=== PATIENT | male | born 1940 | race Caucasian/White ===

== ENCOUNTER → 2019-12-31 12:54 | Outpatient (BNVA) | payer MEDICARE, SELFPAY | PROVIDERS: PCP Nurse Practitioner Family; Referring Provider Nurse Practitioner Family; Visit Provider Internal Medicine Gastroenterology | DX: K21.9 Gastro-esophageal reflux disease without esophagitis (principal); K22.2 Esophageal obstruction; E11.9 Type 2 diabetes mellitus without complications; Z79.899 Other long term (current) drug therapy | CPT/HCPCS: 99212 ==

== ENCOUNTER 2020-01-09 09:40 | Outpatient (REF) | payer MEDICARE, SELFPAY ==
--- NOTE | 2020-01-09 09:49 | EMG_ITS ---
HISTORY OF PRESENT ILLNESS: This is a 79-year-old man with history of having fallen off a ladder 3 times recently with some hearing problems, who also developed shingles in the right upper extremity, in the arm and forearm about 2 months ago and since then has had severe burning, constant pain and electrical sensations in the right upper extremity, particularly the 2nd and 3rd fingers. It makes it hard for him to sleep at night and he is reaching the limits of his tolerance. He is on no medication for it. PHYSICAL EXAMINATION: On examination, he is alert and oriented with normal intellectual functions. His cranial nerves II through XII are normal. Muscle tone and strength are normal in all 4 extremities. He has well-healed alvarenga of his zoster eruption. IMPRESSION: Postherpetic neuralgia. Nerve conduction EMG study: Slow distal latencies and absent sensory potentials consistent with neuropathy in the right upper extremity. Normal EMG of the right C5-T1 innervated muscles. His symptoms are most consistent with postherpetic neuralgia than neuropathy. Clinical correlation is suggested. MD SHERLYN Rodriguez/ERMA / [id number]
== END 2020-01-09 09:41 | disposition home or self-care (01) ==
LOC: HO.NEURO 09:40
PROVIDERS: PCP Nurse Practitioner Family; Visit Provider Hospitalist
DX: M79.641 Pain in right hand (principal); B02.29 Other postherpetic nervous system involvement
CPT/HCPCS: 95860; 95886; 95910

== ENCOUNTER 2020-01-29 10:05 | Day surgery (SDC) | payer MEDICARE, SELFPAY ==
[2020-01-24 09:56] VITALS: BMI 27.4
--- NOTE | 2020-01-28 09:16 | HO.ANESPROP2 ---
Documented by User: Ely Agarwal 01/28/20 09:25 HPI - Anesthesia Eval Consult details Narrative: 79yo M for Upper Endoscopy with Balloon Dilitation Last EGD with dilation 11/16/18 with MAC [facility] Past Medical History Medical History (Updated 01/28/20 @ 09:24 by Ely Agarwal) Attention deficit disorder (ADD) Depression Diabetes Esophageal ring, acquired GERD (gastroesophageal reflux disease) History of fall from ladder Hx of bronchitis Intrinsic sphincter deficiency (ISD) Kidney disease Post herpetic neuralgia Family History Family History Father No problems noted. Mother Hx of colon cancer, stage I Brother Hx of colon cancer, stage III Surgical History Surgical History (Updated 12/31/19 @ 18:57 by Loren Rocha MD) History of back surgery History of colonoscopy History of hernia surgery History of radical prostatectomy Hx of endoscopy Social History Social History (Updated 01/24/20 @ 09:55 by Radha Bennett) Alcohol intake: never Smoking Status: Never smoker Use of substances other than those prescribed or required for medical reasons: No Advance Directives: No Advance Directives Information Provided: No Advance Directives on File: No Meds Allergies Allergy/AdvReac Type Severity Reaction Status Date / Time adhesive tape Allergy Intermediate BLISTERS Verified 01/24/20 09:37 Home Medications Medication Instructions Recorded Confirmed Type albuterol sulfate 90 mcg/actuation 2 puff INHALATION Q6H PRN 11/17/19 01/24/20 History aerosol inhaler betamethasone dipropionate 0.05 % 1 applic TOPICAL DAILY PRN 11/17/19 12/21/19 History topical cream blood sugar diagnostic #10 ea 11/17/19 12/21/19 History blood-glucose meter #1 ea 11/17/19 12/21/19 History lancets 28 gauge #100 ea 11/17/19 12/21/19 History pantoprazole 40 mg tablet,delayed 40 mg PO BID tab 11/17/19 01/24/20 History release simvastatin 40 mg tablet 40 mg PO BEDTIME 12/10/19 01/24/20 History aspirin 81 mg tablet,delayed 81 mg PO DAILY 01/02/20 01/24/20 History release cinnamon bark 500 mg capsule 1,000 mg PO DAILY 01/02/20 01/24/20 History cyanocobalamin (vitamin B-12) 1,000 mcg PO DAILY 01/02/20 01/24/20 History 1,000 mcg tablet ginkgo biloba 120 mg tablet 120 mg PO BID 01/02/20 01/24/20 History vitamins A,C,U-tubs-ehswmq 14,320 1 cap PO BID 01/02/20 01/24/20 History unit-226 mg-200 unit capsule Exam Exam Date and Time: January 28, 2020 0916 Height,Weight and Vital Signs: Height 5 ft 6 in Weight 77.111 kg Assessment and Plan Assessment Anesthesia Assessment: Chart Reviewed Documented by User: Florinda Mejias 01/29/20 10:38 [facility] Past Medical History Medical History (Updated 01/28/20 @ 09:24 by Ely Agarwal) Attention deficit disorder (ADD) Depression Diabetes Esophageal ring, acquired GERD (gastroesophageal reflux disease) History of fall from ladder Hx of bronchitis Intrinsic sphincter deficiency (ISD) Kidney disease Post herpetic neuralgia Family History Family History Father No problems noted. Mother Hx of colon cancer, stage I Brother Hx of colon cancer, stage III Surgical History Surgical History (Updated 12/31/19 @ 18:57 by Loren Rocha MD) History of back surgery History of colonoscopy History of hernia surgery History of radical prostatectomy Hx of endoscopy Social History Social History (Updated 01/24/20 @ 09:55 by Radha Bennett) Alcohol intake: never Smoking Status: Never smoker Use of substances other than those prescribed or required for medical reasons: No Advance Directives: No Advance Directives Information Provided: No Advance Directives on File: No Meds Allergies Allergy/AdvReac Type Severity Reaction Status Date / Time adhesive tape Allergy Intermediate BLISTERS Verified 01/24/20 09:37 Home Medications Medication Instructions Recorded Confirmed Type albuterol sulfate 90 mcg/actuation 2 puff INHALATION Q6H PRN 11/17/19 01/24/20 History aerosol inhaler betamethasone dipropionate 0.05 % 1 applic TOPICAL DAILY PRN 11/17/19 12/21/19 History topical cream blood sugar diagnostic #10 ea 11/17/19 12/21/19 History blood-glucose meter #1 ea 11/17/19 12/21/19 History lancets 28 gauge #100 ea 11/17/19 12/21/19 History pantoprazole 40 mg tablet,delayed 40 mg PO BID tab 11/17/19 01/24/20 History release simvastatin 40 mg tablet 40 mg PO BEDTIME 12/10/19 01/24/20 History aspirin 81 mg tablet,delayed 81 mg PO DAILY 01/02/20 01/24/20 History release cinnamon bark 500 mg capsule 1,000 mg PO DAILY 01/02/20 01/24/20 History cyanocobalamin (vitamin B-12) 1,000 mcg PO DAILY 01/02/20 01/24/20 History 1,000 mcg tablet ginkgo biloba 120 mg tablet 120 mg PO BID 01/02/20 01/24/20 History vitamins A,C,Q-ljlm-ggwmfv 14,320 1 cap PO BID 01/02/20 01/24/20 History unit-226 mg-200 unit capsule Exam Airway Mallampati Class: II TM Dist: >3cm Neck ROM: Full Denture: Upper Heart: RRR Lungs: CTA BL Assessment and Plan Assessment Anesthesia Assessment: Anesthesia Plan Discussed and Chart Reviewed Final Anesthetic Review NPO: Yes (Sip water with meds) ASA Class: III Final Preanesthetic Review: No Changes in Pt Med Stat and Consent Obtained/Reviewed Patient Risk: Intermediate Procedure Risk: Intermediate Anesthetic Plan Anesthetic Plan: MAC: Disposition: Standard PACU
--- NOTE | 2020-01-29 10:43 | MHC.SHP ---
Pre-Procedural Eval Section A The patient is an INPATIENT: No Changes since office visit: No Cold of Flu in the past 2 weeks, No New Medical Problems and No Changes in Medication The History & Physical has been completed within 30 days and I have reviewed it.: Yes Section B Chief Complaint: esophageal obstruction Allergies: Allergies Allergy/AdvReac Type Severity Reaction Status Date / Time adhesive tape Allergy Intermediate BLISTERS Verified 01/24/20 09:37 Plan Diagnosis/Plan: Unchanged Patient has been examined and remains a candidate for the planned procedure--yes
[2020-01-29 10:51] VITALS: BP 149/79; PULSE 78; RESP 18; TEMP 36.6; O2SAT 97; BMI 27.4
[2020-01-29 11:05] LABS: Glucose, Whole Blood 219 mg/dL (60-115)
[2020-01-29 11:28] VITALS: BP 119/65; PULSE 77; RESP 14; TEMP 36.3; O2SAT 96
--- NOTE | 2020-01-29 11:35 | PM.OP ---
Brief Operative Note Date of Service: 01/29/20 Pre-op diagnosis: Dysphagia, hx of esophageal rings, diarrhea Post-op diagnosis: other (Esophageal rings, Hiatal hernia, gastrtitis) Procedure: EGD with bx, dilation CRE-19mm Implants: none Surgeon: Loren Rocha MD Anesthesia: MAC (Dicampli) Estimated blood loss (mL): 10 Pathology: other (Duodenal, gastric) Condition: stable Disposition: PACU
[2020-01-29 11:43] VITALS: BP 120/73; PULSE 69; RESP 16; O2SAT 96
[2020-01-29 11:56] VITALS: BP 125/74; PULSE 70; RESP 13; TEMP 36.3; O2SAT 96
--- NOTE | 2020-01-29 16:04 | HO.POSTANES ---
Post Anesthesia Evaluation Post Anesthesia Evaluation Vital Signs: Vital Signs Temp Pulse Resp BP Pulse Ox 01/29/20 11:56 97.4 F 70 13 125/74 96 01/29/20 11:43 69 16 120/73 96 01/29/20 11:28 97.4 F 77 14 119/65 96 01/29/20 10:51 97.9 F 78 18 149/79 H 97 Anesthesia: Monitored Mental Status: Awake Pain Control: Satisfactory Nausea/Vomiting: None Hydration: Adequate Anesthesia-Related Issues: No Anes. Related Issues
--- NOTE | 2020-02-01 12:42 | OP_ITS ---
SURGEON: Loren Rocha MD PROCEDURE PERFORMED: EGD with dilation, CRE balloon 19 mm at 2 levels in the esophagus and the region of the restrictive rings. Biopsies, duodenal and gastric. ESTIMATED BLOOD LOSS: Less than 10 cc mL. COMPLICATIONS: No complications. ANESTHESIA: Monitored. ASSISTANTS: No assistant customer service manager. SPECIMENS: Specimens removed; duodenal biopsies, gastric biopsy. PREOPERATIVE DIAGNOSES: The patient is a very pleasant 79-year-old male, who has a known history of esophageal rings. He has intermittent problems with dysphagia. He feels his dysphagia has increased over the last few months. He presented for discussion on repeat dilation. He also had noted some increase in his heartburn symptoms. POSTOPERATIVE DIAGNOSES: Multiple esophageal rings with superficial scarring in areas, dilation done at 2 levels, hiatal hernia, hemorrhagic gastritis. STRAP MACHINE OPERATOR: Dr. Rocha. CONDITION: Postop, stable. FINDINGS: Video endoscope was introduced without difficulty. It was navigated into the esophagus as predicted. There were multiple esophageal rings present from the proximal esophagus to the region of the distal. There was no clear restrictive ring nor was there a restrictive Schatzki's ring. There was distal to the GE junction, a small hiatal hernia. On entering the stomach, there were areas of patchy hemorrhagic gastritis, particularly in the body, erythema in the antrum. Duodenal bulb and duodenum showed the villi to be slightly shortened. No ulcerations or erosions were appreciated. PLAN AND CURRENT RECOMMENDATIONS: Medication therapy will continue as is for current time. He will be scheduled for a followup Televisit if he has not already had one scheduled. GRAFT OR IMPLANTS: No grafts or implants. Loren Rocha MD MEN/MODL / [id number] JOSE LUIS
== END 2020-01-29 12:51 | disposition home or self-care (01) ==
PROVIDERS: PCP Nurse Practitioner Family; Visit Provider Internal Medicine Gastroenterology
PROC: (CPT 43249; principal; 2020-01-29 11:20)
DX: K22.2 Esophageal obstruction (principal); K29.71 Gastritis, unspecified, with bleeding; K44.9 Diaphragmatic hernia without obstruction or gangrene; E11.9 Type 2 diabetes mellitus without complications; Z79.4 Long term (current) use of insulin
CPT/HCPCS: 43249; 43239; 82947; 88305; 88342; C1726

== ENCOUNTER → 2020-02-11 12:57 | Outpatient (BNVA) | payer MEDICARE, SELFPAY | PROVIDERS: PCP Nurse Practitioner Family; Visit Provider Nurse Practitioner Family | DX: M54.81 Occipital neuralgia (principal); B02.29 Other postherpetic nervous system involvement | CPT/HCPCS: 99202 ==

== ENCOUNTER 2020-03-11 08:43 | Outpatient (REF) | payer MEDICARE, SELFPAY ==
--- NOTE | 2020-03-11 09:02 | MR_ITS ---
EXAMINATION: MR CERVICAL SPINE WITHOUT CONTRAST CLINICAL INFORMATION: Occipital neuralgia. Right hand numbness. COMPARISON: MRI dated 09/09/2016. TECHNIQUE: MRI of the cervical spine was obtained using routine sequences without contrast. FINDINGS: VERTEBRAL BODIES AND PARASPINAL SOFT TISSUES: There is significant multilevel disc space narrowing with endplate spurring and degenerative disc bulges throughout the cervical spine. Mild posterior subluxations again evident at the C3-C4 and C4-C5 levels with a stable mild anterolisthesis at the C7-T1 level. Mixed chronic and mild edematous endplate changes visible from the C3 through the C7 levels. The paraspinal soft tissues are unremarkable. The imaged lung apices are grossly clear. CERVICOMEDULLARY JUNCTION AND VISUALIZED POSTERIOR FOSSA: The craniovertebral junction and imaged portions of the brain parenchyma appear normal. No cord signal abnormality or syrinx is seen. SPINAL LEVELS: C2-C3: Very mild posterior annular bulge. No central canal stenosis. Mild right-sided foraminal narrowing, similar to prior imaging. C3-C4: Severe loss of disc height with a broad-based disc-osteophyte complex and hypertrophic facet arthropathy resulting in moderate central canal stenosis and mild ventral cord deformity. Significant bilateral foraminal encroachment. Findings have worsened since the prior study. C4-C5: Retrosubluxation and disc-osteophyte complex with severe central canal stenosis in part related to thickening of the ligamentum flavum and facet arthropathy. Significant bilateral foraminal narrowing as well. Degree of central canal stenosis is slightly worsened compared to the previous study. C5-C6: Broad-based disc osteophyte complex with posterior ligamentous thickening and facet arthropathy resulting in moderate central canal stenosis, similar to prior imaging. Severe bilateral foraminal encroachment. C6-C7: Posterior disc bulge and endplate spurring with thickening of ligamentum flavum and facet arthropathy resulting in worsened mild cord deformity and moderate central canal stenosis. Severe bilateral foraminal narrowing, worse on the left side. C7-T1: Mild anterolisthesis and unroofing of disc with severe facet degeneration. Significant foraminal encroachment is similar to prior imaging. Mild central canal stenosis. MR/MR cervical spine wo con IMPRESSION: Significant multilevel cervical spondylosis with worsened degenerative changes at various levels. Worsened moderate central canal stenosis with mild ventral cord deformity at the C3-C4 level. Severe foraminal narrowing. Severe central canal stenosis and spondylitic changes with significant foraminal encroachment at C4-C5, worsened since the previous exam. Stable moderate central canal stenosis and severe foraminal encroachment at the C5-C6 level. Worsened mild cord deformity and moderate central canal stenosis due to spondylosis at the C6-C7 level. Significant foraminal encroachment.
== END 2020-03-11 08:44 | disposition home or self-care (01) ==
LOC: HO.MRI 08:43
PROVIDERS: Visit Provider Anesthesiology
DX: M54.81 Occipital neuralgia (principal)
CPT/HCPCS: 72141

== ENCOUNTER → 2020-03-25 13:32 | Outpatient (BNVA) | payer MEDICARE, SELFPAY | PROVIDERS: PCP Nurse Practitioner Family; Visit Provider Nurse Practitioner Family | DX: M50.30 Other cervical disc degeneration, unspecified cervical region (principal); M54.12 Radiculopathy, cervical region | CPT/HCPCS: 99212 ==

== ENCOUNTER → 2020-06-18 09:53 | Outpatient (BNVA) | payer MEDICARE, SELFPAY | PROVIDERS: PCP Nurse Practitioner Family; Visit Provider Dietitian, Registered | DX: E11.9 Type 2 diabetes mellitus without complications (principal) | CPT/HCPCS: 97802 ==

== ENCOUNTER 2020-08-20 14:43 | Outpatient (REF) | payer MEDICARE, SELFPAY ==
--- NOTE | ~2020-08-20 | XR_ITS ---
EXAMINATION: CHEST AND RIGHT RIB X-RAYS AND RIGHT HIP X-RAY CLINICAL INFORMATION: Pain COMPARISON: Previous right hip x-ray November 2017 previous chest x-ray April 2017 TECHNIQUE: One view of the chest and 3 views of the right ribs 2 views of the right hip FINDINGS: Chest and right RIBS: The cardiac and mediastinal contours are normal. The lungs are clear. There is no pleural effusion or pneumothorax. There are degenerative changes of the spine. There are fractures of the 10th and 11th ribs. Right hip: Bone alignment is normal. No fracture or dislocation is seen. The hip joint is normal. There is soft tissue arterial calcification. XR/XR ribs RT min 3V w CXR1V IMPRESSION: Chest and right RIBS: Right 10th and 11th rib fractures. Right hip: Unremarkable exam.
--- NOTE | ~2020-08-20 | XR_ITS ---
EXAMINATION: CHEST AND RIGHT RIB X-RAYS AND RIGHT HIP X-RAY CLINICAL INFORMATION: Pain COMPARISON: Previous right hip x-ray November 2017 previous chest x-ray April 2017 TECHNIQUE: One view of the chest and 3 views of the right ribs 2 views of the right hip FINDINGS: Chest and right RIBS: The cardiac and mediastinal contours are normal. The lungs are clear. There is no pleural effusion or pneumothorax. There are degenerative changes of the spine. There are fractures of the 10th and 11th ribs. Right hip: Bone alignment is normal. No fracture or dislocation is seen. The hip joint is normal. There is soft tissue arterial calcification. XR/XR hip RT min 2V IMPRESSION: Chest and right RIBS: Right 10th and 11th rib fractures. Right hip: Unremarkable exam.
== END 2020-08-20 14:44 | disposition home or self-care (01) ==
LOC: HO.HMGCX 14:43
PROVIDERS: PCP Nurse Practitioner Family; Visit Provider Nurse Practitioner Family
DX: R07.81 Pleurodynia (principal); M25.551 Pain in right hip; R10.9 Unspecified abdominal pain; Z91.81 History of falling
CPT/HCPCS: 71101; 73502

== ENCOUNTER 2020-09-10 11:39 | Outpatient (REF) | payer MEDICARE, SELFPAY ==
--- NOTE | ~2020-09-10 | US_ITS ---
EXAMINATION: ULTRASOUND EXTREMITY NONVASCULAR. CLINICAL INFORMATION: Right upper extremity bulging and attenuation. COMPARISON: None TECHNIQUE: Limited imaging ultrasound. Biceps area. On that medication. FINDINGS: On limited ultrasound imaging of the right upper arm reveals no visible mass, fluid collection or mass effect. The soft tissues are unremarkable. US/US extremity nonvascular IMPRESSION: Unremarkable targeted right upper extremity ultrasound.
--- NOTE | ~2020-09-10 | XR_ITS ---
EXAMINATION: XR CHEST CLINICAL INFORMATION: R06.2 - Wheezing COMPARISON: Chest radiographs 08/20/2020, 04/15/2017 TECHNIQUE: 2 views of the chest were obtained. FINDINGS: The lungs are clear. There is no hyperinflation, airspace consolidation, groundglass opacity, or effusion. The heart is normal in size. The costophrenic sulci are well-defined. The hilar and mediastinal contours are normal. No acute bony abnormality. There are degenerative changes again seen thoracic spine. XR/XR chest 2V IMPRESSION: Unremarkable examination.
== END 2020-09-10 11:40 | disposition home or self-care (01) ==
LOC: HO.US 11:39
PROVIDERS: PCP Nurse Practitioner Family; Visit Provider Nurse Practitioner Family
DX: R06.2 Wheezing (principal); R22.31 Localized swelling, mass and lump, right upper limb
CPT/HCPCS: 71046; 76882

== ENCOUNTER 2020-10-30 12:55 | Day surgery (SDC) | payer MEDICARE, SELFPAY ==
[2020-10-27 16:25] VITALS: BMI 29.0
--- NOTE | 2020-10-29 14:08 | HO.ANESPROP2 ---
Documented by User: Ely Agarwal NP 10/29/20 14:09 HPI - Anesthesia Eval Consult details Narrative: 80yo M for Upper Endoscopy with Balloon Dilitation s/p same 01/2020 with MAC [facility] Active Problems Active Problems: All Active Problems (Updated 10/28/20 @ 10:44 by Sergei Burt [facility]) HTN (hypertension) (Acute) Depression, major, recurrent (Acute) Left arm numbness (Acute) Right arm numbness (Acute) Wheezing (Acute) Localized swelling of right upper extremity (Acute) History of cervical spinal surgery (Acute) Rib fractures (Acute) Rib pain on right side (Acute) Hip pain (Acute) Flank pain (Acute) Fall (Acute) Degenerative disc disease, cervical (Acute) Cervical radiculopathy (Acute) Occipital neuralgia (Acute) Right hand pain (Acute) Esophageal ring, acquired (Acute) GERD (gastroesophageal reflux disease) (Acute) Depression (Acute) Kidney disease (Acute) Post herpetic neuralgia (Acute) Diabetes (Acute) Past Medical History Medical History (Updated 10/28/20 @ 10:44 by Sergei Burt [facility]) Attention deficit disorder (ADD) Depression Diabetes Esophageal ring, acquired GERD (gastroesophageal reflux disease) History of fall from ladder Hx of bronchitis Intrinsic sphincter deficiency (ISD) Kidney disease Post herpetic neuralgia Family History Family History Father No problems noted. Mother Hx of colon cancer, stage I Substance use disorder Brother Hx of colon cancer, stage III Family/Other Substance use disorder Surgical History Surgical History History of back surgery History of cervical spinal surgery History of colonoscopy History of hernia surgery History of radical prostatectomy Hx of endoscopy Social History Social History Housing: House Alcohol intake: never Patient Tobacco Use Status: Never used Tobacco Second Hand Smoke Exposure: No Are you DNR?: No Advance Directives: No Advance Directives Information Provided: No Current occupational status: retired Meds Allergies Allergy/AdvReac Type Severity Reaction Status Date / Time adhesive tape Allergy Intermediate BLISTERS Verified 10/28/20 09:25 Home Medications Medication Instructions Recorded Confirmed Last Taken Type albuterol sulfate 90 mcg/actuation 2 puff INHALATION Q6H PRN 11/17/19 10/27/20 Unknown History aerosol inhaler (ProAir HFA) blood-glucose meter (FreeStyle #1 ea 11/17/19 10/27/20 Unknown History Lite Meter) aspirin 81 mg tablet,delayed 81 mg PO DAILY 01/02/20 10/27/20 Unknown History release cinnamon bark 500 mg capsule 1,000 mg PO DAILY 01/02/20 10/27/20 Unknown History (Cinnamon) cyanocobalamin (vitamin B-12) 1,000 mcg PO DAILY 01/02/20 10/27/20 Unknown History 1,000 mcg tablet ginkgo biloba 120 mg tablet 120 mg PO BID 01/02/20 10/27/20 Unknown History Exam Exam Date and Time: October 29, 2020 1408 Height,Weight and Vital Signs: Height 5 ft 6 in Weight 81.647 kg Assessment and Plan Assessment Anesthesia Assessment: Chart Reviewed Documented by User: Heather Reynolds MD 10/30/20 13:41 [facility] Past Medical History Medical History (Updated 10/28/20 @ 10:44 by CRISTINA Strong) Attention deficit disorder (ADD) Depression Diabetes Esophageal ring, acquired GERD (gastroesophageal reflux disease) History of fall from ladder Hx of bronchitis Intrinsic sphincter deficiency (ISD) Kidney disease Post herpetic neuralgia Functional capacity: independent ambulation Family History Family History Father No problems noted. Mother Hx of colon cancer, stage I Substance use disorder Brother Hx of colon cancer, stage III Family/Other Substance use disorder Family history of problems with anesthesia: No Surgical History Surgical History History of back surgery History of cervical spinal surgery History of colonoscopy History of hernia surgery History of radical prostatectomy Hx of endoscopy Social History Social History Housing: House Alcohol intake: never Patient Tobacco Use Status: Never used Tobacco Second Hand Smoke Exposure: No Are you DNR?: No Advance Directives: No Advance Directives Information Provided: No Current occupational status: retired Meds Allergies Allergy/AdvReac Type Severity Reaction Status Date / Time adhesive tape Allergy Intermediate BLISTERS Verified 10/28/20 09:25 Home Medications Medication Instructions Recorded Confirmed Last Taken Type albuterol sulfate 90 mcg/actuation 2 puff INHALATION Q6H PRN 11/17/19 10/27/20 Unknown History aerosol inhaler (ProAir HFA) blood-glucose meter (FreeStyle #1 ea 11/17/19 10/27/20 Unknown History Lite Meter) aspirin 81 mg tablet,delayed 81 mg PO DAILY 01/02/20 10/27/20 Unknown History release cinnamon bark 500 mg capsule 1,000 mg PO DAILY 01/02/20 10/27/20 Unknown History (Cinnamon) cyanocobalamin (vitamin B-12) 1,000 mcg PO DAILY 01/02/20 10/27/20 Unknown History 1,000 mcg tablet ginkgo biloba 120 mg tablet 120 mg PO BID 01/02/20 10/27/20 Unknown History Exam Airway Mallampati Class: II TM Dist: >3cm Neck ROM: Full Denture: Upper and Lower Heart: RRR Lungs: CTA Assessment and Plan Final Anesthetic Review Family History of Problems with Anesthesia: No
[2020-10-30] VITALS (7 sets, daily range): BP systolic 137–167; BP diastolic 61–96; PULSE 58–80; RESP 17–28; TEMP 36.2–36.4; O2SAT 95–99
[2020-10-30 13:28] LABS: Glucose, Whole Blood 142 mg/dL (60-115)
--- NOTE | 2020-10-30 13:36 | MHC.SHP ---
Pre-Procedural Eval Section A Date of Service: 10/30/20 Section B Chief Complaint: Dysphagia Relevant Family History (Specify if Yes): No Relevant Social History: None Present Medications: see Short Stay Collaborative assessment Medical History: Significant History (Attention deficit disorder (ADD) Depression Diabetes Esophageal ring, acquired GERD (gastroesophageal reflux disease) History of fall from ladder Hx of bronchitis Intrinsic sphincter deficiency (ISD) Kidney disease Post herpetic neuralgia) History of Previous Operations: Relevant previous surgery/procedure and date(s) (History of back surgery History of cervical spinal surgery History of colonoscopy History of hernia surgery History of radical prostatectomy Hx of endoscopy) Allergies: Allergies Allergy/AdvReac Type Severity Reaction Status Date / Time adhesive tape Allergy Intermediate BLISTERS Verified 10/28/20 09:25 Review of Systems Sugical H&P ROS: Negative: Constitution, Cardiovascular, Respiratory, Neurological, Psychiatric, Hem-Onc, Allergic/Immunologic, Gastrointestinal, Genitourinary, Musculoskeletal, Integumentary, Endocrine and Eyes/Ears/Nose/Throat Exam Surgical H&P Exam: Normal: HEENT, Normal: Heart, Normal: Lungs, Normal: Extremities, Normal: Abdomen, Normal: Skin and Normal: Neurological Plan Diagnosis/Plan: Unchanged I have reviewed the history and physical and performed a pertinent physical examination on my patient. No changes have occurred unless specified.
[2020-10-30] MEDS: Lactated Ringers 1,000 ML 100 ML IVCONT (13:39)
--- NOTE | 2020-10-30 15:00 | PM.OP ---
Brief Operative Note Date of Service: 10/30/20 Pre-op diagnosis: esophageal stricture Post-op diagnosis: same Procedure: see op note Surgeon: Manjula Eduardo MD Anesthesia: MAC Was an Radioactive Waste Disposal Dispatcher used for this Procedure?: No Estimated blood loss (mL): 0 Condition: stable Disposition: PACU
--- NOTE | 2020-10-30 15:01 | W.PM.OPN ---
Operative Note Operative Note Date of Service: 10/30/20 Narrative: Procedure Description: EGD FLEXIBLE TRANSORAL UPPER GASTROINTESTINAL ENDOSCOPY UPPER ENDOSCOPY Consent: Indications for the procedure and potential complications of bleeding, perforation, reaction to medications and missed diagnosis were discussed with the patient and informed consent was obtained. Instrument: Olympus GIF H 190 J mid size upper endoscope Monitoring: Vital signs and clinical assessment, continuous EKG monitoring, Pulse oximetry, Carbon Dioxide monitoring and blood pressure monitoring were done throughout the procedure. Procedure: The patient was placed in the left lateral decubitis position and pre-procedure medications were administered and a bite block was placed. The endoscope was inserted into the mouth and advanced under direct vision to the third part of duodenum. A careful inspection was made as the upper endoscope was withdrawn including a retroflexed examination of the proximal stomach; Findings and interventions are described below. Findings: Larynx:normal Esophagus: GE junction at 35 cm, diaphragm hiatus at 39 cm, 4 cm sliding hiatal hernia noted, jack erosion noted in the sac. There was a schatzki ring noted at the GEJ and this was dilated using a balloon from 18 mm to 19 and then 20 mm in sequential fashion. No resistance felt but a tear was noted at the GEJ, slightyl deeper than expected at the edges and x 2 clips applied. Stomach: Patchy gastric erythema. Grade 2 flap valve on retroflexed examination of the cardia. hiatal hernia noted. Duodenum: Normal bulb and descending duodenum, bx taken Intervention: Ballon dilation, x 2 clips applied to partially close defect Impression/Findings: hiatal hernia schatzki ring and stricture jack erosion PLAN: clears today and advance diet tomorrow magic mouthwash for 5 days, can use tylenol for pain as needed cont with PPI, might increase dose if any chest pain, fever etc come to ED [facility] but I didn;t see any perforation today
[2020-10-30] MEDS: Acetaminophen 325 MG TABLET 975 MG PO (15:50)
[2020-10-30] MEDS: Mag&Al/Sim/Diphenhyd/Lidocaine 10 ML ORAL.SUSP PO (15:51)
--- NOTE | 2020-10-30 17:22 | HO.POSTANES ---
Post Anesthesia Evaluation Post Anesthesia Evaluation Vital Signs: Vital Signs Temp Pulse Resp BP Pulse Ox 10/30/20 16:10 62 20 144/62 H 95 10/30/20 15:53 97.5 F 58 20 147/79 H 95 10/30/20 15:38 68 20 141/77 H 95 10/30/20 15:23 71 20 137/74 95 10/30/20 15:08 97.2 F 71 28 H 144/61 H 99 10/30/20 13:25 97.1 F 67 20 148/69 H 95 10/30/20 13:19 97.6 F 80 17 167/96 H 97 Anesthesia: Monitored Mental Status: Awake Pain Control: Satisfactory Nausea/Vomiting: None Hydration: Adequate Anesthesia-Related Issues: No Anes. Related Issues
== END 2020-10-30 16:45 | disposition home or self-care (01) ==
PROVIDERS: PCP Nurse Practitioner Family; Visit Provider Internal Medicine Gastroenterology
PROC: (CPT 43249; principal; 2020-10-30 14:40)
DX: K22.2 Esophageal obstruction (principal); K44.9 Diaphragmatic hernia without obstruction or gangrene; K25.9 Gastric ulcer, unspecified as acute or chronic, without hemorrhage or perforation; K21.9 Gastro-esophageal reflux disease without esophagitis; N28.9 Disorder of kidney and ureter, unspecified; B02.29 Other postherpetic nervous system involvement; E11.9 Type 2 diabetes mellitus without complications; Z79.4 Long term (current) use of insulin; Z79.899 Other long term (current) drug therapy
CPT/HCPCS: 43249; 43239; 82947; C1726

== ENCOUNTER → 2020-12-02 08:52 | Outpatient (BNVA) | payer MEDICARE, SELFPAY | PROVIDERS: PCP Nurse Practitioner Family; Referring Provider Nurse Practitioner Family; Visit Provider Internal Medicine Gastroenterology | DX: K20.90 Esophagitis, unspecified without bleeding (principal); K44.0 Diaphragmatic hernia with obstruction, without gangrene | CPT/HCPCS: 99212 ==

== ENCOUNTER 2020-12-23 08:20 | Outpatient (REF) | payer MEDICARE, SELFPAY ==
--- NOTE | ~2020-12-23 | FL_ITS ---
EXAMINATION: FL BARIUM SWALLOW CLINICAL INFORMATION: Dysphagia. COMPARISON: Previous barium swallow October 2018 TECHNIQUE: Barium swallow examination is performed using fluoroscopic evaluation in addition to multiple fluoroscopic spot views. The patient is imaged both upright and prone and using both thick and thin sulfate along with effervescent granules. Barium tablet was also administered. Follow-up PA chest x-ray was performed. Fluoroscopy time: 2.1 minutes DAP: 6.5 Gycm2 Images: 60 FINDINGS: On initial AP and lateral wall of images, no aspiration or penetration was seen. Toward the end of the exam, there is evidence of aspiration with small amount of contrast anterior wall of the trachea for example image 8,9 and 10 series 3. There is a mild stricture of the distal thoracic esophagus. There is a small fixed hiatal hernia. Esophageal motility appeared normal with the patient upright. There is abnormal esophageal motility with the patient in the HERBERT position. The barium tablet got stuck in the distal thoracic esophagus. There is mucosal irregularity of the distal thoracic esophagus in the area of stricture questionable for esophagitis. There is gastroesophageal reflux. Follow-up PA chest x-ray does not demonstrate evidence of aspiration in the lung. There is no retained oral contrast in the esophagus. The barium tablet is no longer seen in the distal esophagus. FL/FL barium swallow IMPRESSION: Minimal silent aspiration toward the end of the exam. Mild stricture of the distal thoracic esophagus similar to October 2018 exam. Small fixed hiatal hernia. Barium tablet got stuck in the distal thoracic esophagus at the stricture. Abnormal esophageal motility with the patient in the HERBERT/prone position. Gastroesophageal reflux.
== END 2020-12-23 08:21 | disposition home or self-care (01) ==
LOC: HO.XRAY 08:20
PROVIDERS: PCP Nurse Practitioner Family; Visit Provider Internal Medicine Gastroenterology
DX: R13.10 Dysphagia, unspecified (principal)
CPT/HCPCS: 74220

== ENCOUNTER 2020-12-31 08:38 | Outpatient (REF) | payer MEDICARE, SELFPAY ==
--- NOTE | 2020-12-31 08:41 | EMG_ITS ---
This is an 80-year-old man who has had lumbar disk surgery earlier in 2020 and on August 05, he had decompression of cervical neural foramina and some removal of the bone according to him and since then, he has had numbness in both hands, right more than left. He also has a 10+ year history of diabetes. PHYSICAL EXAMINATION: On examination, he is alert and oriented with normal intellectual functions. He has flattening of the thenar eminence bilaterally with some decreased sensation in both hands. IMPRESSION: Rule out cervical radiculopathy. Rule out carpal tunnel syndrome. 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 EMG of the right C5-T1 innervated muscle is consistent with mild chronic denervated changes in the intrinsic hand muscles. MD SHERLYN Rodriguez/ISACCL / [id number]
== END 2020-12-31 08:39 | disposition home or self-care (01) ==
LOC: HO.NEURO 08:38
PROVIDERS: Visit Provider Nurse Practitioner Family
DX: R20.0 Anesthesia of skin (principal)
CPT/HCPCS: 95885; 95913

== ENCOUNTER 2021-01-12 10:13 | Outpatient (REF) | payer MEDICARE, SELFPAY ==
[2021-01-12 12:04] LABS: Alanine Aminotransferase 16 U/L (0-40); Albumin Level 4.6 g/dL (3.5-5.0); Alkaline Phosphatase 55 U/L (39-117); Anion Gap 15 (12-20); Aspartate Amino Transferase 16 U/L (5-37); Bilirubin Total 0.9 mg/dL (0.0-1.0); Blood Urea Nitrogen 21 mg/dL (9-16); Calcium 9.5 mg/dL (8.4-10.2); Carbon Dioxide 24 mmol/L (22-29); Chloride 106 mmol/L (96-108); Cholesterol 159 mg/dL; Estimated Glomerular Filt Rate > 60; Glucose Fasting 104 mg/dL (60-99); HDL Cholesterol 49 mg/dL; LDL Cholesterol Calculated 80 mg/dl; Sodium 141 mmol/L (135-145); Total Protein 7.4 g/dL (6.5-8.0); Triglycerides 153 mg/dL
[2021-01-12 12:30] LABS: TSH reflex Free T4 2.18 uIU/mL (0.32-4.0)
[2021-01-12 12:36] LABS: Creatinine Urine 176.95 mg/dL; Microalbum/Creatinine Ratio Ur 183.1 ug/mg cr
[2021-01-12 12:55] LABS: Estimated Average Glucose 177 mg/dL; Hemoglobin A1c % 7.8 %
== END 2021-01-12 10:14 | disposition home or self-care (01) ==
LOC: HO.HMGCLDS 10:13
PROVIDERS: PCP Nurse Practitioner Family; Visit Provider Nurse Practitioner Family
DX: E11.9 Type 2 diabetes mellitus without complications (principal)
CPT/HCPCS: 36415; 80053; 80061; 82043; 83036; 84443

== ENCOUNTER 2021-02-04 09:50 | Day surgery (SDC) | payer MEDICARE, SELFPAY ==
[2021-01-28 11:01] VITALS: BMI 28.3
--- NOTE | 2021-02-02 14:06 | P.CONAN_ITS ---
Documented by User: Ely Agarwal NP 02/02/21 14:07 HPI - Anesthesia Eval Consult details Narrative: 80yo M for Colonoscopy and Upper Endoscopy with Balloon Dilitation s/p EGD with dilation 10/2020 with [facility] Active Problems Active Problems: All Active Problems (Updated 12/30/20 @ 10:03 by Sergei Burt, [facility]) Right hand pain (Acute) Occipital neuralgia (Acute) Cervical radiculopathy (Acute) Degenerative disc disease, cervical (Acute) Fall (Acute) Flank pain (Acute) Hip pain (Acute) Rib pain on right side (Acute) Rib fractures (Acute) Localized swelling of right upper extremity (Acute) Wheezing (Acute) Right arm numbness (Acute) Left arm numbness (Acute) Depression, major, recurrent (Acute) HTN (hypertension) (Acute) Diabetes mellitus with kidney complication (Acute) History of cervical spinal surgery (Acute) Esophageal ring, acquired (Acute) GERD (gastroesophageal reflux disease) (Acute) Depression (Acute) Kidney disease (Acute) Post herpetic neuralgia (Acute) Diabetes (Acute) Past Medical History Medical History Attention deficit disorder (ADD) Depression Diabetes Esophageal ring, acquired GERD (gastroesophageal reflux disease) History of fall from ladder Hx of bronchitis 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 Mother Hx of colon cancer, stage I Substance use disorder Brother Hx of colon cancer, stage III Family/Other Substance use disorder Family history of problems with anesthesia: No Surgical History Surgical History History of back surgery History of cervical spinal surgery History of colonoscopy History of hernia surgery History of radical prostatectomy Hx of endoscopy Social History Social History Housing: House Are you a primary medicare sales executive to a significant other at home: No Do you presently have visiting nurse or other home services: No Alcohol intake: never Patient Tobacco Use Status: Never used Tobacco Second Hand Smoke Exposure: No Use of substances other than those prescribed or required for medical reasons: No Have you been hit, kicked, punched, or otherwise hurt by someone within the past year? If so, by whom?: No Are you DNR?: No Advance Directives: No Advance Directives Information Provided: No Advance Directives on File: No Recently lost weight without trying: No Eating poorly because of decreased appetite: No Nutrition Risks: No Nutritional Risk Current occupational status: retired Meds Allergies Allergy/AdvReac Type Severity Reaction Status Date / Time adhesive tape Allergy Intermediate BLISTERS Verified 01/28/21 10:21 Home Medications Medication Instructions Recorded Confirmed Last Taken Type albuterol sulfate 90 mcg/actuation 2 puff INHALATION Q6H PRN 11/17/19 01/28/21 Unknown History aerosol inhaler (ProAir HFA) blood-glucose meter (FreeStyle #1 ea 11/17/19 12/30/20 Unknown History Lite Meter) aspirin 81 mg tablet,delayed 81 mg PO DAILY 01/02/20 01/28/21 Unknown History release cinnamon bark 500 mg capsule 1,000 mg PO DAILY 01/02/20 01/28/21 Unknown History (Cinnamon) cyanocobalamin (vitamin B-12) 1,000 mcg PO DAILY 01/02/20 01/28/21 Unknown History 1,000 mcg tablet ginkgo biloba 120 mg tablet 120 mg PO BID 01/02/20 01/28/21 Unknown History gabapentin 300 mg capsule 300 mg PO TID 12/02/20 01/28/21 Unknown History Exam Exam Date and Time: February 02, 2021 1406 Height,Weight and Vital Signs: Height 5 ft 7.5 in Weight 83.461 kg Assessment and Plan Assessment Anesthesia Assessment: Chart Reviewed Final Anesthetic Review Family History of Problems with Anesthesia: No Documented by User: Emili Jacobo MD 02/04/21 12:05 [facility] Past Medical History Medical History Attention deficit disorder (ADD) Depression Diabetes Esophageal ring, acquired GERD (gastroesophageal reflux disease) History of fall from ladder Hx of bronchitis 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 Mother Hx of colon cancer, stage I Substance use disorder Brother Hx of colon cancer, stage III Family/Other Substance use disorder Surgical History Surgical History History of back surgery History of cervical spinal surgery History of colonoscopy History of hernia surgery History of radical prostatectomy Hx of endoscopy History of Problems with Anesthesia: No Social History Social History Housing: House Are you a primary medicare sales executive to a significant other at home: No Do you presently have visiting nurse or other home services: No Alcohol intake: never Patient Tobacco Use Status: Never used Tobacco Second Hand Smoke Exposure: No Use of substances other than those prescribed or required for medical reasons: No Have you been hit, kicked, punched, or otherwise hurt by someone within the past year? If so, by whom?: No Are you DNR?: No Advance Directives: No Advance Directives Information Provided: No Advance Directives on File: No Recently lost weight without trying: No Eating poorly because of decreased appetite: No Nutrition Risks: No Nutritional Risk Current occupational status: retired [employer] Allergies Allergy/AdvReac Type Severity Reaction Status Date / Time adhesive tape Allergy Intermediate BLISTERS Verified 01/28/21 10:21 Home Medications Medication Instructions Recorded Confirmed Last Taken Type albuterol sulfate 90 mcg/actuation 2 puff INHALATION Q6H PRN 11/17/19 01/28/21 Unknown History aerosol inhaler (ProAir HFA) blood-glucose meter (FreeStyle #1 ea 11/17/19 12/30/20 Unknown History Lite Meter) aspirin 81 mg tablet,delayed 81 mg PO DAILY 01/02/20 01/28/21 Unknown History release cinnamon bark 500 mg capsule 1,000 mg PO DAILY 01/02/20 01/28/21 Unknown History (Cinnamon) cyanocobalamin (vitamin B-12) 1,000 mcg PO DAILY 01/02/20 01/28/21 Unknown History 1,000 mcg tablet ginkgo biloba 120 mg tablet 120 mg PO BID 01/02/20 01/28/21 Unknown History gabapentin 300 mg capsule 300 mg PO TID 12/02/20 01/28/21 Unknown History Exam Height,Weight and Vital Signs: m Height 5 ft 7.5 in Weight 83.461 kg Airway Mallampati Class: II TM Dist: >3cm Neck ROM: Full Denture: Upper Loose/Missing/Broken Teeth: Yes, Upper and Lower Lungs: RRR Other: CTA Assessment and Plan Assessment Anesthesia Assessment: Anesthesia Plan Discussed and Chart Reviewed Final Anesthetic Review History of Problems with Anesthesia: No NPO: Yes ASA Class: III Final Preanesthetic Review: Meds/Allgs Chart Reviewed, Consent Obtained/Reviewed and Anes Risks/Benef Reviewed Patient Risk: Intermediate Procedure Risk: Intermediate Anesthetic Plan Anesthetic Plan: MAC: Disposition: Standard PACU
--- NOTE | 2021-02-04 10:12 | MHC.SHP ---
Pre-Procedural Eval Section A Date of Service: 02/04/21 Section B Chief Complaint: Screening, Dysphagia Details of Present Illness: abn ba swallow with stricture at distal esophagus Relevant Family History (Specify if Yes): No Relevant Social History: None Present Medications: see Short Stay Collaborative assessment Medical History: Significant History (Attention deficit disorder (ADD) Depression Diabetes Esophageal ring, acquired GERD (gastroesophageal reflux disease) History of fall from ladder Hx of bronchitis Intrinsic sphincter deficiency (ISD) Kidney disease Post herpetic neuralgia) History of Previous Operations: Relevant previous surgery/procedure and date(s) (History of back surgery History of cervical spinal surgery History of colonoscopy History of hernia surgery History of radical prostatectomy Hx of endoscopy) Allergies: Allergies Allergy/AdvReac Type Severity Reaction Status Date / Time adhesive tape Allergy Intermediate BLISTERS Verified 01/28/21 10:21 Review of Systems Sugical H&P ROS: Negative: Constitution, Cardiovascular, Respiratory, Neurological, Psychiatric, Hem-Onc, Allergic/Immunologic, Gastrointestinal, Genitourinary, Musculoskeletal, Integumentary, Endocrine and Eyes/Ears/Nose/Throat Exam Surgical H&P Exam: Normal: HEENT, Normal: Heart, Normal: Lungs, Normal: Extremities, Normal: Abdomen, Normal: Skin and Normal: Neurological Plan Diagnosis/Plan: Unchanged I have reviewed the history and physical and performed a pertinent physical examination on my patient. No changes have occurred unless specified.
[2021-02-04] MEDS: Albuterol/Iprat 2.5/0.5MG 3 ML AMPUL.NEB INHALE (10:38)
[2021-02-04 10:39] VITALS: PULSE 90; RESP 20; O2SAT 97
[2021-02-04 10:43] LABS: Glucose, Whole Blood 105 mg/dL (60-115)
[2021-02-04 10:53] VITALS: BP 116/60; PULSE 90; RESP 18; O2SAT 98
--- NOTE | 2021-02-04 11:14 | P.OP_ITS ---
Operative Note Operative Note Date of Service: 02/04/21 Narrative: Operative Information Procedure Description: EGD, Colonoscopy FLEXIBLE TRANSORAL UPPER GASTROINTESTINAL ENDOSCOPY AND COLONOSCOPY PROCEDURE NOTE UPPER ENDOSCOPY Consent: Indications for the procedure and potential complications of bleeding, perforation, reaction to medications and missed diagnosis were discussed with the patient and informed consent was obtained. Instrument: Olympus GIF H 190 J mid size upper endoscope Monitoring: Vital signs and clinical assessment, continuous EKG monitoring, Pulse oximetry, Carbon Dioxide monitoring and blood pressure monitoring were done throughout the procedure. Procedure: The patient was placed in the left lateral decubitis position and pre-procedure medications were administered and a bite block was placed. The endoscope was inserted into the mouth and advanced under direct vision to the third part of duodenum. A careful inspection was made as the upper endoscope was withdrawn including a retroflexed examination of the proximal stomach; Findings and interventions are described below. Findings: Larynx:normal Esophagus: GE junction at 35? cm, diaphragm hiatus at 39 cm, 4 cm sliding hiatal hernia noted, linear erythema streaks noted in the sac. There was a schatzki ring noted at the GEJ and this was dilated using a balloon from 18 mm to 19 mm in sequential fashion with small tear noted. a clip from prior procedure was noted and removed, with cautery applied for hemostasis. The proximal esophagus was also stretched to 19 mm. Stomach: Patchy gastric erythema. Grade 2 flap valve on retroflexed examination of the cardia. hiatal hernia noted. Duodenum: prominent brunners glands with erythema, bx taken Intervention: Biopsies as noted above, balloon dilation, removal of clip from prior procedure COLONOSCOPY Instrument: Olympus variable stiffness pediatric scope 190L Colonoscopy Monitoring: Vital signs and clinical assessment, continuous EKG monitoring, Pulse oximetry, Carbon Dioxide monitoring and blood pressure monitoring were done throughout the procedure. Colon withdrawal time was 17 minutes. Procedure: The patient was placed in the left lateral decubitis position and pre-procedure medications were administered. After a digital rectal examination of the ano-rectum, the video colonoscope was inserted into the rectum and advanced through the colon to the cecum/TI. The colonoscope was slowly withdrawn in a retrograde panoramic fashion and the colon mucosa was carefully examined including a retroflexed view of the rectum. Findings and interventions are described below. Procedure Difficulty: Findings: Terminal Ileum-normal Junior diverticulosis worse on left side with wide mouthed tics noted. Cecum: 4-6 mm sessile polyp removed with forceps Ascending Colon: normal Transverse Colon -normal Descending Colon:normal Sigmoid Colon: 13-14 mm semi pedunculated polyp removed with cold snare Rectum: Retroflexion with medium sized internal hemorrhoids, grade I Anorectum - normal Colon preparation: [place] Bowel Preparation Scale Right colon; 2 Transverse colon: 2 Left colon; 2 (0 = Unprepared colon segment with mucosa not seen due to solid stool that cannot be cleared. 1 = Portion of mucosa of the colon segment seen, but other areas of the colon segment not well seen due to staining, residual stool and/or opaque liquid. 2 = Minor amount of residual staining, small fragments of stool and/or opaque liquid, but mucosa of colon segment seen well. 3 = Entire mucosa of colon segment seen well with no residual staining, small fragments of stool or opaque liquid) Impression and Post Procedure Diagnosis: Endoscopy Findings: hiatal hernia esophageal rings and stricture duodenitis retained clip Colonoscopy Findings: polyps internal hemorrhoids diverticular disease Plan: Await Pathology results Repeat Colonoscopy in 3-5 years if health allows or earlier if clinically indicated High fiber diet leaflet avoid straining at stool, epsom salts and sitz bath, anusol supps or cream repeat EGD as needed, soft diet today and advance tomorrow Above findings were reviewed with the patient and relevant handouts were provided if indicated.
--- NOTE | 2021-02-04 11:14 | PM.OP ---
Brief Operative Note Date of Service: 02/04/21 Pre-op diagnosis: dysphagia, colonoscopy Post-op diagnosis: same Procedure: see op note Surgeon: Manjula Eduardo MD Anesthesia: MAC Was an Spooling Machine Operator used for this Procedure?: No Estimated blood loss (mL): 0 Condition: stable Disposition: PACU
[2021-02-04] MEDS: Lactated Ringers 1,000 ML 100 ML IVCONT (11:23)
[2021-02-04 12:30] VITALS: BP 121/69; PULSE 75; RESP 16; TEMP 36.3; O2SAT 97
[2021-02-04 12:45] VITALS: BP 119/66; PULSE 78; RESP 16; O2SAT 95
[2021-02-04 13:03] VITALS: BP 131/66; PULSE 76; RESP 16; TEMP 36.3; O2SAT 96
== END 2021-02-04 13:42 | disposition home or self-care (01) ==
PROVIDERS: PCP Nurse Practitioner Family; Visit Provider Internal Medicine Gastroenterology
PROC: 0DJD8ZZ Inspection of Lower Intestinal Tract, Via Natural or Artificial Opening Endoscopic (ICD-10-PCS; CPT 45378; principal; 2021-02-04 11:00)
PROC: (CPT 45385; 2021-02-04 11:00)
DX: Z12.11 Encounter for screening for malignant neoplasm of colon (principal); D12.5 Benign neoplasm of sigmoid colon; K63.5 Polyp of colon; K57.30 Diverticulosis of large intestine without perforation or abscess without bleeding; K64.0 First degree hemorrhoids; K22.2 Esophageal obstruction; R13.10 Dysphagia, unspecified; K29.80 Duodenitis without bleeding; K31.89 Other diseases of stomach and duodenum; K44.9 Diaphragmatic hernia without obstruction or gangrene; K21.9 Gastro-esophageal reflux disease without esophagitis; E11.9 Type 2 diabetes mellitus without complications
CPT/HCPCS: 45385; 45380; 43249; 43239; 82947; 88305; 94640; C1726

== ENCOUNTER → 2021-03-06 11:03 | Outpatient (BNVA) | payer MEDICARE, SELFPAY | PROVIDERS: PCP Nurse Practitioner Family; Referring Provider Nurse Practitioner Family; Visit Provider Internal Medicine Gastroenterology | DX: K44.9 Diaphragmatic hernia without obstruction or gangrene (principal) | CPT/HCPCS: 99212 ==

== ENCOUNTER → 2021-03-27 09:11 | Outpatient (BNVA) | payer MEDICARE, SELFPAY | PROVIDERS: PCP Nurse Practitioner Family; Visit Provider Surgery | DX: K44.0 Diaphragmatic hernia with obstruction, without gangrene (principal); K21.9 Gastro-esophageal reflux disease without esophagitis; Z79.899 Other long term (current) drug therapy | CPT/HCPCS: 99212 ==

== ENCOUNTER 2021-04-09 10:46 | Outpatient (REF) | payer MEDICARE, SELFPAY ==
--- NOTE | ~2021-04-09 | CT_ITS ---
EXAMINATION: CT CHEST WITHOUT CONTRAST CLINICAL INFORMATION: Diaphragmatic hernia with obstruction without gangrene. COMPARISON: Previous chest x-ray August 2020 and barium swallow December 2020 TECHNIQUE: Multidetector volumetric CT imaging of the chest was done. Axial MIP volume rendering provided. Sagittal and coronal reformatted images were obtained. This CT examination was performed using dose optimization techniques as appropriate, variously including the following: *Automated exposure control *Adjustment of mA and/or kV according to patient size (this includes techniques or standardized protocols for targeted exams where dose is matched to indication/reason for exam; i.e. extremities or head) *Use of iterative reconstruction technique DLP: 179 mGy-cm FINDINGS: VC++ DEVELOPER: LUNGS: There is scarring or atelectasis in the medial right lower lobe adjacent to vertebral body bony osteophytes. The lungs are otherwise clear. MEDIASTINUM: There is coronary artery calcification. There is question of mild wall thickening of the thoracic esophagus. The mediastinum is otherwise normal. PLEURA: There is no pleural effusion. No pleural mass or thickening. No diaphragmatic hernia is seen. AXILLA: No lymphadenopathy. UPPER ABDOMEN: There is diverticulosis of the colon. There is fatty infiltration of the head of the pancreas. OSSEOUS STRUCTURES: There are degenerative changes of the spine. Old right posterior 10th rib fracture. CT/CT chest wo con IMPRESSION: No diaphragmatic hernia is seen. Question wall thickening of the thoracic esophagus. Coronary artery calcification. Fleischner guidelines were followed.
== END 2021-04-09 10:47 | disposition home or self-care (01) ==
LOC: HO.CT 10:46
PROVIDERS: PCP Nurse Practitioner Family; Visit Provider Surgery
DX: K44.0 Diaphragmatic hernia with obstruction, without gangrene (principal)
CPT/HCPCS: 71250

== ENCOUNTER 2021-05-12 14:16 | Outpatient (REF) | payer MEDICARE, SELFPAY ==
[2021-05-12 16:54] LABS: MANUAL DIFF FLAG NO
[2021-05-12 17:00] LABS: Basophils Percent Auto 0.2 % (0-2); Eosinophils Absolute Auto 0.1 X10*3/uL (0.0-0.4); Eosinophils Percent Auto 1.3 % (0-4); Hematocrit 41.8 % (42.0-52.0); Hemoglobin 13.6 g/dl (14.0-18.0); Imm Gran Abs Auto 0.02 X10*3/uL (0.00-0.03); Imm Gran Pct Auto 0.2 % (0.0-0.4); Lymphocytes Absolute Auto 2.4 X10*3/uL (1.2-4.9); Lymphocytes Percent Auto 29.1 % (20-40); Mean Corpuscular HGB Conc 32.5 g/dl (31.0-36.0); Mean Corpuscular Hemoglobin 29.6 pg (27.0-33.0); Mean Corpuscular Volume 91.1 fL (80.0-98.0); Mean Platelet Volume 10.3 fL (9.4-12.4); Monocytes Absolute Auto 0.8 X10*3/uL (0.1-1.2); Monocytes Percent Auto 9.3 % (2-11); Neutrophils Absolute Auto 4.9 x10*3/uL (2.0-8.3); Neutrophils Percent Auto 59.9 % (45-73); Platelet Count 351 X10*3/uL (160-400); Red Blood Count 4.59 X10*6/uL (4.60-5.80); Red Cell Distribution Width 13.4 % (11.0-16.0); White Blood Count 8.3 X10*3/uL (4.8-10.8)
[2021-05-12 17:04] LABS: Appearance Urine CLEAR; Color Urine YELLOW; Glucose Urine UA 100 MG/DL (NEG); Leukocyte Esterase Urine NEG (NEG); Nitrite Urine NEG (NEG); Specific Gravity - Urine >= 1.030 (1.005-1.025); UACC Culture Trigger NO; Urine Blood NEG (NEG); Urine Ketones 5 MG/DL (NEG); Urine Protein 2+ MG/DL (NEG-TRACE)
[2021-05-12 17:12] LABS: Alanine Aminotransferase 18 U/L (0-40); Albumin Level 4.9 g/dL (3.5-5.0); Alkaline Phosphatase 56 U/L (39-117); Anion Gap 16 (12-20); Aspartate Amino Transferase 16 U/L (5-37); Bilirubin Total 0.8 mg/dL (0.0-1.0); Blood Urea Nitrogen 16 mg/dL (9-16); Carbon Dioxide 28 mmol/L (22-29); Chloride 102 mmol/L (96-108); Cholesterol 153 mg/dL; Estimated Glomerular Filt Rate 56; Glucose Fasting 163 mg/dL (60-99); HDL Cholesterol 50 mg/dL; LDL Cholesterol Calculated 71 mg/dl; Potassium 4.7 mmol/L (3.3-5.1); Sodium 141 mmol/L (135-145); Total Protein 7.9 g/dL (6.5-8.0); Triglycerides 163 mg/dL
[2021-05-12 17:31] LABS: RBC Urine 0-2 /HPF (0); Squamous Epithelial Cell Urine TRACE /LPF; WBC Urine 0-2 /HPF (0-4)
[2021-05-12 17:34] LABS: TSH reflex Free T4 1.94 uIU/mL (0.32-4.0)
[2021-05-13 06:29] LABS: Estimated Average Glucose 166 mg/dL; Hemoglobin A1c % 7.4 %
== END 2021-05-12 14:17 | disposition home or self-care (01) ==
LOC: HO.HMGCLDS 14:16
PROVIDERS: PCP Nurse Practitioner Family; Visit Provider Nurse Practitioner Family
DX: Z01.818 Encounter for other preprocedural examination (principal); K44.0 Diaphragmatic hernia with obstruction, without gangrene
CPT/HCPCS: 36415; 80053; 80061; 81001; 81003; 83036; 84443; 85025

== ENCOUNTER 2021-08-24 11:04 | Outpatient (REF) | payer MEDICARE, SELFPAY ==
[2021-08-24 13:44] LABS: MANUAL DIFF FLAG NO
[2021-08-24 14:00] LABS: Basophils Percent Auto 0.6 % (0-2); Eosinophils Absolute Auto 0.2 X10*3/uL (0.0-0.4); Eosinophils Percent Auto 2.9 % (0-4); Hematocrit 37.3 % (42.0-52.0); Hemoglobin 12.2 g/dl (14.0-18.0); Imm Gran Abs Auto 0.01 X10*3/uL (0.00-0.03); Imm Gran Pct Auto 0.1 % (0.0-0.4); Lymphocytes Absolute Auto 1.8 X10*3/uL (1.2-4.9); Lymphocytes Percent Auto 25.1 % (20-40); Mean Corpuscular HGB Conc 32.7 g/dl (31.0-36.0); Mean Corpuscular Hemoglobin 29.8 pg (27.0-33.0); Mean Platelet Volume 10.1 fL (9.4-12.4); Monocytes Absolute Auto 0.5 X10*3/uL (0.1-1.2); Monocytes Percent Auto 7.3 % (2-11); Neutrophils Absolute Auto 4.7 x10*3/uL (2.0-8.3); Platelet Count 407 X10*3/uL (160-400); Red Cell Distribution Width 13.5 % (11.0-16.0); White Blood Count 7.3 X10*3/uL (4.8-10.8)
[2021-08-24 14:06] LABS: Estimated Average Glucose 148 mg/dL; Hemoglobin A1c % 6.8 %
[2021-08-24 14:11] LABS: Appearance Urine CLEAR; Color Urine YELLOW; Glucose Urine UA NEG (NEG); Leukocyte Esterase Urine NEG (NEG); Nitrite Urine NEG (NEG); PH 5.5 (5.0-8.0); Specific Gravity - Urine >= 1.030 (1.005-1.025); UACC Culture Trigger NO; Urine Blood NEG (NEG); Urine Ketones NEG (NEG); Urine Protein 1+ MG/DL (NEG-TRACE)
[2021-08-24 14:24] LABS: Alanine Aminotransferase 17 U/L (0-40); Albumin Level 4.6 g/dL (3.5-5.0); Alkaline Phosphatase 54 U/L (39-117); Anion Gap 16 (12-20); Aspartate Amino Transferase 20 U/L (5-37); Bilirubin Total 0.6 mg/dL (0.0-1.0); Blood Urea Nitrogen 17 mg/dL (9-16); Calcium 9.5 mg/dL (8.4-10.2); Carbon Dioxide 23 mmol/L (22-29); Chloride 107 mmol/L (96-108); Cholesterol 128 mg/dL; Estimated Glomerular Filt Rate > 60; Glucose Fasting 94 mg/dL (60-99); HDL Cholesterol 50 mg/dL; LDL Cholesterol Calculated 56 mg/dl; Potassium 4.8 mmol/L (3.3-5.1); Sodium 141 mmol/L (135-145); Total Protein 7.3 g/dL (6.5-8.0); Triglycerides 112 mg/dL
[2021-08-24 14:38] LABS: Squamous Epithelial Cell Urine TRACE /LPF
[2021-08-24 14:39] LABS: Bacteria Urine TRACE /LPF
[2021-08-24 14:40] LABS: RBC Urine 0-2 /HPF (0); WBC Urine 0-2 /HPF (0-4)
== END 2021-08-24 11:05 | disposition home or self-care (01) ==
LOC: HO.HMGCLDS 11:04
PROVIDERS: Visit Provider Nurse Practitioner Family
DX: E11.29 Type 2 diabetes mellitus with other diabetic kidney complication (principal)
CPT/HCPCS: 36415; 80053; 80061; 81001; 83036; 84443; 85025

== ENCOUNTER 2021-08-25 10:48 | Outpatient (REF) | payer MEDICARE, SELFPAY ==
--- NOTE | ~2021-08-25 | FL_ITS ---
EXAMINATION: FL BARIUM SWALLOW CLINICAL INFORMATION: Diaphragmatic hernia with obstruction without gangrene COMPARISON: Previous exam December 2020 TECHNIQUE: Barium swallow examination is performed using fluoroscopic evaluation in addition to multiple fluoroscopic spot views. The patient is imaged both upright and prone and using both thick and thin sulfate along with effervescent granules. Barium tablet was also administered. Fluoroscopy time: 1.2 minutes DAP: 8.2 Gycm2 Images: 60 FINDINGS: The swallowing mechanism is normal. No aspiration or penetration is seen. There is mild narrowing of the distal thoracic esophagus suggestive of a stricture. There is stasis of the barium tablet in the distal esophagus. There is significant gastroesophageal reflux. No hernia is seen. There are prominent folds of the stomach and visualized proximal small bowel questionable for hyperacidity. FL/FL barium swallow IMPRESSION: Distal esophageal stricture and significant gastroesophageal reflux. No hernia seen.
== END 2021-08-25 10:49 | disposition home or self-care (01) ==
LOC: HO.XRAY 10:48
PROVIDERS: PCP Nurse Practitioner Family; Visit Provider Surgery
DX: R13.10 Dysphagia, unspecified (principal); K21.9 Gastro-esophageal reflux disease without esophagitis; K22.4 Dyskinesia of esophagus; K44.0 Diaphragmatic hernia with obstruction, without gangrene
CPT/HCPCS: 74220

== ENCOUNTER 2021-08-27 10:34 | Outpatient (REF) | payer MEDICARE, SELFPAY ==
--- NOTE | ~2021-08-27 | CT_ITS ---
EXAMINATION: CT CHEST WITHOUT CONTRAST CLINICAL INFORMATION: Diaphragmatic hernia. COMPARISON: Most recent CT chest dated 04/09/2021. TECHNIQUE: Multidetector volumetric CT imaging of the chest was done. Axial MIP volume rendering provided. Sagittal and coronal reformatted images were obtained. This CT examination was performed using dose optimization techniques as appropriate, variously including the following: *Automated exposure control *Adjustment of mA and/or kV according to patient size (this includes techniques or standardized protocols for targeted exams where dose is matched to indication/reason for exam; i.e. extremities or head) *Use of iterative reconstruction technique DLP: 185 mGy-cm FINDINGS: SOFTWARE TEST TECHNICIAN: Clear lungs. Partially visualized contrast within the colon. LUNGS: The lungs are clear with no evidence of inflammation or nodules. MEDIASTINUM: No cardiomegaly. No pericardial effusion. Coronary artery atherosclerotic calcifications are redemonstrated. Scattered atherosclerotic calcifications within the thoracic aorta. No thoracic aortic dilatation or prominence of the main pulmonary artery. No significant superior mediastinal or hilar lymphadenopathy. Unremarkable thyroid. PLEURA: There is no pleural effusion. No pleural mass or thickening. CHEST WALL/AXILLAE: No axillary or internal mammary lymphadenopathy. No abnormal chest wall mass. UPPER ABDOMEN: Possible thickening of the distal esophagus appears unchanged. Evaluation significantly limited without oral or IV contrast. If there is clinical concern, direct visualization could help further evaluate. No diaphragmatic hernia. Sigmoid diverticulosis without evidence of acute diverticulitis. OSSEOUS STRUCTURES: Unremarkable. CT/CT chest wo con IMPRESSION: 1. Possible thickening of the distal esophagus appears unchanged; however, evaluation limited without oral or IV contrast. If there is clinical concern, direct visualization could help further evaluate. 2. No significant hiatal or diaphragmatic hernia. 3. Additional chronic findings are unchanged. Fleischner guidelines were followed.
== END 2021-08-27 10:35 | disposition home or self-care (01) ==
LOC: HO.CT 10:34
PROVIDERS: Visit Provider Surgery
DX: K21.9 Gastro-esophageal reflux disease without esophagitis (principal); K22.4 Dyskinesia of esophagus; K44.0 Diaphragmatic hernia with obstruction, without gangrene
CPT/HCPCS: 71250

== ENCOUNTER → 2021-08-28 09:23 | Outpatient (BNVA) | payer MEDICARE, SELFPAY | PROVIDERS: PCP Nurse Practitioner Family; Visit Provider Surgery | DX: K44.0 Diaphragmatic hernia with obstruction, without gangrene (principal); K22.2 Esophageal obstruction | CPT/HCPCS: 99212 ==

== ENCOUNTER 2021-09-02 07:57 | Day surgery (SDC) | payer MEDICARE, SELFPAY ==
--- NOTE | 2021-09-01 09:59 | HO.ANESPROP2 ---
Documented by User: Ely Agarwal NP 09/01/21 10:00 HPI - Anesthesia Eval Consult details Narrative: 81yo M for Upper Endoscopy with Balloon Dilitation Per thoracic note: history of esophageal stricture, esophageal dysmotility, and paraesophageal hernia who underwent a paraesophageal hernia repair on 05/18/2021 with mesh and gastropexy.? He did well postoperatively and tolerated a soft diet and had a normal looking barium study on 06/19/2021 1 month after his operation.? He states that since that time he has developed worsening intolerance of solids but can still eat soft foods without much difficulty.? He does get severe heartburn and dysphagia with all other foods.? With these findings we arranged for a barium study which was done on 08/25/2021 which showed a moderate distal stricture, esophageal dysmotility, and significant reflux with no recurrence of the hernia.? He also had a CT chest on 08/27/2021 which shows no recurrence of the hernia either. [facility] Active Problems Active Problems: All Active Problems (Updated 08/20/21 @ 15:10 by Jaquelin Sterling PA-C) Incarcerated paraesophageal hernia (Acute) Hiatal hernia (Acute) GERD (gastroesophageal reflux disease) (Acute) Esophageal dysmotility (Acute) Esophageal ring, acquired (Acute) HTN (hypertension) (Acute) Diabetes mellitus with kidney complication (Acute) Kidney disease (Acute) Cervical radiculopathy (Acute) Degenerative disc disease, cervical (Acute) Depression (Acute) Past Medical History Medical History Attention deficit disorder (ADD) Depression Esophageal dysmotility Esophageal ring, acquired Fall GERD (gastroesophageal reflux disease) History of fall Hx of bronchitis Intrinsic sphincter deficiency (ISD) Left arm numbness Occipital neuralgia Post herpetic neuralgia Rib fractures Right arm numbness Tubular adenoma of colon Family History Family History Father No problems noted. Mother Hx of colon cancer, stage I Substance use disorder Brother Hx of colon cancer, stage III Family/Other Substance use disorder Family history of problems with anesthesia: No Surgical History Surgical History History of back surgery History of cervical spinal surgery History of colonoscopy History of esophagogastroduodenoscopy (EGD) History of implantation of artificial sphincter (~11/2019) History of radical prostatectomy History of right inguinal hernia repair (~03/2010) History of Problems with Anesthesia: No Social History Social History Housing: House Are you a primary clinical care coordinator to a significant other at home: No Do you presently have visiting nurse or other home services: No Alcohol intake: never Patient Tobacco Use Status: Never used Tobacco e-Cigarette/Vaping Use: Never Used Second Hand Smoke Exposure: No Use of substances other than those prescribed or required for medical reasons: No Are you DNR?: No Advance Directives: No Advance Directives Information Provided: Yes Current occupational status: retired Cognitive needs: No Hearing needs: No Vision needs: No Meds Allergies Allergy/AdvReac Type Severity Reaction Status Date / Time adhesive tape Allergy Intermediate BLISTERS Verified 08/28/21 09:37 Home Medications Medication Instructions Recorded Confirmed Last Taken Type albuterol sulfate 90 mcg/actuation 2 puff inhalation Q6H PRN 11/17/19 08/28/21 Unknown History aerosol inhaler (ProAir HFA) Shortness Of Breath Or Wheezing blood-glucose meter (FreeStyle #1 ea 11/17/19 08/28/21 Unknown History Lite Meter kit) cyanocobalamin (vitamin B-12) 1,000 mcg PO DAILY 01/02/20 08/28/21 Unknown History 1,000 mcg tablet ascorbate calcium (vitamin C) 500 500 mg PO DAILY 08/24/21 08/28/21 Unknown History mg tablet multivitamin (Daily Multi-Vitamin 1 tab PO DAILY 08/24/21 08/28/21 Unknown History tablet) Exam Exam Date and Time: September 01, 2021 0959 Pertinent Lab Results Pertinent Lab Results: Laboratory Tests 08/24/21 08/24/21 11:24 11:24 WBC 7.3 Hgb 12.2 L Hct 37.3 L Plt Count 407 H Sodium 141 Potassium 4.8 Chloride 107 Carbon Dioxide 23 BUN 17 H Creatinine 1.12 Assessment and Plan Assessment Anesthesia Assessment: Chart Reviewed Final Anesthetic Review Family History of Problems with Anesthesia: No History of Problems with Anesthesia: No Documented by User: Yousif Castellon MD 09/02/21 09:50 [facility] Past Medical History Medical History Attention deficit disorder (ADD) Depression Esophageal dysmotility Esophageal ring, acquired Fall GERD (gastroesophageal reflux disease) History of fall Hx of bronchitis Intrinsic sphincter deficiency (ISD) Left arm numbness Occipital neuralgia Post herpetic neuralgia Rib fractures Right arm numbness Tubular adenoma of colon Family History Family History Father No problems noted. Mother Hx of colon cancer, stage I Substance use disorder Brother Hx of colon cancer, stage III Family/Other Substance use disorder Surgical History Surgical History History of back surgery History of cervical spinal surgery History of colonoscopy History of esophagogastroduodenoscopy (EGD) History of implantation of artificial sphincter (~11/2019) History of radical prostatectomy History of right inguinal hernia repair (~03/2010) Social History Social History Housing: House Are you a primary clinical care coordinator to a significant other at home: No Do you presently have visiting nurse or other home services: No Alcohol intake: never Patient Tobacco Use Status: Never used Tobacco e-Cigarette/Vaping Use: Never Used Second Hand Smoke Exposure: No Use of substances other than those prescribed or required for medical reasons: No Are you DNR?: No Advance Directives: No Advance Directives Information Provided: Yes Current occupational status: retired Cognitive needs: No Hearing needs: No Vision needs: No Meds Allergies Allergy/AdvReac Type Severity Reaction Status Date / Time adhesive tape Allergy Intermediate BLISTERS Verified 08/28/21 09:37 Home Medications Medication Instructions Recorded Confirmed Last Taken Type albuterol sulfate 90 mcg/actuation 2 puff inhalation Q6H PRN 11/17/19 08/28/21 Unknown History aerosol inhaler (ProAir HFA) Shortness Of Breath Or Wheezing blood-glucose meter (FreeStyle #1 ea 11/17/19 08/28/21 Unknown History Lite Meter kit) cyanocobalamin (vitamin B-12) 1,000 mcg PO DAILY 01/02/20 08/28/21 Unknown History 1,000 mcg tablet ascorbate calcium (vitamin C) 500 500 mg PO DAILY 08/24/21 08/28/21 Unknown History mg tablet multivitamin (Daily Multi-Vitamin 1 tab PO DAILY 08/24/21 08/28/21 Unknown History tablet) Exam Airway Mallampati Class: III TM Dist: >3cm Neck ROM: Full Denture: Upper Partial: Lower Heart: rrr Lungs: clear Assessment and Plan Final Anesthetic Review NPO: Yes ASA Class: III Final Preanesthetic Review: No Changes in Pt Med Stat, Meds/Allgs Chart Reviewed, Consent Obtained/Reviewed and Anes Risks/Benef Reviewed Patient Risk: Intermediate Procedure Risk: Low Anesthetic Plan Anesthetic Plan: MAC: Disposition: Standard PACU
[2021-09-02 08:41] VITALS: BMI 25.8
[2021-09-02 08:43] LABS: Glucose, Whole Blood 80 mg/dL (60-115)
[2021-09-02 08:46] VITALS: BP 118/70; PULSE 72; RESP 18; TEMP 36.2; O2SAT 99
[2021-09-02] MEDS: Lactated Ringers 1,000 ML 100 ML IVCONT (08:48)
--- NOTE | 2021-09-02 09:51 | MHC.SHP ---
Pre-Procedural Eval Section A Date of Service: 09/02/21 The patient is an INPATIENT: No The History & Physical has been completed within 30 days and I have reviewed it.: Yes Section B Chief Complaint: diaphragmatic hernia, Allergies: Allergies Allergy/AdvReac Type Severity Reaction Status Date / Time adhesive tape Allergy Intermediate BLISTERS Verified 08/28/21 09:37 Plan I have reviewed the history and physical and performed a pertinent physical examination on my patient. No changes have occurred unless specified.
--- NOTE | 2021-09-02 10:27 | W.PM.OPN ---
Operative Note Operative Note Date of Service: 09/02/21 Narrative: Preoperative diagnosis: Esophageal stricture Postoperative diagnosis: Same Operation: EGD with balloon dilation Surgeon:Angel Kent MD Metal Flow Coordinator: none Anesthesia: General Specimens: None EBL: Minimal Operation in detail: The patient was brought to the operating room, placed supine on the operative table, anesthesia monitoring devices were placed, and the patient was intubated without difficulty. A time-out was performed confirming the correct patient, site, and procedure. The gastroscope was then inserted through the oropharynx and into the esophagus visualizing the esophagus, stomach, and 1st portion of the duodenum. There were no mucosal lesions except at 30 cm there was a noticeable 2 cm in length stricture with about a mm diameter. The balloon was then placed across the distal portion of the stricture including the GE junction and under vision was serially dilated from 17 to 20 mm. This did create some disruption of the distal esophagus but I felt that there was additional stricture that had not been treated more proximal. For this reason we placed the scope back in positioning it 2 cm more proximal and serially dilated with the same balloon from 17 to 21 mm. Again, there was some small amount of blood evidencing esophageal disruption and effective dilation.The scope was then removed. The patient tolerated the procedure well and brought to the recovery room in stable condition.
[2021-09-02 10:34] VITALS: BP 133/71; PULSE 83; RESP 16; TEMP 36.2; O2SAT 95
[2021-09-02 10:50] VITALS: BP 121/72; PULSE 69; RESP 16; TEMP 36.2; O2SAT 95
[2021-09-02 11:15] VITALS: BP 121/72; PULSE 68; RESP 16; TEMP 36.2; O2SAT 97
[2021-09-02 11:56] LABS: Glucose, Whole Blood 78 mg/dL (60-115)
== END 2021-09-02 11:43 | disposition home or self-care (01) ==
PROVIDERS: PCP Nurse Practitioner Family; Visit Provider Surgery
PROC: (CPT 43249; principal; 2021-09-02 09:30)
DX: K22.2 Esophageal obstruction (principal); K44.0 Diaphragmatic hernia with obstruction, without gangrene; K22.4 Dyskinesia of esophagus; K21.9 Gastro-esophageal reflux disease without esophagitis; N36.42 Intrinsic sphincter deficiency (ISD); M54.81 Occipital neuralgia; B02.29 Other postherpetic nervous system involvement; I10 Essential (primary) hypertension; F32.A Depression, unspecified; E11.29 Type 2 diabetes mellitus with other diabetic kidney complication; N28.9 Disorder of kidney and ureter, unspecified; Z79.4 Long term (current) use of insulin; Z91.81 History of falling; Z79.899 Other long term (current) drug therapy; Z98.890 Other specified postprocedural states
CPT/HCPCS: 43249; 82947; C1726

== ENCOUNTER 2022-01-25 10:47 | Outpatient (REF) | payer MEDICARE, SELFPAY | END 2022-01-25 10:48 | disposition home or self-care (01) | LOC: HO.LAB 10:47 | PROVIDERS: PCP Nurse Practitioner Family; Visit Provider Internal Medicine Gastroenterology | DX: K44.0 Diaphragmatic hernia with obstruction, without gangrene (principal); K22.4 Dyskinesia of esophagus; R19.7 Diarrhea, unspecified | CPT/HCPCS: 99212 ==

== ENCOUNTER 2022-01-27 11:20 | Outpatient (REF) | payer MEDICARE, SELFPAY ==
[2022-01-27 15:41] LABS: CDiff Gene PCR INVALID (Negative)
[2022-01-28 13:04] LABS: Campylobacter Not Detected (Not Detect.); E. coli EAEC Not Detected (Not Detect.); E. coli EPEC Not Detected (Not Detect.); E. coli ETEC Not Detected (Not Detect.); E. coli STEC Not Detected (Not Detect.); Plesiomonas shigelloides Not Detected (Not Detect.); Salmonella Not Detected (Not Detect.); Vibrio Not Detected (Not Detect.); Vibrio Cholerae Not Detected (Not Detect.); Yersinia enterocolitica Not Detected (Not Detect.)
[2022-01-28 13:05] LABS: Adenovirus F 40/41 Not Detected (Not Detect.); Astrovirus Not Detected (Not Detect.); Cryptosporidium Not Detected (Not Detect.); Cyclospora cayetanensis Not Detected (Not Detect.); Entamoeba histolytica Not Detected (Not Detect.); Giardia lamblia Not Detected (Not Detect.); Norovirus GI/GII Not Detected (Not Detect.); Rotavirus A Not Detected (Not Detect.); Sapovirus Not Detected (Not Detect.); Shigella sp./EIEC Not Detected (Not Detect.)
[2022-02-03 17:59] LABS: Lactoferrin, Fecal, Quant. 15.97 mcg/mL (<7.25)
[2022-02-04 01:33] LABS: Pancreatic Elastase-1 229 mcg/g
[2022-02-10 11:43] LABS: Fecal Fat Qualitative NORMAL (NORMAL)
== END 2022-01-27 11:21 | disposition home or self-care (01) ==
LOC: HO.LAB 11:20
PROVIDERS: PCP Nurse Practitioner Family; Visit Provider Internal Medicine Gastroenterology
DX: E11.29 Type 2 diabetes mellitus with other diabetic kidney complication (principal); K44.0 Diaphragmatic hernia with obstruction, without gangrene; K22.4 Dyskinesia of esophagus; R19.7 Diarrhea, unspecified; E53.8 Deficiency of other specified B group vitamins
CPT/HCPCS: 82656; 82705; 83631; 87493; 87507

== ENCOUNTER 2022-03-31 08:54 | Day surgery (SDC) | payer MEDICARE, SELFPAY ==
[2022-03-26 11:52] VITALS: BMI 26.6
--- NOTE | 2022-03-31 08:57 | HO.ANESPROP2 ---
[facility] Active Problems Active Problems: All Active Problems (Updated 03/26/22 @ 11:46 by Lianna Owen, RN) Kidney disease (Acute) Cervical radiculopathy (Acute) Degenerative disc disease, cervical (Acute) HTN (hypertension) (Acute) Diabetes mellitus with kidney complication (Acute) Hiatal hernia (Acute) Incarcerated paraesophageal hernia (Acute) Screening PSA (prostate specific antigen) (Acute) B12 deficiency (Acute) Diarrhea (Acute) Diarrhea (Acute) GERD (gastroesophageal reflux disease) (Acute) Esophageal dysmotility (Acute) Esophageal ring, acquired (Acute) Depression (Acute) Past Medical History Medical History (Updated 03/26/22 @ 11:46 by Lianna Owen, RN) Attention deficit disorder (ADD) Chronic renal insufficiency Depression Diabetes Esophageal dysmotility Esophageal ring, acquired Fall GERD (gastroesophageal reflux disease) History of fall HTN (hypertension) Hx of bronchitis Intrinsic sphincter deficiency (ISD) Left arm numbness Occipital neuralgia Post herpetic neuralgia Rib fractures Right arm numbness Tubular adenoma of colon Family History Family History Father No problems noted. Mother Hx of colon cancer, stage I Substance use disorder Brother Hx of colon cancer, stage III Family/Other Substance use disorder Family history of problems with anesthesia: No Surgical History Surgical History (Updated 03/26/22 @ 11:44 by Lianna Owen RN) History of back surgery History of cervical spinal surgery History of colonoscopy History of esophagogastroduodenoscopy (EGD) History of implantation of artificial sphincter (~11/2019) History of radical prostatectomy History of right inguinal hernia repair (~03/2010) Hx of esophageal hernia repair Hx of neck surgery History of Problems with Anesthesia: No Social History Social History Housing: House Are you a primary memory care program resident to a significant other at home: No Do you presently have visiting nurse or other home services: No Alcohol intake: never Patient Tobacco Use Status: Never used Tobacco e-Cigarette/Vaping Use: Never Used Second Hand Smoke Exposure: No Use of substances other than those prescribed or required for medical reasons: No Are you DNR?: No Advance Directives: No Advance Directives Information Provided: Yes How much weight loss: 2-13 pounds Nutrition Risks: No Nutritional Risk Current occupational status: retired Cognitive needs: No Hearing needs: Yes Vision needs: Yes Meds Allergies Allergy/AdvReac Type Severity Reaction Status Date / Time adhesive tape Allergy Intermediate BLISTERS Verified 01/25/22 11:16 Active Medications: Current Medications Lactated Ringer's (Lr) 1,000 mls @ 50 mls/hr IVCONT .Q20H KAVEH Home Medications Medication Instructions Recorded Confirmed Last Taken Type insulin glargine 100 unit/mL (3 16 unit subcut DIRECTED diabetes 03/26/22 03/26/22 Unknown History mL) subcutaneous pen (Lantus Solostar U-100 Insulin) Exam Exam Date and Time: March 31, 2022 0857 Height,Weight and Vital Signs: Height 5 ft 7 in Weight 77.111 kg Airway Mallampati Class: II TM Dist: >3cm Neck ROM: Full Denture: Upper Heart: rrr Lungs: cts Assessment and Plan Assessment Anesthesia Assessment: Anesthesia Plan Discussed and Chart Reviewed Final Anesthetic Review Family History of Problems with Anesthesia: No History of Problems with Anesthesia: No NPO: Yes ASA Class: III Final Preanesthetic Review: No Changes in Pt Med Stat, Meds/Allgs Chart Reviewed and Consent Obtained/Reviewed Patient Risk: Intermediate Procedure Risk: Intermediate Anesthetic Plan Anesthetic Plan: MAC: Disposition: Standard PACU
[2022-03-31 09:18] VITALS: BMI 24.6
[2022-03-31 09:26] VITALS: BP 144/69; PULSE 80; RESP 16; TEMP 36.2; O2SAT 98
--- NOTE | 2022-03-31 09:34 | MHC.SHP ---
Pre-Procedural Eval Section A Date of Service: 03/31/22 Section B Chief Complaint: Dyskinesia of esophagus,Diaphragmatic hernia Details of Present Illness: altered bowel habits Relevant Family History (Specify if Yes): No Relevant Social History: None Present Medications: see Short Stay Collaborative assessment Medical History: Significant History (Attention deficit disorder (ADD) Depression Esophageal dysmotility Esophageal ring, acquired Fall GERD (gastroesophageal reflux disease) History of fall Hx of bronchitis Intrinsic sphincter deficiency (ISD) Left arm numbness Occipital neuralgia Post herpetic neuralgia Rib fractures Right arm numbnes) History of Previous Operations: Relevant previous surgery/procedure and date(s) (History of back surgery History of cervical spinal surgery History of colonoscopy History of esophagogastroduodenoscopy (EGD) History of implantation of artificial sphincter (~11/2019) History of radical prostatectomy History of right inguinal hernia repair (~03/2010) Hx of neck surgery) Allergies: Allergies Allergy/AdvReac Type Severity Reaction Status Date / Time adhesive tape Allergy Intermediate BLISTERS Verified 01/25/22 11:16 Review of Systems Sugical H&P ROS: Negative: Constitution, Cardiovascular, Respiratory, Neurological, Psychiatric, Hem-Onc, Allergic/Immunologic, Gastrointestinal, Genitourinary, Musculoskeletal, Integumentary, Endocrine and Eyes/Ears/Nose/Throat Exam Surgical H&P Exam: Normal: HEENT, Normal: Heart, Normal: Lungs, Normal: Extremities, Normal: Abdomen, Normal: Skin and Normal: Neurological Plan Diagnosis/Plan: Unchanged I have reviewed the history and physical and performed a pertinent physical examination on my patient. No changes have occurred unless specified. Time Spent With Patient Time: Total time managing care of this patient today ____ minutes.
[2022-03-31] MEDS: Lactated Ringers 1,000 ML 50 ML IVCONT (09:54)
[2022-03-31 09:56] LABS: Glucose, Whole Blood 110 mg/dL (60-115)
--- NOTE | 2022-03-31 10:36 | W.PM.OPN ---
Operative Note Operative Note Date of Service: 03/31/22 Narrative: Operative Information Procedure Description: EGD, Colonoscopy Indication: dysphagia, altered bowel habits Anesthesia: MAC FLEXIBLE TRANSORAL UPPER GASTROINTESTINAL ENDOSCOPY AND COLONOSCOPY PROCEDURE NOTE UPPER ENDOSCOPY Consent: Indications for the procedure and potential complications of bleeding, perforation, reaction to medications and missed diagnosis were discussed with the patient and informed consent was obtained. Instrument: Olympus GIF H 190 J mid size upper endoscope Monitoring: Vital signs and clinical assessment, continuous EKG monitoring, Pulse oximetry, Carbon Dioxide monitoring and blood pressure monitoring were done throughout the procedure. Procedure: The patient was placed in the left lateral decubitis position and pre-procedure medications were administered and a bite block was placed. The endoscope was inserted into the mouth and advanced under direct vision to the third part of duodenum. A careful inspection was made as the upper endoscope was withdrawn including a retroflexed examination of the proximal stomach; Findings and interventions are described below. Findings: Larynx:normal Esophagus: GE junction at 36 cm, diaphragm hiatus at 39 cm, compatible with 3 cm sliding hiatal hernia, balloon dilation done to 20 mm at UES and LES in sequential fashion with tear noted in distal esophagus. Some furrowing and ringing of esophagus noted with schatzki ring noted. Stomach: Normal mucosa. Biopsies were obtained. Grade 2 flap valve on retroflexed examination of the cardia. Duodenum: Normal bulb and descending duodenum, bx taken Intervention: Biopsies as noted above, balloon dilation COLONOSCOPY Instrument: Olympus variable stiffness pediatric scope 190L Colonoscopy Monitoring: Vital signs and clinical assessment, continuous EKG monitoring, Pulse oximetry, Carbon Dioxide monitoring and blood pressure monitoring were done throughout the procedure. Colon withdrawal time was 10 minutes. Procedure: The patient was placed in the left lateral decubitis position and pre-procedure medications were administered. After a digital rectal examination of the ano-rectum, the video colonoscope was inserted into the rectum and advanced through the colon to the cecum/TI. The colonoscope was slowly withdrawn in a retrograde panoramic fashion and the colon mucosa was carefully examined including a retroflexed view of the rectum. Findings and interventions are described below. Procedure Difficulty: moderate Findings: Terminal Ileum-normal Junior diverticulosis worse on left side with wide mouthed tics noted. Cecum: normal Ascending Colon: 5-7 mm sessile polyp removed with cold forceps Transverse Colon -normal Descending Colon:normal Sigmoid Colon:? Patchy erythema -bx taken Rectum: Retroflexion with medium sized internal hemorrhoids, grade I, some erythema in rectum bx taken Anorectum - normal Colon preparation: [place] Bowel Preparation Scale Right colon; 2 Transverse colon: 2 Left colon; 2 (0 = Unprepared colon segment with mucosa not seen due to solid stool that cannot be cleared. 1 = Portion of mucosa of the colon segment seen, but other areas of the colon segment not well seen due to staining, residual stool and/or opaque liquid. 2 = Minor amount of residual staining, small fragments of stool and/or opaque liquid, but mucosa of colon segment seen well. 3 = Entire mucosa of colon segment seen well with no residual staining, small fragments of stool or opaque liquid) Impression and Post Procedure Diagnosis: Endoscopy Findings: hiatal hernia esophageal rings and stricture duodenitis Colonoscopy Findings: polyp internal hemorrhoids diverticular disease segmental colitis Plan: Await Pathology results Repeat Colonoscopy in 3-5 years if health allows or earlier if clinically indicated High fiber diet leaflet avoid straining at stool, epsom salts and sitz bath, anusol supps or cream repeat EGD as needed, soft diet today and advance tomorrow, will send magic mouthwash for him as well Above findings were reviewed with the patient and relevant handouts were provided if indicated.
[2022-03-31 11:02] VITALS: BP 106/54; PULSE 80; RESP 16; TEMP 36.1; O2SAT 94
[2022-03-31] MEDS: Mag&Al/Sim/Diphenhyd/Lidocaine 10 ML ORAL.SUSP PO (11:11)
[2022-03-31 11:17] VITALS: BP 115/67; PULSE 70; RESP 18; TEMP 36.1; O2SAT 94
== END 2022-03-31 11:59 ==
LOC: HO.SSS 08:55
PROVIDERS: PCP Nurse Practitioner Family; Visit Provider Internal Medicine Gastroenterology
PROC: (CPT 45380; principal; 2022-03-31 11:00)
DX: R19.4 Change in bowel habit (principal); Z12.11 Encounter for screening for malignant neoplasm of colon; Z80.0 Family history of malignant neoplasm of digestive organs; K63.5 Polyp of colon; K50.10 Crohn's disease of large intestine without complications; K57.30 Diverticulosis of large intestine without perforation or abscess without bleeding; K64.0 First degree hemorrhoids; K21.9 Gastro-esophageal reflux disease without esophagitis; R13.10 Dysphagia, unspecified; K22.2 Esophageal obstruction; K22.4 Dyskinesia of esophagus; K29.50 Unspecified chronic gastritis without bleeding; K44.9 Diaphragmatic hernia without obstruction or gangrene; M54.81 Occipital neuralgia; B02.29 Other postherpetic nervous system involvement; F98.8 Other specified behavioral and emotional disorders with onset usually occurring in childhood and adolescence; Z91.81 History of falling; E11.9 Type 2 diabetes mellitus without complications; Z79.4 Long term (current) use of insulin; Z91.040 Latex allergy status; Z79.899 Other long term (current) drug therapy; Z85.46 Personal history of malignant neoplasm of prostate
CPT/HCPCS: 45380; 43249; 43239; 82947; 88305; 88342; C1726

== ENCOUNTER 2022-04-02 09:39 | Outpatient (REF) | payer MEDICARE, SELFPAY ==
[2022-04-02 10:00] LABS: MANUAL DIFF FLAG NO
[2022-04-02 10:42] LABS: Basophils Absolute Auto 0.1 X10*3/uL (0.0-0.2); Basophils Percent Auto 0.8 % (0-2); Eosinophils Absolute Auto 0.2 X10*3/uL (0.0-0.4); Eosinophils Percent Auto 3.7 % (0-4); Hematocrit 38.2 % (42.0-52.0); Hemoglobin 12.6 g/dl (14.0-18.0); Imm Gran Abs Auto 0.02 X10*3/uL (0.00-0.03); Imm Gran Pct Auto 0.3 % (0.0-0.4); Lymphocytes Absolute Auto 1.9 X10*3/uL (1.2-4.9); Lymphocytes Percent Auto 29.2 % (20-40); Mean Corpuscular Hemoglobin 30.1 pg (27.0-33.0); Mean Corpuscular Volume 91.4 fL (80.0-98.0); Mean Platelet Volume 9.6 fL (9.4-12.4); Monocytes Absolute Auto 0.7 X10*3/uL (0.1-1.2); Monocytes Percent Auto 11.3 % (2-11); Neutrophils Absolute Auto 3.5 x10*3/uL (2.0-8.3); Neutrophils Percent Auto 54.7 % (45-73); Platelet Count 359 X10*3/uL (160-400); Red Blood Count 4.18 X10*6/uL (4.60-5.80); Red Cell Distribution Width 13.2 % (11.0-16.0); White Blood Count 6.4 X10*3/uL (4.8-10.8)
[2022-04-02 10:49] LABS: Estimated Average Glucose 151 mg/dL; Hemoglobin A1c % 6.9 %
[2022-04-02 10:50] LABS: Appearance Urine Clear; Color Urine Dark Yellow; Glucose Urine UA Negative (Negative); Leukocyte Esterase Urine Negative (Negative); Nitrite Urine Negative (Negative); PH 5.5 (5.0-9.0); Specific Gravity - Urine 1.025 (1.005-1.025); UMIC TRIGGER UACC YES; Urine Blood Negative (Negative); Urine Ketones Trace mg/dL (Negative); Urine Protein 100 (2+) mg/dL (Neg-Trace)
[2022-04-02 10:55] LABS: Bacteria Urine None Seen (None Seen); RBC Urine 0-2 /HPF (0-2); WBC Urine 0-5 /HPF (0-5)
[2022-04-02 11:17] LABS: Alanine Aminotransferase 12 U/L (0-40); Albumin Level 4.5 g/dL (3.5-5.0); Alkaline Phosphatase 63 U/L (39-117); Anion Gap 15 (12-20); Aspartate Amino Transferase 13 U/L (5-37); Bilirubin Total 1.3 mg/dL (0.0-1.0); Blood Urea Nitrogen 13 mg/dL (9-16); Carbon Dioxide 24 mmol/L (22-29); Chloride 106 mmol/L (96-108); Cholesterol 126 mg/dL; Estimated Glomerular Filt Rate 51; Glucose Fasting 117 mg/dL (60-99); HDL Cholesterol 47 mg/dL; LDL Cholesterol Calculated 49 mg/dl; Sodium 141 mmol/L (135-145); Triglycerides 150 mg/dL
[2022-04-02 11:50] LABS: Folate 7.2 ng/mL (> or = 4.0); Prostate Specific Antigen Scr < 0.10 ng/mL (<0.05-4.0); TSH reflex Free T4 1.58 uIU/mL (0.32-4.0); Vitamin B12 430 pg/mL (200-900)
== END 2022-04-02 09:40 | disposition home or self-care (01) ==
LOC: HO.LAB 09:39
PROVIDERS: PCP Nurse Practitioner Family; Visit Provider Nurse Practitioner Family
DX: Z12.5 Encounter for screening for malignant neoplasm of prostate (principal); E53.8 Deficiency of other specified B group vitamins; E11.29 Type 2 diabetes mellitus with other diabetic kidney complication
CPT/HCPCS: 36415; 80053; 80061; 81001; 82607; 82746; 83036; 84153; 84443; 85025

== ENCOUNTER 2022-04-14 14:38 | Outpatient (REF) | payer MEDICARE, SELFPAY ==
[2022-04-14 18:28] LABS: Creatinine Urine 140.57 mg/dL; Microalbum/Creatinine Ratio Ur 397.6 ug/mg cr
== END 2022-04-14 14:39 | disposition home or self-care (01) ==
LOC: HO.HMGCLDS 14:38
PROVIDERS: PCP Nurse Practitioner Family; Visit Provider Nurse Practitioner Family
DX: E11.29 Type 2 diabetes mellitus with other diabetic kidney complication (principal)
CPT/HCPCS: 82043

== ENCOUNTER → 2022-05-24 10:47 | Outpatient (BNVA) | payer MEDICARE, SELFPAY | PROVIDERS: PCP Nurse Practitioner Family; Visit Provider Internal Medicine Gastroenterology | DX: K52.839 Microscopic colitis, unspecified (principal); A08.8 Other specified intestinal infections | CPT/HCPCS: 99212 ==

== ENCOUNTER 2022-07-20 11:51 | Outpatient (REF) | payer MEDICARE, SELFPAY ==
[2022-07-20 14:01] LABS: MANUAL DIFF FLAG NO
[2022-07-20 14:15] LABS: Basophils Percent Auto 0.3 % (0-2); Eosinophils Absolute Auto 0.1 X10*3/uL (0.0-0.4); Hematocrit 37.2 % (42.0-52.0); Hemoglobin 12.3 g/dl (14.0-18.0); Imm Gran Abs Auto 0.02 X10*3/uL (0.00-0.03); Imm Gran Pct Auto 0.3 % (0.0-0.4); Lymphocytes Absolute Auto 1.5 X10*3/uL (1.2-4.9); Lymphocytes Percent Auto 25.8 % (20-40); Mean Corpuscular HGB Conc 33.1 g/dl (31.0-36.0); Mean Corpuscular Hemoglobin 30.4 pg (27.0-33.0); Mean Corpuscular Volume 92.1 fL (80.0-98.0); Mean Platelet Volume 9.6 fL (9.4-12.4); Monocytes Absolute Auto 0.6 X10*3/uL (0.1-1.2); Monocytes Percent Auto 10.9 % (2-11); Neutrophils Absolute Auto 3.6 x10*3/uL (2.0-8.3); Neutrophils Percent Auto 60.7 % (45-73); Platelet Count 334 X10*3/uL (160-400); Red Blood Count 4.04 X10*6/uL (4.60-5.80); Red Cell Distribution Width 13.4 % (11.0-16.0); White Blood Count 5.9 X10*3/uL (4.8-10.8)
[2022-07-20 14:26] LABS: Estimated Average Glucose 146 mg/dL; Hemoglobin A1c % 6.7 %
[2022-07-20 14:33] LABS: Alanine Aminotransferase 14 U/L (0-40); Albumin Level 4.5 g/dL (3.5-5.0); Alkaline Phosphatase 46 U/L (39-117); Anion Gap 16 (12-20); Aspartate Amino Transferase 14 U/L (5-37); Bilirubin Total 0.6 mg/dL (0.0-1.0); Blood Urea Nitrogen 20 mg/dL (9-16); Calcium 9.1 mg/dL (8.4-10.2); Carbon Dioxide 25 mmol/L (22-29); Chloride 105 mmol/L (96-108); Cholesterol 139 mg/dL; Estimated Glomerular Filt Rate 55; Glucose Fasting 161 mg/dL (60-99); HDL Cholesterol 57 mg/dL; Iron 96 mcg/dL (45-160); LDL Cholesterol Calculated 69 mg/dl; Percent Iron Saturation 31 % (15-50); Potassium 4.6 mmol/L (3.3-5.1); Sodium 141 mmol/L (135-145); Total Iron Binding Capacity 307 mcg/dL (228-428); Total Protein 7.2 g/dL (6.5-8.0); Triglycerides 69 mg/dL; Unsaturated Iron Binding 211 ug/dL
[2022-07-20 15:01] LABS: Ferritin 87 ng/mL (20-250); Folate 13.7 ng/mL (> or = 4.0); Vitamin B12 407 pg/mL (200-900)
[2022-07-22 12:47] LABS: A. Phagocytphilium DNA,RT-PCR NOT DETECTED (NOT DETECTED); Babesia Microti DNA, RT-PCR NOT DETECTED (NOT DETECTED); Borrelia Miyamotoi,DNA RT-PCR NOT DETECTED (NOT DETECTED); E.Chaffeensis DNA RT-PCR NOT DETECTED (NOT DETECTED); Lyme(Borrelia ssp)DNA RT-PCR NOT DETECTED (NOT DETECTED)
== END 2022-07-20 11:52 | disposition home or self-care (01) ==
LOC: HO.HMGCLDS 11:51
PROVIDERS: PCP Nurse Practitioner Family; Visit Provider Nurse Practitioner Family
DX: E11.29 Type 2 diabetes mellitus with other diabetic kidney complication (principal); E53.8 Deficiency of other specified B group vitamins; R53.83 Other fatigue; Z20.2 Contact with and (suspected) exposure to infections with a predominantly sexual mode of transmission
CPT/HCPCS: 36415; 80053; 80061; 82607; 82728; 82746; 83036; 83540; 85025; 87798; 87801

== ENCOUNTER 2022-09-27 11:17 | Outpatient (AMB) | payer MEDICARE, SELFPAY ==
--- NOTE | 2022-09-27 11:35 | A.OFFVIS_ITS ---
Intake Vital Signs 09/27/22 11:37 Height 5 ft 7 in Weight 158 lb 11.725 oz BMI 24.9 Intake Visit Reasons: 4 month follow up Intake Note: Sergei presents in the office as a 4 month follow. CC: lots of loud gases. He has hiccups that are more than usual and it seems to be since he started Budesonide. Allergies adhesive tape Allergy (Intermediate, Verified 09/27/22 11:37) BLISTERS HPI 4 month follow up HPI Details 82 yr old m with DM, prostate cancer 2004 here for f/u RECAP: He had EGD for dysphagia with dilation of stricture 01/2020 I then repeated the EGD 10/2020-- noted hiatal hernia 4 cm, jack erosion, balloon dilation 20 mm with tears noted at GEJ EGD/colonoscopy 01/2021: tubulovillous adenoma removed, chronci duodenitis, schatzki ring, hiatal hernia, retained clip removed--balloon dilation 18-19 mm He was referred to Dr Kent and had para esophageal hernia repair with mesh and gastropexy 05/2021- he also required esophgeal dilation few months after that repeat EGD/colo:03/2022 Endoscopy Findings: hiatal hernia esophageal rings and stricture duodenitis Colonoscopy Findings: polyp internal hemorrhoids diverticular disease segmental colitis balloon dilation with tear noted Path: A.? Duodenum, biopsy:? Duodenal mucosa within normal limits. B.? Stomach, biopsy:? Oxyntic mucosa with mild chronic inactive inflammation; no Helicobacter organisms seen. C.? Terminal ileum, biopsy:? Terminal ileal mucosa within normal limits. D.? Colon, random, biopsy:? Colonic mucosa with features of microscopic colitis. E.? Colon, ascending, polypectomy:? Clinically polypoid colonic mucosa with prolapse changes and features of microscopic colitis. F. ? Colon, sigmoid, biopsy:? Colonic mucosa with features of collagenous colitis. G.? Rectum, biopsy:? Colonic mucosa with features of microscopic colitis. He was tried on mesalamine, pepto was initially suggested but due to interactions went with the mesalamine GI stool panel was neg lactoferrin was raised c diff sample was invalid INTERIM: He still has diarrhea even with budesonide, 9 mg but no night time accidents as before he feels the swallowing is getting worse again appetite is fair no abdominal pain he has hiccups after eating EXAM: GENERAL: The patient is well developed and nontoxic. VITAL SIGNS:see workflow HEENT: Nonicteric sclerae, PERRLA, EOMI. Oropharynx clear. Moist mucous membranes. Conjunctivae appear well perfused. No thyroid mass. CHEST: Chest wall is nontender. HEART: Regular rate and rhythm without murmurs. LUNGS: Clear to auscultation bilaterally. ABDOMEN: Soft, positive bowel sounds, nontender, no organomegaly.no flank tenderness SKIN: No rash, no excessive bruising, petechiae, or purpura. NEUROLOGIC: Cranial nerves II-XII intact without motor/sensory deficit. A/P: 1/ microscopic colitis, possibly from statin and PPI use, causing his diarrhea--not helped by budesonide or mesalamine 2/ swallowing issues, since surgery--prior dilation did help PLAN: 1/ will schedule for non urgent EGD and dilation 2/ will try bile acid binder today, stop budesonide for the moment ? ? [facility] Medical History Attention deficit disorder (ADD) Chronic renal insufficiency Depression Diabetes Esophageal dysmotility Esophageal ring, acquired Fall GERD (gastroesophageal reflux disease) History of fall HTN (hypertension) Hx of bronchitis Intrinsic sphincter deficiency (ISD) Left arm numbness Occipital neuralgia Post herpetic neuralgia Rib fractures Right arm numbness Tubular adenoma of colon Surgical History History of back surgery History of cervical spinal surgery History of colonoscopy History of esophagogastroduodenoscopy (EGD) History of implantation of artificial sphincter (~11/2019) History of radical prostatectomy History of right inguinal hernia repair (~03/2010) Hx of esophageal hernia repair Hx of neck surgery Family History Father No problems noted. Mother Hx of colon cancer, stage I Substance use disorder Brother Hx of colon cancer, stage III Family/Other Substance use disorder Social History Housing: House Are you a primary day care aide to a significant other at home: No Do you presently have visiting nurse or other home services: No Alcohol intake: never Patient Tobacco Use Status: Never used Tobacco e-Cigarette/Vaping Use: Never Used Second Hand Smoke Exposure: No Current occupational status: retired Cognitive needs: No Hearing needs: Yes Vision needs: Yes Physical Exam Vital Signs: BMI result Body Mass Index 24.9 Assessment & Plan Assessment & Plan (1) Diarrhea: Code(s): R19.7 - Diarrhea, unspecified (2) Dysphagia: Code(s): R13.10 - Dysphagia, unspecified Medications: New colesevelam 1,250 mg (2 x 625 mg) PO BID 120 tabs 0RF Discontinued budesonide ER Discontinued Reason: Doctor's Order 9 mg (3 x 3 mg) PO DAILY 90 ea 3RF 1 month Coding Level of Care Code Est Pt Level 3 (73717) Diagnoses Diarrhea R19.7 Dysphagia R13.10
[2022-09-27 11:37] VITALS: BMI 24.9
== END 2022-09-27 12:11 | disposition home or self-care (01) ==
PROVIDERS: PCP Nurse Practitioner Family; Visit Provider Internal Medicine Gastroenterology
DX: R19.7 Diarrhea, unspecified (principal); R13.10 Dysphagia, unspecified
CPT/HCPCS: 99213

== ENCOUNTER → 2022-09-27 11:17 | Outpatient (BNVA) | payer MEDICARE, SELFPAY | PROVIDERS: PCP Nurse Practitioner Family; Visit Provider Internal Medicine Gastroenterology | DX: R13.10 Dysphagia, unspecified (principal); R19.7 Diarrhea, unspecified; K21.9 Gastro-esophageal reflux disease without esophagitis | CPT/HCPCS: 99212 ==

== ENCOUNTER 2022-10-19 09:24 | Outpatient (REF) | payer MEDICARE, SELFPAY ==
[2022-10-19 13:50] LABS: Appearance Urine Clear; Color Urine Yellow; Glucose Urine UA 100 mg/dL (Negative); Leukocyte Esterase Urine Negative (Negative); Nitrite Urine Negative (Negative); Specific Gravity - Urine 1.015 (1.005-1.025); Urine Blood Negative (Negative); Urine Ketones Negative (Negative); Urine Protein Trace mg/dL (Neg-Trace)
[2022-10-19 14:27] LABS: Creatinine Urine 116.76 mg/dL; Protein/Creatinine Ratio, Ur 0.21 (<0.2); Total Protein Urine Random 24 mg/dL (<12)
[2022-10-19 15:12] LABS: Anion Gap 10 (12-20); Blood Urea Nitrogen 13 mg/dL (9-16); Calcium 9.2 mg/dL (8.4-10.2); Carbon Dioxide 24 mmol/L (22-29); Chloride 111 mmol/L (96-108); Estimated Glomerular Filt Rate 48; Potassium 4.7 mmol/L (3.3-5.1); Sodium 140 mmol/L (135-145)
[2022-10-19 15:33] LABS: Vitamin D 25-OH Total 36.5 ng/mL (>30)
[2022-10-20 15:23] LABS: Calcium (PTHI) 8.9 mg/dL (8.6-10.3); PTHI 78 pg/mL (16-77)
== END 2022-10-19 09:25 | disposition home or self-care (01) ==
LOC: HO.HMGCLDS 09:24
PROVIDERS: Absent Provider Internal Medicine Nephrology; PCP Nurse Practitioner Family; Referring Provider Internal Medicine Nephrology; Visit Provider Nurse Practitioner Family
DX: E11.29 Type 2 diabetes mellitus with other diabetic kidney complication (principal); E11.22 Type 2 diabetes mellitus with diabetic chronic kidney disease; N18.2 Chronic kidney disease, stage 2 (mild); N17.9 Acute kidney failure, unspecified; I12.9 Hypertensive chronic kidney disease with stage 1 through stage 4 chronic kidney disease, or unspecified chronic kidney disease; Z18.9 Retained foreign body fragments, unspecified material
CPT/HCPCS: 36415; 80051; 81003; 82306; 82310; 82565; 82570; 83970; 84156; 84520

== ENCOUNTER 2022-11-01 10:17 | Outpatient (AMB) | payer MEDICARE, SELFPAY ==
[2022-11-01 10:57] VITALS: BP 136/70; PULSE 87; O2SAT 98; BMI 24.8
--- NOTE | 2022-11-01 10:57 | MHC.PC.OV ---
Vital Signs 11/01/22 10:57 Height 5 ft 7 in Weight 158 lb 2 oz BMI 24.8 BP 136/70 Blood Pressure Location Rt brachial Position Sitting Pulse 87 Pulse Source Pulse Oximeter Pulse Oximetry (%) 98 Oxygen Delivery Method Room Air Intake Visit Reasons: annual PE Allergies adhesive tape Allergy (Intermediate, Verified 11/01/22 10:59) BLISTERS Medication List - Last Reconciled 11/01/22 by NIKITA StrongP- bupropion HCl 300 mg PO QAM 90 days colesevelam 1,250 mg (2 x 625 mg) PO BID FreeStyle Bao 2 [place] (flash glucose scanning reader) TID testing NS FreeStyle Bao 2 Sensor (flash glucose sensor) TID testing NS hydroxyzine HCl 10 mg PO BEDTIME PRN insulin glargine (Lantus Solostar U-100 Insulin) 16 units subcut DIRECTED lancets (FreeStyle Lancets) BID Freestyle lancets all flex lansoprazole 30 mg PO DAILY mecobalamin (vitamin B12) mcg PO metformin 1,000 mg PO BID simvastatin 40 mg PO BEDTIME trazodone 100 mg PO BEDTIME Tobacco use date assessed: 11/01/22 Fall risk assessment: 1 Fall in past year Last assessed Fall Risk: 11/01/22 Dental Screening Dental Screen Date: 11/01/22 Did you have a dental visit in the last 12 months?: No Did you have a dental problem in the last 6 months where you did not have access to dental care?: No Was dental information given to patient?: No HPI annual PE HPI Details Pt is here for a PE. Will order labs. Colon screen is up to date. PSA is up to date. Pt is a diabetic, on a statin. A1C in office today is 6.9. Microalbumin is up to date. Denies polyuria, polydipsia, and neuropathy. Pt denies any signs and symptoms of hypoglycemia and does know how to correct it. Pt reports that his blood sugar is well-controlled. Pt follows up with nephrology. [facility] Medical History Attention deficit disorder (ADD) Chronic renal insufficiency Depression Diabetes Esophageal dysmotility Esophageal ring, acquired Fall GERD (gastroesophageal reflux disease) History of fall HTN (hypertension) Hx of bronchitis Intrinsic sphincter deficiency (ISD) Left arm numbness Occipital neuralgia Post herpetic neuralgia Rib fractures Right arm numbness Tubular adenoma of colon Surgical History Hx of esophageal hernia repair Hx of neck surgery History of implantation of artificial sphincter (~11/2019) History of esophagogastroduodenoscopy (EGD) History of right inguinal hernia repair (~03/2010) History of cervical spinal surgery History of colonoscopy History of back surgery History of radical prostatectomy Family History Father No problems noted. Mother Hx of colon cancer, stage I Substance use disorder Brother Hx of colon cancer, stage III Family/Other Substance use disorder Social History Housing: House Are you a primary chiropractic care to a significant other at home: No Do you presently have visiting nurse or other home services: No Alcohol intake: never Patient Tobacco Use Status: Never used Tobacco e-Cigarette/Vaping Use: Never Used Second Hand Smoke Exposure: No Current occupational status: retired Cognitive needs: No Hearing needs: Yes Vision needs: Yes Questionnaire Thrive Questionnaire Date Thrive assessed: 10/28/20 Review of Systems Const Denies chills and Denies fever(s) Eyes Denies blurry vision ENT Denies vertigo, Denies dizziness and Denies sore throat Card Denies chest pain at rest, Denies chest pain with activity, Denies diaphoresis, Denies dyspnea and Denies dyspnea on exertion Resp Denies cough, Denies dyspnea, Denies dyspnea on exertion and Denies wheezing GI Denies abdominal pain, Denies melena, Denies hematochezia, Denies constipation, Denies diarrhea and Denies loose stools Denies hematuria Musc Denies numbness and Denies tingling Skin/Breast Denies lesions Neuro Denies vertigo, Denies dizziness, Denies numbness and Denies tingling Psych Denies anxiety, Denies depression, Denies homicidal ideation, Denies suicidal ideation and Denies other (substance abuse) Aller/Immun Denies wheezing Physical exam (Primary Care) Vital Signs: Last Vital Signs Pulse 87 11/01/22 10:57 BP 136/70 09/18/23 10:57 Pulse Ox 98 11/01/22 10:57 Oxygen Delivery Method Room Air 11/01/22 10:57 BMI result Body Mass Index 24.8 Tobacco/Smoking Status: Tobacco use Status Tobacco use date assessed 11/01/22 11/01/22 11:02 Patient Tobacco Use Status Never used Tobacco 11/01/22 11:02 e-Cigarette/Vaping Use Never Used 11/01/22 11:02 Thrive Assessment: Date of Thrive Assessment Date Thrive assessed 10/28/20 11/01/22 11:02 Const General: cooperative Nutritional Appearance: well nourished Orientation/consciousness: patient oriented x3 HENMT Head: Yes normal to inspection, Yes normocephalic and Yes atraumatic Ears: TM's normal bilaterally Eyes General: appearance normal, both eyes and all related structures Alignment and Position: alignment normal and position normal Neck Neck: Yes normal visual inspection and Yes no lymphadenopathy Thyroid: Thyroid normal Resp Effort & Inspection: normal respiratory effort Auscultation: clear to auscultation bilaterally Cardio Rate: regular rate Rhythm: regular rhythm Heart sounds: S1 normal heart sound present, S2 normal heart sound present and no murmurs GI Palpation (GI): Soft to palpation and nontender Auscultation: normal bowel sounds Other: artificial sphincter button palpable Male General Exam: Yes normal external exam Penis: normal penis Scrotum: scrotum normal, testes descended bilaterally and no inguinal hernias Testes: no testicular mass Skin Rashes: no rashes Neuro General: patient oriented x3, moves all extremities, no focal motor deficits and deep tendon reflexes 2+ bilaterally Romberg Test: Negative Extrem Right lower extremity: no edema Left lower extremity: no edema Psych Appearance: grossly normal Mental Status: mental status grossly normal Speech and movement: Normal speech and movement present Affect: normal affect Attitude: cooperative Thought process: Normal thought process present Thought content: Normal thought content present Insight: Good insight present (Psych) Judgement: Good judgement present (Psych) Results AMB Hemoglobin A1c AMB Hemoglobin A1c 6.9 % Last Edit by Adwoa Lui CMA on 11/01/22 11:38 Results Reviewed Results Reviewed: Laboratory Last Values Hgb A1c (Clinic) 6.9 % (4.0-6.0) H 11/01/22 11:22 Assessment and Plan Assessment & Plan (1) Physical exam: Code(s): Z00.00 - Encounter for general adult medical examination without abnormal findings Plan: Labs ordered Plan The patient agreed to the use of a medical front desk coordinator for this encounter. Scribed for CRISTINA Zayas by Cami Celestin medical front desk coordinator, on 11/01/2022 at 11:05 EST. Orders: Orders Comprehensive [place]. Panel Fast Today Z00.00 - Encounter for general adult medical examination without abnormal findings TSH reflex Free T4 Today Z00.00 - Encounter for general adult medical examination without abnormal findings UA CC w/rflx Micro + Cult Today Z00.00 - Encounter for general adult medical examination without abnormal findings Lipid Panel Today Z00.00 - Encounter for general adult medical examination without abnormal findings Complete Blood Count Auto Diff Today Z00.00 - Encounter for general adult medical examination without abnormal findings AMB Hemoglobin A1c Today E11.29 - Type 2 diabetes mellitus with other diabetic kidney complication Coding Level of Care Code Est Pt Prev Care >65y(82619) Diagnoses Physical exam Z00.00
== END 2022-11-01 11:37 | disposition home or self-care (01) ==
PROVIDERS: Visit Provider Nurse Practitioner Family
DX: Z00.00 Encounter for general adult medical examination without abnormal findings (principal); E11.29 Type 2 diabetes mellitus with other diabetic kidney complication
CPT/HCPCS: 83036; 99397

== ENCOUNTER 2023-02-10 09:44 | Outpatient (AMB) | payer MEDICARE, SELFPAY ==
--- NOTE | 2023-02-10 09:46 | MHC.PC.OV ---
Vital Signs 02/10/23 09:51 Height 5 ft 7 in Weight 155 lb BMI 24.3 BP 108/68 Blood Pressure Location Rt brachial Position Sitting Pulse 56 Pulse Source Pulse Oximeter Pulse Oximetry (%) 95 Oxygen Delivery Method Room Air Intake Visit Reasons: 3 Month follow up Intake Note: Patient here for diabetes follow up. sugars have been good at home. Allergies adhesive tape Allergy (Intermediate, Verified 02/10/23 09:52) BLISTERS Medication List - Last Reconciled 02/10/23 by LIZZY Strong- albuterol sulfate 90 mcg/actuation 2 puffs inhalation Q6H PRN azithromycin For 250 mg dose pack: take 500 mg today (day 1), then 250 mg for 4 days (days 2-5) PO bupropion HCl 300 mg PO QAM 90 days colesevelam 1,250 mg (2 x 625 mg) PO BID FreeStyle Bao 2 [place] (flash glucose scanning reader) TID testing NS FreeStyle Bao 2 Sensor (flash glucose sensor) TID testing NS hydroxyzine HCl 10 mg PO BEDTIME PRN insulin glargine (Lantus Solostar U-100 Insulin) 16 units subcut DIRECTED lancets (FreeStyle Lancets) BID Freestyle lancets all flex lansoprazole 30 mg PO DAILY mecobalamin (vitamin B12) mcg PO metformin 1,000 mg PO BID prednisone 40 mg (2 x 20 mg) PO DAILY simvastatin 40 mg PO BEDTIME trazodone 100 mg PO BEDTIME Tobacco use date assessed: 11/01/22 Fall risk assessment: No Falls in past year Last assessed Fall Risk: 02/10/23 HPI 3 Month follow up HPI Details Patient is here for follow-up for diabetes. His microalbumin is up-to-date, and he is currently on a statin. He does follow-up with Urology, and also follows up with Nephrology. He understands the signs and symptoms of hypoglycemia and how to correct it. Highly encouraged the patient to get his labs drawn in the near future. Orders were placed back in October. He denies any polyuria, polydipsia, does have neuropathy (left big toe, intermittent). eye exam is up to date. A1c was 6.2 today. Wheezing noted on exam. denies any CP, SOB, fevers, chills. is in the room today, reporting all their grandchildren had a respir. viral illness. [facility] Medical History Chronic renal insufficiency HTN (hypertension) Diabetes Esophageal dysmotility History of fall Tubular adenoma of colon Left arm numbness Right arm numbness Rib fractures Fall Occipital neuralgia Attention deficit disorder (ADD) Hx of bronchitis Intrinsic sphincter deficiency (ISD) Esophageal ring, acquired GERD (gastroesophageal reflux disease) Depression Post herpetic neuralgia Surgical History Hx of esophageal hernia repair Hx of neck surgery History of implantation of artificial sphincter (~11/2019) History of esophagogastroduodenoscopy (EGD) History of right inguinal hernia repair (~03/2010) History of cervical spinal surgery History of colonoscopy History of back surgery History of radical prostatectomy Family History Father No problems noted. Mother Hx of colon cancer, stage I Substance use disorder Brother Hx of colon cancer, stage III Family/Other Substance use disorder Social History Housing: House Are you a primary anesthesiologist and critical care to a significant other at home: No Do you presently have visiting nurse or other home services: No Alcohol intake: never Comment: 3 MONTHS AGO MULTIPLE FALLS Patient Tobacco Use Status: Never used Tobacco e-Cigarette/Vaping Use: Never Used Second Hand Smoke Exposure: No Current occupational status: retired Cognitive needs: No Hearing needs: Yes Vision needs: Yes Questionnaire Thrive Questionnaire Date Thrive assessed: 10/28/20 Physical exam (Primary Care) Vital Signs: Last Vital Signs Pulse 56 02/10/23 09:51 BP 108/68 02/10/23 09:51 Pulse Ox 95 02/10/23 09:51 Oxygen Delivery Method Room Air 02/10/23 09:51 BMI result Body Mass Index 24.3 Tobacco/Smoking Status: Tobacco use Status Tobacco use date assessed 11/01/22 02/10/23 09:47 Patient Tobacco Use Status Never used Tobacco 02/10/23 09:47 e-Cigarette/Vaping Use Never Used 02/10/23 09:47 Thrive Assessment: Date of Thrive Assessment Date Thrive assessed 10/28/20 02/10/23 09:47 Const General: cooperative, healthy appearing and comfortable Resp Effort & Inspection: normal respiratory effort Auscultation: wheezes (throughout bilat ) Cardio Rate: regular rate Rhythm: regular rhythm Heart sounds: S1 normal heart sound present, S2 normal heart sound present and no murmurs Extrem Other: feet intact, + sensation with use of monofilament. Results AMB Hemoglobin A1c AMB Hemoglobin A1c 6.2 % Last Edit by HÉCTOR Winter on 02/10/23 10:12 Assessment and Plan Assessment & Plan (1) Wheezing: Code(s): R06.2 - Wheezing Plan: medications sent (2) Diabetes: Code(s): E11.9 - Type 2 diabetes mellitus without complications Plan continue same med regime Orders: Orders AMB Hemoglobin A1c Today E11.29 - Type 2 diabetes mellitus with other diabetic kidney complication Medications: New albuterol sulfate 90 mcg/actuation 2 puffs inhalation Q6H PRN 8.5 grams 0RF shortness of breath or wheezing azithromycin For 250 mg dose pack: take 500 mg today (day 1), then 250 mg for 4 days (days 2-5) PO 6 tabs 0RF prednisone 40 mg (2 x 20 mg) PO DAILY 5 tabs 0RF Coding Level of Care Code Est Pt Level 3 (72413) Diagnoses Wheezing R06.2 Diabetes E11.9
[2023-02-10 09:51] VITALS: BP 108/68; PULSE 56; O2SAT 95; BMI 24.3
== END 2023-02-10 10:37 | disposition home or self-care (01) ==
PROVIDERS: PCP Nurse Practitioner Family; Visit Provider Nurse Practitioner Family
DX: R06.2 Wheezing (principal); E11.29 Type 2 diabetes mellitus with other diabetic kidney complication
CPT/HCPCS: 83036; 99213

== ENCOUNTER 2023-03-21 08:51 | Outpatient (AMB) | payer MEDICARE, SELFPAY ==
--- NOTE | 2023-03-21 09:03 | A.OFFVIS_ITS ---
Intake Vital Signs 03/21/23 09:05 Height 5 ft 7 in Weight 151 lb BMI 23.6 BP 155/70 H Blood Pressure Location Lt brachial Position Sitting Pulse 95 Intake Visit Reasons: 6month f/u dysphea Intake Note: Patient 6 month follow up for dysphea. Patient cc: swallowing problems and diarrhea. Denies any other GI issues. Wrapper Rewinder Required: No Accompanied by: Spouse Allergies adhesive tape Allergy (Intermediate, Verified 03/21/23 09:03) BLISTERS HPI 6month f/u dysphea HPI Details 82 yr old m with DM, prostate cancer 200 5 here for f/u RECAP: He had EGD for dysphagia with dilation of stricture 01/2020 I then repeated the EGD 10/2020-- noted hiatal hernia 4 cm, jack erosion, balloon dilation 20 mm with tears noted at [facility] EGD/colonoscopy 01/2021: tubulovillous adenoma removed, chronci duodenitis, schatzki ring, hiatal hernia, retained clip removed--balloon dilation 18-19 mm He was referred to Dr Kent and had para esophageal hernia repair with mesh and gastropexy 05/2021- he also required esophgeal dilation few months after that repeat EGD/colo:03/2022 Endoscopy Findings: hiatal hernia esophageal rings and stricture duodenitis Colonoscopy Findings: polyp internal hemorrhoids diverticular disease segmental colitis balloon dilation with tear noted Path: A. Duodenum, biopsy: Duodenal mucosa within normal limits. B. Stomach, biopsy: Oxyntic mucosa with mild chronic inactive inflammation; no Helicobacter organisms seen. C. Terminal ileum, biopsy: Terminal ileal mucosa within normal limits. D. Colon, random, biopsy: Colonic mucosa with features of microscopic colitis. E. Colon, ascending, polypectomy: Clinically polypoid colonic mucosa with prolapse changes and features of microscopic colitis. F. Colon, sigmoid, biopsy: Colonic mucosa with features of collagenous colitis. G. Rectum, biopsy: Colonic mucosa with features of microscopic colitis. He was tried on mesalamine, pepto was initially suggested but due to interactions went with the mesalamine GI stool panel was neg lactoferrin was raised c diff sample was invalid INTERIM: He has bee n dx with deadfness, v sudden, went to ENT he has been suffering from recurrent bronchitis and this is still problematic he has issues with swallowing again and hurts he is still taking lansoprazole he felt no better with budesonide still has gas issues and diarrhea appetite is poor EXAM: GENERAL: The patient is well developed and nontoxic. VITAL SIGNS:see workflow HEENT: Nonicteric sclerae, PERRLA, EOMI. Oropharynx clear. Moist mucous membranes. Conjunctivae appear well perfused. No thyroid mass. CHEST: Chest wall is nontender. HEART: Regular rate and rhythm without murmurs. LUNGS: multi phonic wheeze both lungs ABDOMEN: Soft, positive bowel sounds, nontender, no organomegaly.no flank tenderness SKIN: No rash, no excessive bruising, petechiae, or purpura. NEUROLOGIC: deaf, poor balance, unable to do tandem walking, falling to right psych: nml A/P: 1/ microscopic colitis, possibly from st atin and PPI use, causing his diarrhea--not helped by budesonide or mesalamine, but main issue right now is breathing and deafness, balance issues 2/ swallowing issues, since surgery--isabel or dilation did help--may have chloe PLAN: 1/ cxr and urgent pulm referral, will se leighton shah has neb at home 2/ Ct brain, might need MRI but breathin g would be an issue for this right now 3/ EGD after pulm issues resolved 4/ stop budesonide, PFSH Medical History (Reviewed 02/10/23 @ 12:23 by Sergei Burt, [facility]) Chronic renal insufficiency HTN (hypertension) Diabetes Esophageal dysmotility History of fall Tubular adenoma of colon Left arm numbness Right arm numbness Rib fractures Fall Occipital neuralgia Attention deficit disorder (ADD) Hx of bronchitis Intrinsic sphincter deficiency (ISD) Esophageal ring, acquired GERD (gastroesophageal reflux disease) Depression Post herpetic neuralgia Surgical History Hx of esophageal hernia repair Hx of neck surgery History of implantation of artificial sphincter (~11/2019) History of esophagogastroduodenoscopy (EGD) History of right inguinal hernia repair (~03/2010) History of cervical spinal surgery History of colonoscopy History of back surgery History of radical prostatectomy Family History Father No problems noted. Mother Hx of colon cancer, stage I Substance use disorder Brother Hx of colon cancer, stage III Family/Other Substance use disorder Social History Housing: House Are you a primary career coach to a significant other at home: No Do you presently have visiting nurse or other home services: No Alcohol intake: never Comment: 3 MONTHS AGO MULTIP[place] FALL[place] Patient Tobacco Use Status: Never used Tobacco e-Cigarette/Vaping Use: Never Used Second Hand Smoke Exposure: No Current occupational status: retired Cognitive needs: No Hearing needs: Yes Vision needs: Yes Physical Exam Vital Signs: Last Vital Signs Pulse 95 03/21/23 09:05 BP 155/70 H 03/21/23 09:05 BMI result Body Mass Index 23.6 Assessment & Plan Assessment & Plan (1) Dysphagia: Code(s): R13.10 - Dysphagia, unspecified Plan: A/P: 1/ microscopic colitis, possibly from statin and PPI use, causing his diarrhea--not helped by budesonide or mesalamine, but main issue right now is breathing and deafness, balance issues 2/ swallowing issues, since surgery--prior dilation did help--may have chloe PLAN: 1/ cxr and urgent pulm referral, will send combivent has neb at home 2/ Ct brain, might need MRI but breathing would be an issue for this right now 3/ EGD after pulm issues resolved 4/ stop budesonide, (2) Bronchitis: Code(s): J40 - Bronchitis, not specified as acute or chronic Plan: A/P: 1/ microscopic colitis, possibly from statin and PPI use, causing his diarrhea--not helped by budesonide or mesalamine, but main issue right now is breathing and deafness, balance issues 2/ swallowing issues, since surgery--prior dilation did help--may have chloe PLAN: 1/ cxr and urgent pulm referral, will send combivent has neb at home 2/ Ct brain, might need MRI but breathing would be an issue for this right now 3/ EGD after pulm issues resolved 4/ stop budesonide, (3) Poor balance: Code(s): R26.89 - Other abnormalities of gait and mobility Plan: A/P: 1/ microscopic colitis, possibly from statin and PPI use, causing his diarrhea--not helped by budesonide or mesalamine, but main issue right now is breathing and deafness, balance issues 2/ swallowing issues, since surgery--prior dilation did help--may have chloe PLAN: 1/ cxr and urgent pulm referral, will send combivent has neb at home 2/ Ct brain, might need MRI but breathing would be an issue for this right now 3/ EGD after pulm issues resolved 4/ stop budesonide, Orders: Orders XR chest 2V Today J40 - Bronchitis, not specified as acute or chronic, R13.10 - Dysphagia, unspecified CT head/brain wo IV con Today R13.10 - Dysphagia, unspecified, R26.89 - Other abnormalities of gait and mobility Referrals Pulmonary Medicine Referral J40 - Bronchitis, not specified as acute or chronic Medications: New fluconazole 100 mg PO DAILY 21 tabs 0RF Coding Level of Care Code Est Pt Level 4 (86847) Diagnoses Dysphagia R13.10 Bronchitis J40 Poor balance R26.89
[2023-03-21 09:05] VITALS: BP 155/70; PULSE 95; BMI 23.6
== END 2023-03-21 09:29 | disposition home or self-care (01) ==
PROVIDERS: PCP Nurse Practitioner Family; Visit Provider Internal Medicine Gastroenterology
DX: R13.10 Dysphagia, unspecified (principal); J40 Bronchitis, not specified as acute or chronic; R26.89 Other abnormalities of gait and mobility
CPT/HCPCS: 99214

== ENCOUNTER 2023-03-21 08:51 | Outpatient (REF) | payer MEDICARE, SELFPAY ==
--- NOTE | ~2023-03-21 | XR_ITS ---
EXAMINATION: XR CHEST CLINICAL INFORMATION: Recurrent bronchitis, dysphagia COMPARISON: Chest x-ray on 09/10/2020 TECHNIQUE: 2 views of the chest were obtained. FINDINGS: vascularity. LUNGS: Lungs are clear. No pneumothorax is seen. BONES: Bony skeleton is intact. XR/XR chest 2V IMPRESSION: Unchanged Normal chest x-ray.
== END 2023-03-21 08:52 | disposition home or self-care (01) ==
LOC: HO.XRAY 08:51
PROVIDERS: PCP Nurse Practitioner Family; Visit Provider Internal Medicine Gastroenterology
DX: R13.10 Dysphagia, unspecified (principal); R26.89 Other abnormalities of gait and mobility; J40 Bronchitis, not specified as acute or chronic; R19.7 Diarrhea, unspecified
CPT/HCPCS: 71046; 99212

== ENCOUNTER 2023-04-05 08:12 | Outpatient (AMB) | payer MEDICARE, SELFPAY ==
[2023-04-05 08:25] VITALS: BP 150/80; PULSE 101; TEMP 36.9; O2SAT 97; BMI 23.3
--- NOTE | 2023-04-05 08:25 | AM.OFFWIN_ITS ---
Intake Vital Signs 04/05/23 08:25 Height 5 ft 7 in Weight 149 lb BMI 23.3 BP 150/80 H Blood Pressure Location Lt brachial Position Sitting Pulse 101 H Pulse Source Pulse Oximeter Temp 98.4 F Pulse Oximetry (%) 97 Oxygen Delivery Method Room Air Intake Visit Reasons: EP Cough, Congestion Intake Note: pt is her today for cough congestion started 1 month ago Patient Tobacco Use Status: Never used Tobacco Allergies adhesive tape Allergy (Intermediate, Verified 04/05/23 09:03) BLISTERS Medication List - Last Reconciled 04/05/23 by LIZZY Barraza albuterol sulfate 90 mcg/actuation 2 puffs inhalation Q6H PRN bupropion HCl 300 mg PO QAM 90 days colesevelam 1,250 mg (2 x 625 mg) PO BID fluconazole 100 mg PO DAILY FreeStyle Bao 2 [place] (flash glucose scanning reader) TID testing NS FreeStyle Bao 2 Sensor (flash glucose sensor) TID testing NS hydroxyzine HCl 10 mg PO BEDTIME PRN ipratropium-albuterol 20-100 mcg/actuation (Combivent Respimat) 1 puff inhalation QID lancets (FreeStyle Lancets) BID Freestyle lancets all flex lansoprazole 30 mg PO DAILY mecobalamin (vitamin B12) mcg PO metformin 1,000 mg PO BID simvastatin 40 mg PO BEDTIME trazodone 100 mg PO BEDTIME Do you need a note to return to daycare/school/sports/work: No HPI HPI Comments History of Present Illness Details Patient is an 82-year-old male in today for a sick visit. The patient states that over the past month he is due for developed symptoms of sore throat, cough, excessive mucus, chest tightness. He has a past medical history significant for reactive airway disease, kidney disease, type 2 diabetes, depression. Patient states that the cough is bothering him most, as he can have coughing fits that lasts for several minutes at a time. Patient states that he fell out of his bed last night after coughing fit and hit his head. This is interrupting his sleep. He has been using albuterol at home with some relief. Denies dizziness, numbness, chest pain, shortness a breath, nausea, vomiting. He states he has not been able to eat much because he has no appetite, in feels weak. Patient does state he has chronic diarrhea has been followed by GI. Will obtain in office EKG. Patient has been sent to the emergency department. Expect call to emergency department has been made. Patient offered ambulance but declined. Patient's will give him a ride to emergency room in private vehicle. [facility] Medical History Chronic renal insufficiency HTN (hypertension) Diabetes Esophageal dysmotility History of fall Tubular adenoma of colon Left arm numbness Right arm numbness Rib fractures Fall Occipital neuralgia Attention deficit disorder (ADD) Hx of bronchitis Intrinsic sphincter deficiency (ISD) Esophageal ring, acquired GERD (gastroesophageal reflux disease) Depression Post herpetic neuralgia Surgical History Hx of esophageal hernia repair Hx of neck surgery History of implantation of artificial sphincter (~11/2019) History of esophagogastroduodenoscopy (EGD) History of right inguinal hernia repair (~03/2010) History of cervical spinal surgery History of colonoscopy History of back surgery History of radical prostatectomy Family History Father No problems noted. Mother Hx of colon cancer, stage I Substance use disorder Brother Hx of colon cancer, stage III Family/Other Substance use disorder Social History Housing: House Are you a primary family day care provider to a significant other at home: No Do you presently have visiting nurse or other home services: No Alcohol intake: never Comment: 3 MONTHS AGO [place] Patient Tobacco Use Status: Never used Tobacco e-Cigarette/Vaping Use: Never Used Second Hand Smoke Exposure: No Current occupational status: retired Cognitive needs: No Hearing needs: Yes Vision needs: Yes Review of Systems Const All systems reviewed & are unremarkable except as noted in HPI and below Physical Exam Vital Signs: Last Vital Signs Temp 98.4 F 04/05/23 08:25 Pulse 101 H 04/05/23 08:25 BP 150/80 H 04/05/23 08:25 Pulse Ox 97 04/05/23 08:25 Oxygen Delivery Method Room Air 04/05/23 08:25 BMI result Body Mass Index 23.3 Const Other: Appearance: Alert.? Oriented X3.? No acute distress.? Head: Normocephalic, atraumatic, no step-offs or deformities Eyes: Pupils equal, round and reactive to light.? ENT: Pharynx erythema and post nasal drip.? Neck: Normal inspection.? Neck supple.?Full ROM CVS: Normal heart rate and rhythm.? Pulses normal.? Respiratory: No respiratory distress.? Bilateral wheeze upper lobes. + Rhonci. No cracles. ? Skin: Skin warm and dry.? Normal skin color.? Normal skin turgor.? Neuro: Oriented X 3.? No motor deficit.? No sensory deficit. CN 2-12 intact Assessment & Plan Assessment & Plan (1) Weakness: Comment: Patient states that he feels weak. Has not been able to eat or drink much over the past some 3-4 days. Does have a longstanding issue with chronic diarrhea. In office EKG performed. Patient states that he fell out of his bed last night but attributes this to coughing. Patient needs further workup. Will refer to emergency department. Code(s): R53.1 - Weakness Plan: Patient will be sent to the emergency department. Expect call placed. Patient was asked to go via ambulance but declined. Patient will be going to emergency department with in her vehicle. (2) Upper respiratory infection: Comment: Patient likely has upper respiratory infection. Code(s): J06.9 - Acute upper respiratory infection, unspecified Qualifiers: URI type: unspecified URI Qualified Code(s): J06.9 - Acute upper respiratory infection, unspecified Plan: Patient referred to emergency department. Plan Follow-up with PCP. Orders: Orders Complete Blood Count Auto Diff Today Z13.0 - Encounter for screening for diseases of the blood and blood-forming organs and certain disorders involving the immune mechanism Comprehensive Met. Panel Today Z91.89 - Other specified personal risk factors, not elsewhere classified UA CC w/rflx Micro + Cult Today Z91.89 - Other specified personal risk factors, not elsewhere classified AMB EKG-In Office Today R00.0 - Tachycardia, unspecified SARS-CoV2/FLU/RSV Today J06.9 - Acute upper respiratory infection, unspecified Coding Level of Care Code Est Pt Level 3 (75212) Diagnoses Weakness R53.1 Upper respiratory tract infection, unspecified type J06.9 URI type: unspecified URI Time Spent (min) 25
== END 2023-04-05 15:42 | disposition home or self-care (01) ==
PROVIDERS: PCP Nurse Practitioner Family; Visit Provider Nurse Practitioner Primary Care
DX: R53.1 Weakness (principal); J06.9 Acute upper respiratory infection, unspecified
CPT/HCPCS: 99213

== ENCOUNTER 2023-04-05 10:01 | Emergency (ER) | payer MEDICARE, SELFPAY ==
[2023-04-05] VITALS (8 sets, daily range): BP systolic 142–185; BP diastolic 72–91; PULSE 88–98; RESP 14–22; TEMP 36.6–36.8; O2SAT 94–97; BMI 22.9
--- NOTE | ~2023-04-05 | XR_ITS ---
EXAMINATION: XR CHEST CLINICAL INFORMATION: SOB COMPARISON: CT chest 03/21/2023. TECHNIQUE: 2 views of the chest were obtained. FINDINGS: The lungs are well-inflated and clear of acute process. The heart size and pulmonary vascularity is normal. There is moderate spondylosis mid and lower dorsal spine. XR/XR chest 2V IMPRESSION: Unremarkable chest examination.
--- NOTE | 2023-04-05 10:07 | ECG_ITS ---
Test Reason : dyspnea Blood Pressure : / mmHG Vent. Rate : 098 BPM Atrial Rate : 098 BPM P-R Int : 176 ms QRS Dur : 122 ms QT Int : 362 ms P-R-T Axes : 086 086 033 degrees QTc Int : 462 ms Normal sinus rhythm Right bundle branch block Abnormal ECG When compared with ECG of 15-JAN-2016 12:15, Premature ventricular complexes are no longer Present Right bundle branch block is now Present Referred By: Generic ED Physician Electronically Signed By:RENETTA LYONS MD
[2023-04-05 10:23] LABS: MANUAL DIFF FLAG NO
[2023-04-05 10:25] LABS: Basophils Absolute Auto 0.1 X10*3/uL (0.0-0.2); Basophils Percent Auto 0.9 % (0-2); Eosinophils Absolute Auto 0.8 X10*3/uL (0.0-0.4); Hematocrit 39.1 % (42.0-52.0); Hemoglobin 12.7 g/dl (14.0-18.0); Imm Gran Abs Auto 0.02 X10*3/uL (0.00-0.03); Imm Gran Pct Auto 0.3 % (0.0-0.4); Lymphocytes Percent Auto 28.5 % (20-40); Mean Corpuscular HGB Conc 32.5 g/dl (31.0-36.0); Mean Corpuscular Hemoglobin 29.7 pg (27.0-33.0); Mean Corpuscular Volume 91.6 fL (80.0-98.0); Mean Platelet Volume 9.4 fL (9.4-12.4); Monocytes Absolute Auto 0.8 X10*3/uL (0.1-1.2); Monocytes Percent Auto 11.2 % (2-11); Neutrophils Absolute Auto 3.4 x10*3/uL (2.0-8.3); Neutrophils Percent Auto 48.1 % (45-73); Platelet Count 343 X10*3/uL (160-400); Red Blood Count 4.27 X10*6/uL (4.60-5.80); Red Cell Distribution Width 13.6 % (11.0-16.0)
[2023-04-05 10:39] LABS: Anion Gap 16 (12-20); Blood Urea Nitrogen 19 mg/dL (9-16); COVID-19 Test Negative (Negative); Carbon Dioxide 26 mmol/L (22-29); Chloride 103 mmol/L (96-108); Creatinine Clr Calc Pharmacy 35.9; Estimated Glomerular Filt Rate 46; Glucose Random 153 mg/dL (60-115); IDNOW Serial# 152EDE1D; Potassium 4.4 mmol/L (3.3-5.1); Sodium 141 mmol/L (135-145)
[2023-04-05 10:41] LABS: IDNOW Serial# 08D9AD1C; Influenza A Negative (Negative); Influenza B2 Negative (Negative)
[2023-04-05 10:45] LABS: B Type Natriuretic Peptide 38 pg/mL (<100)
[2023-04-05 10:49] LABS: Troponin-I High Sensitivity 7.4 ng/L (<3.5-35.0)
--- NOTE | 2023-04-05 10:55 | PC.NURSE ---
pt alert and oriented, breathing even and slightly elevated, skin warm and dry. pt reports diagnosed with bronchitis back in January, has had bad cough since then and isn't getting better. pt noted to have frequent cough, reports green phlegm comes up. +congestion noted as well. pt reports coughing is so severe sometimes he feels like he is going to pass out. pt denies any fevers, N/V/D, CP, ABD pain. pt placed on bedside cardiac montior, NSR. SPO2 on RA 95-96%.
--- NOTE | 2023-04-05 10:56 | PC.NURSE ---
LS assessed and are rhonchi bilat with expiratory wheezing noted.
--- NOTE | 2023-04-05 11:22 | ED.URI ---
HPI - URI/Sore Throat General Chief Complaint: Upper Respiratory Symptoms Stated Complaint: Diff Breathing Sent By Dr Time Seen by Provider: 04/05/23 11:14 Source: patient Mode of arrival: ambulatory Limitations: no limitations History of Present Illness HPI Narrative: patient sent in by his PMD for increasing shortness of breath and wheezing. Denies history of COPD, states he does have a history of COVID Onset (ago): week(s) Severity: moderate Exacerbating factors: exertion Related Data Home Medications Medication Instructions Recorded Confirmed mecobalamin (vitamin B12) 500 mcg mcg PO 11/01/22 04/05/23 chewable tablet Previous Rx's Medication Instructions Recorded lancets 28 gauge (FreeStyle #100 ea 11/17/21 Lancets) trazodone 100 mg tablet 100 mg PO BEDTIME #90 tabs 07/12/22 FreeStyle Bao 2 [place] (flash #1 ea 07/20/22 glucose scanning reader) metformin 1,000 mg tablet 1,000 mg PO BID #180 tabs 09/29/22 hydroxyzine HCl 10 mg tablet 10 mg PO BEDTIME PRN anxiety #10 10/12/22 tabs bupropion HCl 300 mg 24 hr tablet, 300 mg PO QAM 90 days #90 tabs 12/21/22 extended release colesevelam 625 mg tablet 1,250 mg (2 x 625 mg) PO BID #360 12/23/22 tabs simvastatin 40 mg tablet 40 mg PO BEDTIME #90 tabs 02/20/23 FreeStyle Bao 2 Sensor (flash #2 ea 02/27/23 glucose sensor) lansoprazole 30 mg capsule,delayed 30 mg PO DAILY #60 caps 03/03/23 release fluconazole 100 mg tablet 100 mg PO DAILY #21 tabs 03/21/23 ipratropium 20 mcg-albuterol 100 1 puff inhalation QID #4 grams 03/21/23 mcg/actuation mist for inhalation (Combivent Respimat) albuterol sulfate 90 mcg/actuation 2 puff inhalation Q6H PRN 03/30/23 aerosol inhaler shortness of breath or wheezing #8.5 grams albuterol sulfate 0.63 mg/3 mL 0.63 mg (3 mL) inhalation Q6H #90 04/05/23 solution for nebulization mL prednisone 20 mg tablet 60 mg (3 x 20 mg) PO DAILY #12 tabs 04/05/23 Allergies Allergy/AdvReac Type Severity Reaction Status Date / Time adhesive tape Allergy Intermediate BLISTERS Verified 04/05/23 10:03 Review of Systems Review of Systems: Yes all other systems are reviewed and are negative Neurologic: Denies Sensory deficit (Neuro) [facility] Past Medical History Medical History Chronic renal insufficiency HTN (hypertension) Diabetes Esophageal dysmotility History of fall Tubular adenoma of colon Left arm numbness Right arm numbness Rib fractures Fall Occipital neuralgia Attention deficit disorder (ADD) Hx of bronchitis Intrinsic sphincter deficiency (ISD) Esophageal ring, acquired GERD (gastroesophageal reflux disease) Depression Post herpetic neuralgia Surgical History Hx of esophageal hernia repair Hx of neck surgery History of implantation of artificial sphincter (~11/2019) History of esophagogastroduodenoscopy (EGD) History of right inguinal hernia repair (~03/2010) History of cervical spinal surgery History of colonoscopy History of back surgery History of radical prostatectomy Family History Family History Father No problems noted. Mother Hx of colon cancer, stage I Substance use disorder Brother Hx of colon cancer, stage III Family/Other Substance use disorder Social History Social History Housing: House Are you a primary out of school hours care worker to a significant other at home: No Do you presently have visiting nurse or other home services: No Alcohol intake: never Comment: 3 MONTHS AGO [place] Patient Tobacco Use Status: Never used Tobacco e-Cigarette/Vaping Use: Never Used Second Hand Smoke Exposure: No Current occupational status: retired Cognitive needs: No Hearing needs: Yes Vision needs: Yes Physical Exam Vital Signs: Vital Signs: Last Vital Signs Temp 98.2 F 04/05/23 13:55 Pulse 88 04/05/23 14:07 Resp 18 04/05/23 14:07 BP 144/72 H 04/05/23 13:55 Pulse Ox 94 04/05/23 13:55 O2 Del Method Room Air 04/05/23 13:55 BMI result Body Mass Index 22.9 Const: Other: elderly male short of breath audibly wheezing Nutritional Appearance: average body habitus Orientation/consciousness: oriented to person and patient oriented x3 Limitations: no limitations HEENT: Head: Yes normal to inspection Ears: external ears normal General nose exam: Normal external nose present Mouth: Normal oral and palatal mucosa present and oropharynx normal Throat: Yes posterior oropharynx normal Eyes: General: appearance normal, both eyes and all related structures Neck: Other: supple Neck: Yes normal visual inspection Chest: Chest palpation & inspection: normal inspection of the chest Resp: Other: diffuse wheezing Cardio: Jugular venous distension: no JVD Rate: regular rate Rhythm: regular rhythm Heart sounds: S1 normal heart sound present and S2 normal heart sound present GI: Inspection: Yes normal to inspection Palpation (GI): Soft to palpation, nontender and No hepatosplenomegaly present Auscultation: normal bowel sounds : General: Yes no CVA tenderness Back/Spine/Pelvis: Back: no CVA tenderness Skin: General skin exam: no rashes or lesions noted Neuro: General: oriented to person and patient oriented x3 Cranial nerves: Yes CN's II-XII intact bilaterally Motor exam (neuro): 5/5 motor strength present throughout Sensory Exam: No Sensory deficit (Neuro) Extrem: General: Yes normal to inspection Psych: Appearance: grossly normal Course Reevaluation(s) Reevaluation #1: physician observation: patient placed in physician observation now for bronchospasm will contine giving treatments while the steroids kick in Time: 13:59 Reevaluation #2: breathing better will dc home Time: 16:24 Reevaluation #3: I spent 40 minutes of critical care, with interventions, assessments, speaking to patient, consultants, and family. Time: 16:25 Medications Administered Discontinued Medications Generic Name Dose Route Start Last Admin Trade Name Freq PRN Reason Stop Dose Admin Albuterol Sulfate 2.5 mg/ 5 mg 04/05/23 13:59 04/05/23 14:05 Albuterol Sulfate 2.5 mg INHALE 04/05/23 14:00 5 mg ONCE ONE Administration Albuterol Sulfate 2.5 mg/ 0 mg 04/05/23 11:30 04/05/23 11:32 Albuterol/Ipratropium 3 ml INHALE 04/05/23 11:31 1 dose ONCE ONE Administration Prednisone 60 mg 04/05/23 11:22 04/05/23 11:40 Prednisone 20 Mg Tablet PO 04/05/23 11:23 60 mg ONCE ONE Administration Medical Decision Making Differential Diagnosis Differential Diagnoses: The differential diagnosis associated with the presentation includes (Bronchospasm, COPD, pneumonia, covid, rsv, influenza were all considered) Admission/Observation Consideration of admission/observation: Escalation of care including admission/observation considered (upon arrival patient was considered for admission) Lab Data 04/05/23 10:17 04/05/23 10:17 Labs: Lab Results 04/05/23 Range/Units 10:17 WBC 7.0 (4.8-10.8) X10*3/uL RBC 4.27 L (4.60-5.80) X10*6/uL Hgb 12.7 L (14.0-18.0) g/dl Hct 39.1 L (42.0-52.0) % MCV 91.6 (80.0-98.0) fL MCH 29.7 (27.0-33.0) pg MCHC 32.5 (31.0-36.0) g/dl RDW 13.6 (11.0-16.0) % Plt Count 343 (160-400) X10*3/uL MPV 9.4 (9.4-12.4) fL Immature Gran % (Auto) 0.3 (0.0-0.4) % Neut % (Auto) 48.1 (45-73) % Lymph % (Auto) 28.5 (20-40) % [place] % (Auto) 11.2 H (2-11) % Eos % (Auto) 11.0 H (0-4) % Baso % (Auto) 0.9 (0-2) % Lymph # (Auto) 2.0 (1.2-4.9) X10*3/uL [place] # (Auto) 0.8 (0.1-1.2) X10*3/uL Eos # (Auto) 0.8 H (0.0-0.4) X10*3/uL Baso # (Auto) 0.1 (0.0-0.2) X10*3/uL Abs Immat Gran (auto) 0.02 (0.00-0.03) X10*3/uL Absolute Neuts (auto) 3.4 (2.0-8.3) x10*3/uL Absolute Nucleated RBC 0.000 (0.0-0.012) X10*3/uL Nucleated RBC % (auto) 0.0 (0.0-0.2) /100WBC Sodium 141 (135-145) mmol/L Potassium 4.4 (3.3-5.1) mmol/L Chloride 103 (96-108) mmol/L Carbon Dioxide 26 (22-29) mmol/L Anion Gap 16 (12-20) BUN 19 H (9-16) mg/dL Creatinine 1.48 H (0.5-1.4) mg/dL Estim Creat Clear Calc 35.9 Estimated GFR 46 Random Glucose 153 H (60-115) mg/dL Calcium 9.0 (8.4-10.2) mg/dL Troponin I High Sens 7.4 (<3.5-35.0) ng/L B-Natriuretic Peptide 38 (<100) pg/mL COVID-19 ([facility]) Negative (Negative) COVID-19 Clin Com See Note Influenza Type A ([facility]EL[facility]) Negative (Negative) Influenza Type B ([facility]ELIN) Negative (Negative) Influenza A & B Note See Note Independent Interpretation I performed an independent interpretation of an: EKG (sinus 99, RBBB no st or twave changes) and Plain X-Ray (CXR no infiltrate) Independent Historian Clinical information obtained from an independent historian. History obtained from or confirmed by: Spouse Prescription Management I considered prescription management with: Antibiotic (no evidence of pneumonia on xray) Discharge Plan Discharge Clinical Impression: Acute bronchospasm Patient Disposition: Home, Self-Care Instructions: Bronchospasm (ED) Prescriptions: New albuterol sulfate 0.63 mg/3 mL solution for nebulization 0.63 mg inhalation Q6H Qty: 90 0RF prednisone 20 mg tablet 60 mg PO DAILY Qty: 12 0RF No Action (DME) lancets [FreeStyle Lancets] 28 gauge misc See Rx Instructions .ROUTE .MEDSUPPLY Qty: 100 0RF Rx Instructions: BID Freestyle lancets all flex trazodone 100 mg tablet 100 mg PO BEDTIME Qty: 90 2RF (DME) FreeStyle Bao 2 [place] Misc See Rx Instructions .Route Qty: 1 0RF Rx Instructions: TID testing metformin 1,000 mg tablet 1,000 mg PO BID Qty: 180 1RF hydroxyzine HCl 10 mg tablet 10 mg PO BEDTIME PRN (Reason: anxiety) Qty: 10 0RF bupropion HCl 300 mg tablet extended release 24 hr 300 mg PO QAM 90 Days Qty: 90 1RF colesevelam 625 mg tablet 1,250 mg PO BID Qty: 360 0RF simvastatin 40 mg tablet 40 mg PO BEDTIME Qty: 90 1RF (DME) FreeStyle Bao 2 Sensor Kit See Rx Instructions .Route Qty: 2 6RF Rx Instructions: TID testing lansoprazole 30 mg capsule,delayed release(DR/EC) 30 mg PO DAILY Qty: 60 2RF albuterol sulfate 90 mcg/actuation HFA aerosol inhaler 2 puff inhalation Q6H PRN (Reason: shortness of breath or wheezing) Qty: 8.5 0RF mecobalamin (vitamin B12) 500 mcg tablet,chewable PO fluconazole 100 mg tablet 100 mg PO DAILY Qty: 21 0RF Combivent Respimat 20-100 mcg/actuation mist 1 puff inhalation QID Qty: 4 2RF Rx Instructions: space evenly during waking hours Referrals: Sergei Burt, [employer] [Primary Care Provider] - 2 days
[2023-04-05] MEDS: Albuterol Sulfate 2.5 MG, Albuterol/Iprat 2.5/0.5MG 3 ML 3 ML INHALE (11:32)
[2023-04-05] MEDS: predniSONE 20 MG TABLET 60 MG PO (11:40)
--- NOTE | 2023-04-05 12:12 | PC.NURSE ---
pt currently on neb per RT. medicated per MAR, no new complaints.
[2023-04-05] MEDS: Albuterol Sulfate 2.5 MG, Albuterol Sulfate (0.083%) 2.5 MG 5 MG INHALE (14:05)
== END 2023-04-05 16:52 | disposition home or self-care (01) ==
PROVIDERS: Emergency Provider Emergency Medicine; PCP Nurse Practitioner Family
DX: J98.01 Acute bronchospasm (principal); R06.02 Shortness of breath; I45.10 Unspecified right bundle-branch block; R94.31 Abnormal electrocardiogram [ECG] [EKG]; Z11.52 Encounter for screening for COVID-19; Z79.899 Other long term (current) drug therapy
CPT/HCPCS: 36415; 71046; 80048; 83880; 84484; 85025; 87502; 87635; 93005; 94640; 99285

== ENCOUNTER → 2023-04-05 10:07 | Outpatient (BNV) | payer MEDICARE, SELFPAY | PROVIDERS: PCP Nurse Practitioner Family; Visit Provider Internal Medicine Cardiovascular Disease | DX: R94.31 Abnormal electrocardiogram [ECG] [EKG] (principal) | CPT/HCPCS: 93010 ==

== ENCOUNTER 2023-04-05 11:20 | Outpatient (REF) | payer MEDICARE, SELFPAY ==
[2023-04-05 12:41] LABS: Influenza A PCR NEGATIVE (Negative); Influenza B PCR NEGATIVE (Negative); Resp Syncy Virus RNA Qual PCR NEGATIVE (Negative); SARS COV2 PCR INHOUSE NEGATIVE (Negative)
== END 2023-04-05 11:21 | disposition home or self-care (01) ==
LOC: HO.LNP 11:20
PROVIDERS: Visit Provider Nurse Practitioner Primary Care
DX: J06.9 Acute upper respiratory infection, unspecified (principal); Z91.89 Other specified personal risk factors, not elsewhere classified
CPT/HCPCS: 0241U

== ENCOUNTER 2023-04-22 09:21 | Outpatient (AMB) | payer MEDICARE, SELFPAY ==
--- NOTE | 2023-04-22 09:37 | A.OFFVIS_ITS ---
Intake Vital Signs 04/22/23 10:00 Height 5 ft 7 in Weight 149 lb 14.629 oz BMI 23.5 BP 152/70 H Blood Pressure Location Lt brachial Position Sitting Pulse 89 Intake Visit Reasons: 4 week follow up Intake Note: Sergei presents in the office as a 4 week follow up. CC: He states that he is supposed to check him out because he needs an EGD. He has urges to have a BM but it is just gas. Vehicle Operator Required: No Allergies adhesive tape Allergy (Intermediate, Verified 04/22/23 10:01) BLISTERS HPI 4 week follow up HPI Details 82 yr old m with DM, prostate cancer 200 5 here for f/u RECAP: He had EGD for dysphagia with dilation of stricture 01/2020 I then repeated the EGD 10/2020-- noted hiatal hernia 4 cm, jack erosion, balloon dilation 20 mm with tears noted at [facility] EGD/colonoscopy 01/2021: tubulovillous adenoma removed, chronci duodenitis, schatzki ring, hiatal hernia, retained clip removed--balloon dilation 18-19 mm He was referred to Dr Kent and had para esophageal hernia repair with mesh and gastropexy 05/2021- he also required esophgeal dilation few months after that repeat EGD/colo:03/2022 Endoscopy Findings: hiatal hernia esophageal rings and stricture duodenitis Colonoscopy Findings: polyp internal hemorrhoids diverticular disease segmental colitis balloon dilation with tear noted Path: A. Duodenum, biopsy: Duodenal mucosa within normal limits. B. Stomach, biopsy: Oxyntic mucosa with mild chronic inactive inflammation; no Helicobacter organisms seen. C. Terminal ileum, biopsy: Terminal ileal mucosa within normal limits. D. Colon, random, biopsy: Colonic mucosa with features of microscopic colitis. E. Colon, ascending, polypectomy: Clinically polypoid colonic mucosa with prolapse changes and features of microscopic colitis. F. Colon, sigmoid, biopsy: Colonic mucosa with features of collagenous colitis. G. Rectum, biopsy: Colonic mucosa with features of microscopic colitis. He was tried on mesalamine, pepto was initially suggested but due to interactions went with the mesalamine GI stool panel was neg lactoferrin was raised c diff sample was invalid INTERIM: his breathing is better with nebs now he has ongoign issues with swallowing as before is still taking lansoprazole CT scan is pending he can have diarrhea and gas symptoms EXAM: GENERAL: The patient is well developed and nontoxic. VITAL SIGNS:see workflow HEENT: Nonicteric sclerae, PERRLA, EOMI. Oropharynx clear. Moist mucous membranes. Conjunctivae appear well perfused. No thyroid mass. CHEST: Chest wall is nontender. HEART: Regular rate and rhythm without murmurs. LUNGS: lungs are clear --good a/e ABDOMEN: Soft, positive bowel sounds, nontender, no organomegaly.no flank tenderness SKIN: No rash, no excessive bruising, petechiae, or purpura. NEUROLOGIC: deaf, poor balance, unable to do tandem walking, falling to right psych: nml A/P: 1/ microscopic colitis, possibly from st atin and PPI use, causing his diarrhea--not helped by budesonide or mesalamine, 2/ swallowing issues, since surgery--isabel or dilation did help--may have chloe PLAN: 1/ Ct scan brain pending 2/ EGD scheduled for apruil , waitin g for pulm assessment but lungs sound much better today 3/ advised to try bismuth twice a day an d assess response PFSH Medical History Chronic renal insufficiency HTN (hypertension) Diabetes Esophageal dysmotility History of fall Tubular adenoma of colon Left arm numbness Right arm numbness Rib fractures Fall Occipital neuralgia Attention deficit disorder (ADD) Hx of bronchitis Intrinsic sphincter deficiency (ISD) Esophageal ring, acquired GERD (gastroesophageal reflux disease) Depression Post herpetic neuralgia Surgical History Hx of esophageal hernia repair Hx of neck surgery History of implantation of artificial sphincter (~11/2019) History of esophagogastroduodenoscopy (EGD) History of right inguinal hernia repair (~03/2010) History of cervical spinal surgery History of colonoscopy History of back surgery History of radical prostatectomy Family History Father No problems noted. Mother Hx of colon cancer, stage I Substance use disorder Brother Hx of colon cancer, stage III Family/Other Substance use disorder Social History Housing: House Are you a primary emergency care tech to a significant other at home: No Do you presently have visiting nurse or other home services: No Alcohol intake: never Comment: 3 MONTHS AGO [place] Patient Tobacco Use Status: Never used Tobacco e-Cigarette/Vaping Use: Never Used Second Hand Smoke Exposure: No Current occupational status: retired Cognitive needs: No Hearing needs: Yes Vision needs: Yes Physical Exam Vital Signs: Last Vital Signs Pulse 89 04/22/23 10:00 BP 152/70 H 04/22/23 10:00 BMI result Body Mass Index 23.5 Assessment & Plan Assessment & Plan (1) Esophageal dysmotility: Code(s): K22.4 - Dyskinesia of esophagus Plan: A/P: 1/ microscopic colitis, possibly from statin and PPI use, causing his diarrhea--not helped by budesonide or mesalamine, 2/ swallowing issues, since surgery--prior dilation did help--may have chloe PLAN: 1/ Ct scan brain pending 2/ EGD scheduled for apruil , waiting for pulm assessment but lungs sound much better today 3/ advised to try bismuth twice a day and assess response (2) Esophageal ring, acquired: Code(s): K22.2 - Esophageal obstruction Plan: A/P: 1/ microscopic colitis, possibly from statin and PPI use, causing his diarrhea--not helped by budesonide or mesalamine, 2/ swallowing issues, since surgery--prior dilation did help--may have chloe PLAN: 1/ Ct scan brain pending 2/ EGD scheduled for apruil , waiting for pulm assessment but lungs sound much better today 3/ advised to try bismuth twice a day and assess response Coding Level of Care Code Est Pt Level 3 (00809) Diagnoses Esophageal dysmotility K22.4 Esophageal ring, acquired K22.2
[2023-04-22 10:00] VITALS: BP 152/70; PULSE 89; BMI 23.5
== END 2023-04-22 10:21 | disposition home or self-care (01) ==
PROVIDERS: PCP Nurse Practitioner Family; Visit Provider Internal Medicine Gastroenterology
DX: K22.4 Dyskinesia of esophagus (principal); K22.2 Esophageal obstruction
CPT/HCPCS: 99213

== ENCOUNTER → 2023-04-22 09:21 | Outpatient (BNVA) | payer MEDICARE, SELFPAY | PROVIDERS: PCP Nurse Practitioner Family; Visit Provider Internal Medicine Gastroenterology | DX: K22.4 Dyskinesia of esophagus (principal); K22.2 Esophageal obstruction | CPT/HCPCS: 99212 ==

== ENCOUNTER 2023-05-02 14:47 | Outpatient (AMB) | payer MEDICARE, SELFPAY ==
--- NOTE | 2023-05-02 15:24 | MHC.OFFVIS ---
Intake Vital Signs 05/02/23 15:25 Height 5 ft 7 in Weight 150 lb BMI 23.5 Pulse 84 Pulse Source Pulse Oximeter Pulse Oximetry (%) 96 Oxygen Delivery Method Room Air Intake Visit Reasons: Recurrent Bronchitis Fashion Coordinator Required: No Allergies adhesive tape Allergy (Intermediate, Verified 05/02/23 15:26) BLISTERS HPI HPI Comments History of Present Illness Details The patient is here for pulmonary evaluation. The patient is an 82-year-old gentleman with a known history of COPD was developing worsening respiratory symptoms. He was recently evaluated in the ER for worsening wheezing and chest congestion. He did have a chest x-ray there which I personally reviewed without any acute disease. He also had CT scan of the chest which I also reviewed from 2021 demonstrating normal lung parenchyma. Also demonstrated a thickened esophagus. He has been working very closely with GI. He has had issues with difficulty swallowing and was noted to have an esophageal stricture along with evidence of esophageal dysmotility reflux disease and hiatal hernia. Currently the patient is doing better from a respiratory status. Denies any significant wheezing or coughing. the patient does feel that the GI issue at times precipitates his breathing issues which I do agree with him. The patient currently is scheduled to undergo a repeat endoscopy with likely balloon dilation to improve his overall swallow. The patient will be started on long-acting beta agonist with inhaled cortical steroid to decrease he is exacerbations. But right now he is doing well from a pulmonary standpoint. He feels like he is back to his baseline. Will plan to perform pulmonary function studies. From a preoperative standpoint the patient is doing better and may he will to proceed with anesthesia and endoscopy without any limitations. [facility] Medical History (Updated 05/02/23 @ 23:29 by Theodore Salvador MD) Asthma-COPD overlap syndrome Chronic renal insufficiency HTN (hypertension) Diabetes Esophageal dysmotility History of fall Tubular adenoma of colon Left arm numbness Right arm numbness Rib fractures Fall Occipital neuralgia Attention deficit disorder (ADD) Hx of bronchitis Intrinsic sphincter deficiency (ISD) Esophageal ring, acquired GERD (gastroesophageal reflux disease) Depression Post herpetic neuralgia Surgical History Hx of esophageal hernia repair Hx of neck surgery History of implantation of artificial sphincter (~11/2019) History of esophagogastroduodenoscopy (EGD) History of right inguinal hernia repair (~03/2010) History of cervical spinal surgery History of colonoscopy History of back surgery History of radical prostatectomy Family History Father No problems noted. Mother Hx of colon cancer, stage I Substance use disorder Brother Hx of colon cancer, stage III Family/Other Substance use disorder Social History Housing: House Are you a primary skin care consultant to a significant other at home: No Do you presently have visiting nurse or other home services: No Alcohol intake: never Comment: 3 MONTHS AGO MULTIPLE FALLS Patient Tobacco Use Status: Never used Tobacco e-Cigarette/Vaping Use: Never Used Second Hand Smoke Exposure: No Current occupational status: retired Cognitive needs: No Hearing needs: Yes Vision needs: Yes Review of Systems Const Denies chills and Denies fever(s) Eyes Denies blurry vision ENT Reports dysphagia, Denies vertigo, Denies dizziness and Denies sore throat Card Denies chest pain at rest, Denies chest pain with activity, Denies diaphoresis and Reports dyspnea on exertion Resp Reports cough, Reports dyspnea on exertion and Reports wheezing GI Reports as per HPI, Denies hematochezia, Denies constipation, Reports dysphagia, Reports dyspepsia, Reports heartburn, Denies diarrhea and Denies loose stools Musc Denies numbness and Denies tingling Skin/Breast Denies lesions Neuro Denies vertigo, Denies dizziness, Denies numbness and Denies tingling Psych Denies anxiety, Denies depression, Denies homicidal ideation, Denies suicidal ideation and Denies other (substance abuse) Aller/Immun Reports wheezing Physical Exam Vital Signs: Last Vital Signs Pulse 84 05/02/23 15:25 Pulse Ox 96 05/02/23 15:25 Oxygen Delivery Method Room Air 05/02/23 15:25 BMI result Body Mass Index 23.5 Const General: no acute distress, well developed and alert Nutritional Appearance: well nourished Orientation/consciousness: patient oriented x3 HEENT Head: Yes normocephalic and Yes atraumatic Neck Neck: Yes supple Chest Chest palpation & inspection: normal inspection of the chest Resp Effort & Inspection: normal respiratory effort Auscultation: diminished lung sounds Cardio Rate: regular rate Rhythm: regular rhythm Heart sounds: S1 normal heart sound present, S2 normal heart sound present and no murmurs Skin General skin exam: no rashes or lesions noted Neuro General: patient oriented x3 Extrem General: Yes no clubbing, cyanosis or edema Psych Attitude: cooperative Results Reviewed Results Reviewed: [facility] [address] [place] [id number] Scan Report Signed Patient: Sergei Parish MR#: [id number] : 1940 Acct:[id number] Age/Sex: 81 / M ADM Date: 08/27/21 Loc: HO.CT Attending Dr: Angel Kent MD Ordering Physician: Angel Kent MD Date of Service: 08/27/21 Procedure(s): CT chest wo con Accession Number(s): [id number] cc: Angel Kent MD~ EXAMINATION: CT CHEST WITHOUT CONTRAST CLINICAL INFORMATION: Diaphragmatic hernia. COMPARISON: Most recent CT chest dated 04/09/2021. TECHNIQUE: Multidetector volumetric CT imaging of the chest was done. Axial MIP volume rendering provided. Sagittal and coronal reformatted images were obtained. This CT examination was performed using dose optimization techniques as appropriate, variously including the following: *Automated exposure control *Adjustment of mA and/or kV according to patient size (this includes techniques or standardized protocols for targeted exams where dose is matched to indication/reason for exam; i.e. extremities or head) *Use of iterative reconstruction technique DLP: 185 mGy-cm FINDINGS: CUTTER BANANA ROOM: Clear lungs. Partially visualized contrast within the colon. LUNGS: The lungs are clear with no evidence of inflammation or nodules. MEDIASTINUM: No cardiomegaly. No pericardial effusion. Coronary artery atherosclerotic calcifications are redemonstrated. Scattered atherosclerotic calcifications within the thoracic aorta. No thoracic aortic dilatation or prominence of the main pulmonary artery. No significant superior mediastinal or hilar lymphadenopathy. Unremarkable thyroid. PLEURA: There is no pleural effusion. No pleural mass or thickening. CHEST WALL/AXILLAE: No axillary or internal mammary lymphadenopathy. No abnormal chest wall mass. UPPER ABDOMEN: Possible thickening of the distal esophagus appears unchanged. Evaluation significantly limited without oral or IV contrast. If there is clinical concern, direct visualization could help further evaluate. No diaphragmatic hernia. Sigmoid diverticulosis without evidence of acute diverticulitis. OSSEOUS STRUCTURES: Unremarkable. CT/CT chest wo con IMPRESSION: 1. Possible thickening of the distal esophagus appears unchanged; however, evaluation limited without oral or IV contrast. If there is clinical concern, direct visualization could help further evaluate. 2. No significant hiatal or diaphragmatic hernia. 3. Additional chronic findings are unchanged. Fleischner guidelines were followed. Dictated By: Jhon Garg MD Signed By: <Electronically signed by Jhon Garg MD in OV> 08/28/21 0952 DD/ 1128 TD/TT: Hunter Skin Diver: Assessment & Plan Assessment & Plan (1) Pre-op chest exam: Code(s): Z01.811 - Encounter for preprocedural respiratory examination (2) Dysphagia: Code(s): R13.10 - Dysphagia, unspecified Qualifiers: Dysphagia type: other dysphagia Qualified Code(s): R13.19 - Other dysphagia (3) Hiatal hernia: Code(s): K44.9 - Diaphragmatic hernia without obstruction or gangrene (4) Asthma-COPD overlap syndrome: Code(s): J44.89 - Other specified chronic obstructive pulmonary disease Plan Start Wixela MYLES as needed Proceed with EGD with anesthesia PFTs reflux diet F/U 3 months Orders: Orders PFT pulmonary function test Today J44.89 - Other specified chronic obstructive pulmonary disease Medications: New fluticasone propion-salmeterol 250-50 mcg/dose (Wixela Inhub) 1 inh inhalation Q12H 60 ea 11RF 30 days Coding Level of Care Code New Pt Level 4 (60571) Diagnoses Pre-op chest exam Z01.811 Other dysphagia R13.19 Dysphagia type: other dysphagia Hiatal hernia K44.9 Asthma-COPD overlap syndrome J44.89 Time Spent (min) 40
[2023-05-02 15:25] VITALS: PULSE 84; O2SAT 96; BMI 23.5
== END 2023-05-02 15:57 | disposition home or self-care (01) ==
PROVIDERS: PCP Nurse Practitioner Family; Visit Provider Hospitalist
DX: Z01.811 Encounter for preprocedural respiratory examination (principal); R13.19 Other dysphagia; K44.9 Diaphragmatic hernia without obstruction or gangrene; J44.89 Other specified chronic obstructive pulmonary disease
CPT/HCPCS: 99204

== ENCOUNTER → 2023-05-02 14:47 | Outpatient (BNVA) | payer MEDICARE, SELFPAY | PROVIDERS: PCP Nurse Practitioner Family; Visit Provider Hospitalist | DX: Z01.811 Encounter for preprocedural respiratory examination (principal); J44.89 Other specified chronic obstructive pulmonary disease; R13.19 Other dysphagia; K44.9 Diaphragmatic hernia without obstruction or gangrene | CPT/HCPCS: 99202 ==

== ENCOUNTER 2023-05-03 10:21 | Outpatient (REF) | payer MEDICARE, SELFPAY ==
--- NOTE | ~2023-05-03 | CT_ITS ---
EXAMINATION: CT head/brain wo IV con CLINICAL INFORMATION: Soft tissues, headache, deafness, dysphagia COMPARISON: None available TECHNIQUE: Contiguous axial imaging was performed from the skull base to vertex without intravenous contrast. Sagittal and coronal reformatted images were obtained. This CT examination was performed using dose optimization techniques as appropriate, variously including the following: * Automated exposure control * Adjustment of mA and/or kV according to patient size (this includes techniques or standardized protocols for targeted exams where dose is matched to indication/reason for exam; i.e. extremities or head) Use of iterative reconstruction technique DLP: 676.43 mGy-cm mGy-cm FINDINGS: There is no evidence of acute intracranial hemorrhage. No mass-effect or ventricular shift is noted. No acute, territorial loss of feldman-white differentiation. Generalized cerebral volume loss with associated ventricular and sulcal prominence andPeriventricular and subcortical white matter hypodensity is nonspecific but likely represents chronic microvascular ischemic change. Intracranial atherosclerotic calcification is noted. No depressed calvarial fracture. Scattered polypoid mucosal thickening in the paranasal sinuses. Bilateral intraocular lens replacements. Complete opacification of the bilateral mastoid air cells and middle ear cavities. CT/CT head/brain wo IV con IMPRESSION: No acute intracranial hemorrhage or mass effect. Generalized cerebral volume loss with moderate chronic microvascular ischemic change. Complete opacification of the bilateral mastoid air cells and middle ear cavities. Clinical correlation for otomastoiditis is recommended.
== END 2023-05-03 10:22 | disposition home or self-care (01) ==
LOC: HO.CT 10:21
PROVIDERS: PCP Nurse Practitioner Family; Visit Provider Internal Medicine Gastroenterology
DX: R13.10 Dysphagia, unspecified (principal); R26.89 Other abnormalities of gait and mobility
CPT/HCPCS: 70450

== ENCOUNTER 2023-05-13 10:12 | Outpatient (REF) | payer MEDICARE, SELFPAY ==
[2023-05-13 13:22] LABS: Appearance Urine Clear; Color Urine Yellow; Glucose Urine UA Negative (Negative); Leukocyte Esterase Urine Negative (Negative); Nitrite Urine Negative (Negative); Urine Blood Negative (Negative); Urine Ketones Trace mg/dL (Negative); Urine Protein Trace mg/dL (Neg-Trace)
[2023-05-13 13:37] LABS: MANUAL DIFF FLAG NO
[2023-05-13 13:41] LABS: Basophils Percent Auto 0.6 % (0-2); Eosinophils Absolute Auto 0.1 X10*3/uL (0.0-0.4); Eosinophils Percent Auto 2.8 % (0-4); Hematocrit 35.9 % (42.0-52.0); Hemoglobin 11.8 g/dl (14.0-18.0); Lymphocytes Absolute Auto 1.6 X10*3/uL (1.2-4.9); Lymphocytes Percent Auto 31.4 % (20-40); Mean Corpuscular HGB Conc 32.9 g/dl (31.0-36.0); Mean Corpuscular Hemoglobin 29.9 pg (27.0-33.0); Mean Corpuscular Volume 91.1 fL (80.0-98.0); Mean Platelet Volume 9.7 fL (9.4-12.4); Monocytes Absolute Auto 0.7 X10*3/uL (0.1-1.2); Neutrophils Absolute Auto 2.6 x10*3/uL (2.0-8.3); Neutrophils Percent Auto 51.2 % (45-73); Platelet Count 315 X10*3/uL (160-400); Red Blood Count 3.94 X10*6/uL (4.60-5.80); Red Cell Distribution Width 13.3 % (11.0-16.0); White Blood Count 5.1 X10*3/uL (4.8-10.8)
[2023-05-13 14:23] LABS: Alanine Aminotransferase 17 U/L (0-40); Albumin Level 4.1 g/dL (3.5-5.0); Alkaline Phosphatase 49 U/L (39-117); Anion Gap 12 (12-20); Aspartate Amino Transferase 19 U/L (5-37); Bilirubin Total 0.4 mg/dL (0.0-1.0); Blood Urea Nitrogen 20 mg/dL (9-16); Calcium 8.6 mg/dL (8.4-10.2); Carbon Dioxide 25 mmol/L (22-29); Chloride 107 mmol/L (96-108); Estimated Glomerular Filt Rate 41; Glucose Random 129 mg/dL (60-115); Potassium 4.1 mmol/L (3.3-5.1); Sodium 140 mmol/L (135-145)
== END 2023-05-13 10:13 | disposition home or self-care (01) ==
LOC: HO.HMGCLDS 10:12
PROVIDERS: PCP Nurse Practitioner Family; Referring Provider Nurse Practitioner Primary Care; Visit Provider Nurse Practitioner Family
DX: Z13.0 Encounter for screening for diseases of the blood and blood-forming organs and certain disorders involving the immune mechanism (principal); Z91.89 Other specified personal risk factors, not elsewhere classified
CPT/HCPCS: 36415; 80053; 81003; 85025

== ENCOUNTER 2023-05-17 09:57 | Outpatient (AMB) | payer MEDICARE, SELFPAY ==
--- NOTE | 2023-05-17 10:07 | A.OFFPC_ITS ---
Vital Signs 05/17/23 10:09 Height 5 ft 7 in Weight 150 lb BMI 23.5 BP 130/80 Blood Pressure Location Lt brachial Position Sitting Pulse 65 Pulse Source Pulse Oximeter Pulse Oximetry (%) 98 Oxygen Delivery Method Room Air Intake Visit Reasons: 3-4 month follow up Intake Note: Patient here for diabetes and cough Allergies adhesive tape Allergy (Intermediate, Verified 05/17/23 12:30) BLISTERS Medication List - Last Reconciled 05/17/23 by Sergei Burt [facility]- albuterol sulfate 0.63 mg (3 mL) inhalation Q6H albuterol sulfate 90 mcg/actuation 2 puffs inhalation Q6H PRN bupropion HCl 300 mg PO QAM 90 days colesevelam 1,250 mg (2 x 625 mg) PO BID doxycycline hyclate 100 mg PO DAILY fluconazole 100 mg PO DAILY fluticasone propion-salmeterol 250-50 mcg/dose (Wixela Inhub) 1 inh inhalation Q12H 30 days fluticasone propionate 50 mcg/actuation (Flonase Allergy Relief) 1 spray intranasal DAILY FreeStyle Bao 2 [place] (flash glucose scanning reader) TID testing NS FreeStyle Bao 2 Sensor (flash glucose sensor) TID testing NS hydroxyzine HCl 10 mg PO BEDTIME PRN ipratropium-albuterol 20-100 mcg/actuation (Combivent Respimat) 1 puff inhalation QID lancets (FreeStyle Lancets) BID Freestyle lancets all flex lansoprazole 30 mg PO DAILY loratadine (Claritin) 10 mg PO DAILY mecobalamin (vitamin B12) mcg PO metformin 1,000 mg PO BID simvastatin 40 mg PO BEDTIME trazodone 100 mg PO BEDTIME Tobacco use date assessed: 05/17/23 Fall risk assessment: No Falls in past year Last assessed Fall Risk: 05/17/23 Dental Screening Dental Screen Date: 05/17/23 Did you have a dental visit in the last 12 months?: No Did you have a dental problem in the last 6 months where you did not have access to dental care?: No Was dental information given to patient?: Patient has dentist HPI 3-4 month follow up HPI Details Pt is a diabetic, on a statin. A1C in office today is 6.8. Due for microalbumin, will order. Denies polyuria, polydipsia, does report neuropathy. Pt denies any signs and symptoms of hypoglycemia and does know how to correct it. Pt is following up with pulmonology. He reports that nathanael is helping though he does become short of breath with exertion. Hx of vitamin B12 deficiency, will order labs. [facility] Medical History Asthma-COPD overlap syndrome Chronic renal insufficiency HTN (hypertension) Diabetes Esophageal dysmotility History of fall Tubular adenoma of colon Left arm numbness Right arm numbness Rib fractures Fall Occipital neuralgia Attention deficit disorder (ADD) Hx of bronchitis Intrinsic sphincter deficiency (ISD) Esophageal ring, acquired GERD (gastroesophageal reflux disease) Depression Post herpetic neuralgia Surgical History Hx of esophageal hernia repair Hx of neck surgery History of implantation of artificial sphincter (~11/2019) History of esophagogastroduodenoscopy (EGD) History of right inguinal hernia repair (~03/2010) History of cervical spinal surgery History of colonoscopy History of back surgery History of radical prostatectomy Family History Father No problems noted. Mother Hx of colon cancer, stage I Substance use disorder Brother Hx of colon cancer, stage III Family/Other Substance use disorder Social History Housing: House Are you a primary human services care specialist to a significant other at home: No Do you presently have visiting nurse or other home services: No Alcohol intake: never Comment: 3 MONTHS AGO MULTIPLE FALLS Patient Tobacco Use Status: Never used Tobacco e-Cigarette/Vaping Use: Never Used Second Hand Smoke Exposure: No Current occupational status: retired Cognitive needs: No Hearing needs: Yes Vision needs: Yes Questionnaire Thrive Questionnaire Date Thrive assessed: 10/28/20 AUDIT C Alcohol Use Questionnaire (AUDIT-C) 1. How often do you have a drink containing alcohol?: Never 3. How often do you have six or more drinks on one occasion?: Never Total Score: 0 Score Reviewed/Action Taken: No Review of Systems Const Reports as per HPI Physical exam (Primary Care) Vital Signs: Last Vital Signs Pulse 65 05/17/23 10:09 BP 130/80 05/17/23 10:09 Pulse Ox 98 05/17/23 10:09 Oxygen Delivery Method Room Air 05/17/23 10:09 BMI result Body Mass Index 23.5 Tobacco/Smoking Status: Tobacco use Status Tobacco use date assessed 05/17/23 05/17/23 10:16 Patient Tobacco Use Status Never used Tobacco 05/17/23 10:09 e-Cigarette/Vaping Use Never Used 05/17/23 10:09 Thrive Assessment: Date of Thrive Assessment Date Thrive assessed 10/28/20 05/17/23 10:09 Const General: cooperative Orientation/consciousness: patient oriented x3 Resp Effort & Inspection: normal respiratory effort Auscultation: clear to auscultation bilaterally Cardio Rate: regular rate Rhythm: regular rhythm Heart sounds: S1 normal heart sound present and S2 normal heart sound present Neuro General: patient oriented x3 Extrem Other: bilat feet: + sensation with use of monofilament, feet intact Psych Appearance: grossly normal Mental Status: mental status grossly normal Speech and movement: Normal speech and movement present Affect: normal affect Attitude: cooperative Thought process: Normal thought process present Thought content: Normal thought content present Insight: Good insight present (Psych) Judgement: Good judgement present (Psych) Results AMB Hemoglobin A1c AMB Hemoglobin A1c 6.8 % Last Edit by HÉCTOR Winter on 05/17/23 10 :36 Results Reviewed Results Reviewed: Laboratory Last Values Hgb A1c (Clinic) 6.8 % (4.0-6.0) H 05/17/23 10:35 Assessment and Plan Assessment & Plan (1) Asthma-COPD overlap syndrome: Code(s): J44.89 - Other specified chronic obstructive pulmonary disease Plan: Following up with pulmonology (2) B12 deficiency: Code(s): E53.8 - Deficiency of other specified B group vitamins Plan: Labs ordered (3) Diabetes mellitus with kidney complication: Code(s): E11.29 - Type 2 diabetes mellitus with other diabetic kidney complication Plan: Labs ordered Plan The patient agreed to the use of a ophthalmic medical technician for this encounter. Scribed for CRISTINA Zayas by sveta Becker scribe, on 05/17/2023 at 10:25 EST. Orders: Orders AMB Hemoglobin A1c Today Z13.9 - Encounter for screening, unspecified Complete Blood Count Auto Diff Today E11.29 - Type 2 diabetes mellitus with other diabetic kidney complication, E53.8 - Deficiency of other specified B group vitamins, J44.89 - Other specified chronic obstructive pulmonary disease Ferritin Today E11.29 - Type 2 diabetes mellitus with other diabetic kidney complication, E53.8 - Deficiency of other specified B group vitamins, J44.89 - Other specified chronic obstructive pulmonary disease IRON PROFILE Today E11.29 - Type 2 diabetes mellitus with other diabetic kidney complication, E53.8 - Deficiency of other specified B group vitamins, J44.89 - Other specified chronic obstructive pulmonary disease Vitamin B12 and Folate Today E11. - Type 2 diabetes mellitus with other diabetic kidney complication, E53.8 - Deficiency of other specified B group vitamins, J44.89 - Other specified chronic obstructive pulmonary disease Comprehensive Met. Panel Today E11.29 - Type 2 diabetes mellitus with other diabetic kidney complication, E53.8 - Deficiency of other specified B group vitamins, J44.89 - Other specified chronic obstructive pulmonary disease Microalbumin, Random (w Creat) Today E11. - Type 2 diabetes mellitus with other diabetic kidney complication Coding Level of Care Code Est Pt Level 3 (52500) Diagnoses Asthma-COPD overlap syndrome J44.89 B12 deficiency E53.8 Diabetes mellitus with kidney complication E11.
[2023-05-17 10:09] VITALS: BP 130/80; PULSE 65; O2SAT 98; BMI 23.5
== END 2023-05-17 10:52 | disposition home or self-care (01) ==
PROVIDERS: PCP Nurse Practitioner Family; Visit Provider Nurse Practitioner Family
DX: J44.89 Other specified chronic obstructive pulmonary disease (principal); E53.8 Deficiency of other specified B group vitamins; E11.29 Type 2 diabetes mellitus with other diabetic kidney complication
CPT/HCPCS: 83036; 99213

== ENCOUNTER 2023-05-30 08:57 | Outpatient (REF) | payer MEDICARE, SELFPAY ==
[2023-05-30 10:32] LABS: MANUAL DIFF FLAG NO
[2023-05-30 10:41] LABS: Basophils Percent Auto 0.5 % (0-2); Eosinophils Absolute Auto 0.3 X10*3/uL (0.0-0.4); Eosinophils Percent Auto 4.5 % (0-4); Hematocrit 34.4 % (42.0-52.0); Imm Gran Abs Auto 0.01 X10*3/uL (0.00-0.03); Imm Gran Pct Auto 0.2 % (0.0-0.4); Lymphocytes Percent Auto 36.3 % (20-40); Mean Corpuscular Hemoglobin 29.7 pg (27.0-33.0); Monocytes Absolute Auto 0.6 X10*3/uL (0.1-1.2); Monocytes Percent Auto 9.9 % (2-11); Neutrophils Absolute Auto 2.7 x10*3/uL (2.0-8.3); Neutrophils Percent Auto 48.6 % (45-73); Platelet Count 361 X10*3/uL (160-400); Red Cell Distribution Width 13.2 % (11.0-16.0); White Blood Count 5.6 X10*3/uL (4.8-10.8)
[2023-05-30 10:57] LABS: Alanine Aminotransferase 14 U/L (0-40); Alkaline Phosphatase 55 U/L (39-117); Anion Gap 14 (12-20); Aspartate Amino Transferase 17 U/L (5-37); Bilirubin Total 0.5 mg/dL (0.0-1.0); Blood Urea Nitrogen 12 mg/dL (9-16); Calcium 8.5 mg/dL (8.4-10.2); Carbon Dioxide 27 mmol/L (22-29); Chloride 106 mmol/L (96-108); Estimated Glomerular Filt Rate 46; Glucose Random 145 mg/dL (60-115); Iron 97 mcg/dL (45-160); Percent Iron Saturation 39 % (15-50); Potassium 4.2 mmol/L (3.3-5.1); Sodium 143 mmol/L (135-145); Total Iron Binding Capacity 246 mcg/dL (228-428); Unsaturated Iron Binding 149 ug/dL
[2023-05-30 11:15] LABS: Ferritin 137 ng/mL (20-250)
[2023-05-30 11:30] LABS: Folate 11.2 ng/mL (> or = 4.0); Vitamin B12 542 pg/mL (200-900)
[2023-05-30 12:08] LABS: Creatinine Urine 155.97 mg/dL; Microalbum/Creatinine Ratio Ur 99.3 ug/mg cr (<30)
== END 2023-05-30 08:58 | disposition home or self-care (01) ==
LOC: HO.HMGCLDS 08:57
PROVIDERS: PCP Nurse Practitioner Family; Visit Provider Nurse Practitioner Family
DX: J44.89 Other specified chronic obstructive pulmonary disease (principal); E11.29 Type 2 diabetes mellitus with other diabetic kidney complication; E53.8 Deficiency of other specified B group vitamins
CPT/HCPCS: 36415; 80053; 82043; 82570; 82607; 82728; 82746; 83540; 85025

== ENCOUNTER 2023-06-14 07:39 | Day surgery (SDC) | payer MEDICARE, SELFPAY ==
--- NOTE | 2023-06-10 15:20 | HO.ANESPROP2 ---
Documented by User: Ely Agarwal NP 06/10/23 15:22 HPI - Anesthesia Eval Consult details Narrative: 82yo M for Upper Endoscopy with Dilitation PMFSH Active Problems Active Problems: All Active Problems Anemia (Acute) Asthma-COPD overlap syndrome (Acute) Pre-op chest exam (Acute) Weakness (Acute) Upper respiratory infection (Acute) Poor balance (Acute) Bronchitis (Acute) Physical exam (Acute) Dysphagia (Acute) Lower extremity weakness (Acute) Fatigue (Acute) Kidney disease (Acute) Cervical radiculopathy (Acute) Degenerative disc disease, cervical (Acute) HTN (hypertension) (Acute) Diabetes mellitus with kidney complication (Acute) Hiatal hernia (Acute) Incarcerated paraesophageal hernia (Acute) Screening PSA (prostate specific antigen) (Acute) B12 deficiency (Acute) Diarrhea (Acute) Diarrhea (Acute) GERD (gastroesophageal reflux disease) (Acute) Esophageal dysmotility (Acute) Esophageal ring, acquired (Acute) Depression (Acute) Past Medical History Medical History Asthma-COPD overlap syndrome Chronic renal insufficiency HTN (hypertension) Diabetes Esophageal dysmotility History of fall Tubular adenoma of colon Left arm numbness Right arm numbness Rib fractures Fall Occipital neuralgia Attention deficit disorder (ADD) Hx of bronchitis Intrinsic sphincter deficiency (ISD) Esophageal ring, acquired GERD (gastroesophageal reflux disease) Depression Post herpetic neuralgia Family History Family History Father No problems noted. Mother Hx of colon cancer, stage I Substance use disorder Brother Hx of colon cancer, stage III Family/Other Substance use disorder Family history of problems with anesthesia: No Surgical History Surgical History Hx of bilateral cataract extraction Hx of blepharoplasty Hx of esophageal hernia repair Hx of neck surgery History of implantation of artificial sphincter (~11/2019) History of esophagogastroduodenoscopy (EGD) History of right inguinal hernia repair (~03/2010) History of cervical spinal surgery History of colonoscopy History of back surgery History of radical prostatectomy History of Problems with Anesthesia: No Social History Social History Housing: House Are you a primary customer care consultant to a significant other at home: No Do you presently have visiting nurse or other home services: No Alcohol intake: never Comment: 3 MONTHS AGO MULTIPLE FALLS Patient Tobacco Use Status: Never used Tobacco e-Cigarette/Vaping Use: Never Used Second Hand Smoke Exposure: No Use of substances other than those prescribed or required for medical reasons: No Are you DNR?: No Advance Directives: No Advance Directives Information Provided: Yes Current occupational status: retired Cognitive needs: No Hearing needs: Yes Vision needs: Yes Meds Allergies Allergy/AdvReac Type Severity Reaction Status Date / Time adhesive tape Allergy Intermediate BLISTERS Verified 06/14/23 08:31 Home Medications ?Medication ?Instructions ?Recorded ?Confirmed ?Last Taken ?Type mecobalamin (vitamin B12) 500 mcg mcg PO 11/01/22 05/17/23 Unknown History chewable tablet metformin 1,000 mg tablet 1,000 mg PO DAILY 06/14/23 Unknown History tolterodine 4 mg capsule,extended 4 mg PO DAILY 06/14/23 06/14/23 Unknown History release 24 hr Exam Pertinent Lab Results Pertinent Lab Results: Laboratory Tests 05/30/23 09:05 WBC 5.6 Hgb 11.0 L Hct 34.4 L Plt Count 361 Sodium 143 Potassium 4.2 Chloride 106 Carbon Dioxide 27 BUN 12 Creatinine 1.48 H Narrative Narrative: EKG 04/2023 NSR RBBB Assessment and Plan Assessment Anesthesia Assessment: Chart Reviewed Final Anesthetic Review Family History of Problems with Anesthesia: No History of Problems with Anesthesia: No Documented by User: Shiv Jeff MD 06/14/23 08:53 PMF Past Medical History Medical History Asthma-COPD overlap syndrome Chronic renal insufficiency HTN (hypertension) Diabetes Esophageal dysmotility History of fall Tubular adenoma of colon Left arm numbness Right arm numbness Rib fractures Fall Occipital neuralgia Attention deficit disorder (ADD) Hx of bronchitis Intrinsic sphincter deficiency (ISD) Esophageal ring, acquired GERD (gastroesophageal reflux disease) Depression Post herpetic neuralgia Family History Family History Father No problems noted. Mother Hx of colon cancer, stage I Substance use disorder Brother Hx of colon cancer, stage III Family/Other Substance use disorder Surgical History Surgical History Hx of bilateral cataract extraction Hx of blepharoplasty Hx of esophageal hernia repair Hx of neck surgery History of implantation of artificial sphincter (~11/2019) History of esophagogastroduodenoscopy (EGD) History of right inguinal hernia repair (~03/2010) History of cervical spinal surgery History of colonoscopy History of back surgery History of radical prostatectomy Social History Social History Housing: House Are you a primary customer care consultant to a significant other at home: No Do you presently have visiting nurse or other home services: No Alcohol intake: never Comment: 3 MONTHS AGO MULTIPLE FALLS Patient Tobacco Use Status: Never used Tobacco e-Cigarette/Vaping Use: Never Used Second Hand Smoke Exposure: No Use of substances other than those prescribed or required for medical reasons: No Are you DNR?: No Advance Directives: No Advance Directives Information Provided: Yes Current occupational status: retired Cognitive needs: No Hearing needs: Yes Vision needs: Yes Meds Allergies Allergy/AdvReac Type Severity Reaction Status Date / Time adhesive tape Allergy Intermediate BLISTERS Verified 06/14/23 08:31 Home Medications ?Medication ?Instructions ?Recorded ?Confirmed ?Last Taken ?Type mecobalamin (vitamin B12) 500 mcg mcg PO 11/01/22 05/17/23 Unknown History chewable tablet metformin 1,000 mg tablet 1,000 mg PO DAILY 06/14/23 Unknown History tolterodine 4 mg capsule,extended 4 mg PO DAILY 06/14/23 06/14/23 Unknown History release 24 hr Exam Airway Mallampati Class: II TM Dist: >3cm Neck ROM: Full Denture: Upper Partial: Lower Assessment and Plan Assessment Anesthesia Assessment: Anesthesia Plan Discussed Final Anesthetic Review NPO: Yes ASA Class: III Final Preanesthetic Review: No Changes in Pt Med Stat, Meds/Allgs Chart Reviewed, Consent Obtained/Reviewed and Anes Risks/Benef Reviewed Patient Risk: Intermediate Procedure Risk: Low Anesthetic Plan Anesthetic Plan: MAC: Disposition: Standard PACU
--- NOTE | 2023-06-14 08:03 | P.HPSUR_ITS ---
Pre-Procedural Eval Section A - 24 Hr Update-Section A only Date of Service: 06/14/23 Section B - Complete if H&P > 30 days Chief Complaint: Dysphagia, unspecified Relevant Family History (Specify if Yes): No Relevant Social History: None Present Medications: see Short Stay Collaborative assessment Medical History: Significant History (Chronic renal insufficiency HTN (hypertension) Diabetes Esophageal dysmotility History of fall Tubular adenoma of colon Left arm numbness Right arm numbness Rib fractures Fall Occipital neuralgia Attention deficit disorder (ADD) Hx of bronchitis Intrinsic sphincter deficiency (ISD) Esophageal ring, ) History of Previous Operations: Relevant previous surgery/procedure and date(s) (Hx of esophageal hernia repair Hx of neck surgery History of implantation of artificial sphincter (~11/2019) History of esophagogastroduodenoscopy (EGD) History of right inguinal hernia repair (~03/2010) History of cervical spinal surgery History of colonoscopy History of back surgery History of rad) Allergies: Allergies Allergy/AdvReac Type Severity Reaction Status Date / Time adhesive tape Allergy Intermediate BLISTERS Verified 05/17/23 12:30 Review of Systems Sugical H&P ROS: Negative: Constitution, Cardiovascular, Respiratory, Shani rological, Psychiatric, Hem-Onc, Allergic/Immunologic, Gastrointestinal, Genitourinary, Musculoskeletal, Integumentary, Endocrine and Eyes/Ears/Nose/Throat Exam Surgical H&P Exam: Normal: HEENT, Normal: Heart, Normal: Lungs, Normal: Extremities, Normal: Abdomen, Normal: Skin and Normal: Neurological Plan Diagnosis/Plan: Unchanged I have reviewed the history and physical and performed a pertinent physical examination on my patient. No changes have occurred unless specified. Time Spent With Patient Time: Total time managing care of this patient today ____ minutes.
[2023-06-14 08:19] LABS: Glucose, Whole Blood 131 mg/dL (60-115)
[2023-06-14 08:36] VITALS: BP 133/79; PULSE 70; RESP 16; TEMP 36.5; O2SAT 99; BMI 24.0
[2023-06-14] MEDS: Lactated Ringers 1,000 ML 100 ML IVCONT (08:41)
--- NOTE | 2023-06-14 08:44 | W.PM.OPN ---
Operative Note Operative Note Date of Service: 06/14/23 Narrative: Procedure Description: EGD Indication: dysphagia Anesthesia: MAC FLEXIBLE TRANSORAL UPPER GASTROINTESTINAL ENDOSCOPY UPPER ENDOSCOPY Consent: Indications for the procedure and potential complications of bleeding, perforation, reaction to medications and missed diagnosis were discussed with the patient and informed consent was obtained. Instrument: Olympus GIF H 190 J mid size upper endoscope Monitoring: Vital signs and clinical assessment, continuous EKG monitoring, Pulse oximetry, Carbon Dioxide monitoring and blood pressure monitoring were done throughout the procedure. Procedure: The patient was placed in the left lateral decubitis position and pre-procedure medications were administered and a bite block was placed. The endoscope was inserted into the mouth and advanced under direct vision to the third part of duodenum. A careful inspection was made as the upper endoscope was withdrawn including a retroflexed examination of the proximal stomach; Findings and interventions are described below. Findings: Larynx:normal Esophagus: GE junction at 36 cm, diaphragm hiatus at 39 cm, compatible with 3 cm sliding hiatal hernia, balloon dilation done to 20 mm at UES and LES in sequential fashion with superficial tear noted in distal esophagus. Some furrowing and ringing of esophagus noted with schatzki ring noted. There was a large esophageal inlet patch noted. Stomach: Normal mucosa. Grade 2 flap valve on retroflexed examination of the cardia. Duodenum: Normal bulb and descending duodenum Intervention: balloon dilation Impression/Findings: Endoscopy Findings: hiatal hernia esophageal rings and stricture duodenitis esophageal inlet patch PLAN: Magic mouthwash GERD precautions diet as tolerated today if sx persist then can consider ablation of inlet patch
[2023-06-14 09:20] VITALS: BP 124/60; PULSE 68; RESP 12; TEMP 36.9; O2SAT 99
[2023-06-14] MEDS: Mag&Al/Sim/Diphenhyd/Lidocaine 10 ML ORAL.SUSP PO (09:25)
[2023-06-14 09:35] VITALS: BP 129/61; PULSE 65; RESP 12; TEMP 36.9; O2SAT 98
== END 2023-06-14 10:12 | disposition home or self-care (01) ==
PROVIDERS: PCP Nurse Practitioner Family; Visit Provider Internal Medicine Gastroenterology
PROC: (CPT 43249; principal; 2023-06-14 10:00)
DX: K22.2 Esophageal obstruction (principal); K22.89 Other specified disease of esophagus; K29.80 Duodenitis without bleeding; K44.9 Diaphragmatic hernia without obstruction or gangrene; E11.22 Type 2 diabetes mellitus with diabetic chronic kidney disease; I12.9 Hypertensive chronic kidney disease with stage 1 through stage 4 chronic kidney disease, or unspecified chronic kidney disease; N18.9 Chronic kidney disease, unspecified
CPT/HCPCS: 43249; 82947; C1726; J2704

== ENCOUNTER → 2023-06-14 07:39 | Outpatient (BNV) | payer MEDICARE, SELFPAY | PROVIDERS: PCP Nurse Practitioner Family; Visit Provider Internal Medicine Gastroenterology | DX: K22.2 Esophageal obstruction (principal); K29.80 Duodenitis without bleeding; R13.10 Dysphagia, unspecified | CPT/HCPCS: 43249 ==

== ENCOUNTER 2023-06-24 10:52 | Outpatient (REF) | payer MEDICARE, SELFPAY ==
[2023-06-24 10:24] VITALS: PULSE 72; RESP 16; O2SAT 97
--- NOTE | 2023-06-24 14:05 | PFT_ITS ---
Flows: FEV1: 80 % of predicted at 2.03 L FVC: 77 % of predicted at 2.63 L FEV1/FVC: 77 % Bronchodilator response: Absent Volumes: Total lung capacity: 87 % of predicted at 5.58 L Residual volume: 116 % of predicted at 2.94 L Slow vital capacity: 73 % of predicted at 2.64 L Expiratory reserve volume: 43 % of predicted at 0.45 L Diffusion capacity: Mildly decreased Impression: No obstructive or restrictive ventilatory defect. No bronchodilator response. Decreased diffusion capacity suggests emphysema. MTDD
== END 2023-06-24 10:53 | disposition home or self-care (01) ==
LOC: HO.RESP 10:52
PROVIDERS: PCP Nurse Practitioner Family; Visit Provider Hospitalist
DX: J44.89 Other specified chronic obstructive pulmonary disease (principal)
CPT/HCPCS: 94010; 94640; 94727; 94729

== ENCOUNTER → 2023-06-24 14:05 | Outpatient (BNV) | payer MEDICARE, SELFPAY | PROVIDERS: PCP Nurse Practitioner Family; Visit Provider Internal Medicine Pulmonary Disease | DX: J44.89 Other specified chronic obstructive pulmonary disease (principal) | CPT/HCPCS: 94060; 94727; 94729 ==

== ENCOUNTER 2023-06-27 09:39 | Outpatient (REF) | payer MEDICARE, SELFPAY ==
[2023-06-27 14:16] LABS: Anion Gap 19 (12-20); Blood Urea Nitrogen 18 mg/dL (9-16); Calcium 10.1 mg/dL (8.4-10.2); Carbon Dioxide 23 mmol/L (22-29); Chloride 105 mmol/L (96-108); Estimated Glomerular Filt Rate 46; Sodium 142 mmol/L (135-145)
[2023-06-27 14:23] LABS: Creatinine Urine 98.73 mg/dL; Protein/Creatinine Ratio, Ur 0.31 (<0.2); Total Protein Urine Random 31 mg/dL (<12)
[2023-06-27 14:35] LABS: Vitamin D 25-OH Total 46.9 ng/mL (>30)
== END 2023-06-27 09:40 | disposition home or self-care (01) ==
LOC: HO.HMGCLDS 09:39
PROVIDERS: PCP Nurse Practitioner Family; Visit Provider Internal Medicine Nephrology
DX: I12.9 Hypertensive chronic kidney disease with stage 1 through stage 4 chronic kidney disease, or unspecified chronic kidney disease (principal); E11.22 Type 2 diabetes mellitus with diabetic chronic kidney disease; N18.31 Chronic kidney disease, stage 3a
CPT/HCPCS: 36415; 80051; 82306; 82310; 82565; 82570; 83970; 84156; 84520

== ENCOUNTER 2023-08-22 09:37 | Outpatient (AMB) | payer MEDICARE, SELFPAY ==
--- NOTE | 2023-08-22 09:48 | MHC.OFFVIS ---
Vital Signs 08/22/23 09:50 Height 5 ft 7 in Weight 155 lb BMI 24.3 BP 132/49 L Blood Pressure Location Lt brachial Position Sitting Pulse 59 Intake Visit Reasons: 4 month follow up Intake Note: Sergei presents in the office as a 4 month follow up. CC: States that he has issues with his swallowing - states that he also gets GERD after swallowing. Sugar has been an issue as well. 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 Operator Required: No Allergies adhesive tape Allergy (Intermediate, Verified 08/22/23 09:51) BLISTERS HPI HPI 4 month follow up: Details: 83 yr old m with DM, prostate cancer 2004 here for f/u RECAP: He had EGD for dysphagia with dilation of stricture 01/2020 I then repeated the EGD 10/2020-- noted hiatal hernia 4 cm, jack erosion, balloon dilation 20 mm with tears noted at GEJ EGD/colonoscopy 01/2021: tubulovillous adenoma removed, chronci duodenitis, schatzki ring, hiatal hernia, retained clip removed--balloon dilation 18-19 mm He was referred to Dr Kent and had para esophageal hernia repair with mesh and gastropexy 05/2021- he also required esophgeal dilation few months after that repeat EGD/colo:03/2022 Endoscopy Findings: hiatal hernia esophageal rings and stricture duodenitis Colonoscopy Findings: polyp internal hemorrhoids diverticular disease segmental colitis balloon dilation with tear noted Path: A. Duodenum, biopsy: Duodenal mucosa within normal limits. B. Stomach, biopsy: Oxyntic mucosa with mild chronic inactive inflammation; no Helicobacter organisms seen. C. Terminal ileum, biopsy: Terminal ileal mucosa within normal limits. D. Colon, random, biopsy: Colonic mucosa with features of microscopic colitis. E. Colon, ascending, polypectomy: Clinically polypoid colonic mucosa with prolapse changes and features of microscopic colitis. F. Colon, sigmoid, biopsy: Colonic mucosa with features of collagenous colitis. G. Rectum, biopsy: Colonic mucosa with features of microscopic colitis. He was tried on mesalamine, pepto was initially suggested but due to interactions went with the mesalamine GI stool panel was neg lactoferrin was raised c diff sample was invalid EGD: 08/07 hiatal hernia esophageal rings and stricture duodenitis esophageal inlet patch I ordered CT brain due to swallowing, showed chronic ischemic changes and mastoiditis, was give doxycycline INTERIM: He has heartburn few times no issues with swallowing he is being more active now no nausea or vomiting he is taking lansoprazole daily and it does help he wants to discuss hernia repair with a surgeon no sinus issues after ABX ongoing issues with episodic diarrhea EXAM: GENERAL: The patient is well developed and nontoxic. VITAL SIGNS:see workflow HEENT: Nonicteric sclerae, PERRLA, EOMI. Oropharynx clear. Moist mucous membranes. Conjunctivae appear well perfused. No thyroid mass. CHEST: Chest wall is nontender. HEART: Regular rate and rhythm without murmurs. LUNGS: lungs are clear --good a/e ABDOMEN: Soft, positive bowel sounds, nontender, no organomegaly.no flank tenderness SKIN: No rash, no excessive bruising, petechiae, or purpura. NEUROLOGIC: deaf, poor balance, unable to do tandem walking, falling to right psych: nml A/P: 1/ microscopic colitis, possibly from statin and PPI use, causing his diarrhea--not helped by budesonide or mesalamine, 2/ swallowing issues, since surgery--prior dilation did help- he wants hiatal hernia repair discussion PLAN: 1/ refer Dr Cisse for assessment, may not be a great candidate but may help his mucous issues 2/ again advised to try bismuth twice a day and assess response for the microscopic colitis 3/ cont PPI PFSH Medical History Asthma-COPD overlap syndrome Chronic renal insufficiency HTN (hypertension) Diabetes Esophageal dysmotility History of fall Tubular adenoma of colon Left arm numbness Right arm numbness Rib fractures Fall Occipital neuralgia Attention deficit disorder (ADD) Hx of bronchitis Intrinsic sphincter deficiency (ISD) Esophageal ring, acquired GERD (gastroesophageal reflux disease) Depression Post herpetic neuralgia Surgical History Hx of bilateral cataract extraction Hx of blepharoplasty Hx of esophageal hernia repair Hx of neck surgery History of implantation of artificial sphincter (~11/2019) History of esophagogastroduodenoscopy (EGD) History of right inguinal hernia repair (~03/2010) History of cervical spinal surgery History of colonoscopy History of back surgery History of radical prostatectomy Family History Father No problems noted. Mother Hx of colon cancer, stage I Substance use disorder Brother Hx of colon cancer, stage III Family/Other Substance use disorder Social History Housing: House Are you a primary patient care representative to a significant other at home: No Do you presently have visiting nurse or other home services: No Alcohol intake: never Comment: 3 MONTHS AGO [place]IP[place] Patient Tobacco Use Status: Never used Tobacco e-Cigarette/Vaping Use: Never Used Second Hand Smoke Exposure: No Current occupational status: retired Cognitive needs: No Hearing needs: Yes Vision needs: Yes Physical Exam Vital Signs: Last Vital Signs Pulse 59 08/22/23 09:50 BP 132/49 L 08/22/23 09:50 BMI result Body Mass Index 24.3 Assessment & Plan Assessment & Plan (1) Dysphagia: Code(s): R13.10 - Dysphagia, unspecified Category: Medical Qualifiers: Dysphagia type: other dysphagia Qualified Code(s): R13.19 - Other dysphagia Plan: see above Coding Level of Care Code Est Pt Level 3 (55286) Diagnoses Other dysphagia R13.19 Dysphagia type: other dysphagia
[2023-08-22 09:50] VITALS: BP 132/49; PULSE 59; BMI 24.3
== END 2023-08-22 10:09 | disposition home or self-care (01) ==
PROVIDERS: PCP Nurse Practitioner Family; Visit Provider Internal Medicine Gastroenterology
DX: R13.19 Other dysphagia (principal)
CPT/HCPCS: 99213

== ENCOUNTER → 2023-08-22 09:37 | Outpatient (BNVA) | payer MEDICARE, SELFPAY | PROVIDERS: PCP Nurse Practitioner Family; Visit Provider Internal Medicine Gastroenterology | DX: R13.10 Dysphagia, unspecified (principal) | CPT/HCPCS: 99212 ==

== ENCOUNTER 2023-08-26 10:24 | Outpatient (AMB) | payer MEDICARE, SELFPAY ==
--- NOTE | 2023-08-26 10:27 | A.OFFVIS_ITS ---
VS Expanded 08/26/23 10:37 BP 197/90 H Blood Pressure Location Rt brachial Blood Pressure Position Sitting Pulse 75 Pulse Source Pulse Oximeter Temp 98.0 F Temperature Source Temporal Artery Scan Pulse Oximetry 98 Oxygen Delivery Method Room Air Height 5 ft 7 in Weight 152 lb 12.8 oz BMI 23.9 Body Fat % 20.8 Body Fat Mass 31.8 Fat Free Mass 121.0 Visceral Fat Rating 8.0 Body Water % 55.6 Body Water Mass 84.8 Muscle Mass/Score 114.8 Basal Metabolic Rate/Score 1,561 Intake Visit Reasons: OV Hiatal Hernia - Dr. Eduardo Ref. Allergies adhesive tape Allergy (Intermediate, Verified 08/26/23 12:24) BLISTERS Medication List - Last Reconciled 08/26/23 by Art Finney MD albuterol sulfate 0.63 mg (3 mL) inhalation Q6H albuterol sulfate 90 mcg/actuation 2 puffs PO Q6H PRN bupropion HCl XL 300 mg PO QAM 90 days fluticasone propion-salmeterol 250-50 mcg/dose (Wixela Inhub) 1 inh inhalation Q12H 30 days fluticasone propionate 50 mcg/actuation (Flonase Allergy Relief) 1 spray intranasal DAILY FreeStyle Bao 2 [place] (flash glucose scanning reader) TID testing NS FreeStyle Bao 2 Sensor (flash glucose sensor) TID testing NS insulin glargine (Lantus Solostar U-100 Insulin) 10 units subcut QPM lancets (FreeStyle Lancets) BID Freestyle lancets all flex lansoprazole 30 mg PO DAILY loratadine (Claritin) 10 mg PO DAILY mecobalamin (vitamin B12) mcg PO metformin 1,000 mg PO DAILY multivitamin 1 tab PO DAILY simvastatin 40 mg PO BEDTIME tolterodine ER 4 mg PO DAILY trazodone 100 mg PO BEDTIME HPI Comments Details: The patient was referred by Dr. Eduardo for persistent difficulty swallowing and substernal pain while swallowing. Those symptoms were present before the diaphragmatic hernia repair, improved only temporarily postoperatively and then returned. He has had several balloon dilations which provided some relief before the hernia repair but not so much now. Denies any significant GERD symptoms I reviewed extensive medical records: CT-chest 04/07/21: small HH UGI: 12/23/20: GERD and small HH UGI 08/25/21 (after hernia repair): GERD and distal esophageal stricture, no hiatal hernia EGD 03/31/22 (Dr. Eduardo): 3cm hernia CT-chest (08/27/22): no significant hernia EGD 06/14/23 (DR. Eduardo): 3cm hiatal hernia Diet: 2 waffles throughout the day Dinner: hot dog or pasta, or rice c/o persistent diarrhea Wakes up: 9am, Sleeps: 1am [facility] Medical History Asthma-COPD overlap syndrome Chronic renal insufficiency HTN (hypertension) Diabetes Esophageal dysmotility History of fall Tubular adenoma of colon Left arm numbness Right arm numbness Rib fractures Fall Occipital neuralgia Attention deficit disorder (ADD) Hx of bronchitis Intrinsic sphincter deficiency (ISD) Esophageal ring, acquired GERD (gastroesophageal reflux disease) Depression Post herpetic neuralgia Surgical History Hx of bilateral cataract extraction Hx of blepharoplasty Hx of esophageal hernia repair Hx of neck surgery History of implantation of artificial sphincter (~11/2019) History of esophagogastroduodenoscopy (EGD) History of right inguinal hernia repair (~03/2010) History of cervical spinal surgery History of colonoscopy History of back surgery History of radical prostatectomy Family History Father No problems noted. Mother Hx of colon cancer, stage I Substance use disorder Brother Hx of colon cancer, stage III Family/Other Substance use disorder Social History Housing: House Are you a primary assistant child care teacher to a significant other at home: No Do you presently have visiting nurse or other home services: No Alcohol intake: never Comment: 3 MONTHS AGO [place]IP[place] Patient Tobacco Use Status: Never used Tobacco e-Cigarette/Vaping Use: Never Used Second Hand Smoke Exposure: No Current occupational status: retired Cognitive needs: No Hearing needs: Yes Vision needs: Yes Physical Exam Vital Signs: Last Vital Signs Temp 98.0 F 08/26/23 10:37 Pulse 75 08/26/23 10:37 BP 197/90 H 08/26/23 10:37 Pulse Ox 98 08/26/23 10:37 Oxygen Delivery Method Room Air 08/26/23 10:37 BMI result Body Mass Index 23.9 GI Inspection: Yes normal to inspection and Yes incision (well healed) Palpation (GI): Soft to palpation Extrem Right lower extremity: normal to inspection Left lower extremity: normal to inspection Assessment & Plan Assessment & Plan (1) Dysphagia: Code(s): R13.10 - Dysphagia, unspecified Category: Medical Qualifiers: Dysphagia type: other dysphagia Qualified Code(s): R13.19 - Other dysphagia Plan: I explained to the patient and his the present findings. I reviewed the operative report of the hernia repair surgery. A biologic mesh was used and wrapped around the esophagus and was sutured in place with permanent sutures. In addition, the gastropexy that was performed fixed the stomach in a cephalad manner towards the chest (against the flow of fluids and food) and not in a caudal manner towards the pelvis (towards the flow). The above technical issues are most likely causing the patient's symptoms. However, a redo-surgery could be difficult from a technical standpoint and with an uncertain outcome in terms of symptom improvement. I also reviewed his dietary intake and it is not appropriate in terms of protein intake. As a result he is malnourished and this can contribute to weakening of the esophageal muscle system and overall cognitive function. We agreed that before we pursue further diagnostic work-up and redo-hiatal hernia repair, we will attempt a new nutritional plan: Celebrate Rebuild shake (1 scoop in 8oz almond milk) at 10-12pm Celebrate Rebuild shake (1 scoop in 8oz almond milk) at 1pm-3pm Celebrate protein bar (cut in 4 pieces and eat one every 30 minutes to last 2 hours) at 4pm-6pm Dinner at 7pm (6 forkfuls of hot dog or baked fish and 6 forkfuls of steamed broccoli, cauliflower or avocado Celebrate bar or 1/2 waffle at 9pm-11pm If necessary, another shake at 11pm-1am Medications: New sucralfate 10 mL PO BID 400 mL 2RF K21.9 - Gastro-esophageal reflux disease without esophagitis, R13.19 - Other dysphagia
[2023-08-26 10:37] VITALS: BP 197/90; PULSE 75; TEMP 36.7; O2SAT 98; BMI 23.9
== END 2023-08-26 12:46 | disposition home or self-care (01) ==
PROVIDERS: PCP Nurse Practitioner Family; Visit Provider Surgery
DX: R13.19 Other dysphagia (principal)
CPT/HCPCS: 99204

== ENCOUNTER → 2023-08-26 10:24 | Outpatient (BNVA) | payer MEDICARE, SELFPAY | PROVIDERS: PCP Nurse Practitioner Family; Visit Provider Surgery | DX: R13.10 Dysphagia, unspecified (principal) | CPT/HCPCS: 99202 ==

== ENCOUNTER 2023-09-06 10:57 | Outpatient (AMB) | payer MEDICARE, SELFPAY ==
[2023-09-06 11:07] VITALS: BP 134/60; PULSE 51; O2SAT 97; BMI 24.2
--- NOTE | 2023-09-06 11:07 | A.OFFVIS_ITS ---
Vital Signs 09/06/23 11:07 Height 5 ft 7 in Weight 154 lb 5.177 oz BMI 24.2 BP 134/60 Blood Pressure Location Rt brachial Position Sitting Pulse 51 Pulse Source Pulse Oximeter Pulse Oximetry (%) 97 Oxygen Delivery Method Room Air Intake Visit Reasons: Bronchitis Allergies adhesive tape Allergy (Intermediate, Verified 09/06/23 11:09) BLISTERS HPI Comments Details: TThe patient is an 83-year-old gentleman with a known history of COPD was developing worsening respiratory symptoms. He was recently evaluated in the ER for worsening wheezing and chest congestion. He did have a chest x-ray there which I personally reviewed without any acute disease. He also had CT scan of the chest which I also reviewed from 2021 demonstrating normal lung parenchyma. Also demonstrated a thickened esophagus. He has been working very closely with GI. He has had issues with difficulty swallowing and was noted to have an esoph ageal stricture along with evidence of esophageal dysmotility reflux disease and hiatal hernia. Currently the patient is doing better from a respiratory status. Denies any significant wheezing or coughing. the patient does feel that the GI issue at times precipitates his breathing issues which I do agree with him. The patient currently is scheduled to undergo a repeat endoscopy with likely ba lloon dilation to improve his overall swallow. The patient will be started on long-acting beta agonist with inhaled cortical steroid to decrease he is exacerbations. But right now he is doing well from a pulmonary standpoint. He feels like he is back to his baseline. Will plan to perform pulmonary function studies. From a preoperative standpoint the patient is doing better and may he will to proceed with anesthesia and endoscopy without any limitations. 09/06/2023 the patient is here for a pulmonary follow-up visit. Overall the patient has been doing well. He did follow-up with GI and also was surgery. He does have significant esophageal strictures and other abnormalities due to hiatal hernia. Unfortunately hiatal hernia was attempted to be corrected in the past in therefore that difficult redo. He is going to follow-up with GI. In the meantime he is responding well to the current GI cocktail. The patient also has been using his inhalers. We did talk about making sure to use the Wixela every morning. He needs to rinse his mouth. Hopefully will help with his chest congestion. In addition to that we talked about the importance of sleeping elevated at nighttime to make sure that he avoids any micro aspirations into the lungs due to that hiatal hernia. We did review his CT scan of the chest which is reassuring. He will continue with the current respiratory therapy. [facility] Medical History Asthma-COPD overlap syndrome Chronic renal insufficiency HTN (hypertension) Diabetes Esophageal dysmotility History of fall Tubular adenoma of colon Left arm numbness Right arm numbness Rib fractures Fall Occipital neuralgia Attention deficit disorder (ADD) Hx of bronchitis Intrinsic sphincter deficiency (ISD) Esophageal ring, acquired GERD (gastroesophageal reflux disease) Depression Post herpetic neuralgia Surgical History Hx of bilateral cataract extraction Hx of blepharoplasty Hx of esophageal hernia repair Hx of neck surgery History of implantation of artificial sphincter (~11/2019) History of esophagogastroduodenoscopy (EGD) History of right inguinal hernia repair (~03/2010) History of cervical spinal surgery History of colonoscopy History of back surgery History of radical prostatectomy Family History Father No problems noted. Mother Hx of colon cancer, stage I Substance use disorder Brother Hx of colon cancer, stage III Family/Other Substance use disorder Social History Housing: House Are you a primary animal care assistant to a significant other at home: No Do you presently have visiting nurse or other home services: No Alcohol intake: never Comment: 3 MONTHS AGO MULTIPLE FALLS Patient Tobacco Use Status: Never used Tobacco e-Cigarette/Vaping Use: Never Used Second Hand Smoke Exposure: No Current occupational status: retired Cognitive needs: No Hearing needs: Yes Vision needs: Yes Review of Systems Const Denies chills and Denies fever(s) Eyes Denies blurry vision ENT Reports dysphagia, Denies vertigo, Denies dizziness and Denies sore throat Card Denies chest pain at rest, Denies chest pain with activity, Denies diaphoresis and Reports dyspnea on exertion Resp Reports cough, Reports dyspnea on exertion and Reports wheezing GI Reports as per HPI, Denies hematochezia, Denies constipation, Reports dysphagia, Reports dyspepsia, Reports heartburn, Denies diarrhea and Denies loose stools Musc Denies numbness and Denies tingling Skin/Breast Denies lesions Neuro Denies vertigo, Denies dizziness, Denies numbness and Denies tingling Psych Denies anxiety, Denies depression, Denies homicidal ideation, Denies suicidal ideation and Denies other (substance abuse) Aller/Immun Reports wheezing Physical Exam Vital Signs: Last Vital Signs Pulse 51 09/06/23 11:07 BP 134/60 09/06/23 11:07 Pulse Ox 97 09/06/23 11:07 Oxygen Delivery Method Room Air 09/06/23 11:07 BMI result Body Mass Index 24.2 Const General: no acute distress, well developed and alert Nutritional Appearance: well nourished Orientation/consciousness: patient oriented x3 HEENT Head: Yes normocephalic and Yes atraumatic Neck Neck: Yes supple Chest Chest palpation & inspection: normal inspection of the chest Resp Effort & Inspection: normal respiratory effort Auscultation: diminished lung sounds Cardio Rate: regular rate Rhythm: regular rhythm Heart sounds: S1 normal heart sound present, S2 normal heart sound present and no murmurs Skin General skin exam: no rashes or lesions noted Neuro General: patient oriented x3 Extrem General: Yes no clubbing, cyanosis or edema Psych Attitude: cooperative Assessment & Plan Assessment & Plan (1) Dysphagia: Code(s): R13.10 - Dysphagia, unspecified Category: Medical Qualifiers: Dysphagia type: other dysphagia Qualified Code(s): R13.19 - Other dysphagia (2) Hiatal hernia: Code(s): K44.9 - Diaphragmatic hernia without obstruction or gangrene Category: Medical (3) Asthma-COPD overlap syndrome: Code(s): J44.89 - Other specified chronic obstructive pulmonary disease Category: Medical Plan continue Wixela MYLES as needed reflux diet Needs to sleep with the head of bed elevated F/U 6-8 months Coding Level of Care Code Est Pt Level 4 (97064) Diagnoses Other dysphagia R13.19 Dysphagia type: other dysphagia Hiatal hernia K44.9 Asthma-COPD overlap syndrome J44.89 Time Spent (min) 16
== END 2023-09-06 11:32 | disposition home or self-care (01) ==
PROVIDERS: PCP Nurse Practitioner Family; Visit Provider Hospitalist
DX: R13.19 Other dysphagia (principal); K44.9 Diaphragmatic hernia without obstruction or gangrene; J44.89 Other specified chronic obstructive pulmonary disease
CPT/HCPCS: 99214

== ENCOUNTER → 2023-09-06 10:57 | Outpatient (BNVA) | payer MEDICARE, SELFPAY | PROVIDERS: PCP Nurse Practitioner Family; Visit Provider Hospitalist | DX: J44.89 Other specified chronic obstructive pulmonary disease (principal); K44.9 Diaphragmatic hernia without obstruction or gangrene; R13.19 Other dysphagia | CPT/HCPCS: 99212 ==

== ENCOUNTER 2023-09-26 09:07 | Outpatient (REF) | payer MEDICARE, SELFPAY ==
[2023-09-26 09:55] LABS: MANUAL DIFF FLAG NO
[2023-09-26 10:02] LABS: Basophils Absolute Auto 0.1 X10*3/uL (0.0-0.2); Basophils Percent Auto 0.8 % (0-2); Eosinophils Absolute Auto 0.3 X10*3/uL (0.0-0.4); Eosinophils Percent Auto 4.4 % (0-4); Hematocrit 35.8 % (42.0-52.0); Hemoglobin 11.7 g/dl (14.0-18.0); Imm Gran Abs Auto 0.01 X10*3/uL (0.00-0.03); Imm Gran Pct Auto 0.2 % (0.0-0.4); Lymphocytes Absolute Auto 1.9 X10*3/uL (1.2-4.9); Lymphocytes Percent Auto 31.7 % (20-40); Mean Corpuscular HGB Conc 32.7 g/dl (31.0-36.0); Mean Corpuscular Volume 91.8 fL (80.0-98.0); Mean Platelet Volume 9.4 fL (9.4-12.4); Monocytes Absolute Auto 0.6 X10*3/uL (0.1-1.2); Monocytes Percent Auto 10.9 % (2-11); Neutrophils Absolute Auto 3.1 x10*3/uL (2.0-8.3); Platelet Count 367 X10*3/uL (160-400); Red Cell Distribution Width 12.8 % (11.0-16.0); White Blood Count 5.9 X10*3/uL (4.8-10.8)
[2023-09-26 10:25] LABS: Alanine Aminotransferase 23 U/L (0-40); Albumin Level 4.2 g/dL (3.5-5.0); Alkaline Phosphatase 51 U/L (39-117); Anion Gap 13 (12-20); Aspartate Amino Transferase 21 U/L (5-37); Bilirubin Total 0.5 mg/dL (0.0-1.0); Blood Urea Nitrogen 32 mg/dL (9-16); Calcium 9.3 mg/dL (8.4-10.2); Carbon Dioxide 27 mmol/L (22-29); Chloride 104 mmol/L (96-108); Cholesterol 141 mg/dL (<200); Estimated Glomerular Filt Rate 39; Glucose Fasting 178 mg/dL (60-99); HDL Cholesterol 61 mg/dL (>40); LDL Cholesterol Calculated 60 mg/dL (<100); Potassium 4.3 mmol/L (3.3-5.1); Sodium 140 mmol/L (135-145); Total Protein 7.1 g/dL (6.5-8.0); Triglycerides 101 mg/dL (<150)
[2023-09-26 10:30] LABS: Appearance Urine Clear; Color Urine Yellow; Glucose Urine UA Negative (Negative); Leukocyte Esterase Urine Negative (Negative); Nitrite Urine Negative (Negative); PH 5.5 (5.0-9.0); UMIC TRIGGER UACC YES; Urine Blood Negative (Negative); Urine Ketones Negative (Negative); Urine Protein 30 (1+) mg/dL (Neg-Trace)
[2023-09-26 10:39] LABS: Bacteria Urine None Seen (None Seen); Hyaline Casts Urine 0-2 /LPF (0-2); RBC Urine 0-2 /HPF (0-2); Squamous Epithelial Cell Urine 0-2 /HPF (0-2); WBC Urine 0-5 /HPF (0-5)
[2023-09-26 10:42] LABS: TSH reflex Free T4 1.92 uIU/mL (0.32-4.0)
[2023-09-28 13:28] LABS: Hematocrit 35.9 % (38.5-50.0); Hemoglobin 11.6 g/dL (13.2-17.1); MCH 29.7 pg (27.0-33.0); MCV 92.1 fL (80.0-100.0); RDW 12.7 % (11.0-15.0)
== END 2023-09-26 09:08 | disposition home or self-care (01) ==
LOC: HO.HMGCLDS 09:07
PROVIDERS: PCP Nurse Practitioner Family; Visit Provider Nurse Practitioner Family
DX: Z00.00 Encounter for general adult medical examination without abnormal findings (principal); D64.9 Anemia, unspecified
CPT/HCPCS: 36415; 80053; 80061; 81001; 81003; 83020; 84443; 85014; 85018; 85025; 85041

== ENCOUNTER 2023-09-29 10:04 | Outpatient (AMB) | payer MEDICARE, SELFPAY ==
[2023-09-29 10:06] VITALS: BP 136/76; PULSE 71; O2SAT 97; BMI 24.7
--- NOTE | 2023-09-29 10:06 | A.OFFPC_ITS ---
Vital Signs 09/29/23 10:06 Height 5 ft 7 in Weight 157 lb 8 oz BMI 24.7 BP 136/76 Blood Pressure Location Lt brachial Position Sitting Pulse 71 Pulse Source Pulse Oximeter Pulse Oximetry (%) 97 Oxygen Delivery Method Room Air Intake Visit Reasons: 3-4 month follow up Allergies adhesive tape Allergy (Intermediate, Verified 09/29/23 12:20) BLISTERS Medication List - Last Reconciled 09/29/23 by Sergei Burt, [facility]- albuterol sulfate 0.63 mg (3 mL) inhalation Q6H albuterol sulfate 90 mcg/actuation 2 puffs PO Q6H PRN bupropion HCl XL 300 mg PO QAM 90 days fluticasone propion-salmeterol 250-50 mcg/dose (Wixela Inhub) 1 inh inhalation Q12H 30 days fluticasone propionate 50 mcg/actuation (Flonase Allergy Relief) 1 spray intranasal DAILY FreeStyle Bao 2 [place] (flash glucose scanning reader) TID testing NS FreeStyle Bao 2 Sensor (flash glucose sensor) TID testing NS insulin glargine (Lantus Solostar U-100 Insulin) 10 units subcut QPM lancets (FreeStyle Lancets) BID Freestyle lancets all flex lansoprazole 30 mg PO DAILY loratadine (Claritin) 10 mg PO DAILY mecobalamin (vitamin B12) mcg PO metformin 1,000 mg PO DAILY multivitamin 1 tab PO DAILY nebulizers As directed simvastatin 40 mg PO BEDTIME sucralfate 10 mL PO BID tolterodine ER 4 mg PO DAILY trazodone 100 mg PO BEDTIME Tobacco use date assessed: 09/29/23 Fall risk assessment: No Falls in past year Last assessed Fall Risk: 09/29/23 Dental Screening Dental Screen Date: 09/29/23 Did you have a dental visit in the last 12 months?: No Did you have a dental problem in the last 6 months where you did not have access to dental care?: No Was dental information given to patient?: Patient has dentist HPI 3-4 month follow up HPI Details Pt is a diabetic, on a statin. A1C in office today is 7.7. Microalbumin is up to date. Denies polyuria, polydipsia, does report neuropathy. Pt denies any signs and symptoms of hypoglycemia and does know how to correct it. Pt rep orts that he has not been taking his lantus because it causes his blood sugar to be too low. Will have pt start 5 units rather than 10. Pt understands the importance of proper diet and how it relates to blood sugar. [facility] Medical History Asthma-COPD overlap syndrome Chronic renal insufficiency HTN (hypertension) Diabetes Esophageal dysmotility History of fall Tubular adenoma of colon Left arm numbness Right arm numbness Rib fractures Fall Occipital neuralgia Attention deficit disorder (ADD) Hx of bronchitis Intrinsic sphincter deficiency (ISD) Esophageal ring, acquired GERD (gastroesophageal reflux disease) Depression Post herpetic neuralgia Surgical History Hx of bilateral cataract extraction Hx of blepharoplasty Hx of esophageal hernia repair Hx of neck surgery History of implantation of artificial sphincter (~11/2019) History of esophagogastroduodenoscopy (EGD) History of right inguinal hernia repair (~03/2010) History of cervical spinal surgery History of colonoscopy History of back surgery History of radical prostatectomy Family History Father No problems noted. Mother Hx of colon cancer, stage I Substance use disorder Brother Hx of colon cancer, stage III Family/Other Substance use disorder Social History Housing: House Are you a primary care taker to a significant other at home: No Do you presently have visiting nurse or other home services: No Alcohol intake: never Comment: 3 MONTHS AGO [place]IP[place] F[place] Patient Tobacco Use Status: Never used Tobacco e-Cigarette/Vaping Use: Never Used Second Hand Smoke Exposure: No service: No Current occupational status: retired Cognitive needs: No Hearing needs: Yes Vision needs: Yes Questionnaire PHQ-9 Over the last 2 weeks, how often have you been bothered by any of the following problems? 1. Little interest or pleasure in doing things: not at all 2. Feeling down, depressed, or hopeless: not at all 3. Trouble falling or staying asleep, or sleeping too much: not at all 4. Feeling tired or having little energy: several days 5. Poor appetite or overeating: not at all 6. Feeling bad about yourself - or that you are a failure or have let yourself or your family down: several days 7. Trouble concentrating on things, such as reading the newspaper or watching television: several days 8. Moving or speaking so slowly that other people could have noticed. Or the opposite - being so fidgety or restless that you have been moving around a lot more than usual: not at all 9. Thoughts that you would be better off or of hurting yourself in some way: several days Total score: 4 Depression Screening Interpretation: Negative Depression Screening Done: Yes 47670 - PHQ-9 Billing: Yes Source: Developed by Drs. Ronan Bray, Tova Jesus, Kush Kelley and colleagues, with an educational eleazar from [employer]. Thrive Questionnaire Date Thrive assessed: 09/29/23 I am a: Patient What is your living situation today?: I have a steady place to live Within the past 12 months, did the food you bought not last and you didn't have the money to get more?: I choose not to answer this question Within the past 12 months, did you worry whether your food would run out before you got money to buy more?: I choose not to answer this question Do you have trouble paying for medicines?: No Do you have trouble getting transportation to medical appointments?: No Do you have trouble paying your heating and electricity bill?: No Do you have trouble taking care of your child, family member or friend?: No Do you have trouble with day-to-day activities such as bathing, preparing meals, shopping, managing finances, etc.?: No Are you currently unemployed and looking for a job?: No Are you interested in more education?: No Please select the resources that you would like help with: None Currently or been in a relationship where the following occur: I choose not to answer THRIVE Score: 0 AUDIT C Alcohol Use Questionnaire (AUDIT-C) 1. How often do you have a drink containing alcohol?: Never 3. How often do you have six or more drinks on one occasion?: Never Total Score: 0 Score Reviewed/Action Taken: Yes LOCO-7 AMB Questionnaire LOCO-7 Date LOCO - 7 assessed: 09/29/23 Feeling nervous, anxious, or on edge: 1 = Several days Not being able to stop or control worryin = Several days Worrying too much about different things: 1 = Several days Trouble relaxin = Several days Being so restless that it is hard to sit still: 1 = Several days Becoming easily annoyed or irritable: 1 = Several days Feeling afraid as if something awful might happen: 0 = Not at all Total LOCO-7 score (0-4 normal; 5-9 mild; 10-14 moderate; 15-21 severe): 6 Source: Developed by Drs. Ronan Bray, Tova Jesus, Kush Kelley and colleagues, with an educational eleazar from [employer]. LOCO-7 Assessment Billing LOCO-7 Assessment Tool: LOCO-7 Assessment 55049 Review of Systems Const Reports as per HPI Physical exam (Primary Care) Vital Signs: Last Vital Signs Pulse 71 09/29/23 10:06 BP 136/76 09/29/23 10:06 Pulse Ox 97 09/29/23 10:06 Oxygen Delivery Method Room Air 09/29/23 10:06 BMI result Body Mass Index 24.7 Tobacco/Smoking Status: Tobacco use Status Tobacco use date assessed 09/29/23 09/29/23 10:16 Patient Tobacco Use Status Never used Tobacco 09/29/23 10:07 e-Cigarette/Vaping Use Never Used 09/29/23 10:07 PHQ-9: PHQ-9 Score PHQ-9: Total score 4 09/29/23 10:16 Depression Screening Interpretation: Negative Thrive Assessment: Date of Thrive Assessment Date Thrive assessed 09/29/23 09/29/23 10:16 Currently or been in a relationship where the following occur: I choose not to answer Const General: cooperative Orientation/consciousness: patient oriented x3 Resp Effort & Inspection: normal respiratory effort Auscultation: clear to auscultation bilaterally Cardio Rate: regular rate Rhythm: regular rhythm Heart sounds: S1 normal heart sound present and S2 normal heart sound present Neuro General: patient oriented x3 Extrem Other: bilat feet: + sensation with use of monofilament, feet intact Psych Appearance: grossly normal Mental Status: mental status grossly normal Speech and movement: Normal speech and movement present Affect: normal affect Attitude: cooperative Thought process: Normal thought process present Thought content: Normal thought content present Insight: Good insight present (Psych) Judgement: Good judgement present (Psych) Results AMB Hemoglobin A1c AMB Hemoglobin A1c 7.7 % Last Edit by Huey Garcia CMA on 09/29/23 10: 35 Assessment and Plan Assessment & Plan (1) Diabetes mellitus with kidney complication: Code(s): E11.29 - Type 2 diabetes mellitus with other diabetic kidney complication Plan: restart lantus at 5 units Plan The patient agreed to the use of a medical malpractice paralegal for this encounter. Scribed for CRISTINA Zayas by Cami Celestin medical malpractice paralegal, on 09/29/2023 at 10:25 EST. Orders: Orders AMB Hemoglobin A1c Today Z13.9 - Encounter for screening, unspecified Coding Level of Care Code Est Pt Level 3 (56312) Diagnoses Diabetes mellitus with kidney complication E11.29 Additional Codes LOCO-7 Assessment Billing - LOCO-7 Assessment Tool: LOCO-7 Assessment 96273 ([id number])
== END 2023-09-29 11:09 | disposition home or self-care (01) ==
PROVIDERS: PCP Nurse Practitioner Family; Visit Provider Nurse Practitioner Family
DX: E11.29 Type 2 diabetes mellitus with other diabetic kidney complication (principal)
CPT/HCPCS: 83036; 99213

== ENCOUNTER 2023-10-10 10:17 | Outpatient (AMB) | payer MEDICARE, SELFPAY ==
--- NOTE | 2023-10-10 10:22 | MHC.OFFVISWM ---
VS Expanded 10/10/23 10:29 BP 165/72 H Blood Pressure Location Rt brachial Blood Pressure Position Sitting Pulse 63 Pulse Source Pulse Oximeter Temp 98.1 F Temperature Source Temporal Artery Scan Pulse Oximetry 97 Oxygen Delivery Method Room Air Height 5 ft 7 in Weight 152 lb 3.2 oz BMI 23.8 Body Fat % 14.7 Body Fat Mass 22.2 Fat Free Mass 129.8 Visceral Fat Rating 12.0 Body Water % 59.1 Body Water Mass 90.0 Muscle Mass/Score 123.2 Basal Metabolic Rate/Score 1,657 Intake Visit Reasons: OV Follow Up Hiatal Hernia Allergies adhesive tape Allergy (Intermediate, Verified 10/10/23 10:27) BLISTERS HPI Comments Details: Continues to complain for flatulence, diarrhea and some postprandial retrosternal pain with eating and drinking Is doing one Celebrate Rebuild protein shake with 1 scoop in almond milk, 2 boiled eggs, supper (not measuring portions), another Celebrate shake. Crackers at night Average blood sugars around 130-140 but as high as 310 PFSH Medical History Asthma-COPD overlap syndrome Chronic renal insufficiency HTN (hypertension) Diabetes Esophageal dysmotility History of fall Tubular adenoma of colon Left arm numbness Right arm numbness Rib fractures Fall Occipital neuralgia Attention deficit disorder (ADD) Hx of bronchitis Intrinsic sphincter deficiency (ISD) Esophageal ring, acquired GERD (gastroesophageal reflux disease) Depression Post herpetic neuralgia Surgical History Hx of bilateral cataract extraction Hx of blepharoplasty Hx of esophageal hernia repair Hx of neck surgery History of implantation of artificial sphincter (~11/2019) History of esophagogastroduodenoscopy (EGD) History of right inguinal hernia repair (~03/2010) History of cervical spinal surgery History of colonoscopy History of back surgery History of radical prostatectomy Family History Father No problems noted. Mother Hx of colon cancer, stage I Substance use disorder Brother Hx of colon cancer, stage III Family/Other Substance use disorder Social History Housing: House Are you a primary child care attendant school to a significant other at home: No Do you presently have visiting nurse or other home services: No Alcohol intake: never Comment: 3 MONTHS AGO [place]IP[place] F[place] Patient Tobacco Use Status: Never used Tobacco e-Cigarette/Vaping Use: Never Used Second Hand Smoke Exposure: No service: No Current occupational status: retired Cognitive needs: No Hearing needs: Yes Vision needs: Yes Physical Exam Vital Signs: Last Vital Signs Temp 98.1 F 10/10/23 10:29 Pulse 63 10/10/23 10:29 BP 165/72 H 10/10/23 10:29 Pulse Ox 97 10/10/23 10:29 Oxygen Delivery Method Room Air 10/10/23 10:29 BMI result Body Mass Index 23.8 Assessment & Plan Assessment & Plan (1) Dysphagia: Code(s): R13.10 - Dysphagia, unspecified Category: Medical Qualifiers: Dysphagia type: other dysphagia Qualified Code(s): R13.19 - Other dysphagia Plan: 1. Stop Lansoprazole and Metformin as they may contribute to the GI symptoms 2. Needs to start the Sucralfate ans he has known esophagitis and recurrent hiatal hernia and needs a different type of antireflux medication to control the diarrhea. Due to his esophageal stricture, it needs to be on a liquid form 3. Start Lantus 5U every night. Let me know if blood sugar is below 100 or above 150 4. Change diet plan to one Celebrate Rebuild shake with 1 scoop either in 8oz almond milk or almond yogurt, 1 boiled egg, supper with 6 measured forkfuls of protein and 6 of steamed cauliflower or broccoli, another Celebrate Rebuild shake after supper and one boiled egg at night 5. We discussed again the importance of measuring his food in forkfuls, to avoid carbs such as sandwiches and to try tilapia or sole baked or meat on the pot. 6. We also discussed to drink only 1oz every 15 minutes and to take 2 hours to complete each shake
[2023-10-10 10:29] VITALS: BP 165/72; PULSE 63; TEMP 36.7; O2SAT 97; BMI 23.8
== END 2023-10-10 11:10 | disposition home or self-care (01) ==
PROVIDERS: PCP Nurse Practitioner Family; Visit Provider Surgery
DX: R13.19 Other dysphagia (principal)
CPT/HCPCS: 99214

== ENCOUNTER → 2023-10-10 10:17 | Outpatient (BNVA) | payer MEDICARE, SELFPAY | PROVIDERS: PCP Nurse Practitioner Family; Visit Provider Surgery | DX: R13.19 Other dysphagia (principal); R19.7 Diarrhea, unspecified | CPT/HCPCS: 99212 ==

== ENCOUNTER 2023-10-28 12:12 | Outpatient (AMB) | payer MEDICARE, SELFPAY ==
--- NOTE | 2023-10-28 12:12 | AM.OFFWIN_ITS ---
Intake Vital Signs 10/28/23 12:13 Height 5 ft 7 in Weight 149 lb BMI 23.3 BP 124/76 Blood Pressure Location Lt brachial Position Sitting Pulse 74 Pulse Source Pulse Oximeter Temp 98.4 F Temp Source Oral Pulse Oximetry (%) 96 Oxygen Delivery Method Room Air Intake Visit Reasons: EP Abdominal pain LT side traveling up Intake Note: pt c/o LT side abdominal pain and diarrhea. Started a week and a half ago Patient Tobacco Use Status: Never used Tobacco Allergies adhesive tape Allergy (Intermediate, Verified 10/28/23 12:13) BLISTERS Do you need a note to return to daycare/school/sports/work: No HPI EP Abdominal pain LT side traveling up HPI Details This is an 83-year-old male patient who presents to the walk-in clinic today with left-sided abdominal pain, radiating upward, in addition to increase in diarrhea over the last week. He does have a history of chronic diarrhea, as well as history of diverticulitis. He has been seen by Dr. Eduardo in GI and also Dr. Roque for hiatal hernia. He states that he has had multiple episodes of liquid diarrhea every morning for the last several days. This has also been associated with his left-sided abdominal pain, which he reports as 8/10 sharp pain. He denies any fever or chills. Denies any recent travel. De nies any nausea or vomiting. Denies any blood or mucus in stool. [facility] Medical History Asthma-COPD overlap syndrome Chronic renal insufficiency HTN (hypertension) Diabetes Esophageal dysmotility History of fall Tubular adenoma of colon Left arm numbness Right arm numbness Rib fractures Fall Occipital neuralgia Attention deficit disorder (ADD) Hx of bronchitis Intrinsic sphincter deficiency (ISD) Esophageal ring, acquired GERD (gastroesophageal reflux disease) Depression Post herpetic neuralgia Surgical History Hx of bilateral cataract extraction Hx of blepharoplasty Hx of esophageal hernia repair Hx of neck surgery History of implantation of artificial sphincter (~11/2019) History of esophagogastroduodenoscopy (EGD) History of right inguinal hernia repair (~03/2010) History of cervical spinal surgery History of colonoscopy History of back surgery History of radical prostatectomy Family History Father No problems noted. Mother Hx of colon cancer, stage I Substance use disorder Brother Hx of colon cancer, stage III Family/Other Substance use disorder Social History Housing: House Are you a primary child care associate teacher to a significant other at home: No Do you presently have visiting nurse or other home services: No Alcohol intake: never Comment: 3 MONTHS AGO MULTIPLE FALL[place] Patient Tobacco Use Status: Never used Tobacco e-Cigarette/Vaping Use: Never Used Second Hand Smoke Exposure: No service: No Current occupational status: retired Cognitive needs: No Hearing needs: Yes Vision needs: Yes Review of Systems Const All systems reviewed & are unremarkable except as noted in HPI and below Physical Exam Vital Signs: Last Vital Signs Temp 98.4 F 10/28/23 12:13 Pulse 74 10/28/23 12:13 BP 124/76 10/28/23 12:13 Pulse Ox 96 10/28/23 12:13 Oxygen Delivery Method Room Air 10/28/23 12:13 BMI result Body Mass Index 23.3 Const General: cooperative and no acute distress Nutritional Appearance: average body habitus HEENT Head: Yes normal to inspection Resp Effort & Inspection: normal respiratory effort Auscultation: clear to auscultation bilaterally Cardio Rate: regular rate Rhythm: regular rhythm GI Inspection: Yes normal to inspection Palpation (GI): Soft to palpation, Tenderness to palpation present (GI) in the LLQ and in the LUQ and No hepatosplenomegaly present Auscultation: normal bowel sounds General: Yes no CVA tenderness Back/Spine/Pelvis Back: no CVA tenderness Skin General skin exam: no rashes or lesions noted Extrem General: Yes capillary refill normal and Yes no clubbing, cyanosis or edema Psych Appearance: grossly normal Mental Status: mental status grossly normal Speech and movement: Normal speech and movement present Assessment & Plan Assessment & Plan (1) Left sided abdominal pain: Code(s): R10.9 - Unspecified abdominal pain Plan: Patient has worsening left upper and lower quadrant abdominal pain up to 8/10, sharp, in addition to worsening diarrhea from his baseline. Has f/u with Dr. Hilliard 11/06 and GI 02/26. History diverticulitis. He is requesting antibiotics for possible diverticulitis. We discussed that without more in-depth workup, I cannot definitely rule out acute abdominal process. Patient would like to go to the ED at [facility] [place] by private vehicle for eval and possible CT scan. I called expect to Briana at [facility] ED. Patient agrees to plan. (2) Diarrhea: Code(s): R19.7 - Diarrhea, unspecified Qualifiers: Diarrhea type: unspecified type Qualified Code(s): R19.7 - Diarrhea, unspecified Plan As above. Followed by GI. Coding Level of Care Code Est Pt Level 4 (95407) Diagnoses Left sided abdominal pain R10.9 Diarrhea, unspecified type R19.7 Diarrhea type: unspecified type
[2023-10-28 12:13] VITALS: BP 124/76; PULSE 74; TEMP 36.9; O2SAT 96; BMI 23.3
== END 2023-10-28 13:13 | disposition home or self-care (01) ==
PROVIDERS: PCP Nurse Practitioner Family; Visit Provider Nurse Practitioner Family
DX: R10.9 Unspecified abdominal pain (principal); R19.7 Diarrhea, unspecified
CPT/HCPCS: 99214

== ENCOUNTER 2023-10-28 13:24 | Emergency (ER) | payer MEDICARE, SELFPAY ==
--- NOTE | ~2023-10-28 | CT_ITS ---
EXAMINATION: CT ABDOMEN AND PELVIS WITHOUT CONTRAST CLINICAL INFORMATION: Left lower quadrant tenderness and history of diverticulitis. COMPARISON: CT scan of the abdomen and pelvis March 2016. TECHNIQUE: Multidetector volumetric imaging was performed from the superior aspect of the liver through the pubic symphysis. Sagittal and coronal reformatted images were obtained on the technologist's workstation. This CT examination was performed using dose optimization techniques as appropriate, variously including the following: *Automated exposure control. *Adjustment of mA and/or kV according to patient size (this includes techniques or standardized protocols for targeted exams where dose is matched to indication/reason for exam; i.e. extremities or head). *Use of iterative reconstruction technique. DLP: 421 mGy-cm FINDINGS: LUNG BASES: The visualized lung bases are unremarkable. LIVER, GALLBLADDER, AND BILIARY TREE: The liver is normal in size, shape, and attenuation. No focal hepatic lesion or biliary ductal dilatation is present. The gallbladder is unremarkable with no evidence of radiopaque gallstones, gallbladder wall thickening, or obvious pericholecystic inflammatory changes. PANCREAS: Unremarkable. SPLEEN: Unremarkable. ADRENAL GLANDS: Unremarkable. KIDNEYS AND URETERS: 1.5 cm simple cyst in the lower pole of the right kidney and midpole of the left kidney. No follow-up required. No hydronephrosis or hydroureter. No stones. BLADDER: Unremarkable. GASTROINTESTINAL TRACT: Large Bowel: There are multiple scattered diverticula throughout the large bowel most notable in the descending and sigmoid colon. There is also pericolonic stranding surrounding the distal descending colon and proximal sigmoid colon with a small amount of fluid present along the fascia. This process extends over approximately 15 cm of the colon. No adjacent fluid collection/abscess. No free air. Findings consistent with acute diverticulitis. Appendix is normal. Small bowel is normal. Stomach is normal. ABDOMINAL WALL: Normal. LYMPH NODES: Normal. VASCULAR: [id number]-[id number] calcific atherosclerotic disease throughout, unchanged. PELVIC VISCERA: Unremarkable. OSSEOUS STRUCTURES: Advanced multilevel spondylosis of the visualized thoracolumbar spine which has progressed compared with the 2017 CT. Severe degenerative disc changes present at the L2-L3 and L3-L4 levels. Multiple vacuum discs phenomena noted. Bilateral facet arthrosis also noted throughout the lumbar spine. CT/CT abdomen pelvis wo IV con IMPRESSION: 1. Findings consistent with acute diverticulitis of the distal descending colon and proximal sigmoid colon. 2. Advanced spondylosis of the lumbar spine. 3. Calcific atherosclerotic disease. Fleischner guidelines were followed. Electronically signed by: Leon Real MD 10/28/2023 08:42 PM EDT RP
[2023-10-28 13:36] VITALS: BP 151/75; PULSE 67; RESP 16; TEMP 36.6; O2SAT 98; BMI 23.6
--- NOTE | 2023-10-28 13:42 | ED_ITS ---
HPI - Abdominal Pain General Chief Complaint: Abdominal Pain Stated Complaint: Abd pain sent from walk in Time Seen by Provider: 10/28/23 17:35 Source: patient Mode of arrival: ambulatory Limitations: no limitations History of Present Illness HPI narrative: Patient is an 83-year-old male who presents to the emergency department for evaluation with his . He states that he has been experiencing mid lower left lower quadrant abdominal pain over the past 2 weeks radiating up towards the left upper quadrant. Associated gas, diarrhea over the past week at least once daily sometimes up to 4 times daily described as liquid stool without hematochezia or melena. He states over the past few days he noticed his pain to be getting worse but was at its most severe today. He denies associated fevers, chills, nausea, vomiting, dysuria, hematuria, urinary frequency/urgency/hesitancy. Admits to a history of hernia with repair, history of diverticulitis. Related Data Home Medications ?Medication ?Instructions ?Recorded ?Confirmed mecobalamin (vitamin B12) 500 mcg mcg PO 11/01/22 09/29/23 chewable tablet metformin 1,000 mg tablet 1,000 mg PO DAILY 06/14/23 09/29/23 tolterodine 4 mg capsule,extended 4 mg PO DAILY 06/14/23 09/29/23 release 24 hr insulin glargine 100 unit/mL (3 10 unit subcut QPM 08/22/23 09/29/23 mL) subcutaneous pen (Lantus Solostar U-100 Insulin) multivitamin 1 tab PO DAILY 08/26/23 09/29/23 nebulizers 09/06/23 09/29/23 Previous Rx's ?Medication ?Instructions ?Recorded lancets 28 gauge (FreeStyle #100 ea 11/17/21 Lancets) FreeStyle Bao 2 [place] (flash #1 ea 07/20/22 glucose scanning reader) albuterol sulfate 0.63 mg/3 mL 0.63 mg (3 mL) inhalation Q6H #90 04/05/23 solution for nebulization mL trazodone 100 mg tablet 100 mg PO BEDTIME #90 tabs 04/15/23 fluticasone 250 mcg-salmeterol 50 1 inh inhalation Q12H 30 days #60 05/02/23 mcg/dose blistr powdr for ea inhalation (Wixela Inhub) loratadine 10 mg tablet (Claritin) 10 mg PO DAILY #30 tabs 05/12/23 albuterol sulfate 90 mcg/actuation 2 puff PO Q6H PRN for wheezing 05/27/23 aerosol inhaler #8.5 grams bupropion HCl 300 mg 24 hr tablet, 300 mg PO QAM 90 days #90 tabs 07/01/23 extended release simvastatin 40 mg tablet 40 mg PO BEDTIME #90 tabs 08/04/23 lansoprazole 30 mg capsule,delayed 30 mg PO DAILY #60 caps 09/08/23 release FreeStyle Bao 2 Sensor (flash #6 ea 09/25/23 glucose sensor) fluticasone propionate 50 1 spray intranasal DAILY #16 grams 10/18/23 mcg/actuation nasal spray,suspension (Flonase Allergy Relief) sucralfate 1 gram tablet (Carafate) 1 g PO BID #180 tabs 10/22/23 amoxicillin 875 mg-potassium 1 tab PO BID #19 tabs 10/28/23 clavulanate 125 mg tablet Allergies Allergy/AdvReac Type Severity Reaction Status Date / Time adhesive tape Allergy Intermediate BLISTERS Verified 10/28/23 13:39 Review of Systems Review of Systems Yes all other systems are reviewed and are negative PMFSH Past Medical History Attestation statement: The following information was validated with the patient. Source: old records reviewed Medical History Asthma-COPD overlap syndrome Chronic renal insufficiency HTN (hypertension) Diabetes Esophageal dysmotility History of fall Tubular adenoma of colon Left arm numbness Right arm numbness Rib fractures Fall Occipital neuralgia Attention deficit disorder (ADD) Hx of bronchitis Intrinsic sphincter deficiency (ISD) Esophageal ring, acquired GERD (gastroesophageal reflux disease) Depression Post herpetic neuralgia Surgical History Hx of bilateral cataract extraction Hx of blepharoplasty Hx of esophageal hernia repair Hx of neck surgery History of implantation of artificial sphincter (~11/2019) History of esophagogastroduodenoscopy (EGD) History of right inguinal hernia repair (~03/2010) History of cervical spinal surgery History of colonoscopy History of back surgery History of radical prostatectomy Family History Family History Father No problems noted. Mother Hx of colon cancer, stage I Substance use disorder Brother Hx of colon cancer, stage III Family/Other Substance use disorder Social History Social History Housing: House Are you a primary transitional care nurse to a significant other at home: No Do you presently have visiting nurse or other home services: No Alcohol intake: never Comment: 3 MONTHS AGO [place]IP[place] Patient Tobacco Use Status: Never used Tobacco Smoked in Last 30 Days: No e-Cigarette/Vaping Use: Never Used Second Hand Smoke Exposure: No Use of substances other than those prescribed or required for medical reasons: No Advance Directives: No Advance Directives Information Provided: No Do you have a plan to hurt others: No Plan service: No Current occupational status: retired Cognitive needs: No Hearing needs: Yes Vision needs: Yes Physical Exam ED Vital Signs: Vital Signs - 24 hr 10/28/23 13:36 10/28/23 17:38 10/28/23 18:40 Temperature 97.8 F 98.4 F Pulse Rate 67 67 67 Respiratory Rate 16 15 16 Blood Pressure 151/75 H 153/72 H 158/76 H Pulse Oximetry 98 98 99 Oxygen Delivery Method Room Air Room Air Room Air 10/28/23 21:35 10/28/23 21:43 Temperature 98.4 F 98.4 F Pulse Rate 67 67 Respiratory Rate 14 14 Blood Pressure 127/59 L 127/59 L Pulse Oximetry 99 99 Oxygen Delivery Method Room Air Room Air BMI result Body Mass Index 23.6 Appearance: Alert.?Oriented to person, place and time. No acute distress.?Normal affect. Eyes: Pupils equal, round and reactive to light.? ENT: Pharynx normal.?? Neck: Normal inspection.? Neck supple.?? CVS: Heart sounds normal. Normal heart rate and rhythm.? Pulses normal.?? Respiratory: No respiratory distress.? Lung sounds clear to auscultation bilaterally?? Abdomen: Soft with exquisite left lower quadrant tenderness upon palpation. No CVAT. Normoactive bowel sounds. No pulsatile mass.?? Skin: Skin warm and dry.? Normal skin color.? Extremities: No lower extremity edema.? No calf ttp? Neuro: Moves all extremities spontaneously. Sensation intact bilaterally. CN II- XII intact. No focal neuro deficits. Ambulates with normal steady gait. Course Course Course Narrative: This is a Rapid Medical Examination (RME) performed by Libia Bella PA-C in triage. Full HPI, ROS, assessment and treatment plan per primary provider in the Main ED. 83 yo male hx of asthma/ COPD, HTN, DM, GERD, tubular adenoma of colon, diverticulitis, chronic renal insufficiency here for eval of LLQ pain, radiating to LUQ x2 wks. reports hx of chronic constipation and diarrhea. denies fever, chills, flank pain, hematochezia, melena, dysuria, hematuria. Plan: labs, UA Reevaluation(s) Reevaluation #1: CT of the abdomen pelvis revealing acute diverticulitis of the distal descending colon and proximal sigmoid colon, with pericolonic stranding and a small amount of fluid, no abscess or perforation. Reviewed these findings with patient and his . Patient is requesting discharge home which I feel is reasonable at this time as he is afebrile without tachycardia no leukocytosis, no signs of systemic toxicity. Discussed clear liquid diet, so progression of bland diet and treatment with Augmentin outpatient follow-up with PCP. Discussed strict return precautions. All questions answered. Stable for discharge Medical Decision Making Medical Decision Making MDM Narrative: Patient is an 83-year-old male with past medical history of CKD, hypertension, diabetes, history of esophageal hernia repair, esophageal dysmotility, esophageal ring, GERD, history of right inguinal hernia repair in 2010, radical prostatectomy tubular adenoma of the colon, occipital neuralgia, ADD, depression presenting for evaluation of predominant left abdominal pain as per HPI. Overall appears well, nontoxic, afebrile. No respiratory distress. On examination has exquisite left lower quadrant tenderness upon palpation. CBC is without leukocytosis, has a mild normocytic anemia that does not meet transfusion criteria, no thrombocytopenia. No electrolyte derangement. BUN of 30 creatinine 1.79 which is slightly increased when compared to prior in September of 2023, appears to be trending upwards from prior 1.4 earlier this year. Patient will receive 500 mL normal saline IV, in addition to morphine 2 mg IV for pain, Zofran 4 mg IV prophylactically, pending CT of the abdomen and pelvis for further evaluation. Urinalysis is without evidence of infection or microscopic hematuria. Differential Diagnosis Differential Diagnoses: The differential diagnosis associated with the presentation includes (Diverticulitis, colitis, obstruction, viral syndrome, colon CA, strangulated hernia, pancreatitis, cystitis, pyelonephritis, obstructive calculi) Admission/Observation Consideration of admission/observation: Escalation of care including admission/observation considered (See narrative above in course narrative for further detail) Lab Data MDM Lab Attestation statement: I reviewed the patient's lab results. (See narrative above) 10/28/23 14:00 10/28/23 14:00 Labs: Lab Results 10/28/23 10/28/23 Range/Units 14:00 20:39 WBC 10.5 (4.8-10.8) X10*3/uL RBC 4.05 L (4.60-5.80) X10*6/uL Hgb 12.1 L (14.0-18.0) g/dl Hct 36.6 L (42.0-52.0) % MCV 90.4 (80.0-98.0) fL MCH 29.9 (27.0-33.0) pg MCHC 33.1 (31.0-36.0) g/dl RDW 12.8 (11.0-16.0) % Plt Count 335 (160-400) X10*3/uL MPV 9.3 L (9.4-12.4) fL Immature Gran % (Auto) 0.3 (0.0-0.4) % Neut % (Auto) 72.3 (45-73) % Lymph % (Auto) 14.0 L (20-40) % Gregory % (Auto) 11.8 H (2-11) % Eos % (Auto) 1.2 (0-4) % Baso % (Auto) 0.4 (0-2) % Lymph # (Auto) 1.5 (1.2-4.9) X10*3/uL Gregory # (Auto) 1.2 (0.1-1.2) X10*3/uL Eos # (Auto) 0.1 (0.0-0.4) X10*3/uL Baso # (Auto) 0.0 (0.0-0.2) X10*3/uL Abs Immat Gran (auto) 0.03 (0.00-0.03) X10*3/uL Absolute Neuts (auto) 7.6 (2.0-8.3) x10*3/uL Absolute Nucleated RBC 0.000 (0.0-0.012) X10*3/uL Nucleated RBC % (auto) 0.0 (0.0-0.2) /100WBC Sodium 140 (135-145) mmol/L Potassium 4.2 (3.3-5.1) mmol/L Chloride 108 (96-108) mmol/L Carbon Dioxide 22 (22-29) mmol/L Anion Gap 14 (12-20) BUN 30 H (9-16) mg/dL Creatinine 1.79 H (0.5-1.4) mg/dL Estim Creat Clear Calc 29.2 Estimated GFR 36 POC Glucose 99 (60-115) mg/dL Random Glucose 121 H (60-115) mg/dL Calcium 9.5 (8.4-10.2) mg/dL Magnesium 2.1 (1.6-2.6) mg/dL Total Bilirubin 0.7 (0.0-1.0) mg/dL AST 26 (5-37) U/L ALT 51 H (0-40) U/L Alkaline Phosphatase 65 (39-117) U/L Total Protein 7.6 (6.5-8.0) g/dL Albumin 4.4 (3.5-5.0) g/dL Lipase 80 H (8-78) U/L Urine Color Dark Yellow Urine Appearance Clear Urine pH 5.0 (5.0-9.0) Ur Specific [place] 1.025 (1.005-1.025) Urine Protein 100 (2+) H (Neg-Trace) mg/dL Urine Glucose (UA) Negative (Negative) mg/dL Urine Ketones Trace (Negative) mg/dL Urine Blood Negative (Negative) Urine Nitrite Negative (Negative) Ur Leukocyte Esterase Negative (Negative) Urine RBC 0-2 (0-2) /HPF Urine WBC 0-5 (0-5) /HPF Ur Squamous Epith Cells 0-2 (0-2) /HPF Urine Bacteria None Seen (None Seen) Hyaline Casts 0-2 (0-2) /LPF Independent Interpretation I performed an independent interpretation of an: CT Scan (Diverticulitis, no perforation) Radiology Impression Discussion of test interpretation with radiology: I have reviewed the radiologist's reading. Radiologist Impression: CT/CT abdomen pelvis wo IV con IMPRESSION: 1. Findings consistent with acute diverticulitis of the distal descending colon and proximal sigmoid colon. 2. Advanced spondylosis of the lumbar spine. 3. Calcific atherosclerotic disease. Independent Historian Clinical information obtained from an independent historian. History obtained from or confirmed by: Spouse External Record Review External record reviewed: Outpatient record Medications Administered Discontinued Medications Generic Name Dose Route Start Last Admin Trade Name Freq PRN Reason Stop Dose Admin Amoxicillin/Clavulanate Potassium 875 mg 10/28/23 21:12 10/28/23 21:36 Amoxicillin/Potassium Clav 875 Mg Tablet PO 10/28/23 21:13 875 mg ONCE ONE Administration Sodium Chloride 500 mls @ 999 mls/hr 10/28/23 18:45 10/28/23 20:52 Ns IV 10/28/23 19:15 Infused .Q31M KAVEH Infusion Morphine Sulfate 2 mg 10/28/23 18:32 10/28/23 19:15 Morphine Sulfate 2 Mg/Ml Cartridge IVPUSH 10/28/23 18:33 2 mg ONCE ONE Administration Protocol Ondansetron HCl 4 mg 10/28/23 18:32 10/28/23 19:15 Ondansetron Hcl 4 Mg/2 Ml Vial IVPUSH 10/28/23 18:33 4 mg ONCE ONE Administration Critical Care Time Critical Care Time Critical Care Time: Yes Total Critical Care Time: 35 Attestation: I personally attest to this critical care time spent taking care of the patient exclusive of all other billable procedures was approximately 35 minutes including initial evaluation of patient, ordering tests, CT interpretation, IV morphine and re-evaluation, medical consultation, documentation, re-evaluation. Discharge Plan Discharge Clinical Impression: Diverticulitis Patient Disposition: Home, Self-Care Instructions: Diverticulitis (ED), Diverticulitis Diet (ED) Additional Instructions: Clear liquid diet for the next 2 days. Followed by bland diet, including crackers, bananas, rice, soup, toast, and boiled vegetables. This may progress to plain baked or boiled chicken or turkey. Avoid dairy products or foods high in fat or grease. Complete entire course of antibiotics as prescribed, begin taking this tomorrow morning as you received your 1st dose in the emergency department today. Return to emergency department any new or worsening symptoms or concerns. Follow-up with your primary care doctor, call their office 1st thing Tuesday morning. Prescriptions: New amoxicillin-pot clavulanate 875-125 mg tablet 1 tab PO BID Qty: 19 0RF No Action (DME) lancets [FreeStyle Lancets] 28 gauge misc See Rx Instructions .ROUTE .MEDSUPPLY Qty: 100 0RF Rx Instructions: BID Freestyle lancets all flex (DME) FreeStyle Bao 2 [place] Misc See Rx Instructions .Route Qty: 1 0RF Rx Instructions: TID testing trazodone 100 mg tablet 100 mg PO BEDTIME Qty: 90 2RF loratadine [Claritin] 10 mg tablet 10 mg PO DAILY Qty: 30 1RF albuterol sulfate 90 mcg/actuation HFA aerosol inhaler 2 puff PO Q6H PRN (Reason: for wheezing) Qty: 8.5 0RF bupropion HCl 300 mg tablet extended release 24 hr 300 mg PO QAM 90 Days Qty: 90 1RF simvastatin 40 mg tablet 40 mg PO BEDTIME Qty: 90 1RF lansoprazole 30 mg capsule,delayed release(DR/EC) 30 mg PO DAILY Qty: 60 0RF (DME) FreeStyle Bao 2 Sensor Kit See Rx Instructions .Route Qty: 6 1RF Rx Instructions: TID testing fluticasone propionate [Flonase Allergy Relief] 50 mcg/actuation spray,suspension 1 spray intranasal DAILY Qty: 16 0RF Rx Instructions: administer into each nostril sucralfate [Carafate] 1 gram tablet 1 g PO BID Qty: 180 0RF tolterodine 4 mg capsule,extended release 24hr 4 mg PO DAILY metformin 1,000 mg tablet 1,000 mg PO DAILY albuterol sulfate 0.63 mg/3 mL solution for nebulization 0.63 mg inhalation Q6H Qty: 90 0RF mecobalamin (vitamin B12) 500 mcg tablet,chewable PO fluticasone propion-salmeterol [Wixela Inhub] 250-50 mcg/dose blister with device 1 inh inhalation Q12H 30 Days Qty: 60 11RF insulin glargine [Lantus Solostar U-100 Insulin] 100 unit/mL (3 mL) insulin pen 10 unit subcut QPM (DME) nebulizers Misc See Rx Instructions .Route Rx Instructions: As directed multivitamin Tablet 1 tab PO DAILY Referrals: Sergei Burt FNP-BC [Primary Care Provider] - Interventions: ED Discharge Assessment Last Done: 10/28/23 21:43 Discharge Date/Time: 10/28/23 21:44 Print Language: Pashto
[2023-10-28 14:11] LABS: MANUAL DIFF FLAG NO
[2023-10-28 14:13] LABS: Basophils Percent Auto 0.4 % (0-2); Eosinophils Absolute Auto 0.1 X10*3/uL (0.0-0.4); Eosinophils Percent Auto 1.2 % (0-4); Hematocrit 36.6 % (42.0-52.0); Hemoglobin 12.1 g/dl (14.0-18.0); Imm Gran Abs Auto 0.03 X10*3/uL (0.00-0.03); Imm Gran Pct Auto 0.3 % (0.0-0.4); Lymphocytes Absolute Auto 1.5 X10*3/uL (1.2-4.9); Mean Corpuscular HGB Conc 33.1 g/dl (31.0-36.0); Mean Corpuscular Hemoglobin 29.9 pg (27.0-33.0); Mean Corpuscular Volume 90.4 fL (80.0-98.0); Mean Platelet Volume 9.3 fL (9.4-12.4); Monocytes Absolute Auto 1.2 X10*3/uL (0.1-1.2); Monocytes Percent Auto 11.8 % (2-11); Neutrophils Absolute Auto 7.6 x10*3/uL (2.0-8.3); Neutrophils Percent Auto 72.3 % (45-73); Platelet Count 335 X10*3/uL (160-400); Red Blood Count 4.05 X10*6/uL (4.60-5.80); Red Cell Distribution Width 12.8 % (11.0-16.0); White Blood Count 10.5 X10*3/uL (4.8-10.8)
[2023-10-28 14:14] LABS: Appearance Urine Clear; Color Urine Dark Yellow; Glucose Urine UA Negative (Negative); Leukocyte Esterase Urine Negative (Negative); Nitrite Urine Negative (Negative); Specific Gravity - Urine 1.025 (1.005-1.025); UMIC TRIGGER UACC YES; Urine Blood Negative (Negative); Urine Ketones Trace mg/dL (Negative); Urine Protein 100 (2+) mg/dL (Neg-Trace)
[2023-10-28 14:19] LABS: Bacteria Urine None Seen (None Seen); Hyaline Casts Urine 0-2 /LPF (0-2); RBC Urine 0-2 /HPF (0-2); Squamous Epithelial Cell Urine 0-2 /HPF (0-2); WBC Urine 0-5 /HPF (0-5)
[2023-10-28 14:29] LABS: Alanine Aminotransferase 51 U/L (0-40); Albumin Level 4.4 g/dL (3.5-5.0); Alkaline Phosphatase 65 U/L (39-117); Anion Gap 14 (12-20); Aspartate Amino Transferase 26 U/L (5-37); Bilirubin Total 0.7 mg/dL (0.0-1.0); Blood Urea Nitrogen 30 mg/dL (9-16); Calcium 9.5 mg/dL (8.4-10.2); Carbon Dioxide 22 mmol/L (22-29); Chloride 108 mmol/L (96-108); Creatinine Clr Calc Pharmacy 29.2; Estimated Glomerular Filt Rate 36; Glucose Random 121 mg/dL (60-115); Lipase 80 U/L (8-78); Magnesium 2.1 mg/dL (1.6-2.6); Potassium 4.2 mmol/L (3.3-5.1); Sodium 140 mmol/L (135-145); Total Protein 7.6 g/dL (6.5-8.0)
[2023-10-28 17:38] VITALS: BP 153/72; PULSE 67; RESP 15; TEMP 36.9; O2SAT 98
--- NOTE | 2023-10-28 17:43 | MHC.EDTECH ---
Pt changed over into a hospital gown. resting in stretcher w/ at bedside
[2023-10-28 18:40] VITALS: BP 158/76; PULSE 67; RESP 16; O2SAT 99
[2023-10-28] MEDS: 0.9 % Sodium Chloride 500 ML 999 ML IV (18:54)
[2023-10-28] MEDS: Morphine Sulfate 2 MG/ML CARTRIDGE IVPUSH (19:15)
[2023-10-28] MEDS: ondansetron HCL 4 MG/2 ML VIAL IVPUSH (19:15)
[2023-10-28 20:44] LABS: Glucose, Whole Blood 99 mg/dL (60-115)
[2023-10-28 21:35] VITALS: BP 127/59; PULSE 67; RESP 14; TEMP 36.9; O2SAT 99
[2023-10-28] MEDS: Amoxicillin/Potassium Clav 875 MG TABLET PO (21:36)
[2023-10-28 21:43] VITALS: BP 127/59; PULSE 67; RESP 14; TEMP 36.9; O2SAT 99
== END 2023-10-28 21:44 | disposition home or self-care (01) ==
PROVIDERS: Physician Assistant Medical; Emergency Provider Emergency Medicine Emergency Medical Services; PCP Nurse Practitioner Family
DX: K57.32 Diverticulitis of large intestine without perforation or abscess without bleeding (principal); R10.32 Left lower quadrant pain; E11.9 Type 2 diabetes mellitus without complications; I10 Essential (primary) hypertension; J45.909 Unspecified asthma, uncomplicated; Z79.84 Long term (current) use of oral hypoglycemic drugs; Z79.4 Long term (current) use of insulin; Z79.899 Other long term (current) drug therapy; Z79.02 Long term (current) use of antithrombotics/antiplatelets
CPT/HCPCS: 36415; 74176; 80053; 81001; 82947; 83690; 83735; 85025; 96361; 96374; 96375; 99284; J2270; J2405

== ENCOUNTER 2023-11-15 10:57 | Outpatient (AMB) | payer MEDICARE, SELFPAY ==
[2023-11-15 11:13] VITALS: BP 126/72; PULSE 62; O2SAT 97; BMI 24.3
--- NOTE | 2023-11-15 11:13 | MHC.PC.OV ---
Vital Signs 11/15/23 11:13 Height 5 ft 7 in Weight 155 lb BMI 24.3 BP 126/72 Blood Pressure Location Lt brachial Position Sitting Pulse 62 Pulse Source Pulse Oximeter Pulse Oximetry (%) 97 Intake Visit Reasons: annual PE Intake Note: pt is here for annual exam Legal Examiner Required: No Accompanied by: Self / Same As Patient Allergies adhesive tape Allergy (Intermediate, Verified 11/15/23 12:26) BLISTERS Medication List - Last Reconciled 11/15/23 by Sergei Burt [facility]- albuterol sulfate 0.63 mg (3 mL) inhalation Q6H albuterol sulfate 90 mcg/actuation 2 puffs PO Q6H PRN bupropion HCl XL 300 mg PO QAM 90 days fluticasone propion-salmeterol 250-50 mcg/dose (Wixela Inhub) 1 inh inhalation Q12H 30 days fluticasone propionate 50 mcg/actuation (Flonase Allergy Relief) 1 spray intranasal DAILY FreeStyle Bao 2 [place] (flash glucose scanning reader) TID testing NS FreeStyle Bao 2 Sensor (flash glucose sensor) TID testing NS insulin glargine (Lantus Solostar U-100 Insulin) 10 units (0.1 mL) subcut QPM lancets (FreeStyle Lancets) BID Freestyle lancets all flex lansoprazole 30 mg PO DAILY loratadine (Claritin) 10 mg PO DAILY mecobalamin (vitamin B12) mcg PO metformin 1,000 mg PO DAILY multivitamin 1 tab PO DAILY nebulizers As directed simvastatin 40 mg PO BEDTIME sucralfate (Carafate) 1 g PO BID tolterodine ER 4 mg PO DAILY trazodone 100 mg PO BEDTIME Tobacco use date assessed: 09/29/23 Fall risk assessment: No Falls in past year Last assessed Fall Risk: 11/15/23 Dental Screening Dental Screen Date: 09/29/23 HPI annual PE HPI Details Pt is here for a PE. Will order labs. Colon screen is up to date. Due for PSA, sees urology. Denies dribbling with urination, weak stream, and frequent nocturia. Pt was recently seen for diabetes. Pt is following up with GI, urology, and pulmonology. Pt reports diarrhea in the morning. Recommended imodium (one tab at night). PFSH Medical History Asthma-COPD overlap syndrome Chronic renal insufficiency HTN (hypertension) Diabetes Esophageal dysmotility History of fall Tubular adenoma of colon Left arm numbness Right arm numbness Rib fractures Fall Occipital neuralgia Attention deficit disorder (ADD) Hx of bronchitis Intrinsic sphincter deficiency (ISD) Esophageal ring, acquired GERD (gastroesophageal reflux disease) Depression Post herpetic neuralgia Surgical History Hx of bilateral cataract extraction Hx of blepharoplasty Hx of esophageal hernia repair Hx of neck surgery History of implantation of artificial sphincter (~11/2019) History of esophagogastroduodenoscopy (EGD) History of right inguinal hernia repair (~03/2010) History of cervical spinal surgery History of colonoscopy History of back surgery History of radical prostatectomy Family History Father No problems noted. Mother Hx of colon cancer, stage I Substance use disorder Brother Hx of colon cancer, stage III Family/Other Substance use disorder Social History Housing: House Are you a primary home care consultant to a significant other at home: No Do you presently have visiting nurse or other home services: No Alcohol intake: never Comment: 3 MONTHS AGO MULTIPLE FALLS Patient Tobacco Use Status: Never used Tobacco e-Cigarette/Vaping Use: Never Used Second Hand Smoke Exposure: No service: No Current occupational status: retired Cognitive needs: No Hearing needs: Yes Vision needs: Yes Questionnaire PHQ-9 Over the last 2 weeks, how often have you been bothered by any of the following problems? 48795 - PHQ-9 Billing: Patient declined-do not bill Source: Developed by Drs. Ronan Bray, Tova Jesus, Kush Kelley and colleagues, with an educational eleazar from [employer]. Thrive Questionnaire Date Thrive assessed: 09/29/23 I am a: Patient What is your living situation today?: I have a steady place to live Within the past 12 months, did the food you bought not last and you didn't have the money to get more?: I choose not to answer this question Within the past 12 months, did you worry whether your food would run out before you got money to buy more?: I choose not to answer this question Do you have trouble paying for medicines?: No Do you have trouble getting transportation to medical appointments?: No Do you have trouble paying your heating and electricity bill?: No Do you have trouble taking care of your child, family member or friend?: No Do you have trouble with day-to-day activities such as bathing, preparing meals, shopping, managing finances, etc.?: No Are you currently unemployed and looking for a job?: No Are you interested in more education?: No Please select the resources that you would like help with: None Currently or been in a relationship where the following occur: I choose not to answer THRIVE Score: 0 LOCO-7 AMB Questionnaire LOCO-7 Date LOCO - 7 assessed: 09/29/23 Source: Developed by Drs. Ronan Bray, Tova Jesus, Kush Kelley and colleagues, with an educational eleazar from [employer]. LOCO-7 Assessment Billing LOCO-7 Assessment Tool: pt declined-do not bill Review of Systems Const Denies chills and Denies fever(s) Eyes Denies blurry vision ENT Denies vertigo, Denies dizziness and Denies sore throat Card Denies chest pain at rest, Denies chest pain with activity, Denies diaphoresis, Denies dyspnea and Denies dyspnea on exertion Resp Denies cough, Denies dyspnea, Denies dyspnea on exertion and Denies wheezing GI Denies abdominal pain, Denies melena, Denies hematochezia, Denies constipation and Reports diarrhea Denies hematuria Musc Denies numbness and Denies tingling Skin/Breast Denies lesions Neuro Denies vertigo, Denies dizziness, Denies numbness and Denies tingling Psych Denies anxiety, Denies depression, Denies homicidal ideation, Denies suicidal ideation and Denies other (substance abuse) Aller/Immun Denies wheezing Physical exam (Primary Care) Vital Signs: Last Vital Signs Pulse 62 11/15/23 11:13 BP 126/72 11/15/23 11:13 Pulse Ox 97 11/15/23 11:13 BMI result Body Mass Index 24.3 Tobacco/Smoking Status: Tobacco use Status Tobacco use date assessed 09/29/23 11/15/23 11:16 Patient Tobacco Use Status Never used Tobacco 11/15/23 11:16 e-Cigarette/Vaping Use Never Used 11/15/23 11:16 Thrive Assessment: Date of Thrive Assessment Date Thrive assessed 09/29/23 11/15/23 11:16 Currently or been in a relationship where the following occur: I choose not to answer Const General: cooperative Nutritional Appearance: well nourished Orientation/consciousness: patient oriented x3 HENMT Head: Yes normal to inspection, Yes normocephalic and Yes atraumatic Ears: TM's normal bilaterally Eyes General: appearance normal, both eyes and all related structures Alignment and Position: alignment normal and position normal Neck Neck: Yes normal visual inspection, Yes no lymphadenopathy and Yes supple Resp Effort & Inspection: normal respiratory effort Auscultation: clear to auscultation bilaterally Cardio Rate: regular rate Rhythm: regular rhythm Heart sounds: S1 normal heart sound present, S2 normal heart sound present and no murmurs GI Palpation (GI): Soft to palpation and nontender Auscultation: normal bowel sounds Other: slight CVA tenderness to right side Male General Exam: Yes normal external exam Penis: normal penis Skin Other: left congregation region with macular circular lesions, faintly dry/erythematous Neuro General: patient oriented x3, moves all extremities, no focal motor deficits and deep tendon reflexes 2+ bilaterally Romberg Test: Negative Extrem Other: bilat feet: + sensation with use of monofilament, feet intact Psych Appearance: grossly normal Mental Status: mental status grossly normal Speech and movement: Normal speech and movement present Affect: normal affect Attitude: cooperative Thought process: Normal thought process present Thought content: Normal thought content present Insight: Good insight present (Psych) Judgement: Good judgement present (Psych) Coding Level of Care Code Est Pt Prev Care >65y(17403) Diagnoses Skin lesion L98.9 Diabetes E11.9 Physical exam Z00.00 Assessment & Plan Assessment & Plan (1) Skin lesion: Code(s): L98.9 - Disorder of the skin and subcutaneous tissue, unspecified Category: Medical Plan: referral (2) Diabetes: Code(s): E11.9 - Type 2 diabetes mellitus without complications Category: Medical Plan: controlled currently (3) Physical exam: Code(s): Z00.00 - Encounter for general adult medical examination without abnormal findings Category: Medical Plan The patient agreed to the use of a certified medical coding specialist for this encounter. Scribed for RCISTINA Zayas by Cami Celestin certified medical coding specialist, on 11/15/2023 at 11:50 EST. Orders: Orders Complete Blood Count Auto Diff Today E11.9 - Type 2 diabetes mellitus without complications, Z00.00 - Encounter for general adult medical examination without abnormal findings TSH reflex Free T4 Today E11.9 - Type 2 diabetes mellitus without complications, Z00.00 - Encounter for general adult medical examination without abnormal findings UA CC w/rflx Micro + Cult Today E11.9 - Type 2 diabetes mellitus without complications, Z00.00 - Encounter for general adult medical examination without abnormal findings Microalbumin, Random (w Creat) Today E11.9 - Type 2 diabetes mellitus without complications, Z00.00 - Encounter for general adult medical examination without abnormal findings Comprehensive [place]. Panel Fast Today E11.9 - Type 2 diabetes mellitus without complications, Z00.00 - Encounter for general adult medical examination without abnormal findings Lipid Panel Today E11.9 - Type 2 diabetes mellitus without complications, Z00.00 - Encounter for general adult medical examination without abnormal findings Hemoglobin A1c Today E11.9 - Type 2 diabetes mellitus without complications, Z00.00 - Encounter for general adult medical examination without abnormal findings Referrals Dermatology Referral L98.9 - Disorder of the skin and subcutaneous tissue, unspecified
== END 2023-11-15 17:17 | disposition home or self-care (01) ==
PROVIDERS: PCP Nurse Practitioner Family; Visit Provider Nurse Practitioner Family
DX: L98.9 Disorder of the skin and subcutaneous tissue, unspecified (principal); E11.9 Type 2 diabetes mellitus without complications; Z00.00 Encounter for general adult medical examination without abnormal findings

== ENCOUNTER → 2023-11-15 10:57 | Outpatient (BNVA) | payer MEDICARE, SELFPAY | PROVIDERS: PCP Nurse Practitioner Family; Visit Provider Nurse Practitioner Family ==

== ENCOUNTER 2023-11-15 12:15 | Outpatient (REF) | payer MEDICARE, SELFPAY ==
[2023-11-15 13:44] LABS: Appearance Urine Clear; Color Urine Dark Yellow; Glucose Urine UA Negative (Negative); Leukocyte Esterase Urine Negative (Negative); Nitrite Urine Negative (Negative); UMIC TRIGGER UACC YES; Urine Blood Negative (Negative); Urine Ketones Negative (Negative); Urine Protein 30 (1+) mg/dL (Neg-Trace)
[2023-11-15 13:47] LABS: Creatinine Urine 134.49 mg/dL; Microalbum/Creatinine Ratio Ur 205.2 ug/mg cr (<30)
[2023-11-15 13:59] LABS: Bacteria Urine None Seen (None Seen); RBC Urine 0-2 /HPF (0-2); Squamous Epithelial Cell Urine 0-2 /HPF (0-2); WBC Urine 0-5 /HPF (0-5)
== END 2023-11-15 12:16 | disposition home or self-care (01) ==
LOC: HO.HMGCLDS 12:15
PROVIDERS: PCP Nurse Practitioner Family; Visit Provider Nurse Practitioner Family
DX: Z00.00 Encounter for general adult medical examination without abnormal findings (principal); R19.7 Diarrhea, unspecified; L98.9 Disorder of the skin and subcutaneous tissue, unspecified; E11.9 Type 2 diabetes mellitus without complications
CPT/HCPCS: 81001; 82043; 82570; 99397

== ENCOUNTER 2023-11-16 13:51 | Outpatient (REF) | payer MEDICARE, SELFPAY ==
--- NOTE | ~2023-11-16 | US_ITS ---
EXAMINATION: US RETROPERITONEAL LIMITED, RIGHT (RENAL ONLY) CLINICAL INFORMATION: Right flank pain. COMPARISON: CT 10/28/2023 TECHNIQUE: Targeted ultrasound of the right kidney FINDINGS: RIGHT KIDNEY: 8.3 x 5.1 x 5.1 cm (SAG x AP x TRV). The kidney is normal in size, contour, and echogenicity. Renal cortical thickness is normal. No calculi or focal parenchymal lesions. No hydronephrosis. Simple appearing cyst measuring 1.1 x 1.0 x 0.8 cm at the lower to mid pole. US/US renal RT IMPRESSION: Simple appearing cyst at the lower to mid pole of the right kidney. Otherwise unremarkable ultrasound of the right kidney. Electronically signed by: Renato Carbajal MD 11/16/2023 03:37 PM EDT
== END 2023-11-16 13:52 | disposition home or self-care (01) ==
LOC: HO.US 13:51
PROVIDERS: Visit Provider Nurse Practitioner Family
DX: R10.9 Unspecified abdominal pain (principal)
CPT/HCPCS: 76775

== ENCOUNTER 2024-02-17 12:52 | Outpatient (AMB) | payer MEDICARE, SELFPAY ==
[2024-02-17 12:56] VITALS: BP 130/62; PULSE 83; O2SAT 97; BMI 24.1
--- NOTE | 2024-02-17 12:56 | A.OFFVIS_ITS ---
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 He was recently evaluated in the ER for worsening wheezing and chest congestion. He did have a chest x-ray there which I personally reviewed without any acute disease. He also had CT scan of the chest which I also reviewed from 2021 demonstrating normal lung parenchyma. Also demonstrated a thickened esophagus. He has been working very closely with GI. He has had issues with difficulty swallowing and was noted to have an esophageal stricture along with evidence of esophageal dysmotility reflux disease and hiatal hernia. Currently the patient is doing better from a respiratory status. Denies any significant wheezing or coughing. the patient does feel that the GI issue at times precipitates his breathing issues which I do agree with him. The patient currently is scheduled to undergo a repeat endoscopy with likely balloon dilation to improve his overall swallow. The patient will be started on long-acting beta agonist with inhaled cortical steroid to decrease he is exacerbations. But right now he is doing well from a pulmonary standpoint. He feels like he is back to his baseline. Will plan to perform pulmonary function studies. From a preoperative standpoint the patient is doing better and may he will to proceed with anesthesia and endoscopy without any limitations. 09/06/2023 the patient is here for a pulmonary follow-up visit. Overall the patient has been doing well. He did follow-up with GI and also was surgery. He does have significant esophageal strictures and other abnormalities due to hiatal hernia. Unfortunately hiatal hernia was attempted to be corrected in the past in therefore that difficult redo. He is going to follow-up with GI. In the meantime he is responding well to the current GI cocktail. The patient also has been using his inhalers. We did talk about making sure to use the Wixela every morning. He needs to rinse his mouth. Hopefully will help with his chest congestion. In addition to that we talked about the importance of sleeping elevated at nighttime to make sure that he avoids any micro aspirations into the lungs due to that hiatal hernia. We did review his CT scan of the chest which is reassuring. He will continue with the current respiratory therapy. 02/17/2024 the patient is here for sick visit. He has had worsening respiratory symptoms for the last several weeks. Started developing cough. Congested natur e. In addition to that more wheezing. She did respond well to the prednisone. He was running out in the family called for additional prednisone. Therefore appointment was May. Been complaining that even activities of daily living causing him to have significant shortness of breath. In the office I did taken for brief walking oximetry the patient oxygen was reassuring around 96-97% with activity. Heart rhythm sounds stable. However, has significant wheezing and rhonchi. Therefore he is going to be prescribed antibiotics and prednisone for COPD exacerbation. Also will undergo a chest x-ray. If the patient is no better he will call for an earlier assessment otherwise follow-up in a couple months. [facility] Medical History Asthma-COPD overlap syndrome Chronic renal insufficiency HTN (hypertension) Diabetes Esophageal dysmotility History of fall Tubular adenoma of colon Left arm numbness Right arm numbness Rib fractures Fall Occipital neuralgia Attention deficit disorder (ADD) Hx of bronchitis Intrinsic sphincter deficiency (ISD) Esophageal ring, acquired GERD (gastroesophageal reflux disease) Depression Post herpetic neuralgia Surgical History Hx of bilateral cataract extraction Hx of blepharoplasty Hx of esophageal hernia repair Hx of neck surgery History of implantation of artificial sphincter (~11/2019) History of esophagogastroduodenoscopy (EGD) History of right inguinal hernia repair (~03/2010) History of cervical spinal surgery History of colonoscopy History of back surgery History of radical prostatectomy Family History Father No problems noted. Mother Hx of colon cancer, stage I Substance use disorder Brother Hx of colon cancer, stage III Family/Other Substance use disorder Social History Housing: House Are you a primary critical care physician assistant to a significant other at home: No Do you presently have visiting nurse or other home services: No Alcohol intake: never Comment: 3 MONTHS AGO MULTIPLE FALLS Patient Tobacco Use Status: Never used Tobacco e-Cigarette/Vaping Use: Never Used Second Hand Smoke Exposure: No service: No Current occupational status: retired Cognitive needs: No Hearing needs: Yes Vision needs: Yes Review of Systems Const Denies chills and Denies fever(s) Eyes Denies blurry vision ENT Reports dysphagia, Denies vertigo, Denies dizziness and Denies sore throat Card Denies chest pain at rest, Denies chest pain with activity, Denies diaphoresis and Reports dyspnea on exertion Resp Reports chest congestion, Reports cough, Reports dyspnea on exertion and Reports wheezing GI Reports as per HPI, Denies hematochezia, Denies constipation, Reports dysphagia, Reports dyspepsia, Reports heartburn, Denies diarrhea and Denies loose stools Musc Denies numbness and Denies tingling Skin/Breast Denies lesions Neuro Denies vertigo, Denies dizziness, Denies numbness and Denies tingling Psych Denies anxiety, Denies depression, Denies homicidal ideation, Denies suicidal ideation and Denies other (substance abuse) Aller/Immun Reports wheezing Physical Exam Vital Signs: Last Vital Signs Pulse 83 02/17/24 12:56 BP 130/62 02/17/24 12:56 Pulse Ox 97 02/17/24 12:56 Oxygen Delivery Method Room Air 02/17/24 12:56 BMI result Body Mass Index 24.1 Const General: no acute distress, well developed and alert Nutritional Appearance: well nourished Orientation/consciousness: patient oriented x3 HEENT Head: Yes normocephalic and Yes atraumatic Neck Neck: Yes supple Chest Chest palpation & inspection: normal inspection of the chest Resp Effort & Inspection: normal respiratory effort and prolonged expiratory phase Auscultation: rhonchi, wheezes and diminished lung sounds Cardio Rate: regular rate Rhythm: regular rhythm Heart sounds: S1 normal heart sound present, S2 normal heart sound present and no murmurs Skin General skin exam: no rashes or lesions noted Neuro General: patient oriented x3 Extrem General: Yes no clubbing, cyanosis or edema Psych Attitude: cooperative Assessment & Plan Assessment & Plan (1) COPD exacerbation: Code(s): J44.1 - Chronic obstructive pulmonary disease with (acute) exacerbation Category: Medical (2) Dysphagia: Code(s): R13.10 - Dysphagia, unspecified Category: Medical Qualifiers: Dysphagia type: other dysphagia Qualified Code(s): R13.19 - Other dysphagia (3) Hiatal hernia: Code(s): K44.9 - Diaphragmatic hernia without obstruction or gangrene Category: Medical (4) Asthma-COPD overlap syndrome: Code(s): J44.89 - Other specified chronic obstructive pulmonary disease Category: Medical Plan start augmentin start prednisone taper nebulizer 2 times a day continue Wixela MYLES as needed reflux diet Needs to sleep with the head of bed elevated F/U 2-3 months Medications: New amoxicillin-pot clavulanate 875-125 mg 1 tab PO BID 20 tabs 0RF 10 days prednisone PO daily; Take 2 tabs daily x 5 days, then 1 tab daily x 5 days 15 tabs 1RF 10 days Coding Level of Care Code Est Pt Level 4 (05951) Diagnoses COPD exacerbation J44.1 Other dysphagia R13.19 Dysphagia type: other dysphagia Hiatal hernia K44.9 Asthma-COPD overlap syndrome J44.89 Time Spent (min) 16
== END 2024-02-17 13:26 | disposition home or self-care (01) ==
PROVIDERS: PCP Nurse Practitioner Family; Visit Provider Hospitalist
DX: J44.1 Chronic obstructive pulmonary disease with (acute) exacerbation (principal); R13.19 Other dysphagia; K44.9 Diaphragmatic hernia without obstruction or gangrene; J44.89 Other specified chronic obstructive pulmonary disease
CPT/HCPCS: 99214

== ENCOUNTER → 2024-02-17 12:52 | Outpatient (BNVA) | payer MEDICARE, SELFPAY | PROVIDERS: PCP Nurse Practitioner Family; Visit Provider Hospitalist | DX: J44.1 Chronic obstructive pulmonary disease with (acute) exacerbation (principal); J44.89 Other specified chronic obstructive pulmonary disease; R13.19 Other dysphagia; K44.9 Diaphragmatic hernia without obstruction or gangrene | CPT/HCPCS: 99212 ==

== ENCOUNTER 2024-02-27 12:25 | Outpatient (AMB) | payer MEDICARE, SELFPAY ==
--- NOTE | 2024-02-27 12:31 | MHC.OFFVIS ---
Vital Signs 02/27/24 12:48 Height 5 ft 7 in Weight 154 lb 5.177 oz BMI 24.2 BP 159/65 H Blood Pressure Location Lt brachial Position Sitting Pulse 54 Intake Visit Reasons: 6 month follow up Intake Note: Sergei presents as as 6 month follow up. CC: Lower abdomen pains. Every 3 weeks he has a possible flare up. states that it is more every now and again. He is not sure if it is diverticulitis that is starting it and he has issues with gas and diarrhea. 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 Allergies adhesive tape Allergy (Intermediate, Verified 02/27/24 13:04) BLISTERS HPI HPI 6 month follow up: Details: 83 yr old m with DM, prostate cancer 2004 here for f/u RECAP: He had EGD for dysphagia with dilation of stricture 01/2020 I then repeated the EGD 10/2020-- noted hiatal hernia 4 cm, jack erosion, balloon dilation 20 mm with tears noted at [facility] EGD/colonoscopy 01/2021: tubulovillous adenoma removed, chronci duodenitis, schatzki ring, hiatal hernia, retained clip removed--balloon dilation 18-19 mm He was referred to Dr Kent and had para esophageal hernia repair with mesh and gastropexy 05/2021- he also required esophgeal dilation few months after that repeat EGD/colo:03/2022 Endoscopy Findings: hiatal hernia esophageal rings and stricture duodenitis Colonoscopy Findings: polyp internal hemorrhoids diverticular disease segmental colitis balloon dilation with tear noted Path: A. Duodenum, biopsy: Duodenal mucosa within normal limits. B. Stomach, biopsy: Oxyntic mucosa with mild chronic inactive inflammation; no Helicobacter organisms seen. C. Terminal ileum, biopsy: Terminal ileal mucosa within normal limits. D. Colon, random, biopsy: Colonic mucosa with features of microscopic colitis. E. Colon, ascending, polypectomy: Clinically polypoid colonic mucosa with prolapse changes and features of microscopic colitis. F. Colon, sigmoid, biopsy: Colonic mucosa with features of collagenous colitis. G. Rectum, biopsy: Colonic mucosa with features of microscopic colitis. He was tried on mesalamine, pepto was initially suggested but due to interactions went with the mesalamine GI stool panel was neg lactoferrin was raised c diff sample was invalid EGD: 08/07 hiatal hernia esophageal rings and stricture duodenitis esophageal inlet patch I ordered CT brain due to swallowing, showed chronic ischemic changes and mastoiditis, was give doxycycline INTERIM: every so often he has a cramp in the mid abdo, can feel like a gas build up he has ongoing diarrhea gina post prandial no nausea or vomiting he can have heartburn and trouble swallowing at same time EXAM: GENERAL: The patient is well developed and nontoxic. VITAL SIGNS:see workflow HEENT: Nonicteric sclerae, PERRLA, EOMI. Oropharynx clear. Moist mucous membranes. Conjunctivae appear well perfused. No thyroid mass. CHEST: Chest wall is nontender. HEART: Regular rate and rhythm without murmurs. LUNGS: lungs are clear --good a/e ABDOMEN: Soft, positive bowel sounds, nontender, no organomegaly.no flank tenderness SKIN: No rash, no excessive bruising, petechiae, or purpura. NEUROLOGIC: deaf, psych: nml A/P: 1/ microscopic colitis, possibly from statin and PPI use, causing his diarrhea--not helped by budesonide or mesalamine, 2/ swallowing issues, since surgery--prior dilation did help- also has inlet patch PLAN: 1/ refer for ryann for MC 2/ repeat EGD with ablation of patch and dilation [facility] Medical History Asthma-COPD overlap syndrome Chronic renal insufficiency HTN (hypertension) Diabetes Esophageal dysmotility History of fall Tubular adenoma of colon Left arm numbness Right arm numbness Rib fractures Fall Occipital neuralgia Attention deficit disorder (ADD) Hx of bronchitis Intrinsic sphincter deficiency (ISD) Esophageal ring, acquired GERD (gastroesophageal reflux disease) Depression Post herpetic neuralgia Surgical History Hx of bilateral cataract extraction Hx of blepharoplasty Hx of esophageal hernia repair Hx of neck surgery History of implantation of artificial sphincter (~11/2019) History of esophagogastroduodenoscopy (EGD) History of right inguinal hernia repair (~03/2010) History of cervical spinal surgery History of colonoscopy History of back surgery History of radical prostatectomy Family History Father No problems noted. Mother Hx of colon cancer, stage I Substance use disorder Brother Hx of colon cancer, stage III Family/Other Substance use disorder Social History Housing: House Are you a primary health care legal assistant to a significant other at home: No Do you presently have visiting nurse or other home services: No Alcohol intake: never Comment: 3 MONTHS AGO [place]ULTIPLE [place]S Patient Tobacco Use Status: Never used Tobacco e-Cigarette/Vaping Use: Never Used Second Hand Smoke Exposure: No service: No Current occupational status: retired Cognitive needs: No Hearing needs: Yes Vision needs: Yes Physical Exam Vital Signs: Last Vital Signs Pulse 54 02/27/24 12:48 BP 159/65 H 02/27/24 12:48 BMI result Body Mass Index 24.2 Assessment & Plan Assessment & Plan (1) Dysphagia: Code(s): R13.10 - Dysphagia, unspecified Category: Medical Qualifiers: Dysphagia type: other dysphagia Qualified Code(s): R13.19 - Other dysphagia Plan: see above Coding Level of Care Code Est Pt Level 4 (05460) Diagnoses Other dysphagia R13.19 Dysphagia type: other dysphagia
[2024-02-27 12:48] VITALS: BP 159/65; PULSE 54; BMI 24.2
== END 2024-02-27 13:33 | disposition home or self-care (01) ==
PROVIDERS: PCP Nurse Practitioner Family; Visit Provider Internal Medicine Gastroenterology
DX: R13.19 Other dysphagia (principal)
CPT/HCPCS: 99214

== ENCOUNTER → 2024-02-27 12:25 | Outpatient (BNVA) | payer MEDICARE, SELFPAY | PROVIDERS: PCP Nurse Practitioner Family; Visit Provider Internal Medicine Gastroenterology | DX: R13.19 Other dysphagia (principal) | CPT/HCPCS: 99212 ==

== ENCOUNTER 2024-03-21 15:25 | Outpatient (AMB) | payer MEDICARE, SELFPAY ==
[2024-03-21 15:31] VITALS: BP 146/70; PULSE 83; RESP 15; TEMP 36.5; O2SAT 98; BMI 24.4
--- NOTE | 2024-03-21 15:31 | MHC.PC.OV ---
Vital Signs 03/21/24 15:31 03/21/24 16:07 Height 5 ft 7 in Weight 156 lb BMI 24.4 BP 146/70 H 134/72 Blood Pressure Location Rt brachial Lt brachial Position Sitting Sitting Respiration 15 Pulse 83 Pulse Source Pulse Oximeter Temp 97.7 F Temp Source Oral Pulse Oximetry (%) 98 Oxygen Delivery Method Room Air Intake Visit Reasons: 4 month follow up A1c Allergies adhesive tape Allergy (Intermediate, Verified 03/21/24 15:34) BLISTERS Medication List - Last Reconciled 03/21/24 by Sergei Burt, INSPECTOR BALANCE WHEEL MOTION- albuterol sulfate 0.63 mg (3 mL) inhalation BID 30 days albuterol sulfate 90 mcg/actuation 2 puffs PO Q6H PRN fluticasone propion-salmeterol 250-50 mcg/dose (Wixela Inhub) 1 inh inhalation Q12H 30 days fluticasone propionate 50 mcg/actuation 1 spray intranasal DAILY FreeStyle Bao 2 Ramer (flash glucose scanning reader) TID testing NS FreeStyle Bao 2 Sensor (flash glucose sensor) TID testing NS insulin glargine (Lantus Solostar U-100 Insulin) 10 units (0.1 mL) subcut QPM lancets (FreeStyle Lancets) BID Freestyle lancets all flex lansoprazole 30 mg PO DAILY loratadine (Claritin) 10 mg PO DAILY mecobalamin (vitamin B12) mcg PO metformin 1,000 mg PO DAILY multivitamin 1 tab PO DAILY nebulizers As directed sertraline 25 mg PO DAILY simvastatin 40 mg PO BEDTIME sucralfate (Carafate) 1 g PO BID tolterodine ER 4 mg PO DAILY trazodone 100 mg PO BEDTIME Tobacco use date assessed: 03/21/24 Fall risk assessment: 1 Fall in past year Last assessed Fall Risk: 03/21/24 Dental Screening Dental Screen Date: 03/21/24 Did you have a dental visit in the last 12 months?: No Did you have a dental problem in the last 6 months where you did not have access to dental care?: No Was dental information given to patient?: No HPI 4 month follow up A1c HPI Details Chief Complaint Difficulty managing diabetes. History of Present Illness The patient is an 83-year-old male presenting with difficulty managing diabetes. He reports an A1c level of 8.0 at today's visit. The patient has not been administering Lantus (insulin glargine) due to experiencing hypoglycemia in the morning. He is equipped with a continuous glucose monitoring system, previously utilizing the [employer] Bao 2 sensor, to track blood glucose levels. The patient reports difficulty with postprandial hyperglycemia, suggesting inadequacies in glycemic control during mealtimes. He denies any episodic chest pain or dyspnea, but a history of bronchitis is noted with improvement; however, he exhibits slight wheezing and phelgm production (using inhalers as prescribed). Additionally, the patient is managing symptoms of depression without suicidal or homicidal ideations, following the recent bereavement of his son. The patient expresses a hesitance towards psychological therapy. He has been on sertraline with plans to increase the dosage from 25 mg to 50 mg to enhance therapeutic outcomes. Social History - Recent bereavement, reported grieving the loss of a son. - Does not want therapy for depression. Health Maintenance Review of Systems - Respiratory: Denies chest pain and shortness of breath; Reports wheezing. - Psychiatric: Reports depression; Denies suicidal and homicidal ideation. Physical Exam General: Cooperative, healthy appearing, comfortable, no acute distress and well developed Orientation: Patient oriented x3 Limitations: No limitations Head: Normal to inspection Ears: Hearing grossly normal bilaterally Nose: Normal external nose present Face and sinus: Normal facial exam Eyes: Appearance normal, both eyes and all related structures Neck: Normal visual inspection and Yes full ROM Respiratory: Wheezing noted on exam today Cardiovascular: Regular rate and rhythm. Normal S1 and S2 GI: Normal to inspection. Soft to palpation and nontender Skin: No rashes or lesions noted Neuro: Patient oriented x3 Extremities: Normal to inspection Results - Labs: A1c level is 8.0%. Plan - Adjust diabetes management by instructing the patient to take Lantus in the morning 10 units, to help control blood sugar levels throughout the day. - The patient will continue to use his continuous glucose monitor to track glucose levels and be advised on managing hypoglycemic events. - Monitor mental health, increasing sertraline dosage to 50 mg for elevated depressive symptoms. - Encourage the patient to expectorate mucus to aid in respiratory improvements due to recent bronchitis. Discussion Notes I discussed the management plan to take Lantus in the morning as a modification to the patient's diabetes regimen due to morning hypoglycemia. The patient was counseled on the importance of continuous glucose monitoring and knew how to manage low blood sugar episodes. Regarding his mental health, the patient understood the plan to increase sertraline dosage to address persistent depressive symptoms and was counseled on the decision while acknowledging his choice not to initiate therapy. Suggestions for managing bronchial symptoms through expectoration were given. The patient should continue to monitor his blood pressure at home due to observed elevation during the visit. Patient Instructions - Begin taking Lantus (10 units) in the morning, with plan in future to possible add mealtime insulins - Monitor blood sugar regularly with your glucose sensor. - Continue to recognize and respond to low blood sugar indicators. - Increase sertraline as directed to 50 mg. - Practice expectorating mucus to aid respiratory symptoms. - Monitor blood pressure at home and notify if symptoms persist or worsen. [facility] Medical History Asthma-COPD overlap syndrome Chronic renal insufficiency HTN (hypertension) Diabetes Esophageal dysmotility History of fall Tubular adenoma of colon Left arm numbness Right arm numbness Rib fractures Fall Occipital neuralgia Attention deficit disorder (ADD) Hx of bronchitis Intrinsic sphincter deficiency (ISD) Esophageal ring, acquired GERD (gastroesophageal reflux disease) Depression Post herpetic neuralgia Surgical History Hx of bilateral cataract extraction Hx of blepharoplasty Hx of esophageal hernia repair Hx of neck surgery History of implantation of artificial sphincter (~11/2019) History of esophagogastroduodenoscopy (EGD) History of right inguinal hernia repair (~03/2010) History of cervical spinal surgery History of colonoscopy History of back surgery History of radical prostatectomy Family History Father No problems noted. Mother Hx of colon cancer, stage I Substance use disorder Brother Hx of colon cancer, stage III Family/Other Substance use disorder Social History Housing: House Are you a primary care support representative to a significant other at home: No Do you presently have visiting nurse or other home services: No Alcohol intake: never Comment: 3 MONTHS AGO MULTIPLE FALLS Patient Tobacco Use Status: Never used Tobacco e-Cigarette/Vaping Use: Never Used Second Hand Smoke Exposure: No service: No Current occupational status: retired Cognitive needs: No Hearing needs: Yes Vision needs: Yes Questionnaire PHQ-9 Over the last 2 weeks, how often have you been bothered by any of the following problems? 1. Little interest or pleasure in doing things: not at all 2. Feeling down, depressed, or hopeless: not at all 3. Trouble falling or staying asleep, or sleeping too much: not at all 4. Feeling tired or having little energy: not at all 5. Poor appetite or overeating: not at all 6. Feeling bad about yourself - or that you are a failure or have let yourself or your family down: not at all 7. Trouble concentrating on things, such as reading the newspaper or watching television: not at all 8. Moving or speaking so slowly that other people could have noticed. Or the opposite - being so fidgety or restless that you have been moving around a lot more than usual: not at all 9. Thoughts that you would be better off or of hurting yourself in some way: not at all Total score: 0 Depression Screening Interpretation: Negative Depression Screening Done: Yes 10697 - PHQ-9 Billing: Yes Source: Developed by Drs. Ronan Bray, Tova Jesus, Kush Kelley and colleagues, with an educational eleazar from [employer]. Thrive Questionnaire Date Thrive assessed: 03/21/24 I am a: Patient What is your living situation today?: I have a steady place to live Within the past 12 months, did the food you bought not last and you didn't have the money to get more?: Never true Within the past 12 months, did you worry whether your food would run out before you got money to buy more?: Never true Do you have trouble paying for medicines?: No Do you have trouble getting transportation to medical appointments?: No Do you have trouble paying your heating and electricity bill?: No Do you have trouble taking care of your child, family member or friend?: No Do you have trouble with day-to-day activities such as bathing, preparing meals, shopping, managing finances, etc.?: No Are you currently unemployed and looking for a job?: No Are you interested in more education?: No THRIVE Score: 0 AUDIT C Alcohol Use Questionnaire (AUDIT-C) 1. How often do you have a drink containing alcohol?: Never Total Score: 0 LOCO-7 AMB Questionnaire LOCO-7 Date LOCO - 7 assessed: 03/21/24 Feeling nervous, anxious, or on edge: 0 = Not at all Not being able to stop or control worryin = Not at all Worrying too much about different things: 0 = Not at all Trouble relaxin = Not at all Being so restless that it is hard to sit still: 0 = Not at all Becoming easily annoyed or irritable: 0 = Not at all Feeling afraid as if something awful might happen: 0 = Not at all Total LOCO-7 score (0-4 normal; 5-9 mild; 10-14 moderate; 15-21 severe): 0 Source: Developed by Drs. Ronan Bray, Tova Jesus, Kush Kelley and colleagues, with an educational eleazar from [employer]. Physical exam (Primary Care) Vital Signs: Last Vital Signs Temp 97.7 F 03/21/24 15:31 Pulse 83 03/21/24 15:31 Resp 15 03/21/24 15:31 BP 146/70 H 03/21/24 15:31 Pulse Ox 98 03/21/24 15:31 Oxygen Delivery Method Room Air 03/21/24 15:31 BMI result Body Mass Index 24.4 Tobacco/Smoking Status: Tobacco use Status Tobacco use date assessed 03/21/24 03/21/24 15:34 Patient Tobacco Use Status Never used Tobacco 03/21/24 15:34 e-Cigarette/Vaping Use Never Used 03/21/24 15:34 PHQ-9: PHQ-9 Score PHQ-9: Total score 0 03/21/24 15:57 Depression Screening Interpretation: Negative Thrive Assessment: Date of Thrive Assessment Date Thrive assessed 03/21/24 03/21/24 15:39 Results AMB Hemoglobin A1c AMB Hemoglobin A1c 8.0 % Last Edit by Janet Johnson CMA on 03/21/24 15:38 Results Reviewed Results Reviewed: Laboratory Last Values Hgb A1c (Clinic) 8.0 % (4.0-6.0) H 03/21/24 15:37 Coding Level of Care Code Est Pt Level 3 (89640) Diagnoses Depression F32.9 Diabetes mellitus with kidney complication E11.29 Bronchitis J40 Diabetes E11.9 B12 deficiency E53.8 Additional Codes PHQ-9 - 53249 - PHQ-9 Billing: Yes ([id number]) Assessment & Plan Assessment & Plan (1) Depression: Code(s): F32.9 - Major depressive disorder, single episode, unspecified Category: Medical (2) Diabetes mellitus with kidney complication: Code(s): E11.29 - Type 2 diabetes mellitus with other diabetic kidney complication Category: Medical (3) Bronchitis: Code(s): J40 - Bronchitis, not specified as acute or chronic Category: Medical (4) Diabetes: Code(s): E11.9 - Type 2 diabetes mellitus without complications Category: Medical (5) B12 deficiency: Code(s): E53.8 - Deficiency of other specified B group vitamins Category: Medical Plan . Orders: Orders AMB Hemoglobin A1c Today E11.29 - Type 2 diabetes mellitus with other diabetic kidney complication TSH reflex Free T4 Today E11.9 - Type 2 diabetes mellitus without complications UA CC w/rflx Micro + Cult Today E11.9 - Type 2 diabetes mellitus without complications Lipid Panel Today E11.9 - Type 2 diabetes mellitus without complications Vitamin B12 and Folate Today E53.8 - Deficiency of other specified B group vitamins Complete Blood Count Auto Diff Today E11.9 - Type 2 diabetes mellitus without complications Comprehensive [place]. Panel Fast Today E11.9 - Type 2 diabetes mellitus without complications Medications: Changed From sertraline 25 mg PO DAILY 90 tabs 0RF To sertraline 50 mg PO DAILY 90 tabs 0RF
[2024-03-21 16:07] VITALS: BP 134/72
--- OUTSIDE RECORDS SUMMARY | 2024-03-21 16:22 | XMS_ITS | Clinical Summary ---
Author Organization [facility] Address [address] [facility] [address] [place] [address] Phone Care Team Providers Care Tdp Displays Analyst Name Role Phone Sergei Burt NP Primary Care Provider [phone] Allergies Active Allergy Reactions Criticality Noted Date Comments Adhesive Tape Other (see comments) 06/17/2022 Medications buPROPion XL (WELLBUTRIN XL) 300 MG 24 hr tablet Take 300 mg by mouth 1 (one) time each day Do not crush, chew, or split. Active simvastatin (ZOCOR) 40 MG tablet Take 40 mg by mouth every night Active traZODone (DESYREL) 100 MG tablet Take 100 mg by mouth every night Active tolterodine LA (DETROL LA) 4 MG 24 hr capsule Take 4 mg by mouth 1 (one) time each day Do not crush, chew, or split. Active cyanocobalamin (VITAMIN B-12) 100 MCG tablet Take 50 mcg by mouth 1 (one) time each day Active Multiple Vitamin (multivitamin) capsule Take 1 capsule by mouth 1 (one) time each day Active Active Problems Problem Noted Date Diagnosed Date Stage 3a chronic kidney disease 05/30/2023 Acute nontraumatic kidney injury 06/21/2022 Hypertensive renal disease 06/17/2022 Proteinuria 06/17/2022 Disorder of kidney and/or ureter 06/17/2022 Resolved Problems Problem Noted Date Diagnosed Date Resolved Date Chronic kidney disease, stage 2 (mild) 06/21/2022 05/30/2023 Chronic kidney disease stage 1 06/17/2022 06/21/2022 Type 2 diabetes mellitus without complication 06/18/19 23 06/17/2022 Immunizations Name Administration Dates Next Due Pneumococcal Polysaccharide 01/13/2017 Family History Medical History Relation Comments Cancer Mother Stroke Mother Heart disease Sibling 1 Cancer Sibling 2 Diabetes Sibling 3 Relation Status Comments Father Mother Sibling 1 Sibling 2 Sibling 3 Social History Tobacco Use Types Packs/Day Years Used Date Smoking Tobacco: Never Smokeless Tobacco: Never Tobacco Cessation:Counseling Given: Not Answered Alcohol Use Standard Drinks/Week Comments No 0 (1 standard drink = 0.6 oz pur e alcohol) Sex and Gender Information Value Date Recorded Sex Assigned at Not on file Legal Sex Male 4:52 PM EST Gender Identity Not on file Sexual Orientation Not on file Last Filed Vital Signs Vital Sign Reading Time Taken Comments Blood Pressure 146/70 12/12/2023 1:33 PM EDT Pulse 66 12/12/2023 1:33 PM EDT Temperature - - Respiratory Rate - - Oxygen Saturation - - Inhaled Oxygen Concentration - - Weight 70.2 kg (154 lb 12.8 oz) 12/12/2023 1:33 PM EDT Height - - Body Mass Index - - Plan of Treatment Upcoming Encounters Date Type Department Care Team (Late st Contact Info) Description 09/10/2024 2:15 PM EDT Office Visit [facility] [address] [id number] Paddy Osullivan MD [address] [phone] Health Maintenance Due Date Last Done Comments Pneumococcal Vaccine: 65+ Ye ars (2 of 2 - PCV) 01/13/2018 01/13/2017 Diabetes: Hemoglobin A1C 06/21/2022 Diabetes: Ophthalmology Exam 06/21/2022 Diabetes: Pedal Pulse Checked 06/21/2022 Diabetes: Sensory Foot Exam 06/21/2022 Diabetes: Visual Foot Exam 06/21/2022 Influenza Vaccine (#1) 2023 Hepatitis B Vaccine Aged Out No longe r eligible based on patient's age to complete this topic Insurance [facility] Care Teams Tdp Displays Analyst Relationship Specialty Start Date End Date Sergei Burt NP [address] [place] [address] PCP - General 02/25/20
--- OUTSIDE RECORDS SUMMARY | 2024-03-21 16:22 | XMS_ITS | Clinical Summary ---
Author Organization [facility] Address [address] [place] [address] Care Team Providers Care Nutrition Services Aide Name Role Phone Sergei Burt EROS Primary Care Provider [phone] Surgical History Surgery Date Site/Laterality Comments CERVICAL LAMINECTOMY PROCEDURE: HISTORICAL CERV LAMINECTOMY; COMMENT: 08/04/20: C3-4, C4-5 decompressive laminectomy; R C6-7 foraminotomy (Dr. Sainz, [facility]) OTHER SURGICAL HISTORY PROCEDURE: RI UNLISTED PROCEDURE SPINE; COMMENT: 06/06/18: R L2-3, R L3-4 minimally invasive decompression and foraminotomies (Dr. Gilliam, [facility]) OTHER SURGICAL HISTORY PROCEDURE: RI LAPT RPR PARAESOPH HIATAL HERNIA W/MESH; COMMENT: 05/18/21: robotic lap paraesophageal hernia repair w/ mesh and gastropexy (Dr. Kent, [facility]) Medical History Medical History Date Comments Type 2 diabetes mellitus wit hout complications (CMS/HCC) DX:Type 2 diabetes mellitus without complications (HCC) GERD (gastroesophageal reflux disease) DX:GERD (gastroesophageal reflux disease) Mixed hyperlipidemia DX:Mixed hy perlipidemia Family History Relation Name Status Comments Brother 2 Alive Sister 1 Alive Social History Tobacco Use Types Packs/Day Years Used Date Smoking Tobacco: Never Sex and Gender Information Value Date Recorded Sex Assigned at Not on file Gender Identity Not on file Sexual Orientation Not on file Obstetrics History Last Filed Vital Signs Vital Sign Reading Time Taken Comments Blood Pressure 90/67 06/19/2021 10:18 AM EDT Sitting L Arm Pulse 85 06/19/2021 10:18 AM EDT Temperature - - Respiratory Rate - - Oxygen Saturation - - Inhaled Oxygen Concentration - - Weight 77.7 kg (171 lb 6.4 oz) 06/19/2021 10:18 AM EDT Height 170.2 cm (5' 7 ) 06/19/2021 10:1 8 AM EDT Body Mass Index 26.85 06/19/2021 10:18 AM EDT Plan of Treatment Health Maintenance Due Date Last Done Comments DTaP,Tdap,and Td Vaccines (1 - Tdap) 08[birth year]06/1959 Zoster Vaccines (1 of 2) 1990 Pneumococcal Vaccine: 65+ Ye ars (1 of 1 - PCV) 2005 RSV Immunization Patients 60 + Years Old (1 - 1-dose 75+ series) 08/06/2015 Cholesterol Screening (Lipid Panel) 01/12/2022 Depression Screening 01/12/2022 Falls Risk Assessment 01/12/2022 Social Influencers of Health Screening 01/12/2022 COVID-19 Vaccine (1 - 2023-2 5 season) 2023 Influenza Vaccine (#1) 2023 HIB Vaccines Aged Out No longer eligi ble based on patient's age to complete this topic HPV Vaccines Aged Out No longer eligi ble based on patient's age to complete this topic Hepatitis A Vaccines Aged Out No long er eligible based on patient's age to complete this topic Hepatitis B Vaccines Aged Out No long er eligible based on patient's age to complete this topic IPV Vaccines Aged Out No longer eligi ble based on patient's age to complete this topic MMR Vaccines Aged Out No longer eligi ble based on patient's age to complete this topic Meningococcal ACWY Vaccine Aged Out N o longer eligible based on patient's age to complete this topic RSV Immunization Patients Un kel 20 months Aged Out No longer eligible b ased on patient's age to complete this topic Varicella Vaccines Aged Out No longer eligible based on patient's age to complete this topic Advance Directives Documents on File Type Date 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
== END 2024-03-21 16:08 | disposition home or self-care (01) ==
LOC: HO.HMCC 15:25
PROVIDERS: PCP Nurse Practitioner Family; Visit Provider Nurse Practitioner Family
DX: F32.9 Major depressive disorder, single episode, unspecified (principal); E11.29 Type 2 diabetes mellitus with other diabetic kidney complication; J40 Bronchitis, not specified as acute or chronic; E53.8 Deficiency of other specified B group vitamins

== ENCOUNTER → 2024-03-21 15:25 | Outpatient (BNVA) | payer MEDICARE, SELFPAY | PROVIDERS: PCP Nurse Practitioner Family; Visit Provider Nurse Practitioner Family | DX: F32.9 Major depressive disorder, single episode, unspecified (principal); E11.29 Type 2 diabetes mellitus with other diabetic kidney complication; J40 Bronchitis, not specified as acute or chronic; E53.8 Deficiency of other specified B group vitamins | CPT/HCPCS: 83036; 96127; 99212 ==

== ENCOUNTER 2024-04-26 10:46 | Outpatient (AMB) | payer MEDICARE, SELFPAY ==
--- NOTE | 2024-04-26 10:55 | MHC.OFFVIS ---
Vital Signs 04/26/24 10:56 Height 5 ft 7 in Weight 158 lb 11.725 oz BMI 24.9 BP 128/60 Blood Pressure Location Lt brachial Position Sitting Pulse 66 Pulse Source Pulse Oximeter Pulse Oximetry (%) 98 Oxygen Delivery Method Room Air Intake Visit Reasons: Bronchitis Allergies adhesive tape Allergy (Intermediate, Verified 04/26/24 11:00) BLISTERS HPI Comments Details: TThe patient is an 83-year-old gentleman with a known history of COPD was developing worsening respiratory symptoms. He was recently evaluated in the ER for worsening wheezing and chest congestion. He did have a chest x-ray there which I personally reviewed without any acute disease. He also had CT scan of the chest which I also reviewed from 2021 demonstrating normal lung parenchyma. Also demonstrated a thickened esophagus. He has been working very closely with GI. He has had issues with difficulty swallowing and was noted to have an esophageal stricture along with evidence of esophageal dysmotility reflux disease and hiatal hernia. Currently the patient is doing better from a respiratory status. Denies any significant wheezing or coughing. the patient does feel that the GI issue at times precipitates his breathing issues which I do agree with him. The patient currently is scheduled to undergo a repeat endoscopy with likely balloon dilation to improve his overall swallow. The patient will be started on long-acting beta agonist with inhaled cortical steroid to decrease he is exacerbations. But right now he is doing well from a pulmonary standpoint. He feels like he is back to his baseline. Will plan to perform pulmonary function studies. From a preoperative standpoint the patient is doing better and may he will to proceed with anesthesia and endoscopy without any limitations. 09/06/2023 the patient is here for a pulmonary follow-up visit. Overall the patient has been doing well. He did follow-up with GI and also was surgery. He does have significant esophageal strictures and other abnormalities due to hiatal hernia. Unfortunately hiatal hernia was attempted to be corrected in the past in therefore that difficult redo. He is going to follow-up with GI. In the meantime he is responding well to the current GI cocktail. The patient also has been using his inhalers. We did talk about making sure to use the Wixela every morning. He needs to rinse his mouth. Hopefully will help with his chest congestion. In addition to that we talked about the importance of sleeping elevated at nighttime to make sure that he avoids any micro aspirations into the lungs due to that hiatal hernia. We did review his CT scan of the chest which is reassuring. He will continue with the current respiratory therapy. 02/17/2024 the patient is here for sick visit. He has had worsening respiratory symptoms for the last several weeks. Started developing cough. Congested nature. In addition to that more wheezing. She did respond well to the prednisone. He was running out in the family called for additional prednisone. Therefore appointment was May. Been complaining that even activities of daily living causing him to have significant shortness of breath. In the office I did taken for brief walking oximetry the patient oxygen was reassuring around 96-97% with activity. Heart rhythm sounds stable. However, has significant wheezing and rhonchi. Therefore he is going to be prescribed antibiotics and prednisone for COPD exacerbation. Also will undergo a chest x-ray. If the patient is no better he will call for an earlier assessment otherwise follow-up in a couple months. 04/26/2024 the patient is here for sick visit. He has been sick for the last couple weeks. Significant cough. Chest congestion and wheezing. He has been using his nebulizer with partial response. He also goes into some choking starts coughing. In the office he has significant wheezing and rhonchi. We did received 2 DuoNebs back to back which did improve his breathing a little bit. The patient does have diabetes but he does need some prednisone at this time. He has been on the maintenance inhaler. Will go ahead and add budesonide b.i.d. via his nebulizer he knows to rinse his mouth. Hopefully with the budesonide addition he will not need as much prednisone. Will also request a chest x-ray. The patient will start prednisone and also some antibiotics. Will return in 2-3 months. If the x-ray is abnormal will discuss that in additional imaging studies would likely be warranted. [facility] Medical History Asthma-COPD overlap syndrome Chronic renal insufficiency HTN (hypertension) Diabetes Esophageal dysmotility History of fall Tubular adenoma of colon Left arm numbness Right arm numbness Rib fractures Fall Occipital neuralgia Attention deficit disorder (ADD) Hx of bronchitis Intrinsic sphincter deficiency (ISD) Esophageal ring, acquired GERD (gastroesophageal reflux disease) Depression Post herpetic neuralgia Surgical History Hx of bilateral cataract extraction Hx of blepharoplasty Hx of esophageal hernia repair Hx of neck surgery History of implantation of artificial sphincter (~11/2019) History of esophagogastroduodenoscopy (EGD) History of right inguinal hernia repair (~03/2010) History of cervical spinal surgery History of colonoscopy History of back surgery History of radical prostatectomy Family History Father No problems noted. Mother Hx of colon cancer, stage I Substance use disorder Brother Hx of colon cancer, stage III Family/Other Substance use disorder Social History Housing: House Are you a primary care program resident to a significant other at home: No Do you presently have visiting nurse or other home services: No Alcohol intake: never Comment: 3 MONTHS AGO MULTIPLE FALLS Patient Tobacco Use Status: Never used Tobacco e-Cigarette/Vaping Use: Never Used Second Hand Smoke Exposure: No service: No Current occupational status: retired Cognitive needs: No Hearing needs: Yes Vision needs: Yes Review of Systems Const Denies chills and Denies fever(s) Eyes Denies blurry vision ENT Reports dysphagia, Denies vertigo, Denies dizziness and Denies sore throat Card Denies chest pain at rest, Denies chest pain with activity, Denies diaphoresis and Reports dyspnea on exertion Resp Reports chest congestion, Reports cough, Reports dyspnea on exertion and Reports wheezing GI Reports as per HPI, Denies hematochezia, Denies constipation, Reports dysphagia, Reports dyspepsia, Reports heartburn, Denies diarrhea and Denies loose stools Musc Denies numbness and Denies tingling Skin/Breast Denies lesions Neuro Denies vertigo, Denies dizziness, Denies numbness and Denies tingling Psych Denies anxiety, Denies depression, Denies homicidal ideation, Denies suicidal ideation and Denies other (substance abuse) Aller/Immun Reports wheezing Physical Exam Vital Signs: Last Vital Signs Pulse 66 04/26/24 10:56 BP 128/60 04/26/24 10:56 Pulse Ox 98 04/26/24 10:56 Oxygen Delivery Method Room Air 04/26/24 10:56 BMI result Body Mass Index 24.9 Const General: no acute distress, well developed and alert Nutritional Appearance: well nourished Orientation/consciousness: patient oriented x3 HEENT Head: Yes normocephalic and Yes atraumatic Neck Neck: Yes supple Chest Chest palpation & inspection: normal inspection of the chest Resp Effort & Inspection: normal respiratory effort and prolonged expiratory phase Auscultation: rhonchi, wheezes and diminished lung sounds Cardio Rate: regular rate Rhythm: regular rhythm Heart sounds: S1 normal heart sound present, S2 normal heart sound present and no murmurs Skin General skin exam: no rashes or lesions noted Neuro General: patient oriented x3 Extrem General: Yes no clubbing, cyanosis or edema Psych Attitude: cooperative Office Procedures Nebulizer Treatment Nebulizer Treatment 51054-Emvnrlerl/MDI RX initial, or Nebulizer Subsequent Treatment Office Meds ipratropium 0.5 mg-albuterol 3 mg (2.5 mg base)/3 mL nebulization soln Performing Provider: Theodore Salvador MD Performing Location: [facility] Administered by: Alcira Myles LPN on 04/26/24 11:51 Dose Route Admin Location Dispensed Lot Number Expiration Date NDC Certified Performance Technologist 3 mL inhalation 3 mL [id number] 12/14/25 58055-358-86 [employer] Assessment & Plan Assessment & Plan (1) COPD exacerbation: Code(s): J44.1 - Chronic obstructive pulmonary disease with (acute) exacerbation Category: Medical (2) Dysphagia: Code(s): R13.10 - Dysphagia, unspecified Category: Medical Qualifiers: Dysphagia type: other dysphagia Qualified Code(s): R13.19 - Other dysphagia (3) Hiatal hernia: Code(s): K44.9 - Diaphragmatic hernia without obstruction or gangrene Category: Medical (4) Asthma-COPD overlap syndrome: Code(s): J44.89 - Other specified chronic obstructive pulmonary disease Category: Medical Plan start Doxycycline start Medrol pk nebulizer 2 times a day start Budesonide BID, Rinse CXR continue Wixela MYLES as needed reflux diet Needs to sleep with the head of bed elevated F/U 2-3 months Orders: Orders AMB Nebulizer Treatment Today J44.1 - Chronic obstructive pulmonary disease with (acute) exacerbation XR chest 2V Today J44.1 - Chronic obstructive pulmonary disease with (acute) exacerbation Medications: New budesonide 0.5 mg (2 mL) inhalation BID 30 days 120 mL 1RF J44.9 - Chronic obstructive pulmonary disease, unspecified doxycycline hyclate 100 mg PO BID 10 days 20 caps 0RF methylprednisolone (Medrol (Neel)) PO PER PKG DIR for 6 days 6 days 21 ea 0RF Coding Level of Care Code Tele Est Pt Level 4 (10691) Complex EM visit Add On G2211 Diagnoses COPD exacerbation J44.1 Other dysphagia R13.19 Dysphagia type: other dysphagia Hiatal hernia K44.9 Asthma-COPD overlap syndrome J44.89 CPT Codes Nebulizer Treatment - Nebulizer Treatment, initial or subsequent: [id number]/MDI RX initial, or Nebulizer Subsequent Treatment ([id number]) Time Spent (min) 18
[2024-04-26 10:56] VITALS: BP 128/60; PULSE 66; O2SAT 98; BMI 24.9
--- OUTSIDE RECORDS SUMMARY | 2024-04-26 13:44 | XMS_ITS | Clinical Summary ---
Author Organization [facility] Address [address] [facility] [address] [place] [address] Phone Care Team Providers Care Parachute Manufacturing Supervisor Name Role Phone Sergei Burt NP Primary Care Provider [phone] Allergies Active Allergy Reactions Criticality Noted Date [...] Care Team (Late st Contact Info) Description 05/21/2024 Orders Only [facility] [address] [phone] Paddy Osullivan MD [address] [phone] Hypertensive renal disease 09/10/2024 2:15 PM EDT Office Visit [facility] [address] [phone] Paddy Osullivan MD [address] [phone] Health Maintenance Due Date Last Done Comments [...] patient's age to complete this topic Insurance Care Teams Parachute Manufacturing Supervisor Relationship Specialty Start Date End Date Sergei Burt NP [address] [place] [address] PCP - General 02/25/20
--- OUTSIDE RECORDS SUMMARY | 2024-04-26 13:44 | XMS_ITS | Clinical Summary ---
Author Organization [facility] Address [address] [place] [phone] Care Team Providers Care Tent Assembler Name Role Phone Sergei Burt EROS Primary Care Provider Surgical History Surgery Date Site/Laterality Comments CERVICAL LAMINECTOMY PROCEDURE: HISTORICAL CERV LAMINECTOMY; COMMENT: 08/04/20: C3-4, C4-5 decompressive laminectomy; R C6-7 foraminotomy (Dr. Sainz, [facility]) OTHER SURGICAL HISTORY PROCEDURE: CO UNLISTED PROCEDURE SPINE; COMMENT: 06/06/18: R L2-3, R L3-4 minimally invasive decompression and foraminotomies (Dr. Gilliam, [facility]) OTHER SURGICAL HISTORY PROCEDURE: CO LAPT RPR PARAESOPH HIATAL HERNIA W/MESH; COMMENT: 05/18/21: robotic lap paraesophageal hernia repair w/ mesh and gastropexy (Dr. Kent, [facility]) Medical History Medical History Date Comments Type [...] at Not on file Legal Sex Male 9:54 AM EST Gender Identity Not on file Sexual [...] DTaP,Tdap,and Td Vaccines (1 - Tdap) [birth year]06/1959 Pneumococcal Vaccine: 50+ Ye ars (1 of 1 - PCV) 1990 Zoster Vaccines (1 of 2) 1990 RSV Immunization Patients 60 + Years Old [...] patient's age to complete this topic Meningococcal B Vacine Aged Out No lo nger eligible based on patient's age to complete this topic RSV Immunization Patients Un kel 20 months Aged Out No longer eligible b ased on patient's age to complete this topic Varicella Vaccines Aged Out No longer eligible based on patient's age to complete this topic Advance Directives Documents on File Type Date Recorded Patient Senior Clinical Data Manager Expl anation Health Care Decision (hx) 08/06/2020 KENZIE JONES DIRECTIVE Care Teams Tent Assembler Relationship Specialty Start Date End Date Sergei Burt NP [address] [place], [place] PCP - General Family Medicine 05/23/18
== END 2024-04-26 11:43 | disposition home or self-care (01) ==
LOC: HO.HPS 10:47
PROVIDERS: PCP Nurse Practitioner Family; Visit Provider Hospitalist
DX: J44.1 Chronic obstructive pulmonary disease with (acute) exacerbation (principal); K44.9 Diaphragmatic hernia without obstruction or gangrene; J44.89 Other specified chronic obstructive pulmonary disease; R13.19 Other dysphagia
CPT/HCPCS: 99214

== ENCOUNTER → 2024-04-26 10:46 | Outpatient (BNVA) | payer MEDICARE, SELFPAY | PROVIDERS: PCP Nurse Practitioner Family; Visit Provider Hospitalist | DX: J44.1 Chronic obstructive pulmonary disease with (acute) exacerbation (principal); J44.89 Other specified chronic obstructive pulmonary disease; R13.19 Other dysphagia; K44.9 Diaphragmatic hernia without obstruction or gangrene | CPT/HCPCS: 94640; 99212 ==

== ENCOUNTER 2024-04-27 13:13 | Outpatient (REF) | payer MEDICARE, SELFPAY ==
--- NOTE | ~2024-04-27 | XR_ITS ---
EXAMINATION: XR CHEST 2 VIEWS HISTORY: J44.1 - Chronic obstructive pulmonary disease with (acute) exacerbation COMPARISON: Comparison is made with the prior examination dated 04/05/2023. FINDINGS: PA and lateral views of the chest are submitted. The lungs are expanded and clear. There is no pleural effusion, pneumothorax, or pulmonary vascular congestion. The heart is normal in size. There is degenerative disc disease of the spine. XR/XR chest 2V IMPRESSION: No acute cardiopulmonary abnormality. Electronically signed by: Ronan Barnes MD 04/27/2024 01:37 PM EDT
--- OUTSIDE RECORDS SUMMARY | 2024-04-27 14:46 | XMS_ITS | Clinical Summary ---
Author Organization [facility] Address [address] [facility] [address] [place] [address] Phone Care Team Providers Care Playground Monitor Name Role Phone Sergei Burt NP Primary Care Provider [phone] Allergies Active Allergy Reactions Criticality Noted Date [...] Orders Only [facility] [address] [phone] Paddy Osullivan MD [address] [phone] Hypertensive renal disease 09/10/2024 2:15 PM EDT Office Visit [facility] [address] [phone] Paddy Osullivan MD [address] [phone] Health Maintenance Due Date Last Done Comments [...] to complete this topic Insurance Care Teams Playground Monitor Relationship Specialty Start Date End Date Sergei Burt NP [address] [place] [address] PCP - General 02/25/20
--- OUTSIDE RECORDS SUMMARY | 2024-04-27 14:46 | XMS_ITS | Clinical Summary ---
Author Organization [facility] Address [address] [place] [phone] Care Team Providers Care Veterinary Dentist Name Role Phone Sergei Burt EROS Primary Care Provider Surgical History Surgery Date Site/Laterality Comments CERVICAL LAMINECTOMY PROCEDURE: HISTORICAL CERV LAMINECTOMY; COMMENT: 08/04/20: C3-4, C4-5 decompressive laminectomy; R C6-7 foraminotomy (Dr. Sainz, [facility]) OTHER SURGICAL HISTORY PROCEDURE: [place] UNLISTED PROCEDURE SPINE; COMMENT: 06/06/18: R L2-3, R L3-4 minimally invasive decompression and foraminotomies (Dr. Gilliam, [facility]) OTHER SURGICAL HISTORY PROCEDURE: IA LAPT RPR PARAESOPH HIATAL HERNIA W/MESH; COMMENT: 05/18/21: robotic lap paraesophageal hernia repair w/ mesh and gastropexy (Dr. Kent, [facility]) Medical History Medical History Date Comments Type [...] Documents on File Type Date Recorded Patient General Milling Superintendent Expl anation Health Care Decision (hx) 08/06/2020 KENZIE JONES DIRECTIVE Care Teams Veterinary Dentist Relationship Specialty Start Date End Date Sergei Burt NP [address] [place], [place] PCP - General Family Medicine 05/23/18
== END 2024-04-27 13:14 | disposition home or self-care (01) ==
LOC: HO.XRAY 13:13
PROVIDERS: PCP Nurse Practitioner Family; Visit Provider Hospitalist
DX: J44.1 Chronic obstructive pulmonary disease with (acute) exacerbation (principal)
CPT/HCPCS: 71046

== ENCOUNTER → 2024-04-27 13:19 | Outpatient (BNV) | payer MEDICARE, SELFPAY | PROVIDERS: PCP Nurse Practitioner Family; Visit Provider Radiology Diagnostic Radiology | DX: J44.1 Chronic obstructive pulmonary disease with (acute) exacerbation (principal) | CPT/HCPCS: 71046 ==

== ENCOUNTER 2024-07-13 09:55 | Outpatient (REF) | payer MEDICARE, SELFPAY ==
[2024-07-13 10:15] LABS: MANUAL DIFF FLAG NO
--- OUTSIDE RECORDS SUMMARY | 2024-07-13 10:24 | XMS_ITS | Clinical Summary ---
Author Organization [facility] Address [address] [facility] [address] [place] [address] Phone Care Team Providers Care Toxicologist Name Role Phone Sergei Burt CULINARY INSTRUCTOR Primary Care Provider [phone] Allergies Active Allergy Reactions Criticality Noted Date [...] diabetes mellitus without complication 06/18/19 23 06/17/2022 Encounters Date Type Department Care Team Description 05/21/2024 Orders Only [facility] [address] [phone] Paddy Osullivan MD Hypertensive renal disease from Last 3 Months Immunizations Immunization Administration Dates Next Due Pneumococcal Polysaccharide 01/13/2017 [...] Care Team (Late st Contact Info) Description 08/20/2024 2:15 PM EDT Office Visit [facility] [address] [phone] Paddy Osullivan MD [address] [phone] Health Maintenance Due Date Last Done Comments Pneumococcal Vaccine: 50+ Ye ars (2 of 2 - PCV) 01/13/2018 01/13/2017 Diabetes: Hemoglobin A1C 06/21/2022 Diabetes: Ophthalmology Exam 06/21/2022 Diabetes: Pedal Pulse Checked 06/21/2022 Diabetes: Sensory Foot Exam 06/21/2022 Diabetes: Visual Foot Exam 06/21/2022 Influenza Vaccine (Season Ended) 2024 Pneumococcal Vaccine: Peds ( 0 to 5 Years) and At-Risk Patients (6 to 49 Years) Discontinued 01/13/2017 Hepatitis B Vaccine Aged Out No longe r eligible based on patient's age to complete this topic Insurance Care Teams Toxicologist Relationship Specialty Start Date End Date Sergei Burt NP [address] [place] [address] PCP - General 02/25/20
[2024-07-13 11:17] LABS: Basophils Absolute Auto 0.1 X10*3/uL (0.0-0.2); Basophils Percent Auto 0.9 % (0-2); Eosinophils Absolute Auto 0.5 X10*3/uL (0.0-0.4); Eosinophils Percent Auto 7.2 % (0-4); Hematocrit 35.7 % (42.0-52.0); Hemoglobin 11.8 g/dl (14.0-18.0); Imm Gran Abs Auto 0.02 X10*3/uL (0.00-0.03); Imm Gran Pct Auto 0.3 % (0.0-0.4); Lymphocytes Percent Auto 29.4 % (20-40); Mean Corpuscular HGB Conc 33.1 g/dl (31.0-36.0); Mean Corpuscular Hemoglobin 30.3 pg (27.0-33.0); Mean Corpuscular Volume 91.5 fL (80.0-98.0); Mean Platelet Volume 9.5 fL (9.4-12.4); Monocytes Absolute Auto 0.7 X10*3/uL (0.1-1.2); Monocytes Percent Auto 10.8 % (2-11); Neutrophils Absolute Auto 3.4 x10*3/uL (2.0-8.3); Neutrophils Percent Auto 51.4 % (45-73); Platelet Count 287 X10*3/uL (160-400); Red Cell Distribution Width 13.8 % (11.0-16.0); White Blood Count 6.6 X10*3/uL (4.8-10.8)
[2024-07-13 11:26] LABS: Estimated Average Glucose 163 mg/dL; Hemoglobin A1c % 7.3 % (<6.0)
[2024-07-13 11:36] LABS: Appearance Urine Clear; Color Urine Yellow; Glucose Urine UA Negative (Negative); Leukocyte Esterase Urine Negative (Negative); Nitrite Urine Negative (Negative); Specific Gravity - Urine 1.025 (1.005-1.025); UMIC TRIGGER UACC YES; Urine Blood Negative (Negative); Urine Ketones Trace mg/dL (Negative); Urine Protein 100 (2+) mg/dL (Neg-Trace)
[2024-07-13 11:43] LABS: Bacteria Urine None Seen (None Seen); Hyaline Casts Urine 0-2 /LPF (0-2); RBC Urine 0-2 /HPF (0-2); Squamous Epithelial Cell Urine 0-2 /HPF (0-2); WBC Urine 0-5 /HPF (0-5)
[2024-07-13 12:36] LABS: Alanine Aminotransferase 23 U/L (0-40); Albumin Level 4.5 g/dL (3.5-5.0); Alkaline Phosphatase 54 U/L (39-117); Anion Gap 15 (12-20); Aspartate Amino Transferase 24 U/L (5-37); Bilirubin Total 0.6 mg/dL (0.0-1.0); Blood Urea Nitrogen 24 mg/dL (9-16); Calcium 9.2 mg/dL (8.4-10.2); Carbon Dioxide 22 mmol/L (22-29); Chloride 111 mmol/L (96-108); Cholesterol 136 mg/dL (<200); Estimated Glomerular Filt Rate 45; Glucose Fasting 151 mg/dL (60-99); HDL Cholesterol 55 mg/dL (>40); LDL Cholesterol Calculated 54 mg/dL (<100); Potassium 4.5 mmol/L (3.3-5.1); Sodium 143 mmol/L (135-145); TSH reflex Free T4 1.47 uIU/mL (0.32-4.0); Total Protein 6.9 g/dL (6.5-8.0); Triglycerides 139 mg/dL (<150)
[2024-07-13 13:02] LABS: Folate 14.9 ng/mL (> or = 4.0); Vitamin B12 533 pg/mL (200-900)
== END 2024-07-13 09:56 | disposition home or self-care (01) ==
LOC: HO.LAB 09:55
PROVIDERS: PCP Nurse Practitioner Family; Visit Provider Nurse Practitioner Family
DX: Z00.00 Encounter for general adult medical examination without abnormal findings (principal); E11.9 Type 2 diabetes mellitus without complications; E53.8 Deficiency of other specified B group vitamins
CPT/HCPCS: 36415; 80053; 80061; 81001; 82607; 82746; 83036; 84443; 85025

== ENCOUNTER 2024-07-31 10:00 | Outpatient (AMB) | payer MEDICARE, SELFPAY ==
--- NOTE | 2024-07-31 10:03 | MHC.PC.OV ---
Vital Signs 07/31/24 10:04 Height 5 ft 7 in Weight 156 lb BMI 24.4 BP 130/60 Blood Pressure Location Lt brachial Position Sitting Pulse 74 Pulse Source Pulse Oximeter Pulse Oximetry (%) 96 Oxygen Delivery Method Room Air Intake Visit Reasons: 4 month follow up - see comments Founder Required: No Accompanied by: Self / Same As Patient Allergies adhesive tape Allergy (Intermediate, Verified 07/31/24 10:04) BLISTERS Medication List - Last Reconciled 07/31/24 by NIKITA StrongP- albuterol sulfate 0.63 mg (3 mL) inhalation BID 30 days albuterol sulfate 90 mcg/actuation 2 puffs PO Q6H PRN budesonide 0.5 mg (2 mL) inhalation BID fluticasone propion-salmeterol 250-50 mcg/dose (Wixela Inhub) 1 inh inhalation Q12H 30 days fluticasone propionate 50 mcg/actuation 1 spray intranasal DAILY FreeStyle Bao 2 [place] (flash glucose scanning reader) TID testing NS FreeStyle Bao 2 Sensor (flash glucose sensor) TID testing NS insulin glargine (Lantus Solostar U-100 Insulin) 10 units (0.1 mL) subcut QPM lancets (FreeStyle Lancets) BID Freestyle lancets all flex lansoprazole 30 mg PO DAILY loratadine (Claritin) 10 mg PO DAILY PRN mecobalamin (vitamin B12) mcg PO metformin 1,000 mg PO BID multivitamin 1 tab PO DAILY nebulizers As directed sertraline 50 mg PO DAILY simvastatin 40 mg PO BEDTIME trazodone 100 mg PO BEDTIME Tobacco use date assessed: 03/21/24 Fall risk assessment: No Falls in past year Last assessed Fall Risk: 07/31/24 Dental Screening Dental Screen Date: 03/21/24 HPI 4 month follow up - see comments HPI Details Chief Complaint The patient reports inconsistent insulin use and episodes of hypoglycemia and hyperglycemia. History of Present Illness The patient is an 83-year-old male presenting for diabetes management and follow-up care. He reports inconsistent use of insulin, specifically Lantus, which he does not take daily, leading to episodes of hypoglycemia and hyperglycemia. The patient has been advised to take 10 units of Lantus every morning to maintain stable blood glucose levels. The patient reports symptoms of diabetic neuropathy, including sensation changes in his bilateral extremities. Despite these symptoms, a monofilament test confirmed intact sensation in his feet. The patient follows up with a sequins spooler and has an up-to-date eye exam, indicating adherence to some aspects of his preventative care regimen. Social History Health Maintenance - Eye exam is up to date Review of Systems - Endocrine: Reports inconsistent insulin use, episodes of hypoglycemia and hyperglycemia - Neurological: Reports neuropathy in bilateral extremities Physical Exam General: Cooperative, healthy appearing, comfortable, no acute distress and well developed Orientation: Patient oriented x3 Limitations: No limitations Head: Normal to inspection Ears: Hearing grossly normal bilaterally Nose: Normal external nose present Face and sinus: Normal facial exam Eyes: Appearance normal, both eyes and all related structures. Eye exam is up to date Neck: Normal visual inspection and Yes full ROM Respiratory: Normal respiratory effort and able to speak in complete sentences. Clear to auscultation bilaterally Cardiovascular: Regular rate and rhythm. Normal S1 and S2 GI: Normal to inspection. Soft to palpation and nontender Skin: No rashes or lesions noted Neuro: Patient oriented x3. Reports some neuropathy of bilateral extremities Extremities: Normal to inspection. Positive sensation and use of monofilament in feet were intact Results Plan The patient was advised to adhere to a consistent insulin regimen, specifically taking 10 units of Lantus every morning to manage his diabetes effectively. He was reminded of the importance of monitoring his blood glucose levels using his sensor to prevent episodes of hypoglycemia and hyperglycemia. Follow-up care includes regular visits with his sequins spooler and maintaining up-to-date eye exams as part of his preventative care. A follow-up appointment is scheduled in three months to reassess his diabetes management and overall health status. Discussion Notes I discussed with the patient the importance of taking his Lantus insulin consistently every morning to manage his diabetes and prevent fluctuations in blood glucose levels. We reviewed the use of his glucose sensor to monitor for hypoglycemia and hyperglycemia and emphasized the need for regular follow-ups with his sequins spooler and maintaining up-to-date eye exams. A follow-up appointment was scheduled in three months to evaluate his progress and adjust his management plan as necessary. Patient Instructions - Take 10 units of Lantus insulin every morning. - Use your glucose sensor to monitor blood sugar levels regularly. - Follow up with your sequins spooler as scheduled. - Ensure your eye exams are up to date. - Return for a follow-up appointment in three months. COUNTS INCLUDE 234 BEDS AT THE [facility] Medical History Asthma-COPD overlap syndrome Chronic renal insufficiency HTN (hypertension) Diabetes Esophageal dysmotility History of fall Tubular adenoma of colon Left arm numbness Right arm numbness Rib fractures Fall Occipital neuralgia Attention deficit disorder (ADD) Hx of bronchitis Intrinsic sphincter deficiency (ISD) Esophageal ring, acquired GERD (gastroesophageal reflux disease) Depression Post herpetic neuralgia Surgical History Hx of bilateral cataract extraction Hx of blepharoplasty Hx of esophageal hernia repair Hx of neck surgery History of implantation of artificial sphincter (~11/2019) History of esophagogastroduodenoscopy (EGD) History of right inguinal hernia repair (~03/2010) History of cervical spinal surgery History of colonoscopy History of back surgery History of radical prostatectomy Family History Father No problems noted. Mother Hx of colon cancer, stage I Substance use disorder Brother Hx of colon cancer, stage III Family/Other Substance use disorder Social History Housing: House Are you a primary reproductive healthcare assistant to a significant other at home: No Do you presently have visiting nurse or other home services: No Alcohol intake: never Comment: 3 MONTHS AGO MULTIPLE FALLS Patient Tobacco Use Status: Never used Tobacco e-Cigarette/Vaping Use: Never Used Second Hand Smoke Exposure: No service: No Current occupational status: retired Cognitive needs: No Hearing needs: Yes Vision needs: Yes Questionnaire PHQ-9 Over the last 2 weeks, how often have you been bothered by any of the following problems? 1. Little interest or pleasure in doing things: several days 2. Feeling down, depressed, or hopeless: several days 3. Trouble falling or staying asleep, or sleeping too much: not at all 4. Feeling tired or having little energy: nearly every day 5. Poor appetite or overeating: several days 6. Feeling bad about yourself - or that you are a failure or have let yourself or your family down: nearly every day 7. Trouble concentrating on things, such as reading the newspaper or watching television: nearly every day 8. Moving or speaking so slowly that other people could have noticed. Or the opposite - being so fidgety or restless that you have been moving around a lot more than usual: several days 9. Thoughts that you would be better off or of hurting yourself in some way: several days Total score: 14 Depression Screening Interpretation: Positive (denies any si or hi) Depression Screening Follow-up: Existing condition and Declines treatment Depression Screening Done: Yes 43209 - PHQ-9 Billing: Yes Source: Developed by Drs. Ronan Bray, Tova Jesus, Kush Kelley and colleagues, with an educational eleazar from [employer] Thrive Questionnaire Date Thrive assessed: 07/31/24 I am a: Patient What is your living situation today?: I have a steady place to live Within the past 12 months, did the food you bought not last and you didn't have the money to get more?: I choose not to answer this question Within the past 12 months, did you worry whether your food would run out before you got money to buy more?: I choose not to answer this question Do you have trouble paying for medicines?: No Do you have trouble getting transportation to medical appointments?: No Do you have trouble paying your heating and electricity bill?: No Do you have trouble taking care of your child, family member or friend?: No Do you have trouble with day-to-day activities such as bathing, preparing meals, shopping, managing finances, etc.?: No Are you currently unemployed and looking for a job?: No Are you interested in more education?: No Please select the resources that you would like help with: None Currently or been in a relationship where the following occur: No concerns reported THRIVE Score: 0 AUDIT C Alcohol Use Questionnaire (AUDIT-C) 1. How often do you have a drink containing alcohol?: Never 3. How often do you have six or more drinks on one occasion?: Never Total Score: 0 Score Reviewed/Action Taken: Yes LOCO-7 AMB Questionnaire LOCO-7 Date LOCO - 7 assessed: 07/31/24 Feeling nervous, anxious, or on edge: 1 = Several days Not being able to stop or control worryin = Several days Worrying too much about different things: 0 = Not at all Trouble relaxin = Not at all Being so restless that it is hard to sit still: 0 = Not at all Becoming easily annoyed or irritable: 0 = Not at all Feeling afraid as if something awful might happen: 0 = Not at all Total LOCO-7 score (0-4 normal; 5-9 mild; 10-14 moderate; 15-21 severe): 2 Source: Developed by Drs. Ronan Bray, Tova Jesus, Kush Kelley and colleagues, with an educational eleazar from [employer] LOCO-7 Assessment Billing LOCO-7 Assessment Tool: LOCO-7 Assessment 22352 Physical exam (Primary Care) Vital Signs: Last Vital Signs Pulse 74 07/31/24 10:04 BP 130/60 07/31/24 10:04 Pulse Ox 96 07/31/24 10:04 Oxygen Delivery Method Room Air 07/31/24 10:04 BMI result Body Mass Index 24.4 Tobacco/Smoking Status: Tobacco use Status Tobacco use date assessed 03/21/24 07/31/24 10:05 Patient Tobacco Use Status Never used Tobacco 07/31/24 10:05 e-Cigarette/Vaping Use Never Used 07/31/24 10:05 PHQ-9: PHQ-9 Score PHQ-9: Total score 14 07/31/24 10:05 Depression Screening Interpretation: Positive (denies any si or hi) Depression Screening Follow-up: Existing condition and Declines treatment Thrive Assessment: Date of Thrive Assessment Date Thrive assessed 07/31/24 07/31/24 10:05 Currently or been in a relationship where the following occur: No concerns reported Coding Level of Care Code Est Pt Level 3 (50255) Diagnoses Diabetes E11.9 B12 deficiency E53.8 Additional Codes LOCO-7 Assessment Billing - LOCO-7 Assessment Tool: LOCO-7 Assessment 14790 ([id number]) PHQ-9 - 87637 - PHQ-9 Billing: Yes ([id number]) Assessment & Plan Assessment & Plan (1) Diabetes: Code(s): E11.9 - Type 2 diabetes mellitus without complications Category: Medical (2) B12 deficiency: Code(s): E53.8 - Deficiency of other specified B group vitamins Category: Medical Plan . Orders: Orders Complete Blood Count Auto Diff Today E11.9 - Type 2 diabetes mellitus without complications, E53.8 - Deficiency of other specified B group vitamins Comprehensive [place]. Panel Fast Today E11.9 - Type 2 diabetes mellitus without complications, E53.8 - Deficiency of other specified B group vitamins TSH reflex Free T4 Today E11.9 - Type 2 diabetes mellitus without complications, E53.8 - Deficiency of other specified B group vitamins UA CC w/rflx Micro + Cult Today E11.9 - Type 2 diabetes mellitus without complications, E53.8 - Deficiency of other specified B group vitamins Lipid Panel Today E11.9 - Type 2 diabetes mellitus without complications, E53.8 - Deficiency of other specified B group vitamins Vitamin B12 and Folate Today E11.9 - Type 2 diabetes mellitus without complications, E53.8 - Deficiency of other specified B group vitamins Patient Instructions: .
[2024-07-31 10:04] VITALS: BP 130/60; PULSE 74; O2SAT 96; BMI 24.4
--- OUTSIDE RECORDS SUMMARY | 2024-07-31 11:21 | XMS_ITS | Clinical Summary ---
Author Organization [facility] Address [address] [facility] [address] [place] [address] Phone Care Team Providers Care Leather Production Machine Operator Name Role Phone Sergei Burt NP Primary Care Provider [phone] Allergies Active Allergy Reactions Criticality Noted Date [...] Orders Only [facility] [address] [phone] Paddy Osullivan MD Hypertensive renal disease from [...] Office Visit [facility] [address] [phone] Paddy Osullivan MD [address] [phone] Health Maintenance Due Date Last Done Comments [...] to complete this topic Insurance Care Teams Leather Production Machine Operator Relationship Specialty Start Date End Date Sergei Burt NP [address] [place] [address] PCP - General 02/25/20
== END 2024-07-31 10:46 | disposition home or self-care (01) ==
LOC: HO.HMCC 10:01
PROVIDERS: PCP Nurse Practitioner Family; Visit Provider Nurse Practitioner Family
DX: E11.9 Type 2 diabetes mellitus without complications (principal); E53.8 Deficiency of other specified B group vitamins

== ENCOUNTER → 2024-07-31 10:00 | Outpatient (BNVA) | payer MEDICARE, SELFPAY | PROVIDERS: PCP Nurse Practitioner Family; Visit Provider Nurse Practitioner Family | DX: E11.65 Type 2 diabetes mellitus with hyperglycemia (principal); E11.649 Type 2 diabetes mellitus with hypoglycemia without coma; E53.8 Deficiency of other specified B group vitamins; Z79.4 Long term (current) use of insulin | CPT/HCPCS: 96127; 99212 ==

== ENCOUNTER 2024-08-27 10:53 | Outpatient (AMB) | payer MEDICARE, SELFPAY ==
[2024-08-27 10:56] VITALS: BP 170/67; PULSE 62; BMI 24.2
--- NOTE | 2024-08-27 10:56 | A.OFFVIS_ITS ---
Vital Signs 08/27/24 10:56 Height 5 ft 7 in Weight 154 lb 5.177 oz BMI 24.2 BP 170/67 H Blood Pressure Location Lt brachial Position Sitting Pulse 62 Intake Visit Reasons: 6 mo Intake Note: Sergei presents in the office as a 6 month follow up CC: Has a stool BM chart - he feels like his entyivio is not helping him. Stools are watery diarrhea stools. Wants to schedule EGD to laser the scar tissues - has issues with his swallowing. Coating Machine Operator Helper Required: No Allergies adhesive tape Allergy (Intermediate, Verified 08/27/24 10:56) BLISTERS HPI HPI 6 mo: Details: 83 yr old m with DM, prostate cancer 2004 here for f/u RECAP: He had EGD for dysphagia with dilation of stricture 01/2020 I then repeated the EGD 10/2020-- noted hiatal hernia 4 cm, jack erosion, balloon dilation 20 mm with tears noted at [facility] EGD/colonoscopy 01/2021: tubulovillous adenoma removed, chronci duodenitis, schatzki ring, hiatal hernia, retained clip removed--balloon dilation 18-19 mm He was referred to Dr Kent and had para esophageal hernia repair with mesh and gastropexy 05/2021- he also required esophgeal dilation few months after that repeat EGD/colo:03/2022 Endoscopy Findings: hiatal hernia esophageal rings and stricture duodenitis Colonoscopy Findings: polyp internal hemorrhoids diverticular disease segmental colitis balloon dilation with tear noted Path: A. Duodenum, biopsy: Duodenal mucosa within normal limits. B. Stomach, biopsy: Oxyntic mucosa with mild chronic inactive inflammation; no Helicobacter organisms seen. C. Terminal ileum, biopsy: Terminal ileal mucosa within normal limits. D. Colon, random, biopsy: Colonic mucosa with features of microscopic colitis. E. Colon, ascending, polypectomy: Clinically polypoid colonic mucosa with prolapse changes and features of microscopic colitis. F. Colon, sigmoid, biopsy: Colonic mucosa with features of collagenous colitis. G. Rectum, biopsy: Colonic mucosa with features of microscopic colitis. He was tried on mesalamine, pepto was initially suggested but due to interactions went with the mesalamine GI stool panel was neg lactoferrin was raised c diff sample was invalid EGD: 08/07 hiatal hernia esophageal rings and stricture duodenitis esophageal inlet patch I ordered CT brain due to swallowing, showed chronic ischemic changes and mastoiditis, was give doxycycline INTERIM: he has ongoing choking and loose stools, and frequency he stopped PPI, and bupropion and not helped still on sertraline, not sure if it helps depression on entyvio but not sure if helping EXAM: GENERAL: The patient is well developed and nontoxic. VITAL SIGNS:see workflow HEENT: Nonicteric sclerae, PERRLA, EOMI. Oropharynx clear. Moist mucous membranes. Conjunctivae appear well perfused. No thyroid mass. CHEST: Chest wall is nontender. HEART: Regular rate and rhythm without murmurs. LUNGS: lungs are clear --good a/e ABDOMEN: Soft, positive bowel sounds, nontender, no organomegaly.no flank tenderness SKIN: No rash, no excessive bruising, petechiae, or purpura. 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, causing his diarrhea--not helped by budesonide or mesalamine, on entyvio now 2/ swallowing issues, since surgery--prior dilation did help- also has inlet patch and HH PLAN: 1/ sigmoidoscopy and repet bx 2/ repeat EGD with ablation of patch and dilation as dialtion did help 3/ hold PPI for the moment and advised to talk to PCP abt stopping ssri and see i helps 4/ depending on above might get entyvio levels [facility] Medical History Asthma-COPD overlap syndrome Chronic renal insufficiency HTN (hypertension) Diabetes Esophageal dysmotility History of fall Tubular adenoma of colon Left arm numbness Right arm numbness Rib fractures Fall Occipital neuralgia Attention deficit disorder (ADD) Hx of bronchitis Intrinsic sphincter deficiency (ISD) Esophageal ring, acquired GERD (gastroesophageal reflux disease) Depression Post herpetic neuralgia Surgical History Hx of bilateral cataract extraction Hx of blepharoplasty Hx of esophageal hernia repair Hx of neck surgery History of implantation of artificial sphincter (~11/2019) History of esophagogastroduodenoscopy (EGD) History of right inguinal hernia repair (~03/2010) History of cervical spinal surgery History of colonoscopy History of back surgery History of radical prostatectomy Family History Father No problems noted. Mother Hx of colon cancer, stage I Substance use disorder Brother Hx of colon cancer, stage III Family/Other Substance use disorder Social History Housing: House Are you a primary neonatal critical care nurse to a significant other at home: No Do you presently have visiting nurse or other home services: No Alcohol intake: never Comment: 3 MONTHS AGO MULTIPLE FALLS Patient Tobacco Use Status: Never used Tobacco e-Cigarette/Vaping Use: Never Used Second Hand Smoke Exposure: No service: No Current occupational status: retired Cognitive needs: No Hearing needs: Yes Vision needs: Yes Physical Exam Vital Signs: Last Vital Signs Pulse 62 08/27/24 10:56 BP 170/67 H 08/27/24 10:56 BMI result Body Mass Index 24.2 Assessment & Plan Assessment & Plan (1) Dysphagia: Code(s): R13.10 - Dysphagia, unspecified Category: Medical Qualifiers: Dysphagia type: other dysphagia Qualified Code(s): R13.19 - Other dysphagia Plan: see above (2) Diarrhea: Code(s): R19.7 - Diarrhea, unspecified Category: Medical Plan: see above Coding Level of Care Code Est Pt Level 4 (22839) Diagnoses Other dysphagia R13.19 Dysphagia type: other dysphagia Diarrhea R19.7
--- OUTSIDE RECORDS SUMMARY | 2024-08-27 11:52 | XMS_ITS | Clinical Summary ---
Author Organization [facility] Address [address] [place] [address] Care Team Providers Care Infantry Unit Leader Name Role Phone Sergei Burt EROS Primary Care Provider Surgical History Surgery Date Site/Laterality Comments CERVICAL LAMINECTOMY PROCEDURE: HISTORICAL CERV LAMINECTOMY; COMMENT: 08/04/20: C3-4, C4-5 decompressive laminectomy; R C6-7 foraminotomy (Dr. Sainz, [facility]) OTHER SURGICAL HISTORY PROCEDURE: LA UNLISTED PROCEDURE SPINE; COMMENT: 06/06/18: R L2-3, R L3-4 minimally invasive decompression and foraminotomies (Dr. Gilliam, [facility]) OTHER SURGICAL HISTORY PROCEDURE: LA LAPT RPR PARAESOPH HIATAL HERNIA W/MESH; COMMENT: 05/18/21: robotic lap paraesophageal hernia repair w/ mesh and gastropexy (Dr. Kent, [facility]) Medical History Medical History Date Comments Type 2 diabetes mellitus wit hout complications (CMS/HCC V24, CMS/HCC V28) DX:Type 2 marvin betes mellitus without complications (HCC) GERD (gastroesophageal reflux [...] Vaccines (1 of 2) 1990 RSV Immunization Adult Patie nts (1 - 1-dose 75+ series) 08/06/2015 Cholesterol Screening (Lipid Panel) 01/12/2022 Depression Screening 01/12/2022 Falls Risk Assessment 01/12/2022 Social Influencers of Health Screening 01/12/2022 COVID-19 Vaccine (1 - 2023-2 5 season) 2023 Influenza Vaccine (#1) 2024 HIB Vaccines Aged Out No longer eligi [...] age to complete this topic Meningococcal B Vaccine Aged Out No l onger eligible based on patient's age to complete this topic RSV Immunization Patients Un kle 20 months Aged Out No longer eligible b ased on patient's age to complete this topic Varicella Vaccines Aged Out No longer eligible based on patient's age to complete this topic Advance Directives Documents on File Type Date Recorded Patient Tile Applicator Expl anation Health Care Decision (hx) 08/06/2020 KENZIE JONES DIRECTIVE Care Teams Infantry Unit Leader Relationship Specialty Start Date End Date Sergei Burt NP [address] [facility] JERICA Lance PCP - General Family Medicine 4/9/19
--- OUTSIDE RECORDS SUMMARY | 2024-08-27 11:52 | XMS_ITS | Clinical Summary ---
Author Organization [facility] Address [address] [facility] [address] [place] [address] Phone Care Team Providers Care Dairy Cattle Farm Worker Name Role Phone Sergei Burt BED CONTROL SPECIALIST Primary Care Provider [phone] Allergies Active Allergy Reactions Criticality Noted Date [...] mouth 1 (one) time each day Active insulin glargine (LANTUS) 100 UNIT/ML injection Inject under the skin every night Active Multiple Vitamins-Minera ls (CENTRUM SILVER 50+MEN PO) Take by mouth Active Active Problems Problem Noted Date Diagnosed Date Stage 3a chronic kidney disease 05/30/2023 Acute nontraumatic kidney injury 06/21/2022 Hypertensive renal disease 06/17/2022 Proteinuria 06/17/2022 Disorder of kidney and/or ureter 06/17/2022 Resolved Problems Problem Noted Date Diagnosed Date Resolved Date Chronic kidney disease, stage 2 (mild) 06/21/2022 05/30/2023 Chronic kidney disease stage 1 06/17/2022 06/21/2022 Type 2 diabetes mellitus without complication 06/18/1906/17/2022 Encounters Date Type Department Care Team Description 08/20/2024 2:15 PM EDT Office Visit [facility] [address] [phone] Paddy Osullivan MD Stage 3a chronic kidney disease (HCC) (Primary Dx); Hypertensive renal disease; Type 2 diabetes mellitus with diabetic chronic kidney disease (HCC) from Last 3 Months Immunizations Immunization Administration [...] Sign Reading Time Taken Comments Blood Pressure 124/62 08/20/2024 2:30 PM EDT Pulse 62 08/20/2024 2:30 PM EDT Temperature - - Respiratory Rate - - Oxygen Saturation - - Inhaled Oxygen Concentration - - Weight 70 kg (154 lb 6.4 oz) 08/20/2024 2:30 PM EDT Height - - Body Mass Index - - Plan of Treatment Upcoming Encounters Date Type Department Care Team (Late st Contact Info) Description 04/15/2025 1:30 PM EST Office Visit [facility] [address] [place] [phone] Paddy Osullivan MD [address] [phone] Health Maintenance Due Date Last Done Comments Pneumococcal Vaccine: 50+ Ye ars (2 of 2 - PCV) 01/13/2018 01/13/2017 Diabetes: Hemoglobin A1C 06/21/2022 Diabetes: Ophthalmology Exam 06/21/2022 Diabetes: Pedal Pulse Checked 06/21/2022 Diabetes: Sensory Foot Exam 06/21/2022 Diabetes: Visual Foot Exam 06/21/2022 Influenza Vaccine (#1) 2024 Pneumococcal Vaccine: Peds ( 0 to 5 Years) and At-Risk Patients (6 to 49 Years) Discontinued 01/13/2017 Hepatitis B Vaccine Aged Out No longe r eligible based on patient's age to complete this topic Procedures Procedure Name Priority Date/Time Associated Diagnosis Comments BASIC METABOLIC PANEL (BMP) (EXTERNAL LAB ENTRY) Routine 07/13/2024 from Last 3 Months Results * Basic Metabolic Panel (BMP) (07/13/2024) Sodium 143 mEq/L Potassium 4.5 mEq/L Chloride 111 Carbon Dioxide 22 mmol/L Calcium 9.2 mg/dL BUN 24 mg/dL Creatinine 1.48 mg/dL eGFR Non-Afr Ukrainian 45 07/13/2024 us Historical Provider LAB BLOOD ORDERABLES Sharon l Result from Last 3 Months Insurance [facility] Care Teams Dairy Cattle Farm Worker Relationship Specialty Start Date End Date Sergei Burt NP [address] [place] [id number] PCP - General 02/25/20
== END 2024-08-27 11:24 | disposition home or self-care (01) ==
LOC: HO.HGI 10:54
PROVIDERS: PCP Nurse Practitioner Family; Visit Provider Internal Medicine Gastroenterology
DX: R13.19 Other dysphagia (principal); R19.7 Diarrhea, unspecified
CPT/HCPCS: 99214

== ENCOUNTER → 2024-08-27 10:53 | Outpatient (BNVA) | payer MEDICARE, SELFPAY | PROVIDERS: PCP Nurse Practitioner Family; Visit Provider Internal Medicine Gastroenterology | DX: R13.19 Other dysphagia (principal); R19.7 Diarrhea, unspecified | CPT/HCPCS: 99212 ==

== ENCOUNTER 2024-08-28 11:03 | Outpatient (AMB) | payer MEDICARE, SELFPAY ==
--- NOTE | 2024-08-28 11:14 | A.OFFVIS_ITS ---
Vital Signs 08/28/24 11:22 Height 5 ft 6 in Weight 155 lb 6.814 oz BMI 25.1 BP 130/56 L Blood Pressure Location Lt brachial Position Sitting Pulse 60 Pulse Source Pulse Oximeter Pulse Oximetry (%) 98 Oxygen Delivery Method Room Air Intake Visit Reasons: Bronchitis Special Systems Technician Required: No Accompanied by: Spouse Allergies adhesive tape Allergy (Intermediate, Verified 08/28/24 11:25) BLISTERS HPI Comments Details: TThe patient is an 84-year-old gentleman with a known history of COPD was developing worsening respiratory symptoms. He was recently evaluated in the ER for worsening wheezing and chest congestion. He did have a chest x-ray there which I personally reviewed without any acute disease. He also had CT scan of the chest which I also reviewed from 2021 demonstrating normal lung parenchyma. Also demonstrated a thickened esophagus. He has been working very closely with GI. He has had issues with difficulty swallowing and was noted to have an esophageal stricture along with evidence of esophageal dysmotility reflux disease and hiatal hernia. Currently the patient is doing better from a respiratory status. Denies any significant wheezing or coughing. the patient does feel that the GI issue at times precipitates his breathing issues which I d o agree with him. The patient currently is scheduled to undergo a repeat endoscopy with likely balloon dilation to improve his overall swallow. The patient will be started on long-acting beta agonist with inhaled cortical steroid to decrease he is exacerbations. But right now he is doing well from a pulmonary standpoint. He feels like he is back to his baseline. Will plan to perform pulmonary function studies. From a preoperative standpoint the patient is doing better and may he will to proceed with anesthesia and endoscopy without any limitations. 09/06/2023 the patient is here for a pulmonary follow-up visit. Overall the patient has been doing well. He did follow-up with GI and also was surgery. He does have significant esophageal strictures and other abnormalities due to hiata l hernia. Unfortunately hiatal hernia was attempted to be corrected in the past in therefore that difficult redo. He is going to follow-up with GI. In the meantime he is responding well to the current GI cocktail. The patient also has been using his inhalers. We did talk about making sure to use the Wixela every morning. He needs to rinse his mouth. Hopefully will help with his chest congestion. In addition to that we talked about the importance of sleeping elevated at nighttime to make sure that he avoids any micro aspirations into the lungs due to that hiatal hernia. We did review his CT scan of the chest which is reassuring. He will continue with the current respiratory therapy. 02/17/2024 the patient is here for sick visit. He has had worsening respiratory symptoms for the last several weeks. Started developing cough. Congested nature. In addition to that more wheezing. She did respond well to the prednisone. He was running out in the family called for additional prednisone. Therefore appointment was May. Been complaining that even activities of daily living causing him to have significant shortness of breath. In the office I did taken for brief walking oximetry the patient oxygen was reassuring around 96-97% with activity. Heart rhythm sounds stable. However, has significant wheezing and rhonchi. Therefore he is going to be prescribed antibiotics and prednisone for COPD exacerbation. Also will undergo a chest x-ray. If the patient is no better he will call for an earlier assessment otherwise follow-up in a couple months. 04/26/2024 the patient is here for sick visit. He has been sick for the last couple weeks. Significant cough. Chest congestion and wheezing. He has been using his nebulizer with partial response. He also goes into some choking starts coughing. In the office he has significant wheezing and rhonchi. We did received 2 DuoNebs back to back which did improve his breathing a little bit. The patient does have diabetes but he does need some prednisone at this time. He has been on the maintenance inhaler. Will go ahead and add budesonide b.i.d. via his nebulizer he knows to rinse his mouth. Hopefully with the budesonide addition he will not need as much prednisone. Will also request a chest x-ray. The patient will start prednisone and also some antibiotics. Will return in 2-3 months. If the x-ray is abnormal will discuss that in additional imaging studies would likely be warranted. 08/28/2024 the patient is here for a pulmonary follow-up visit. The patient overall has been doing better from a respiratory status. His cough is improved and also no significant wheezing. He does have the Wixela and also has his rescue inhaler and also his nebulizer therapy. He has not had to use it as often now. He did have a chest x-ray that I reviewed back in the spring demonstrating no acute pulmonary disease. He is only issue is he has a postnasal drip and a cough and nasal congestion. Moderate severity. He does have what secretions in the posterior pharynx in chronic sinusitis. Will go ahead and start him on some doxycycline. In the meantime he needs to use his nasal sprays regularly and also the sinus rinse. The patient has been having some difficulties with the swallow. He is going to have an endoscopy soon to assess the swallow and also a sigmoidoscopy. From a respiratory status the patient is doing well and may be able to proceed with anesthesia and his endoscopies. The patient will follow-up with Pulmonary in the spring. If he has any issues prior to this he will call for an earlier assessment. [facility] Medical History (Updated 08/28/24 @ 21:56 by Theodore Salvador MD) Sinusitis Asthma-COPD overlap syndrome Chronic renal insufficiency HTN (hypertension) Diabetes Esophageal dysmotility History of fall Tubular adenoma of colon Left arm numbness Right arm numbness Rib fractures Fall Occipital neuralgia Attention deficit disorder (ADD) Hx of bronchitis Intrinsic sphincter deficiency (ISD) Esophageal ring, acquired GERD (gastroesophageal reflux disease) Depression Post herpetic neuralgia Surgical History Hx of bilateral cataract extraction Hx of blepharoplasty Hx of esophageal hernia repair Hx of neck surgery History of implantation of artificial sphincter (~11/2019) History of esophagogastroduodenoscopy (EGD) History of right inguinal hernia repair (~03/2010) History of cervical spinal surgery History of colonoscopy History of back surgery History of radical prostatectomy Family History Father No problems noted. Mother Hx of colon cancer, stage I Substance use disorder Brother Hx of colon cancer, stage III Family/Other Substance use disorder Social History Housing: House Are you a primary tree care foreman to a significant other at home: No Do you presently have visiting nurse or other home services: No Alcohol intake: never Comment: 3 MONTHS AGO MULTIPLE FALLS Patient Tobacco Use Status: Never used Tobacco e-Cigarette/Vaping Use: Never Used Second Hand Smoke Exposure: No service: No Current occupational status: retired Cognitive needs: No Hearing needs: Yes Vision needs: Yes Review of Systems Const Denies chills and Denies fever(s) Eyes Denies blurry vision ENT Reports dysphagia, Denies vertigo, Denies dizziness and Denies sore throat Card Denies chest pain at rest, Denies chest pain with activity, Denies diaphoresis and Reports dyspnea on exertion Resp Denies chest congestion, Reports cough, Reports dyspnea on exertion and Denies wheezing GI Reports as per HPI, Denies hematochezia, Denies constipation, Reports dysphagia, Reports dyspepsia, Reports heartburn, Denies diarrhea and Denies loose stools Musc Denies numbness and Denies tingling Skin/Breast Denies lesions Neuro Denies vertigo, Denies dizziness, Denies numbness and Denies tingling Psych Denies anxiety, Denies depression, Denies homicidal ideation, Denies suicidal ideation and Denies other (substance abuse) Aller/Immun Denies wheezing Physical Exam Vital Signs: Last Vital Signs Pulse 60 08/28/24 11:22 BP 130/56 L 08/28/24 11:22 Pulse Ox 98 08/28/24 11:22 Oxygen Delivery Method Room Air 08/28/24 11:22 BMI result Body Mass Index 25.1 Const General: no acute distress, well developed and alert Nutritional Appearance: well nourished Orientation/consciousness: patient oriented x3 HEENT Head: Yes normocephalic and Yes atraumatic Neck Neck: Yes supple Chest Chest palpation & inspection: normal inspection of the chest Resp Effort & Inspection: normal respiratory effort Auscultation: no rhonchi, no wheezes and diminished lung sounds Cardio Rate: regular rate Rhythm: regular rhythm Heart sounds: S1 normal heart sound present, S2 normal heart sound present and no murmurs Skin General skin exam: no rashes or lesions noted Neuro General: patient oriented x3 Extrem General: Yes no clubbing, cyanosis or edema Psych Attitude: cooperative Assessment & Plan Assessment & Plan (1) Dysphagia: Code(s): R13.10 - Dysphagia, unspecified Category: Medical Qualifiers: Dysphagia type: other dysphagia Qualified Code(s): R13.19 - Other dysp hagia (2) Hiatal hernia: Code(s): K44.9 - Diaphragmatic hernia without obstruction or gangrene Category: Medical (3) Asthma-COPD overlap syndrome: Code(s): J44.89 - Other specified chronic obstructive pulmonary disease Category: Medical (4) Sinusitis: Code(s): J32.9 - Chronic sinusitis, unspecified Category: Medical Qualifiers: Sinusitis location: unspecified location Chronicity: subacute Qualified Code(s): J01.90 - Acute sinusitis, unspecified Plan nebulizer 2 times a day stop Budesonide BID, Rinse start Doxycycline for sinusitis restart nasal therapy spray continue Wixela MYLES as needed reflux diet Needs to sleep with the head of bed elevated F/U 6-8 months Medications: New doxycycline hyclate 100 mg PO BID 28 caps 0RF 14 days Coding Level of Care Code Est Pt Level 4 (22652) Complex EM visit Add On G2211 Diagnoses Other dysphagia R13.19 Dysphagia type: other dysphagia Hiatal hernia K44.9 Asthma-COPD overlap syndrome J44.89 Subacute sinusitis, unspecified location J01.90 Sinusitis location: unspecified location Chronicity: subacute Time Spent (min) 17
[2024-08-28 11:22] VITALS: BP 130/56; PULSE 60; O2SAT 98; BMI 25.1
== END 2024-08-28 11:50 | disposition home or self-care (01) ==
LOC: HO.HPS 11:04
PROVIDERS: PCP Nurse Practitioner Family; Visit Provider Hospitalist
DX: R13.19 Other dysphagia (principal); K44.9 Diaphragmatic hernia without obstruction or gangrene; J44.89 Other specified chronic obstructive pulmonary disease; J01.90 Acute sinusitis, unspecified
CPT/HCPCS: 99214; G2211

== ENCOUNTER → 2024-08-28 11:03 | Outpatient (BNVA) | payer MEDICARE, SELFPAY | PROVIDERS: PCP Nurse Practitioner Family; Visit Provider Hospitalist | DX: K44.9 Diaphragmatic hernia without obstruction or gangrene (principal); J01.90 Acute sinusitis, unspecified; R13.19 Other dysphagia; J44.89 Other specified chronic obstructive pulmonary disease | CPT/HCPCS: 99212 ==

== ENCOUNTER 2024-08-30 10:51 | Day surgery (SDC) | payer MEDICARE, SELFPAY ==
--- OUTSIDE RECORDS SUMMARY | 2024-08-28 09:53 | XMS_ITS | Clinical Summary ---
Author Organization [facility] Address [address] [place] [address] Care Team Providers Care Inspector Final Assembly Mechanical Name Role Phone Sergei Burt EROS Primary Care Provider [phone] Surgical History Surgery Date Site/Laterality Comments CERVICAL LAMINECTOMY PROCEDURE: HISTORICAL CERV LAMINECTOMY; COMMENT: 08/04/20: C3-4, C4-5 decompressive laminectomy; R C6-7 foraminotomy (Dr. Sainz, [facility]) OTHER SURGICAL HISTORY PROCEDURE: ND UNLISTED PROCEDURE SPINE; COMMENT: 06/06/18: R L2-3, R L3-4 minimally invasive decompression and foraminotomies (Dr. Gilliam, [facility]) OTHER SURGICAL HISTORY PROCEDURE: ND LAPT RPR PARAESOPH HIATAL HERNIA W/MESH; COMMENT: 05/18/21: robotic lap paraesophageal hernia repair w/ mesh and gastropexy (Dr. Kent, 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
--- OUTSIDE RECORDS SUMMARY | 2024-08-28 09:53 | XMS_ITS | Clinical Summary ---
Author Organization [facility] Address [address] [facility] [address] [place] [address] Phone Care Team Providers Care Sales Associate Key Holder Name Role Phone Sergei Burt MANAGER WASTEWATER Primary Care Provider [phone] Allergies Active Allergy Reactions Criticality Noted Date [...] Office Visit [facility] [address] [phone] Paddy Osullivan MD Stage 3a chronic kidney [...] Office Visit [facility] [address] [place] [phone] Paddy Osullivan MD [address] [phone] Health Maintenance Due Date Last Done Comments [...] 24 mg/dL Creatinine 1.48 mg/dL eGFR Non-Afr Jordanian 45 07/13/2024 us Historical Provider LAB BLOOD ORDERABLES Sharon l Result from Last 3 Months Insurance [facility] Care Teams Sales Associate Key Holder Relationship Specialty Start Date End Date Sergei Burt NP [address] [place] [id number] PCP - General 02/25/20
--- NOTE | 2024-08-29 08:04 | HO.ANESPROP2 ---
Documented by User: Ely Agarwal NP 08/29/24 08:08 HPI - Anesthesia Eval Consult details Narrative: 84yo M for Upper Endo with APC, Sigmoidoscopy Flexible Pulmo optimized to proceed. Follows [facility] Pulmo for Asthma-COPD. Preop eval 08/28/24 - respiratory disease stable and well controlled on current regimen, started on doxy for sinusitis PMFSH Active Problems Active Problems: All Active Problems Sinusitis (Acute) Microscopic colitis (Acute) COPD exacerbation (Acute) Right flank pain (Acute) Diabetes (Acute) Skin lesion (Acute) Anemia (Acute) Pre-op chest exam (Acute) Weakness (Acute) Upper respiratory infection (Acute) Poor balance (Acute) Bronchitis (Acute) Physical exam (Acute) Dysphagia (Acute) Lower extremity weakness (Acute) Fatigue (Acute) Diarrhea (Acute) Diarrhea (Acute) B12 deficiency (Acute) Screening PSA (prostate specific antigen) (Acute) Incarcerated paraesophageal hernia (Acute) Hiatal hernia (Acute) Diabetes mellitus with kidney complication (Acute) HTN (hypertension) (Acute) Degenerative disc disease, cervical (Acute) Cervical radiculopathy (Acute) Kidney disease (Acute) Asthma-COPD overlap syndrome (Acute) GERD (gastroesophageal reflux disease) (Acute) Esophageal dysmotility (Acute) Esophageal ring, acquired (Acute) Depression (Acute) Past Medical History Medical History (Updated 08/28/24 @ 21:56 by Theodore Salvador MD) Sinusitis Asthma-COPD overlap syndrome Chronic renal insufficiency HTN (hypertension) Diabetes Esophageal dysmotility History of fall Tubular adenoma of colon Left arm numbness Right arm numbness Rib fractures Fall Occipital neuralgia Attention deficit disorder (ADD) Hx of bronchitis Intrinsic sphincter deficiency (ISD) Esophageal ring, acquired GERD (gastroesophageal reflux disease) Depression Post herpetic neuralgia Family History Family History Father No problems noted. Mother Hx of colon cancer, stage I Substance use disorder Brother Hx of colon cancer, stage III Family/Other Substance use disorder Family history of problems with anesthesia: No Surgical History Surgical History Hx of bilateral cataract extraction Hx of blepharoplasty Hx of esophageal hernia repair Hx of neck surgery History of implantation of artificial sphincter (~11/2019) History of esophagogastroduodenoscopy (EGD) History of right inguinal hernia repair (~03/2010) History of cervical spinal surgery History of colonoscopy History of back surgery History of radical prostatectomy History of Problems with Anesthesia: No Social History Social History Housing: House Are you a primary hospice care sales consultant to a significant other at home: No Do you presently have visiting nurse or other home services: No Alcohol intake: never Comment: 3 MONTHS AGO MULTIPLE FALLS Patient Tobacco Use Status: Never used Tobacco e-Cigarette/Vaping Use: Never Used Second Hand Smoke Exposure: No Use of substances other than those prescribed or required for medical reasons: No Have you been hit, kicked, punched, or otherwise hurt by someone within the past year? If so, by whom?: No Are you DNR?: No Advance Directives: No Advance Directives Information Provided: Yes Advance Directives on File: No Poor oral hygiene: No service: No Current occupational status: retired Cognitive needs: No Hearing needs: Yes Vision needs: Yes Meds Allergies Allergy/AdvReac Type Severity Reaction Status Date / Time adhesive tape Allergy Intermediate BLISTERS Verified 08/28/24 11:25 Home Medications ?Medication ?Instructions ?Recorded ?Confirmed ?Last Taken ?Type mecobalamin (vitamin B12) 500 mcg mcg PO 11/01/22 07/31/24 Unknown History chewable tablet multivitamin 1 tab PO DAILY 08/26/23 07/31/24 Unknown History nebulizers 09/06/23 07/31/24 Unknown History loratadine 10 mg tablet (Claritin) 10 mg PO DAILY PRN 04/26/24 07/31/24 Unknown History biotin 2,500 mcg capsule 1,000 mcg PO DAILY 08/27/24 Unknown History bupropion HCl 300 mg 24 hr tablet, 300 mg PO QAM 08/27/24 Unknown History extended release vedolizumab 300 mg intravenous 300 mg IV Q8W 08/27/24 Unknown History solution (Entyvio) Exam Pertinent Lab Results Pertinent Lab Results: Laboratory Tests 07/13/24 10:14 WBC 6.6 Hgb 11.8 L Hct 35.7 L Plt Count 287 Sodium 143 Potassium 4.5 Chloride 111 H Carbon Dioxide 22 BUN 24 H Creatinine 1.48 H Assessment and Plan Assessment Anesthesia Assessment: Chart Reviewed Final Anesthetic Review Family History of Problems with Anesthesia: No History of Problems with Anesthesia: No Documented by User: Jung Reynolds MD 08/30/24 12:09 [facility] Past Medical History Medical History (Updated 08/28/24 @ 21:56 by Theodore Salvador MD) Sinusitis Asthma-COPD overlap syndrome Chronic renal insufficiency HTN (hypertension) Diabetes Esophageal dysmotility History of fall Tubular adenoma of colon Left arm numbness Right arm numbness Rib fractures Fall Occipital neuralgia Attention deficit disorder (ADD) Hx of bronchitis Intrinsic sphincter deficiency (ISD) Esophageal ring, acquired GERD (gastroesophageal reflux disease) Depression Post herpetic neuralgia Family History Family History Father No problems noted. Mother Hx of colon cancer, stage I Substance use disorder Brother Hx of colon cancer, stage III Family/Other Substance use disorder Surgical History Surgical History Hx of bilateral cataract extraction Hx of blepharoplasty Hx of esophageal hernia repair Hx of neck surgery History of implantation of artificial sphincter (~11/2019) History of esophagogastroduodenoscopy (EGD) History of right inguinal hernia repair (~03/2010) History of cervical spinal surgery History of colonoscopy History of back surgery History of radical prostatectomy Social History Social History Housing: House Are you a primary hospice care sales consultant to a significant other at home: No Do you presently have visiting nurse or other home services: No Alcohol intake: never Comment: 3 MONTHS AGO MULTIPLE FALLS Patient Tobacco Use Status: Never used Tobacco e-Cigarette/Vaping Use: Never Used Second Hand Smoke Exposure: No Use of substances other than those prescribed or required for medical reasons: No Have you been hit, kicked, punched, or otherwise hurt by someone within the past year? If so, by whom?: No Are you DNR?: No Advance Directives: No Advance Directives Information Provided: Yes Advance Directives on File: No Poor oral hygiene: No service: No Current occupational status: retired Cognitive needs: No Hearing needs: Yes Vision needs: Yes Meds Allergies Allergy/AdvReac Type Severity Reaction Status Date / Time adhesive tape Allergy Intermediate BLISTERS Verified 08/28/24 11:25 Home Medications ?Medication ?Instructions ?Recorded ?Confirmed ?Last Taken ?Type mecobalamin (vitamin B12) 500 mcg mcg PO 11/01/22 07/31/24 Unknown History chewable tablet multivitamin 1 tab PO DAILY 08/26/23 07/31/24 Unknown History nebulizers 09/06/23 07/31/24 Unknown History loratadine 10 mg tablet (Claritin) 10 mg PO DAILY PRN 04/26/24 07/31/24 Unknown History biotin 2,500 mcg capsule 1,000 mcg PO DAILY 08/27/24 Unknown History bupropion HCl 300 mg 24 hr tablet, 300 mg PO QAM 08/27/24 Unknown History extended release vedolizumab 300 mg intravenous 300 mg IV Q8W 08/27/24 Unknown History solution (Entyvio) Exam Airway Mallampati Class: II TM Dist: >3cm Neck ROM: Full Denture: Upper and Lower Assessment and Plan Assessment Anesthesia Assessment: Anesthesia Plan Discussed Final Anesthetic Review NPO: Yes ASA Class: III Final Preanesthetic Review: No Changes in Pt Med Stat, Meds/Allgs Chart Reviewed, Consent Obtained/Reviewed and Anes Risks/Benef Reviewed Patient Risk: Intermediate Procedure Risk: Low Anesthetic Plan Anesthetic Plan: TIVA Disposition: Standard PACU
[2024-08-30 11:08] VITALS: BMI 25.0
[2024-08-30 11:10] VITALS: BP 151/79; PULSE 72; RESP 16; TEMP 36.4; O2SAT 98
[2024-08-30] MEDS: Lactated Ringers 1,000 ML 100 ML IVCONT (11:27)
--- NOTE | 2024-08-30 11:31 | MHC.SHP ---
Pre-Procedural Eval Section A - 24 Hr Update-Section A only Date of Service: 08/30/24 The patient is an INPATIENT: No The patient has been examined within 24 hours of the surgical procedure. The History & Physical has been completed within 30 days and I have reviewed it.: Yes Section B - Complete if H&P > 30 days Chief Complaint: Ulcerative (chronic) pancolitis,dysphagia Allergies: Allergies Allergy/AdvReac Type Severity Reaction Status Date / Time adhesive tape Allergy Intermediate BLISTERS Verified 08/28/24 11:25 Plan Diagnosis/Plan: Unchanged I have reviewed the history and physical and performed a pertinent physical examination on my patient. No changes have occurred unless specified. Time Spent With Patient Time: Total time managing care of this patient today ____ minutes.
--- NOTE | 2024-08-30 12:52 | P.OP_ITS ---
Operative Note Operative Note Date of Service: 08/30/24 Narrative: Procedure Description: EGD, sigmoidoscopy Indication: Dysphagia, and abn bowel habits Anesthesia: MAC FLEXIBLE TRANSORAL UPPER GASTROINTESTINAL ENDOSCOPY UPPER ENDOSCOPY Consent: Indications for the procedure and potential complications of bleeding, perforation, reaction to medications and missed diagnosis were discussed with the patient and informed consent was obtained. Instrument: Olympus GIF H 190 J mid size upper endoscope Monitoring: Vital signs and clinical assessment, continuous EKG monitoring, Pulse oximetry, Carbon Dioxide monitoring and blood pressure monitoring were done throughout the procedure. Procedure: The patient was placed in the left lateral decubitis position and pre-procedure medications were administered and a bite block was placed. The endoscope was inserted into the mouth and advanced under direct vision to the third part of duodenum. A careful inspection was made as the upper endoscope was withdrawn including a retroflexed examination of the proximal stomach; Findings and interventions are described below. Findings: Larynx:normal Esophagus: GE junction at 36 cm, diaphragm hiatus at 39 cm, compatible with 3 cm sliding hiatal hernia, balloon dilation done to 20 mm at UES and LES in sequential fashion with no tears seen. Some furrowing and ringing of esophagus noted with schatzki ring noted. There was 2 large esophageal inlet patches opposite to each other. One of these was injected with eleview and then ablated using APC. Stomach: nodular mucosa with erythema Grade 2 flap valve on retroflexed ex amination of the cardia. Duodenum: duodenitis with few erosions, bx taken Intervention: balloon dilation, APC with eleview injection for ablation and cold forceps bx Patient was then turned for sigmoidoscopy using the same scope as above. 6-8 mm sessile polyp removed with cold snare from decending colon. Moderate diverticulosis noted, random bx taken. one sessile polyp in rectum removed with cold forcepss small internal hemorrhoids noted Impression/Findings: Endoscopy Findings: hiatal hernia esophageal rings and stricture duodenitis esophageal inlet patch Sigmoidoscopy: diverticulosis polyps PLAN: await bx, can consider further ablation of inlet patch if needed in future GERD precautions
[2024-08-30 13:01] VITALS: BP 111/51; PULSE 57; RESP 23; TEMP 36.2; O2SAT 95
[2024-08-30 13:15] VITALS: BP 97/61; PULSE 51; RESP 20; O2SAT 98
[2024-08-30 13:30] VITALS: BP 111/63; PULSE 51; RESP 20; TEMP 36.6; O2SAT 98
== END 2024-08-30 13:53 | disposition home or self-care (01) ==
PROVIDERS: PCP Nurse Practitioner Family; Visit Provider Internal Medicine Gastroenterology
PROC: (CPT 43249; principal; 2024-08-30 12:30)
PROC: 0DJD8ZZ Inspection of Lower Intestinal Tract, Via Natural or Artificial Opening Endoscopic (ICD-10-PCS; CPT 45330; 2024-08-30 12:30)
DX: R13.10 Dysphagia, unspecified (principal); D12.4 Benign neoplasm of descending colon; K57.30 Diverticulosis of large intestine without perforation or abscess without bleeding; K29.60 Other gastritis without bleeding; K22.2 Esophageal obstruction; K26.9 Duodenal ulcer, unspecified as acute or chronic, without hemorrhage or perforation; Q39.8 Other congenital malformations of esophagus; K44.9 Diaphragmatic hernia without obstruction or gangrene; K51.00 Ulcerative (chronic) pancolitis without complications; K21.9 Gastro-esophageal reflux disease without esophagitis; Z80.0 Family history of malignant neoplasm of digestive organs; I10 Essential (primary) hypertension; E11.9 Type 2 diabetes mellitus without complications; Z91.81 History of falling
CPT/HCPCS: 43249; 43254; 45338; 45331; 88305; 88313; 88342; C1726; C1889; J2003; J2704

== ENCOUNTER → 2024-08-30 10:51 | Outpatient (BNV) | payer MEDICARE, SELFPAY | PROVIDERS: PCP Nurse Practitioner Family; Visit Provider Internal Medicine Gastroenterology | DX: R13.10 Dysphagia, unspecified (principal); K22.2 Esophageal obstruction; K29.80 Duodenitis without bleeding; R19.4 Change in bowel habit; D12.4 Benign neoplasm of descending colon; D12.8 Benign neoplasm of rectum; K57.30 Diverticulosis of large intestine without perforation or abscess without bleeding; K64.8 Other hemorrhoids | CPT/HCPCS: 43239; 43270; 45331; 45338 ==

== ENCOUNTER 2024-09-20 15:26 | Outpatient (AMB) | payer MEDICARE, SELFPAY ==
--- OUTSIDE RECORDS SUMMARY | 2024-09-20 15:29 | XMS_ITS | Clinical Summary ---
Author Organization [facility] Address [address] [place] [address] Care Team Providers Care Aluminum Welder Name Role Phone Sergei Burt EROS Primary Care Provider [phone] Surgical History Surgery Date Site/Laterality Comments CERVICAL LAMINECTOMY PROCEDURE: HISTORICAL CERV LAMINECTOMY; COMMENT: 08/04/20: C3-4, C4-5 decompressive laminectomy; R C6-7 foraminotomy (Dr. Sainz, [facility]) OTHER SURGICAL HISTORY PROCEDURE: [place] UNLISTED PROCEDURE SPINE; COMMENT: 06/06/18: R L2-3, R L3-4 minimally invasive decompression and foraminotomies (Dr. Gilliam, [facility]) OTHER SURGICAL HISTORY PROCEDURE: [place] LAPT RPR PARAESOPH HIATAL HERNIA W/MESH; COMMENT: 05/18/21: robotic lap paraesophageal hernia repair w/ mesh and gastropexy (Dr. 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
--- OUTSIDE RECORDS SUMMARY | 2024-09-20 15:29 | XMS_ITS | Clinical Summary ---
Author Organization [facility] Address [address] [place] [address] Phone Care Team Providers Care Farm Management Supervisor Name Role Phone Sergei Burt PARCEL CONTRACTOR Primary Care Provider [phone] Allergies Active Allergy Reactions Criticality Noted Date [...] Office Visit [facility] [address] [phone] Paddy Osullivan MD Stage 3a chronic kidney [...] Office Visit [facility] [address] [place] [phone] Paddy Osullivan MD [address] [phone] Health Maintenance Due Date Last Done Comments [...] 24 mg/dL Creatinine 1.48 mg/dL eGFR Non-Afr Maldivian 45 07/13/2024 us Historical Provider LAB BLOOD ORDERABLES Sharon l Result from Last 3 Months Insurance [facility] Care Teams Farm Management Supervisor Relationship Specialty Start Date End Date Sergei Burt NP [address] [place] [id number] PCP - General 02/25/20
[2024-09-20 15:37] VITALS: BP 120/76; PULSE 76; RESP 18; O2SAT 99; BMI 25.5
--- NOTE | 2024-09-20 15:37 | MHC.PC.OV ---
Vital Signs 09/20/24 15:37 Height 5 ft 6 in Weight 158 lb BMI 25.5 BP 120/76 Blood Pressure Location Lt brachial Position Sitting Respiration 18 Pulse 76 Pulse Oximetry (%) 99 Oxygen Delivery Method Room Air Intake Visit Reasons: follow up - per mary Sales Producer Required: No Accompanied by: Daughter Allergies adhesive tape Allergy (Intermediate, Verified 09/20/24 16:16) BLISTERS Medication List - Last Reconciled 09/20/24 by Mary Burt, [facility] albuterol sulfate 0.63 mg (3 mL) inhalation BID 30 days albuterol sulfate 90 mcg/actuation 2 puffs PO Q6H PRN biotin 1,000 mcg PO DAILY budesonide 0.5 mg (2 mL) inhalation BID bupropion HCl XL 300 mg PO QAM doxycycline hyclate 100 mg PO BID 14 days fluticasone propion-salmeterol 250-50 mcg/dose (Wixela Inhub) 1 inh inhalation Q12H 30 days fluticasone propionate 50 mcg/actuation 1 spray intranasal DAILY FreeStyle Bao 2 Wendel (flash glucose scanning reader) TID testing NS FreeStyle Bao 2 Sensor (flash glucose sensor) TID testing NS insulin glargine (Lantus Solostar U-100 Insulin) 10 units (0.1 mL) subcut QPM lancets (FreeStyle Lancets) BID Freestyle lancets all flex lansoprazole 30 mg PO DAILY loratadine (Claritin) 10 mg PO DAILY PRN mecobalamin (vitamin B12) mcg PO metformin 1,000 mg PO BID multivitamin 1 tab PO DAILY nebulizers As directed sertraline 50 mg PO DAILY simvastatin 40 mg PO BEDTIME trazodone 100 mg PO BEDTIME vedolizumab (Entyvio) 300 mg IV Q8W Tobacco use date assessed: 09/20/24 Fall risk assessment: No Falls in past year Last assessed Fall Risk: 09/20/24 Dental Screening Dental Screen Date: 03/21/24 Did you have a dental visit in the last 12 months?: No Did you have a dental problem in the last 6 months where you did not have access to dental care?: No Was dental information given to patient?: Patient has dentist HPI follow up - per mary HPI Details Chief Complaint The patient presents for follow-up of diabetes management. History of Present Illness The patient is an 84-year-old male presenting with a follow-up for diabetes management. His current hemoglobin A1c is 6.9%. He is currently on 10 units of insulin daily and 1000 mg of metformin twice daily, which is being adjusted to 1000 mg in the morning and 500 mg at night due to frequent diarrhea and potential nighttime hypoglycemia. The patient reports experiencing intermittent neuropathy, though sensation was intact upon examination with a monofilament test today. He also reports frequent diarrhea, which is being addressed by adjusting his metformin dosage. The patient wears hearing aids and reports a sensation of pressure, particularly on the right side of his ear. He uses fluticasone nasal spray intermittently and has been advised to use it consistently for two weeks to alleviate symptoms. Social History Health Maintenance Review of Systems - Endocrine: Reports diabetes management with current A1c of 6.9%. - Gastrointestinal: Reports frequent diarrhea. - Neurological: Reports intermittent neuropathy, sensation intact on exam. - Respiratory: Denies respiratory symptoms, lungs clear on exam. - ENT: Reports ear pressure, uses hearing aids. Physical Exam General: Cooperative, healthy appearing, comfortable, no acute distress and well developed Orientation: Patient oriented x3 Limitations: No limitations Head: Normal to inspection Ears: [place] (hearing aides), TMs intact bilat Nose: Normal external nose present Face and sinus: Normal facial exam Eyes: Appearance normal, both eyes and all related structures Neck: Normal visual inspection and Yes full ROM Respiratory: Normal respiratory effort and able to speak in complete sentences. Clear to auscultation bilaterally Cardiovascular: Regular rate and rhythm. Normal S1 and S2 GI: Normal to inspection. Soft to palpation and nontender, but patient reports frequent diarrhea Skin: No rashes or lesions noted Neuro: Patient oriented x3, reports intermittent neuropathy, positive sensation with use of monofilament on exam today to his feet Extremities: Normal to inspection, feet were intact bilat, + sensation with use of monofilament Results - Labs: Hemoglobin A1c is 6.9%. Plan The patient's diabetes management plan includes adjusting his metformin dosage to 1000 mg in the morning and 500 mg at night to address frequent diarrhea and potential nighttime hypoglycemia. If nighttime hypoglycemia persists, further reduction of metformin may be considered. For his ear pressure, the patient is advised to use fluticasone nasal spray consistently for two weeks to evaluate its effectiveness in alleviating symptoms (eustachian tube dysfunction) Discussion Notes During the visit, we discussed the management of the patient's diabetes, focusing on adjusting his metformin dosage to alleviate gastrointestinal symptoms and prevent nighttime hypoglycemia. We also addressed his ear pressure, recommending consistent use of fluticasone nasal spray for two weeks to assess improvement. Patient Instructions - Adjust metformin dosage to 1000 mg in the morning and 500 mg at night. - Use fluticasone nasal spray consistently for two weeks. [facility] Medical History Sinusitis Asthma-COPD overlap syndrome Chronic renal insufficiency HTN (hypertension) Diabetes Esophageal dysmotility History of fall Tubular adenoma of colon Left arm numbness Right arm numbness Rib fractures Fall Occipital neuralgia Attention deficit disorder (ADD) Hx of bronchitis Intrinsic sphincter deficiency (ISD) Esophageal ring, acquired GERD (gastroesophageal reflux disease) Depression Post herpetic neuralgia Surgical History Hx of bilateral cataract extraction Hx of blepharoplasty Hx of esophageal hernia repair Hx of neck surgery History of implantation of artificial sphincter (~11/2019) History of esophagogastroduodenoscopy (EGD) History of right inguinal hernia repair (~03/2010) History of cervical spinal surgery History of colonoscopy History of back surgery History of radical prostatectomy Family History Father No problems noted. Mother Hx of colon cancer, stage I Substance use disorder Brother Hx of colon cancer, stage III Family/Other Substance use disorder Social History Housing: House Are you a primary career and transition teacher to a significant other at home: No Do you presently have visiting nurse or other home services: No Alcohol intake: never Comment: 3 MONTHS AGO MULTIPLE FALLS Patient Tobacco Use Status: Never used Tobacco e-Cigarette/Vaping Use: Never Used Second Hand Smoke Exposure: No service: No Current occupational status: retired Cognitive needs: No Hearing needs: Yes Vision needs: Yes Questionnaire Thrive Questionnaire Date Thrive assessed: 07/31/24 I am a: Patient What is your living situation today?: I have a steady place to live Within the past 12 months, did the food you bought not last and you didn't have the money to get more?: I choose not to answer this question Within the past 12 months, did you worry whether your food would run out before you got money to buy more?: I choose not to answer this question Do you have trouble paying for medicines?: No Do you have trouble getting transportation to medical appointments?: No Do you have trouble paying your heating and electricity bill?: No Do you have trouble taking care of your child, family member or friend?: No Do you have trouble with day-to-day activities such as bathing, preparing meals, shopping, managing finances, etc.?: No Are you currently unemployed and looking for a job?: No Are you interested in more education?: No Please select the resources that you would like help with: None Currently or been in a relationship where the following occur: No concerns reported THRIVE Score: 0 AUDIT C Alcohol Use Questionnaire (AUDIT-C) 2. How many drinks containing alcohol do you have on a typical day when you are drinking?: 1 or 2 3. How often do you have six or more drinks on one occasion?: Never Total Score: 0 Score Reviewed/Action Taken: Yes LOCO-7 AMB Questionnaire LOCO-7 Date LOCO - 7 assessed: 09/20/24 Worrying too much about different things: 2 = More than half the days Trouble relaxin = Several days Being so restless that it is hard to sit still: 1 = Several days Becoming easily annoyed or irritable: 1 = Several days Feeling afraid as if something awful might happen: 1 = Several days Source: Developed by Drs. Ronan Bray, Tova Jesus, Kush Kelley and colleagues, with an educational eleazar from [employer]. Physical exam (Primary Care) Vital Signs: Last Vital Signs Pulse 76 09/20/24 15:37 Resp 18 09/20/24 15:37 BP 120/76 09/20/24 15:37 Pulse Ox 99 09/20/24 15:37 Oxygen Delivery Method Room Air 09/20/24 15:37 BMI result Body Mass Index 25.5 Tobacco/Smoking Status: Tobacco use Status Tobacco use date assessed 09/20/24 09/20/24 15:48 Patient Tobacco Use Status Never used Tobacco 09/20/24 15:39 e-Cigarette/Vaping Use Never Used 09/20/24 15:39 Thrive Assessment: Date of Thrive Assessment Date Thrive assessed 07/31/24 09/20/24 15:39 Currently or been in a relationship where the following occur: No concerns reported Results AMB Hemoglobin A1c AMB Hemoglobin A1c 6.9 % Last Edit by Nuha Grady MA on 09/20/24 16:40 Coding Level of Care Code Est Pt Level 3 (35654) Diagnoses Diabetes E11.9 Diarrhea R19.7 Eustachian tube dysfunction H69.90 Assessment & Plan Assessment & Plan (1) Diabetes: Code(s): E11.9 - Type 2 diabetes mellitus without complications Category: Medical (2) Diarrhea: Code(s): R19.7 - Diarrhea, unspecified Category: Medical (3) Eustachian tube dysfunction: Code(s): H69.90 - Unspecified Eustachian tube disorder, unspecified ear Category: Medical Plan . Orders: Orders AMB Hemoglobin A1c Today Z13.9 - Encounter for screening, unspecified Medications: New bupropion HCl XL (Wellbutrin XL) 150 mg PO QAM 30 tabs 2RF bupropion HCl XL (Wellbutrin XL) 150 mg PO QAM 30 tabs 2RF
== END 2024-09-20 16:42 | disposition home or self-care (01) ==
LOC: HO.HMCC 15:27
PROVIDERS: PCP Nurse Practitioner Family; Visit Provider Nurse Practitioner Family
DX: E11.9 Type 2 diabetes mellitus without complications (principal); R19.7 Diarrhea, unspecified; H69.90 Unspecified Eustachian tube disorder, unspecified ear; Z13.9 Encounter for screening, unspecified

== ENCOUNTER → 2024-09-20 15:26 | Outpatient (BNVA) | payer MEDICARE, SELFPAY | PROVIDERS: PCP Nurse Practitioner Family; Visit Provider Nurse Practitioner Family | DX: E11.40 Type 2 diabetes mellitus with diabetic neuropathy, unspecified (principal); R19.7 Diarrhea, unspecified; H69.91 Unspecified Eustachian tube disorder, right ear; Z79.4 Long term (current) use of insulin; Z79.84 Long term (current) use of oral hypoglycemic drugs | CPT/HCPCS: 83036; 96127; 99212 ==

== ENCOUNTER 2024-12-10 08:49 | Outpatient (REF) | payer MEDICARE, SELFPAY ==
--- OUTSIDE RECORDS SUMMARY | 2024-12-10 09:26 | XMS_ITS | Clinical Summary ---
Author Organization [facility] Address [address] [place] [address] Care Team Providers Care Intermediate Project Manager Name Role Phone Sergei Burt EROS Primary Care Provider [phone] Surgical History Surgery Date Site/Laterality Comments CERVICAL LAMINECTOMY PROCEDURE: HISTORICAL CERV LAMINECTOMY; COMMENT: 08/04/20: C3-4, C4-5 decompressive laminectomy; R C6-7 foraminotomy (Dr. Sainz, [facility]) OTHER SURGICAL HISTORY PROCEDURE: [place] UNLISTED PROCEDURE SPINE; COMMENT: 06/06/18: R L2-3, R L3-4 minimally invasive decompression and foraminotomies (Dr. 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
[2024-12-10 10:27] LABS: MANUAL DIFF FLAG NO
[2024-12-10 10:51] LABS: Hematocrit 37.2 % (42.0-52.0); Hemoglobin 11.7 g/dl (14.0-18.0); Imm Gran Abs Auto 0.01 X10*3/uL (0.00-0.03); Imm Gran Pct Auto 0.2 % (0.0-0.4); Lymphocytes Absolute Auto 2.1 X10*3/uL (1.2-4.9); Mean Corpuscular HGB Conc 31.5 g/dl (31.0-36.0); Mean Corpuscular Hemoglobin 29.6 pg (27.0-33.0); Mean Corpuscular Volume 94.2 fL (80.0-98.0); NRBC Abs Auto 0.000 X10*3/uL (0.0-0.012); NRBC Pct Auto 0.0 /100WBC (0.0-0.2); Platelet Count 289 X10*3/uL (160-400); Red Blood Count 3.95 X10*6/uL (4.60-5.80); White Blood Count 6.0 X10*3/uL (4.8-10.8)
[2024-12-10 10:53] LABS: Appearance Urine Clear; Glucose Urine UA Negative (Negative); PH 5.5 (5.0-9.0); Specific Gravity - Urine 1.010 (1.005-1.025)
[2024-12-10 11:11] LABS: Alanine Aminotransferase 30 U/L (0-40); Albumin Level 4.6 g/dL (3.5-5.0); Alkaline Phosphatase 43 U/L (39-117); Anion Gap 12 (12-20); Aspartate Amino Transferase 25 U/L (5-37); Blood Urea Nitrogen 22 mg/dL (9-16); Calcium 9.2 mg/dL (8.4-10.2); Carbon Dioxide 25 mmol/L (22-29); Chloride 108 mmol/L (96-108); Cholesterol 138 mg/dL (<200); Estimated Glomerular Filt Rate 35; HDL Cholesterol 59 mg/dL (>40); Potassium 4.4 mmol/L (3.3-5.1); Sodium 141 mmol/L (135-145); Total Protein 7.2 g/dL (6.5-8.0); Triglycerides 141 mg/dL (<150)
[2024-12-10 11:26] LABS: Folate 15.0 ng/mL (> or = 4.0); Vitamin B12 688 pg/mL (200-900)
== END 2024-12-10 08:50 | disposition home or self-care (01) ==
LOC: HO.HMGCLDS 08:49
PROVIDERS: PCP Nurse Practitioner Family; Visit Provider Nurse Practitioner Family
DX: E11.9 Type 2 diabetes mellitus without complications (principal); E53.8 Deficiency of other specified B group vitamins
CPT/HCPCS: 36415; 80053; 80061; 81003; 82607; 82746; 84443; 85025

== ENCOUNTER 2024-12-12 10:57 | Outpatient (AMB) | payer MEDICARE, SELFPAY ==
[2024-12-12 11:19] VITALS: BP 138/78; PULSE 68; RESP 16; TEMP 36.8; O2SAT 97; BMI 24.9
--- NOTE | 2024-12-12 11:19 | A.OFFPC_ITS ---
Vital Signs 12/12/24 11:19 Height 5 ft 6 in Weight 154 lb BMI 24.9 BP 138/78 Blood Pressure Location Lt brachial Position Sitting Respiration 16 Pulse 68 Pulse Source Pulse Oximeter Temp 98.2 F Temp Source Oral Pulse Oximetry (%) 97 Oxygen Delivery Method Room Air Intake Visit Reasons: Annual PE- see comment Head Of Housekeeping Required: No Accompanied by: Spouse Allergies adhesive tape Allergy (Intermediate, Verified 12/12/24 11:28) BLISTERS Tobacco use date assessed: 12/12/24 Fall risk assessment: No Falls in past year Last assessed Fall Risk: 12/12/24 Dental Screening Dental Screen Date: 12/12/24 Did you have a dental visit in the last 12 months?: Yes Did you have a dental problem in the last 6 months where you did not have access to dental care?: No Was dental information given to patient?: Patient has dentist HPI Annual PE- see comment HPI Details History of Present Illness The patient is an 84-year-old male presenting for a physical exam. He has a history of depression, which has increased since his son unexpectedly; however, he denies suicidal or homicidal ideation and does not want to see a therapist or psychiatrist. His medical history includes diabetes, with a last A1c of 6.9 in September and an average blood glucose of 114 on his meter. He also has a history of chronic kidney disease with elevated creatinine, slight normocytic anemia, and a recent B12 level of 688. Recent labs are reportedly stable, and his urine was clean. The patient is followed by specialists in gastroenterology, pulmonology, nephrology, urology, and ophthalmology on a regular basis. He spends a lot of time sitting in a chair watching TV or in front of a screen. fall over 2 weeks ago, hitting his right amish region. Reports seeing a light for a second . ? concussion symptoms. Fell while trying to put his pants on. denies any n/v, current dizziness, or visual disturbances. Health Maintenance The patient presents for a physical exam. He maintains regular follow-up with specialists including gastroenterology, pulmonology, nephrology, urology, and ophthalmology. He was encouraged to increase his physical activity to help with both his depression and eyesight. Social History - The patient's depression has increased following the recent and unexpected of his son. - He has a sedentary lifestyle, spending a lot of time in his chair watching TV or using a screen. Review of Systems - Cardiovascular: Denies chest pain. - Respiratory: Denies increased shortnes s of breath. - Gastrointestinal: Denies abdominal fabiola n, hematochezia. - Psychiatric: Reports some depression. Denies suicidal or homicidal ideation. Physical Exam General: Cooperative, healthy appearing, comfortable, no acute distress and well developed Orientation: Patient oriented x3 Limitations: No limitations Head: Normal to inspection Ears: Hearing grossly normal bilaterally. cerumen noted to right tm. after ear lavage, tm easily seen Nose: Normal external nose present Face and sinus: Normal facial exam Eyes: Appearance normal, both eyes and all related structures Neck: Normal visual inspection and Yes full ROM Respiratory: Normal respiratory effort and able to speak in complete sentences. Clear to auscultation bilaterally Cardiovascular: Regular rate and rhythm. Normal S1 and S2 GI: Normal to inspection. Soft to palpation and nontender Skin: No rashes or lesions noted Neuro: Patient oriented x3. cn2-12 intact Extremities: Normal to inspection Results - Labs: Recent labs were noted to be sta ble. - Labs: Slight normocytic anemia was not ed. - Labs: Creatinine is elevated. - Labs: B12 level was 688. - Labs: Last A1c in September was 6.9. - Labs: Average blood glucose on meter i s 114. - Tests and Diagnostics: Urine was clean . Plan 1. Depression The patient's depression has increased since the passing of his son. He denies suicidal or homicidal ideation and has declined referrals for a therapist or psychiatrist. A sedentary lifestyle has been noted to contribute to his depression, and he has been encouraged to increase his physical activity. 2. Chronic Kidney Disease The patient has a history of chronic kidney disease with elevated creatinine and is followed by nephrology. His recent labs appear stable, and he will continue to follow up with his application counselor. 3. Type 2 Diabetes Mellitus The patient's diabetes is well-controlled, with his last A1c at 6.9 and an average home glucose reading of 114. He has an eye doctor for routine monitoring. Continue current management and follow-up. 4. Normocytic Anemia A slight normocytic anemia was noted on recent, stable labs. No active intervention was discussed. 5. fall: ct scan ordered Discussion Notes I discussed with the patient that his depression has increased since his son's passing. I explained that spending a lot of time in his chair at home does not help his depression or his eyesight, and I encouraged him to be more active. Patient Instructions - We recommend that you get up and move around more. Spending a lot of time sitting can make your mood and your eyesight worse. - Continue to follow up with all of your regular specialist doctors. - Your blood sugar control is excellent. Please continue to monitor it at home. [facility] Medical History (Updated 12/12/24 @ 12:25 by CRISTINA Strong) Fall Sinusitis Asthma-COPD overlap syndrome Chronic renal insufficiency HTN (hypertension) Diabetes Esophageal dysmotility History of fall Tubular adenoma of colon Left arm numbness Right arm numbness Rib fractures Occipital neuralgia Attention deficit disorder (ADD) Hx of bronchitis Intrinsic sphincter deficiency (ISD) Esophageal ring, acquired GERD (gastroesophageal reflux disease) Depression Post herpetic neuralgia Surgical History Hx of bilateral cataract extraction Hx of blepharoplasty Hx of esophageal hernia repair Hx of neck surgery History of implantation of artificial sphincter (~11/2019) History of esophagogastroduodenoscopy (EGD) History of right inguinal hernia repair (~03/2010) History of cervical spinal surgery History of colonoscopy History of back surgery History of radical prostatectomy Family History Father No problems noted. Mother Hx of colon cancer, stage I Substance use disorder Brother Hx of colon cancer, stage III Family/Other Substance use disorder Social History Housing: House Are you a primary certified caregiver to a significant other at home: No Do you presently have visiting nurse or other home services: No Alcohol intake: never Comment: 3 MONTHS AGO MULTIPLE FALLS Patient Tobacco Use Status: Never used Tobacco e-Cigarette/Vaping Use: Never Used Second Hand Smoke Exposure: No service: No Current occupational status: retired Cognitive needs: No Hearing needs: Yes Vision needs: Yes Questionnaire PHQ-9 Over the last 2 weeks, how often have you been bothered by any of the following problems? 1. Little interest or pleasure in doing things: not at all 2. Feeling down, depressed, or hopeless: not at all 3. Trouble falling or staying asleep, or sleeping too much: not at all 4. Feeling tired or having little energy: not at all 5. Poor appetite or overeating: not at all 6. Feeling bad about yourself - or that you are a failure or have let yourself or your family down: not at all 7. Trouble concentrating on things, such as reading the newspaper or watching television: not at all 8. Moving or speaking so slowly that other people could have noticed. Or the opposite - being so fidgety or restless that you have been moving around a lot more than usual: not at all 9. Thoughts that you would be better off or of hurting yourself in some way: not at all Total score: 0 Depression Screening Interpretation: Negative Depression Screening Done: Yes 29645 - PHQ-9 Billing: Yes Source: Developed by Drs. Ronan Bray, Tova Jesus, Kush Kelley and colleagues, with an educational eleazar from [employer]. Thrive Questionnaire Date Thrive assessed: 07/31/24 I am a: Patient What is your living situation today?: I have a steady place to live Within the past 12 months, did the food you bought not last and you didn't have the money to get more?: I choose not to answer this question Within the past 12 months, did you worry whether your food would run out before you got money to buy more?: I choose not to answer this question Do you have trouble paying for medicines?: No Do you have trouble getting transportation to medical appointments?: No Do you have trouble paying your heating and electricity bill?: No Do you have trouble taking care of your child, family member or friend?: No Do you have trouble with day-to-day activities such as bathing, preparing meals, shopping, managing finances, etc.?: No Are you currently unemployed and looking for a job?: No Are you interested in more education?: No Please select the resources that you would like help with: None Currently or been in a relationship where the following occur: No concerns reported THRIVE Score: 0 LOCO-7 AMB Questionnaire LOCO-7 Date LOCO - 7 assessed: 12/12/24 Feeling nervous, anxious, or on edge: 0 = Not at all Not being able to stop or control worryin = Not at all Worrying too much about different things: 0 = Not at all Trouble relaxin = Not at all Being so restless that it is hard to sit still: 0 = Not at all Becoming easily annoyed or irritable: 0 = Not at all Feeling afraid as if something awful might happen: 0 = Not at all Total LOCO-7 score (0-4 normal; 5-9 mild; 10-14 moderate; 15-21 severe): 0 Source: Developed by Drs. Ronan Bray, Tova Jesus, Kush Kelley and colleagues, with an educational eleazar from [employer]. LOCO-7 Assessment Billing LOCO-7 Assessment Tool: LOCO-7 Assessment 24185 Physical exam (Primary Care) Vital Signs: Last Vital Signs Temp 98.2 F 12/12/24 11:19 Pulse 68 12/12/24 11:19 Resp 16 12/12/24 11:19 BP 138/78 12/12/24 11:19 Pulse Ox 97 12/12/24 11:19 Oxygen Delivery Method Room Air 12/12/24 11:19 BMI result Body Mass Index 24.9 Tobacco/Smoking Status: Tobacco use Status Tobacco use date assessed 12/12/24 12/12/24 11:29 Patient Tobacco Use Status Never used Tobacco 12/12/24 11:27 e-Cigarette/Vaping Use Never Used 12/12/24 11:27 PHQ-9: PHQ-9 Score PHQ-9: Total score 0 12/12/24 11:29 Depression Screening Interpretation: Negative Thrive Assessment: Date of Thrive Assessment Date Thrive assessed 07/31/24 12/12/24 11:27 Currently or been in a relationship where the following occur: No concerns reported Office Procedures Cerumen Removal From which ear canal was the cerumen removed: right Removal: irrigation Notes: patient tolerated procedure well, no complications and ear canal clear [id number] Irrigation/Lavage Coding Level of Care Code Est Pt Level 3 (37869) Est Pt Prev Care >65y(09657) Diagnoses Fall W19.XXXA Kidney disease N28.9 Diabetes E11.9 Encounter for routine adult physical exam with abnormal findings Z00.01 Cerumen debris on tympanic membrane H61.20 CPT Codes Office Procedure - CPT: 45523-Sdq Irrigation/Lavage ([id number]) Additional Codes LOCO-7 Assessment Billing - LOCO-7 Assessment Tool: LOCO-7 Assessment 59951 ([id number]) PHQ-9 - 78551 - PHQ-9 Billing: Yes ([id number]) Assessment & Plan Assessment & Plan (1) Fall: Code(s): W19.XXXA - Unspecified fall, initial encounter Category: Medical (2) Kidney disease: Code(s): N28.9 - Disorder of kidney and ureter, unspecified Category: Medical (3) Diabetes: Code(s): E11.9 - Type 2 diabetes mellitus without complications Category: Medical (4) Encounter for routine adult physical exam with abnormal findings: Code(s): Z00.01 - Encounter for general adult medical examination with abnormal findings Category: Medical (5) Cerumen debris on tympanic membrane: Code(s): H61.20 - Impacted cerumen, unspecified ear Category: Medical Plan . Orders: Orders CT head/brain wo IV con Today W19.XXXA - Unspecified fall, initial encounter
--- OUTSIDE RECORDS SUMMARY | 2024-12-12 13:53 | XMS_ITS | Clinical Summary ---
Author Organization [facility] [place] Address [address] [place] [address] Care Team Providers Care Driver License Reviewing Officer Name Role Phone Sergei Burt EROS Primary Care Provider Surgical History Surgery Date Site/Laterality Comments CERVICAL LAMINECTOMY PROCEDURE: HISTORICAL CERV LAMINECTOMY; COMMENT: 08/04/20: C3-4, C4-5 decompressive laminectomy; R C6-7 foraminotomy (Dr. Sainz, [facility]) OTHER SURGICAL HISTORY PROCEDURE: [place] UNLISTED PROCEDURE SPINE; COMMENT: 06/06/18: R L2-3, R L3-4 minimally invasive decompression and foraminotomies (Dr. Gilliam, [facility]) OTHER SURGICAL HISTORY PROCEDURE: [place] LAPT RPR PARAESOPH HIATAL HERNIA W/MESH; COMMENT: 05/18/21: robotic lap paraesophageal hernia repair w/ mesh and gastropexy (Dr. Kent, [facility]) Medical History Medical History Date [...] Documents on File Type Date Recorded Patient Applications Support Lead Expl anation Health Care Decision (hx) 08/06/2020 KENZIE JONES DIRECTIVE Care Teams Driver License Reviewing Officer Relationship Specialty Start Date End Date Sergei Burt NP [address] [facility] JERICA Lance PCP - General Family Medicine 4/9/19
--- OUTSIDE RECORDS SUMMARY | 2024-12-12 13:53 | XMS_ITS | Clinical Summary ---
Author Organization [facility] Address [address] [facility] [address] [place] [address] Phone Care Team Providers Care Orchestrator Name Role Phone Sergei Burt MANNEQUIN SANDER AND FINISHER Primary Care Provider [phone] Allergies Active Allergy Reactions Criticality Noted Date [...] Type 2 diabetes mellitus without complication 06/18/1906/17/2022 Immunizations Immunization Administration Dates Next Due Pneumococcal [...] Office Visit [facility] [address] [address] Paddy Osullivan MD [address] [phone] Health Maintenance Due Date Last Done Comments [...] patient's age to complete this topic Insurance [facility] [place] [address] Health Care Teams Orchestrator Relationship Specialty Start Date End Date Sergei Burt NP [facility] [address] PCP - General 02/25/20
== END 2024-12-12 12:36 | disposition home or self-care (01) ==
LOC: HO.HMCC 10:58
PROVIDERS: PCP Nurse Practitioner Family; Visit Provider Nurse Practitioner Family
DX: Z00.01 Encounter for general adult medical examination with abnormal findings (principal); E11.21 Type 2 diabetes mellitus with diabetic nephropathy; H61.21 Impacted cerumen, right ear; W19.XXXA Unspecified fall, initial encounter; N28.9 Disorder of kidney and ureter, unspecified

== ENCOUNTER → 2024-12-12 10:57 | Outpatient (BNVA) | payer MEDICARE, SELFPAY | PROVIDERS: PCP Nurse Practitioner Family; Visit Provider Nurse Practitioner Family | DX: Z00.01 Encounter for general adult medical examination with abnormal findings (principal); E11.22 Type 2 diabetes mellitus with diabetic chronic kidney disease; N18.9 Chronic kidney disease, unspecified; F32.A Depression, unspecified; D63.1 Anemia in chronic kidney disease; H61.21 Impacted cerumen, right ear; Z91.81 History of falling | CPT/HCPCS: 69209; 96127; 99212; 99397 ==

== ENCOUNTER 2025-01-21 14:22 | Outpatient (AMB) | payer MEDICARE, SELFPAY ==
--- NOTE | 2025-01-21 14:29 | MHC.OFFVIS ---
Vital Signs 01/21/25 14:33 Height 5 ft 6 in Weight 152 lb 1.903 oz BMI 24.5 BP 144/71 H Blood Pressure Location Lt brachial Position Sitting Pulse 79 Intake Visit Reasons: 4 mo Intake Note: Sergei presents in the office as a 4 month follow up. CC: same issues with diarrhea and swallowing. States he is no longer taking Entyvio due to the reed. Welding Production Supervisor Required: No Allergies adhesive tape Allergy (Intermediate, Verified 01/21/25 14:33) BLISTERS HPI HPI 4 mo: Details: 84 yr old m with DM, prostate cancer 2004 here for f/u RECAP: He had EGD for dysphagia with dilation of stricture 01/2020 I then repeated the EGD 10/2020-- noted hiatal hernia 4 cm, jack erosion, balloon dilation 20 mm with tears noted at [facility] EGD/colonoscopy 01/2021: tubulovillous adenoma removed, chronci duodenitis, schatzki ring, hiatal hernia, retained clip removed--balloon dilation 18-19 mm He was referred to Dr Kent and had para esophageal hernia repair with mesh and gastropexy 05/2021- he also required esophgeal dilation few months after that repeat EGD/colo:03/2022 Endoscopy Findings: hiatal hernia esophageal rings and stricture duodenitis Colonoscopy Findings: polyp internal hemorrhoids diverticular disease segmental colitis balloon dilation with tear noted Path: A. Duodenum, biopsy: Duodenal mucosa within normal limits. B. Stomach, biopsy: Oxyntic mucosa with mild chronic inactive inflammation; no Helicobacter organisms seen. C. Terminal ileum, biopsy: Terminal ileal mucosa within normal limits. D. Colon, random, biopsy: Colonic mucosa with features of microscopic colitis. E. Colon, ascending, polypectomy: Clinically polypoid colonic mucosa with prolapse changes and features of microscopic colitis. F. Colon, sigmoid, biopsy: Colonic mucosa with features of collagenous colitis. G. Rectum, biopsy: Colonic mucosa with features of microscopic colitis. He was tried on mesalamine, pepto was initially suggested but due to interactions went with the mesalamine GI stool panel was neg lactoferrin was raised c diff sample was invalid EGD: 08/07 hiatal hernia esophageal rings and stricture duodenitis esophageal inlet patch I ordered CT brain due to swallowing, showed chronic ischemic changes and mastoiditis, was give doxycycline EGD?Sigmoidoscopy: TA removed balloon dilation APC to inlet patch, but another one was left untouched INTERIM: he has ongoing choking and loose stools, but dilation did help for at least 1 month, also he has issues with dentures and main issue is with red meats he has ongoing diarrhea, entyvio has not helped, welchol and budesonide did not help no blood in stools he is still on PPI and sertraline, metformin EXAM: GENERAL: The patient is well developed and nontoxic. VITAL SIGNS:see workflow HEENT: Nonicteric sclerae, PERRLA, EOMI. Oropharynx clear. Moist mucous membranes. Conjunctivae appear well perfused. No thyroid mass. CHEST: Chest wall is nontender. HEART: Regular rate and rhythm without murmurs. LUNGS: lungs are clear --good a/e ABDOMEN: Soft, positive bowel sounds, nontender, no organomegaly.no flank tenderness SKIN: No rash, no excessive bruising, petechiae, or purpura. 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, causing his diarrhea--not helped by budesonide or mesalamine, on entyvio as well but no help 2/ swallowing issues, since surgery--prior dilation did help- also has inlet patch and HH--he has issues with dentures but fel dilation did help for at least 1 month and would like this again 3/ TA on sigmoidoscopy PLAN: 1/ colonoscopy due to polyp on sigmoidoscopy 2/ repeat EGD with ablation of patch and dilation as dialtion did help but use savary next time 3/ change to metformin ER if ongoing sx then stop PPI, then maybe sertraline thereafter [facility] Medical History Fall Sinusitis Asthma-COPD overlap syndrome Chronic renal insufficiency HTN (hypertension) Diabetes Esophageal dysmotility History of fall Tubular adenoma of colon Left arm numbness Right arm numbness Rib fractures Occipital neuralgia Attention deficit disorder (ADD) Hx of bronchitis Intrinsic sphincter deficiency (ISD) Esophageal ring, acquired GERD (gastroesophageal reflux disease) Depression Post herpetic neuralgia Surgical History Hx of bilateral cataract extraction Hx of blepharoplasty Hx of esophageal hernia repair Hx of neck surgery History of implantation of artificial sphincter (~11/2019) History of esophagogastroduodenoscopy (EGD) History of right inguinal hernia repair (~03/2010) History of cervical spinal surgery History of colonoscopy History of back surgery History of radical prostatectomy Family History Father No problems noted. Mother Hx of colon cancer, stage I Substance use disorder Brother Hx of colon cancer, stage III Family/Other Substance use disorder Social History Housing: House Are you a primary child care education coordinator to a significant other at home: No Do you presently have visiting nurse or other home services: No Alcohol intake: never Comment: 3 MONTHS AGO MULTIPLE FALLS Patient Tobacco Use Status: Never used Tobacco e-Cigarette/Vaping Use: Never Used Second Hand Smoke Exposure: No service: No Current occupational status: retired Cognitive needs: No Hearing needs: Yes Vision needs: Yes Physical Exam Vital Signs: Last Vital Signs Pulse 79 01/21/25 14:33 BP 144/71 H 01/21/25 14:33 BMI result Body Mass Index 24.5 Assessment & Plan Assessment & Plan (1) Dysphagia: Code(s): R13.10 - Dysphagia, unspecified Category: Medical Qualifiers: Dysphagia type: other dysphagia Qualified Code(s): R13.19 - Other dysphagia Plan: as above (2) Microscopic colitis: Code(s): K52.839 - Microscopic colitis, unspecified Category: Medical Plan: as above Orders: Referrals GI Procedure Notification K52.839 - Microscopic colitis, unspecified, R13.19 - Other dysphagia Medications: New metformin ER 750 mg PO DAILY 30 tabs 1RF sodium,potassium,mag sulfates 17.5-3.13-1.6 gram (Suprep Bowel Prep Kit) DILUTE; drink 1/2 at 6-8 pm and half at 11 PM- 1AM 354 mL 0RF Discontinued metformin Discontinued Reason: Doctor's Order 1,000 mg PO BID 180 tabs 1RF Coding Level of Care Code Est Pt Level 4 (82689) Diagnoses Other dysphagia R13.19 Dysphagia type: other dysphagia Microscopic colitis K52.839
[2025-01-21 14:33] VITALS: BP 144/71; PULSE 79; BMI 24.5
--- OUTSIDE RECORDS SUMMARY | 2025-01-21 23:17 | XMS_ITS | Clinical Summary ---
[facility] Organization [facility] Address [address] [place] [id number] Care Team Providers Care Airline Security Representative Name Role Phone Sergei Burt EROS Primary Care Provider Surgical History Surgery Date Site/Laterality Comments CERVICAL LAMINECTOMY PROCEDURE: HISTORICAL CERV LAMINECTOMY; COMMENT: 08/04/20: C3-4, C4-5 decompressive laminectomy; R C6-7 foraminotomy (Dr. Sainz, [facility]) OTHER SURGICAL HISTORY PROCEDURE: [place] UNLISTED PROCEDURE SPINE; COMMENT: 06/06/18: R L2-3, R L3-4 minimally invasive decompression and foraminotomies (Dr. Gilliam, [facility]) OTHER SURGICAL HISTORY PROCEDURE: [place] LAPT RPR PARAESOPH HIATAL HERNIA W/MESH; COMMENT: 05/18/21: robotic lap paraesophageal hernia repair w/ mesh and gastropexy (Dr. Kent, [facility]) Medical History Medical History Date [...] Depression Screening 02/15/2024 COVID-19 Vaccine (1 - 2024-2 6 season) 2024 Influenza Vaccine (#1) 2024 HIB [...] Documents on File Type Date Recorded Patient Airline Security Representative Expl anation Health Care Decision (hx) 08/06/2020 KENZIE JONES DIRECTIVE Care Teams Airline Security Representative Relationship Specialty Start Date End Date Sergei Burt NP [address] [facility] JERICA Lance PCP - General Family Medicine 05/23/18
== END 2025-01-21 15:06 | disposition home or self-care (01) ==
LOC: HO.HGI 14:22
PROVIDERS: PCP Nurse Practitioner Family; Visit Provider Internal Medicine Gastroenterology
DX: R13.19 Other dysphagia (principal); K52.839 Microscopic colitis, unspecified
CPT/HCPCS: 99214

== ENCOUNTER → 2025-01-21 14:22 | Outpatient (BNVA) | payer MEDICARE, SELFPAY | PROVIDERS: PCP Nurse Practitioner Family; Visit Provider Internal Medicine Gastroenterology | DX: R13.19 Other dysphagia (principal); K52.839 Microscopic colitis, unspecified | CPT/HCPCS: 99212 ==

== ENCOUNTER 2025-01-31 12:48 | Outpatient (REF) | payer MEDICARE, SELFPAY ==
--- NOTE | ~2025-01-31 | CT_ITS ---
EXAMINATION: CT HEAD WITHOUT CONTRAST CLINICAL INFORMATION: W19.XXXA - Unspecified fall, initial encounter COMPARISON: CT of the head on May 03, 2023 TECHNIQUE: Contiguous axial imaging was performed from the skull base to vertex without intravenous administration of contrast. This CT examination was performed using dose optimization techniques as appropriate, variously including the following: *Automated exposure control *Adjustment of mA and/or kV according to patient size (this includes techniques or standardized protocols for targeted exams where dose is matched to indication/reason for exam; i.e. extremities or head) *Use of iterative reconstruction technique FINDINGS: Brain parenchyma: Patchy and confluent hypodensity in the bilateral cerebral hemispheres likely represents chronic small vessel ischemic changes. No shift of midline structures. No evidence of acute territorial infarct, parenchymal hemorrhage or mass effect. Ventricles/extra-axial spaces: Generalized prominence of the ventricles and extra-axial CSF spaces likely representing age appropriate brain volume loss. No hydrocephalus. No extra-axial fluid collection. Skull/Extracranial structures: Mildly depressed comminuted fracture of the right zygomatic arch, without overlying soft tissue edema, but new from 2023. No depressed calvarial fractures. Mild mucosal thickening of the maxillary sinuses. Near complete opacification of bilateral mastoid air cells and middle ear cavities, suggestive of chronic otomastoiditis. Prominent calcifications of the intracranial internal carotid arteries. CT/CT head/brain wo IV con IMPRESSION: 1. No acute intracranial pathology. 2. Mildly depressed fracture of the right zygomatic arch, without overlying soft tissue edema, likely chronic, but new from 2023. 3. Chronic bilateral otomastoiditis. Electronically signed by: Alberto Knapp MD 01/31/2025 02:08 PM [facility]
--- OUTSIDE RECORDS SUMMARY | 2025-01-31 16:39 | XMS_ITS | Clinical Summary ---
[facility] Organization [facility] Address [address] [place] [address] Care Team Providers Care Planer Offbearer Name Role Phone Sergei Burt EROS Primary Care Provider Surgical History Surgery Date Site/Laterality Comments CERVICAL LAMINECTOMY PROCEDURE: HISTORICAL CERV LAMINECTOMY; COMMENT: 08/04/20: C3-4, C4-5 decompressive laminectomy; R C6-7 foraminotomy (Dr. Sainz, [facility]) OTHER SURGICAL HISTORY PROCEDURE: [place] UNLISTED PROCEDURE SPINE; COMMENT: 06/06/18: R L2-3, R L3-4 minimally invasive decompression and foraminotomies (Dr. Gilliam, [facility]) OTHER SURGICAL HISTORY PROCEDURE: [place] LAPT RPR PARAESOPH HIATAL HERNIA W/MESH; COMMENT: 05/18/21: robotic lap paraesophageal hernia repair w/ mesh and gastropexy (Dr. Kent, [facility]) Medical History Medical History Date Comments Type [...] Documents on File Type Date Recorded Patient White Shoe Examiner Expl anation Health Care Decision (hx) 08/06/2020 KENZIE JONES DIRECTIVE Care Teams Planer Offbearer Relationship Specialty Start Date End Date Sergei Burt NP [address] [facility] JERICA Lance PCP - General Family Medicine 05/23/18
--- OUTSIDE RECORDS SUMMARY | 2025-01-31 16:39 | XMS_ITS | Clinical Summary ---
Author Organization [facility] Address [address] [place] [address] Phone Care Team Providers Care Wrapper Sorter Name Role Phone Sergei Burt WARDROBE ASSISTANT Primary Care Provider [phone] Allergies Active Allergy Reactions Criticality Noted Date [...] Care Team (Late st Contact Info) Description 02/21/2025 Orders Only [facility] [address] [phone] Paddy Osullivan MD [facility] [address] [phone] Stage 3a chronic kidney disease (HCC); Hypertensive renal disease; Type 2 diabetes mellitus with diabetic chronic kidney disease (HCC) 04/15/2025 1:30 PM EST Office Visit [facility] [address] [phone] Paddy Osullivan MD [address] [phone] Health Maintenance Due Date Last Done Comments [...] to complete this topic Insurance Care Teams Wrapper Sorter Relationship Specialty Start Date End Date Sergei Burt NP [address] [place] [address] PCP - General 02/25/20
== END 2025-01-31 12:49 | disposition home or self-care (01) ==
LOC: HO.CT 12:48
PROVIDERS: PCP Nurse Practitioner Family; Visit Provider Nurse Practitioner Family
DX: H70.13 Chronic mastoiditis, bilateral (principal); W19.XXXA Unspecified fall, initial encounter
CPT/HCPCS: 70450

== ENCOUNTER → 2025-01-31 12:50 | Outpatient (BNV) | payer MEDICARE, SELFPAY | PROVIDERS: PCP Nurse Practitioner Family; Visit Provider Radiology Body Imaging | DX: S02.40EA Zygomatic fracture, right side, initial encounter for closed fracture (principal); H70.13 Chronic mastoiditis, bilateral; Z04.3 Encounter for examination and observation following other accident | CPT/HCPCS: 70450 ==